=== PATIENT | female | born 1945 | race American Indian/Alaskan Native ===

== ENCOUNTER 2021-03-11 13:05 | Inpatient (IN) | payer MEDICARE ==
[2021-03-11 15:11] LABS: Calcium 8.7 mg/dL (8.4-10.2)
[2021-03-11 15:16] LABS: Hematocrit 31.5 % (30.3-42.9); Hemoglobin 10.7 gm/dl (10.1-14.3); Mean Corpuscular HGB Conc 34 % (30-34); Mean Corpuscular Volume 94 fl (79-97); Platelet Count 217 K/mm3 (140-440); Red Blood Count 3.36 M/mm3 (3.65-5.03); Red Cell Distribution Width 14.2 % (13.2-15.2)
[2021-03-11] MEDS ORDERED: SODIUM CHLORIDE 0.9% 1000 ML 1,000 ML IV ONE (15:17)
--- NOTE | 2021-03-11 15:20 | Emergency Department Report ---
ED General Adult HPI - General Chief complaint: Medical Clearance Stated complaint: DEHYDRATION Time Seen by Provider: 03/11/21 13:30 Source: patient, EMS Mode of arrival: Stretcher Limitations: Altered Mental Status - History of Present Illness Initial comments: 76-year-old female, history of dementia, COPD, hypertension, presents to the ED from personal senior care for dehydration and generalized weakness. Patient has apparently had a poor appetite, not eating. Patient had one episode of diarrhea this morning. She denies any nausea or vomiting, denies abdominal pain. Patient had blood pressure of 81/93, therefore she was sent to the ED for further evaluation. -: This morning Consistency: constant Improves with: none Worsens with: none Associated Symptoms: loss of appetite, weakness. denies: chest pain, cough, fev er/chills, nausea/vomiting, shortness of breath - Related Data Home Medications Medication Instructions Recorded Confirmed Last Taken Unobtainable 03/12/21 03/12/21 Unknown Allergies Allergy/AdvReac Type Severity Reaction Status Date / Time Penicillins Allergy Unknown Verified 03/11/21 20:02 ED Review of Systems ROS: Stated complaint: DEHYDRATION Other details as noted in HPI Comment: All other systems reviewed and negative Constitutional: denies: fever Respiratory: denies: shortness of breath Cardiovascular: denies: chest pain Gastrointestinal: diarrhea. denies: abdominal pain, vomiting ED Past Medical Hx - Past Medical History Previous Medical History?: Yes Hx Hypertension: Yes Hx COPD: Yes Hx Dementia: Yes - Medications Home Medications: Home Medications Medication Instructions Recorded Confirmed Last Taken Type Unobtainable 03/12/21 03/12/21 Unknown History ED Physical Exam - General Limitations: Altered Mental Status General appearance: alert, in no apparent distress - Head Head exam: Present: atraumatic, normocephalic - Eye Eye exam: Present: normal appearance, EOMI - ENT ENT exam: Present: mucous membranes moist - Neck Neck exam: Present: normal inspection - Respiratory Respiratory exam: Present: normal lung sounds bilaterally. Absent: respiratory distress - Cardiovascular Cardiovascular Exam: Present: regular rate, normal rhythm - GI/Abdominal GI/Abdominal exam: Present: soft. Absent: distended, tenderness - Extremities Exam Extremities exam: Present: normal inspection - Neurological Exam Neurological exam: Present: alert. Absent: altered - Psychiatric Psychiatric exam: Present: normal affect, normal mood - Skin Skin exam: Present: warm, dry, intact, normal color ED Course Vital Signs 03/11/21 03/11/21 03/11/21 13:18 15:34 16:16 Temperature 97.4 F L Pulse Rate 86 89 Respiratory 16 22 Rate Blood Pressure Blood Pressure 121/64 [Right] O2 Sat by Pulse 98 97 96 Oximetry 03/11/21 03/11/21 03/11/21 16:30 16:46 17:16 Temperature Pulse Rate 87 87 81 Respiratory 19 20 19 Rate Blood Pressure 136/71 134/64 Blood Pressure [Right] O2 Sat by Pulse 97 98 99 Oximetry 03/11/21 03/11/21 03/11/21 17:30 17:46 18:00 Temperature Pulse Rate 90 88 89 Respiratory 18 22 18 Rate Blood Pressure 133/72 136/75 134/64 Blood Pressure [Right] O2 Sat by Pulse 100 99 Oximetry 03/11/21 03/11/21 03/11/21 18:46 19:00 19:16 Temperature Pulse Rate 83 88 90 Respiratory Rate Blood Pressure 132/70 147/92 147/92 Blood Pressure [Right] O2 Sat by Pulse 97 97 96 Oximetry 03/11/21 03/11/21 03/11/21 19:30 19:46 20:00 Temperature Pulse Rate 89 85 87 Respiratory Rate Blood Pressure 147/92 147/92 147/92 Blood Pressure [Right] O2 Sat by Pulse 96 96 95 Oximetry 03/11/21 03/11/21 03/11/21 20:16 20:30 20:46 Temperature Pulse Rate 94 H 86 96 H Respiratory Rate Blood Pressure 147/92 147/92 147/92 Blood Pressure [Right] O2 Sat by Pulse 97 98 98 Oximetry 03/11/21 03/11/21 03/11/21 21:00 21:16 21:30 Temperature Pulse Rate 89 91 H 94 H Respiratory 20 Rate Blood Pressure 152/51 152/51 152/51 Blood Pressure [Right] O2 Sat by Pulse 97 98 97 Oximetry 03/11/21 03/11/21 03/11/21 21:46 22:00 22:16 Temperature Pulse Rate 89 88 76 Respiratory Rate Blood Pressure 152/51 151/58 151/58 Blood Pressure [Right] O2 Sat by Pulse 97 94 98 Oximetry 03/11/21 03/11/21 03/11/21 22:30 22:46 23:00 Temperature Pulse Rate 81 91 H 79 Respiratory Rate Blood Pressure 151/58 151/58 144/71 Blood Pressure [Right] O2 Sat by Pulse 98 97 96 Oximetry 03/11/21 03/11/21 03/11/21 23:16 23:30 23:46 Temperature Pulse Rate 86 92 H 77 Respiratory Rate Blood Pressure 144/71 144/71 144/71 Blood Pressure [Right] O2 Sat by Pulse 97 96 96 Oximetry 03/11/21 03/12/21 03/12/21 23:52 00:00 00:16 Temperature Pulse Rate 84 91 H 92 H Respiratory Rate Blood Pressure 144/71 157/78 157/78 Blood Pressure [Right] O2 Sat by Pulse 99 99 98 Oximetry 03/12/21 03/12/21 03/12/21 00:30 00:39 00:46 Temperature Pulse Rate 88 99 H Respiratory Rate Blood Pressure 157/78 157/78 Blood Pressure [Right] O2 Sat by Pulse 98 97 98 Oximetry 03/12/21 03/12/21 03/12/21 01:00 01:16 01:30 Temperature Pulse Rate 103 H 85 86 Respiratory Rate Blood Pressure 121/86 121/86 121/86 Blood Pressure [Right] O2 Sat by Pulse 99 98 99 Oximetry 03/12/21 03/12/21 03/12/21 01:46 02:00 02:16 Temperature Pulse Rate 95 H 77 93 H Respiratory Rate Blood Pressure 121/86 177/85 121/86 Blood Pressure [Right] O2 Sat by Pulse 99 96 98 Oximetry 03/12/21 03/12/21 03/12/21 02:30 02:46 03:00 Temperature Pulse Rate 91 H 81 78 Respiratory Rate Blood Pressure 121/86 121/86 122/95 Blood Pressure [Right] O2 Sat by Pulse 97 96 96 Oximetry 03/12/21 03/12/21 03/12/21 03:16 03:30 03:46 Temperature Pulse Rate 93 H 101 H 103 H Respiratory Rate Blood Pressure 177/85 177/85 177/85 Blood Pressure [Right] O2 Sat by Pulse 98 96 97 Oximetry 03/12/21 03/12/21 04:00 04:16 Temperature Pulse Rate 90 97 H Respiratory Rate Blood Pressure 179/80 122/95 Blood Pressure [Right] O2 Sat by Pulse 99 97 Oximetry ED Medical Decision Making - Lab Data Result diagrams: 03/12/21 06:26 03/12/21 06:26 Critical care attestation.: If time is entered above; I have spent that time in minutes in the direct care of this critically ill patient, excluding procedure time. ED Disposition Clinical Impression: Hyponatremia, Acute renal failure, Dehydration, Metabolic acidosis Disposition: OP ADMIT IP TO THIS HOSP Is pt being admited?: Yes Condition: Stable Time of Disposition: 16:05
[2021-03-11 15:41] LABS: Basophils % (Auto) 0.3 % (0.0-1.8); Eosinophils % (Auto) 0.2 % (0.0-4.3); Lymphocytes # (Auto) 1.3 K/mm3 (1.2-5.4); Lymphocytes % (Auto) 13.4 % (13.4-35.0); Monocytes % (Auto) 9.5 % (0.0-7.3)
[2021-03-11] MEDS ORDERED: METOCLOPRAMIDE 10 MG/2 ML INJ IV PRN ×2 (23:25→23:45)
[2021-03-11] MEDS ORDERED: MORPHINE 2 MG/1 ML INJ IV PRN (23:25)
[2021-03-11] MEDS ORDERED: ONDANSETRON 4 MG/2 ML INJ IV PRN (23:25)
--- NOTE | 2021-03-11 23:32 | History and Physical Report ---
History of Present Illness Date of examination: 03/11/21 Date of admission: 03/11/21 16:05 Chief complaint: Poor p.o. intake History of present illness: 76-year-old female with history of hypertension, COPD and dementia brought in for poor p.o. intake and low blood pressure. Apparently patient has not been urinating at all. Denies any nausea or vomiting. Denies abdominal pain. Initial blood pressure was 81/ 63. No fever or chills. No exposure to coronavirus. No known cause for poor p.o. intake. - Past Medical History Previous Medical History?: Yes --Hypertension: Yes --COPD: Yes --Dementia: Yes n Past surgical history+ unavailable Family history Htn Social history Does not smoke Review of Systems ROS: Constitutional poor p.o. intake HEENT no sore throat no post nasal drip no diplopia Neck no neck stiffness no lymph gland enlargement Chest and lungs no shortness of breath cough or wheezing CVS no chest pain no diaphoresis no palpitations GI no nausea no vomiting no diarrhea Genitourinary system no dysuria no flank pain Musculoskeletal system no muscle pains no joint pains [employer] no syncope no seizures Skin no rash no itching Psychiatric no depression no homicidal or suicidal tendencies Hematologic no lymphedema or bruising Endocrine no polydipsia no polyuria no cold intolerance no heat intolerance Medications and Allergies Allergies Allergy/AdvReac Type Severity Reaction Status Date / Time Penicillins Allergy Unknown Verified 03/11/21 20:02 Home Medications Medication Instructions Recorded Confirmed Last Taken Type Unobtainable 03/12/21 03/12/21 Unknown History Exam - Constitutional Vitals: Temp Pulse Resp BP Pulse Ox 97.4 F L 94 H 18 147/92 97 03/11/21 13:18 03/11/21 20:16 03/11/21 18:00 03/11/21 20:16 03/11/21 20:16 General appearance: Present: no acute distress, cachectic - EENT Eyes: Present: PERRL ENT: hearing intact, clear oral mucosa, other (Dry mucous membranes) - Neck Neck: Present: supple, normal ROM - Respiratory Respiratory effort: normal Respiratory: bilateral: CTA - Cardiovascular Heart rate: 88 Rhythm: regular Heart Sounds: Present: S1 & S2. Absent: rub, click - Extremities Extremities: pulses symmetrical, No edema Peripheral Pulses: within normal limits - Abdominal General gastrointestinal: Present: soft, non-tender, non-distended, normal bowel sounds Female genitourinary: Present: normal - Rectal Rectal Exam: deferred - Integumentary Integumentary: Present: clear, warm, dry - Musculoskeletal Musculoskeletal: gait normal, strength equal bilaterally - Psychiatric Psychiatric: appropriate mood/affect, intact judgment & insight - Neurologic Neurologic: CNII-XII intact, moves all extremities - Allied Health Allied health notes reviewed: nursing, social work, case management Results - Labs CBC & Chem 7: 03/11/21 14:18 03/11/21 14:18 Labs: Laboratory Last Values WBC 10.2 K/mm3 (4.5-11.0) 03/11/21 14:18 RBC 3.36 M/mm3 (3.65-5.03) L 03/11/21 14:18 Hgb 10.7 gm/dl (10.1-14.3) 03/11/21 14:18 Hct 31.5 % (30.3-42.9) 03/11/21 14:18 MCV 94 fl (79-97) 03/11/21 14:18 MCH 32 pg (28-32) 03/11/21 14:18 MCHC 34 % (30-34) 03/11/21 14:18 RDW 14.2 % (13.2-15.2) 03/11/21 14:18 Plt Count 217 K/mm3 (140-440) 03/11/21 14:18 Lymph % (Auto) 13.4 % (13.4-35.0) 03/11/21 14:18 [place] % (Auto) 9.5 % (0.0-7.3) H 03/11/21 14:18 Eos % (Auto) 0.2 % (0.0-4.3) 03/11/21 14:18 Baso % (Auto) 0.3 % (0.0-1.8) 03/11/21 14:18 Lymph # (Auto) 1.3 K/mm3 (1.2-5.4) 03/11/21 14:18 [place] # (Auto) 1.0 K/mm3 (0.0-0.8) H 03/11/21 14:18 Eos # (Auto) 0.0 K/mm3 (0.0-0.4) 03/11/21 14:18 Baso # (Auto) 0.0 K/mm3 (0.0-0.1) 03/11/21 14:18 Add Manual Diff Complete 03/11/21 14:18 Seg Neutrophils % 76.6 % (40.0-70.0) H 03/11/21 14:18 Nucleated RBC % Not Reportable 03/11/21 14:18 Seg Neutrophils # 7.7 K/mm3 (1.8-7.7) 03/11/21 14:18 WBC Morphology Not Reportable 03/11/21 14:18 Hypersegmented Neuts Not Reportable 03/11/21 14:18 Hyposegmented Neuts Not Reportable 03/11/21 14:18 Hypogranular Neuts Not Reportable 03/11/21 14:18 Smudge Cells Not Reportable 03/11/21 14:18 Toxic Granulation Not Reportable 03/11/21 14:18 Toxic Vacuolation Not Reportable 03/11/21 14:18 Dohle Bodies Not Reportable 03/11/21 14:18 Pelger-Huet Anomaly Not Reportable 03/11/21 14:18 Diann Rods Not Reportable 03/11/21 14:18 Platelet Estimate Not Reportable 03/11/21 14:18 Clumped Platelets Not Reportable 03/11/21 14:18 Plt Clumps, EDTA Not Reportable 03/11/21 14:18 Large Platelets Not Reportable 03/11/21 14:18 Giant Platelets Not Reportable 03/11/21 14:18 Platelet Satelliting Not Reportable 03/11/21 14:18 Plt Morphology Comment Not Reportable 03/11/21 14:18 RBC Morphology Not Reportable 03/11/21 14:18 Dimorphic RBCs Not Reportable 03/11/21 14:18 Polychromasia Not Reportable 03/11/21 14:18 Hypochromasia Not Reportable 03/11/21 14:18 Poikilocytosis Not Reportable 03/11/21 14:18 Anisocytosis Not Reportable 03/11/21 14:18 Microcytosis Not Reportable 03/11/21 14:18 Macrocytosis Not Reportable 03/11/21 14:18 Spherocytes Not Reportable 03/11/21 14:18 Pappenheimer Bodies Not Reportable 03/11/21 14:18 Sickle Cells Not Reportable 03/11/21 14:18 Target Cells Not Reportable 03/11/21 14:18 Tear Drop Cells Not Reportable 03/11/21 14:18 Ovalocytes Not Reportable 03/11/21 14:18 Helmet Cells Not Reportable 03/11/21 14:18 [place] Bodies Not Reportable 03/11/21 14:18 [place] Rings Not Reportable 03/11/21 14:18 [place] Cells Not Reportable 03/11/21 14:18 Bite Cells Not Reportable 03/11/21 14:18 Crenated Cell Not Reportable 03/11/21 14:18 Elliptocytes Not Reportable 03/11/21 14:18 Acanthocytes (Spur) Not Reportable 03/11/21 14:18 Rouleaux Not Reportable 03/11/21 14:18 Hemoglobin C Crystals Not Reportable 03/11/21 14:18 Schistocytes Not Reportable 03/11/21 14:18 Malaria parasites Not Reportable 03/11/21 14:18 [place] Bodies Not Reportable 03/11/21 14:18 Hem Pathologist Commnt No 03/11/21 14:18 Sodium 129 mmol/L (137-145) L 03/11/21 14:18 Potassium 3.7 mmol/L (3.6-5.0) 03/11/21 14:18 Chloride 96.9 mmol/L (98-107) L 03/11/21 14:18 Carbon Dioxide 16 mmol/L (22-30) L 03/11/21 14:18 Anion Gap 20 mmol/L 03/11/21 14:18 BUN 37 mg/dL (7-17) H 03/11/21 14:18 Creatinine 1.4 mg/dL (0.6-1.2) H 03/11/21 14:18 Estimated GFR 36 ml/min 03/11/21 14:18 BUN/Creatinine Ratio 26 % 03/11/21 14:18 Glucose 114 mg/dL (65-100) H 03/11/21 14:18 Calcium 8.7 mg/dL (8.4-10.2) 03/11/21 14:18 Short CBC 03/11/21 Range/Units 14:18 WBC 10.2 (4.5-11.0) K/mm3 Hgb 10.7 (10.1-14.3) gm/dl Hct 31.5 (30.3-42.9) % Plt Count 217 (140-440) K/mm3 [facility] 03/11/21 14:18 Sodium 129 L Potassium 3.7 Chloride 96.9 L Carbon Dioxide 16 L BUN 37 H Creatinine 1.4 H Glucose 114 H Calcium 8.7 Assessment and Plan Advance Directives: Yes (Full code) VTE prophylaxis?: Chemical Plan of care discussed with patient/family: Yes - Patient Problems (1) Hyponatremia Current Visit: Yes Status: Acute Plan to address problem: IV normal saline for now Recheck sodium level (2) Acute kidney injury Current Visit: Yes Status: Acute Plan to address problem: IV fluids for now Vasomotor nephropathy (3) Failure to thrive Current Visit: Yes Status: Chronic Qualifiers: Failure to thrive age range: in adult Qualified Code(s): R62.7 - Adult failure to thrive Plan to address problem: Calorie intake and dietitian consult (4) Dehydration Current Visit: Yes Status: Acute Plan to address problem: IV fluids for now (5) DVT prophylaxis Current Visit: Yes Status: Acute Plan to address problem: On heparin and GI prophylaxis
[2021-03-11] MEDS ORDERED: FAMOTIDINE 20 MG/2 ML INJ IV SCH (23:45)
[2021-03-12] MEDS: D5W/0.9% NACL 1,000 ML IV SCH (06:22)
[2021-03-12 07:35] LABS: Basophils % (Auto) 0.2 % (0.0-1.8); Eosinophils % (Auto) 0.4 % (0.0-4.3); Hemoglobin 11.2 gm/dl (10.1-14.3); Lymphocytes # (Auto) 1.1 K/mm3 (1.2-5.4); Lymphocytes % (Auto) 11.9 % (13.4-35.0); Mean Corpuscular HGB Conc 34 % (30-34); Mean Corpuscular Volume 94 fl (79-97); Monocytes # (Auto) 0.8 K/mm3 (0.0-0.8); Monocytes % (Auto) 8.5 % (0.0-7.3); Platelet Count 221 K/mm3 (140-440); Red Blood Count 3.53 M/mm3 (3.65-5.03); Red Cell Distribution Width 13.9 % (13.2-15.2)
[2021-03-12 07:53] LABS: Alanine Aminotransferase 26 units/L (7-56); Albumin 3.3 g/dL (3.9-5); BUN/Creatinine Ratio 33; Blood Urea Nitrogen 30 mg/dL (7-17); Calcium 9.5 mg/dL (8.4-10.2); Hemolysis Index 2
[2021-03-12] MEDS: HEPARIN 5,000 UNIT/1 ML VIAL SUB-Q SCH ×2 (10:00→21:58)
[2021-03-12] MEDS: FAMOTIDINE 20 MG/2 ML INJ IV SCH (11:48)
[2021-03-12] MEDS ORDERED: NIFEdipine XL 60 MG TAB PO ONE (13:30)
[2021-03-12] MEDS ORDERED: cloNIDine 0.1 MG TAB PO ONE (13:30)
--- NOTE | 2021-03-12 15:07 | Progress Note ---
Assessment and Plan - Patient Problems (1) Dementia Current Visit: Yes Status: Acute Plan to address problem: Patient failure to thrive most likely secondary to worsening dementia and one of the problems of prolonged dementia. Patient is alert has poor cognition however able to make needs known. Upon discharge will do so with appetite stimulant. (2) Acute renal failure Current Visit: Yes Status: Acute Plan to address problem: Can Siddharth to prerenal azotemia. Improving. Creatinine has improved to 2.9. (3) DVT prophylaxis Current Visit: Yes Status: Acute (4) Dehydration Current Visit: Yes Status: Acute Plan to address problem: Secondary to decreased p.o. intake. Resolved. (5) Hyponatremia Current Visit: Yes Status: Acute Plan to address problem: Much better sodium 135 today with IV fluids. (6) Failure to thrive Current Visit: Yes Status: Chronic Qualifiers: Failure to thrive age range: in adult Qualified Code(s): R62.7 - Adult failure to thrive Plan to address problem: Exact etiology unknown at this time. Most likely etiology worsening dementia. Subjective Date of service: 03/12/21 Principal diagnosis: Dehydration altered mental status Interval history: Patient today no new concerns at present states I am okay. I feel good. Ask why she was not eating and drinking cannot really tell me. Patient seems alert with it no acute distress. Objective - Constitutional Vitals: Vital Signs - 12hr 03/12/21 03/12/21 03/12/21 03:16 03:30 03:46 Temperature Pulse Rate 93 H 101 H 103 H Respiratory Rate Blood Pressure 177/85 177/85 177/85 O2 Sat by Pulse 98 96 97 Oximetry 03/12/21 03/12/21 03/12/21 04:00 04:16 12:05 Temperature 98.0 F Pulse Rate 90 97 H 96 H Respiratory 24 Rate Blood Pressure 179/80 122/95 201/90 O2 Sat by Pulse 99 97 100 Oximetry 03/12/21 13:54 Temperature Pulse Rate Respiratory Rate Blood Pressure 201/90 O2 Sat by Pulse Oximetry General appearance: Present: no acute distress, well-nourished - EENT Eyes: PERRL, EOM intact ENT: hearing intact, clear oral mucosa Ears: bilateral: normal - Neck Neck: supple, normal ROM - Respiratory Respiratory effort: normal Respiratory: bilateral: CTA - Breasts Breasts: normal - Cardiovascular Rhythm: regular Heart Sounds: Present: S1 & S2. Absent: gallop, rub Extremities: pulses intact, No edema, normal color, Full ROM Extremity abnormal: other (Contractures right hemiparesis hand contracture.) - Gastrointestinal General gastrointestinal: Present: soft, non-tender, non-distended, normal bowel sounds, other (Abdomen scaphoid positive bowel sounds. Did attempt to eat today.) - Genitourinary Female genitourinary: normal - Integumentary Integumentary: clear, warm, dry - Musculoskeletal Musculoskeletal: strength equal bilaterally, generalized weakness - Neurologic Neurologic: moves all extremities - Psychiatric Psychiatric: memory intact, appropriate mood/affect, intact judgment & insight - Labs CBC & Chem 7: 03/12/21 06:26 03/12/21 06:26 Labs: Abnormal lab results 03/11/21 03/11/21 03/12/21 Range/Units 14:18 14:18 06:26 RBC 3.36 L 3.53 L (3.65-5.03) M/mm3 Lymph % (Auto) 11.9 L (13.4-35.0) % [place] % (Auto) 9.5 H 8.5 H (0.0-7.3) % Lymph # (Auto) 1.1 L (1.2-5.4) K/mm3 [place] # (Auto) 1.0 H (0.0-0.8) K/mm3 Seg Neutrophils % 76.6 H 79.0 H (40.0-70.0) % Sodium 129 L (137-145) mmol/L Potassium (3.6-5.0) mmol/L Chloride 96.9 L (98-107) mmol/L Carbon Dioxide 16 L (22-30) mmol/L BUN 37 H (7-17) mg/dL Creatinine 1.4 H (0.6-1.2) mg/dL Glucose 114 H (65-100) mg/dL AST (5-40) units/L Albumin (3.9-5) g/dL 03/12/21 Range/Units 06:26 RBC (3.65-5.03) M/mm3 Lymph % (Auto) (13.4-35.0) % [place] % (Auto) (0.0-7.3) % Lymph # (Auto) (1.2-5.4) K/mm3 [place] # (Auto) (0.0-0.8) K/mm3 Seg Neutrophils % (40.0-70.0) % Sodium 135 L (137-145) mmol/L Potassium 3.5 L (3.6-5.0) mmol/L Chloride (98-107) mmol/L Carbon Dioxide (22-30) mmol/L BUN 30 H (7-17) mg/dL Creatinine (0.6-1.2) mg/dL Glucose (65-100) mg/dL AST 92 H (5-40) units/L Albumin 3.3 L (3.9-5) g/dL
[2021-03-13] MEDS: D5W/0.9% NACL 1,000 ML IV SCH (01:15)
--- NOTE | 2021-03-13 08:09 | Discharge Summary ---
Providers - Providers Date of Admission: 03/11/21 16:05 Date of discharge: 03/13/21 Attending physician: MANJINDER SNOW 03/12/21 11:02 Physical Therapy Evaluation and Treat [CONS] Stat Comment: Debility Reason For Exam: Physical Therapy Eval & Treat 03/12/21 11:05 Occupational Therapy Evaluate and Treat [CONS] Stat Comment: Eval and Treat Reason For Exam: Occupational Therapy Primary care physician: HARRIETT SABA Hospitalization Reason for admission: dehydration Condition: Fair Hospital course: Patient presented with poor p.o. intake advanced dementia contractures. Had episode of hypotension. Resolved quickly with IV volume hydration. We held patient's blood pressure medication and patient blood pressure went back up to the 180s. Patient did have a temp of 99 with some nasal congestion. Will evaluate rule out Covid 19. Patient had no exposure. Treat with Claritin and restart patient on blood pressure medications. Disposition: [id number]/[place]-03 [facility] Final Discharge Diagnosis (Prints w/discharge instructions): metabolic encephalopathy - Discharge Diagnoses (1) Dementia Status: Acute Comment: Patient with cognitive impairment most likely vascular dementia. (2) Acute renal failure Status: Acute Comment: Resolved with IV volume hydration. (3) DVT prophylaxis Status: Acute (4) Dehydration Status: Acute Comment: Patient now eating better also require supplementation is personal detention. (5) Hyponatremia Status: Acute (6) Failure to thrive Status: Chronic Qualifiers: Failure to thrive age range: in adult Qualified Code(s): R62.7 - Adult failure to thrive Core Measure Documentation - Palliative Care Palliative Care/ Comfort Measures: Not Applicable - Core Measures Any of the following diagnoses?: none Exam - Constitutional Vitals: Temp Pulse Resp BP Pulse Ox 98.2 F 101 H 18 138/74 95 03/13/21 04:11 03/13/21 04:11 03/13/21 04:11 03/13/21 04:11 03/13/21 04:11 General appearance: Present: no acute distress, well-nourished - EENT Eyes: Present: PERRL ENT: hearing intact, clear oral mucosa - Neck Neck: Present: supple, normal ROM - Respiratory Respiratory effort: normal Respiratory: bilateral: CTA - Cardiovascular Heart Sounds: Present: S1 & S2. Absent: rub, click - Extremities Extremities: pulses symmetrical, No edema Peripheral Pulses: within normal limits - Abdominal General gastrointestinal: Present: soft, non-tender, non-distended, normal bowel sounds Female genitourinary: Present: normal - Integumentary Integumentary: Present: clear, warm, dry - Musculoskeletal Musculoskeletal: generalized weakness, other (Contracture) - Psychiatric Psychiatric: appropriate mood/affect, intact judgment & insight - Neurologic Neurologic: CNII-XII intact, moves all extremities Plan Weight Bearing Status: Non-Weight Bearing Diet: low salt Follow up with: HARRIETT ASBA MD [Primary Care Provider] - 3-5 Days Prescriptions: Sulfamethoxazole/Trimethoprim [Bactrim DS TAB] 1 each PO BID #14 tablet Doxycycline Hyclate [Doxycycline Hyclate TAB] 100 mg PO Q12HR #7 tab
[2021-03-13] MEDS: HEPARIN 5,000 UNIT/1 ML VIAL SUB-Q SCH ×2 (10:00→23:01)
[2021-03-13 12:15] LABS: Blood Urea Nitrogen 17 mg/dL (7-17); Hemolysis Index 6
[2021-03-13] MEDS: FAMOTIDINE 20 MG/2 ML INJ IV SCH (12:20)
[2021-03-13 12:28] LABS: BUN/Creatinine Ratio 34
[2021-03-13] MEDS: ACETAMINOPHEN 325 MG TAB PO PRN ×2 (13:15→23:02)
[2021-03-13] MEDS ORDERED: amLODIPine 5 MG TAB PO ONE (13:51)
[2021-03-13] MEDS ORDERED: AZITHROMYCIN 250 MG TAB PO SCH (14:00)
[2021-03-13] MEDS: CETIRIZINE 10 MG TAB PO SCH (14:22)
--- NOTE | 2021-03-13 16:41 | XRay Report ---
CHEST PA AND LATERAL VIEWS INDICATION: sob. COMPARISON: None. FINDINGS: Support devices: None. Heart: Within normal limits. Lungs/Pleura: Linear density in the right lung base may be an area of platelike atelectasis but is no nspecific. Lungs are otherwise clear. No pleural abnormality. There is mild elevation of the right hemidiaphragm. IMPRESSION: 1. Linear density in the right lung base may be due to platelike atelectasis but is nonspecific. Signer Name: Ramon Cee MD Signed: 03/13/2021 4:37 PM Workstation Name: [id number]
[2021-03-14 00:29] LABS: Bacteria,Urine 1+ /HPF (Negative); Bilirubin,Urine NEG (Negative); Blood,Urine NEG (Negative); Color,Urine Yellow (Yellow); Mucus,Urine FEW /HPF; Protein,Urine <15 mg/dL mg/dL (Negative)
[2021-03-14] MEDS: hydrALAZINE 20 MG/1 ML INJ IV PRN (05:44)
[2021-03-14] MEDS: D5W/0.9% NACL 1,000 ML IV SCH ×2 (06:40→16:24)
[2021-03-14] MEDS: FAMOTIDINE 20 MG/2 ML INJ IV SCH (11:01)
[2021-03-14] MEDS: HEPARIN 5,000 UNIT/1 ML VIAL SUB-Q SCH ×2 (11:01→21:37)
[2021-03-14] MEDS: CETIRIZINE 10 MG TAB PO SCH (11:01)
[2021-03-15] MEDS: HEPARIN 5,000 UNIT/1 ML VIAL SUB-Q SCH ×2 (10:29→21:51)
[2021-03-15] MEDS: FAMOTIDINE 20 MG/2 ML INJ IV SCH (10:29)
[2021-03-15] MEDS: CETIRIZINE 10 MG TAB PO SCH (10:29)
--- NOTE | 2021-03-15 12:24 | Progress Note ---
Assessment and Plan Assessment and plan: Patient presented with poor p.o. intake advanced dementia contractures. Had episode of hypotension. Resolved quickly with IV volume hydration. We held patient's blood pressure medication and patient blood pressure went back up to the 180s. Patient did have a temp of 99 with some nasal congestion. Will evaluate rule out Covid 19. Patient had no exposure. Treat with Claritin and restart patient on blood pressure medications. Disposition: DC-01 TO HOME OR SELFCARE (1) Dementia Status: Acute Comment: Patient with cognitive impairment most likely vascular dementia. (2) Acute renal failure Status: Acute Comment: Resolved with IV volume hydration. (3) DVT prophylaxis Status: Acute (4) Dehydration Status: Acute Comment: Patient now eating better also require supplementation is personal fci. (5) Hyponatremia Status: Acute (6) Failure to thrive Status: Chronic Qualifiers: Failure to thrive age range: in adult Qualified Code(s): R62.7 - Adult failure to thrive 03/15: Patient seen and examined, awaiting discharge and arrangement with home health for wound management. Discussed with case management. Follow blood cultures, counting abx, following evaluation of the wound picture will obtain surgical consult prior to discharge to further evaluate. As patient still with low-grade fever. History Interval history: Patient seen and examined clinically unchanged heel dressing in place. Was discharged yesterday but issues with home health precluded patient leaving. Hospitalist Physical - Physical exam Narrative exam: General appearance: Present: no acute distress, well-nourished - EENT Eyes: Present: PERRL ENT: hearing intact, clear oral mucosa - Neck Neck: Present: supple, normal ROM - Respiratory Respiratory effort: normal Respiratory: bilateral: CTA - Cardiovascular Heart Sounds: Present: S1 & S2. Absent: rub, click - Extremities Extremities: pulses symmetrical, No edema Peripheral Pulses: within normal limits - Abdominal General gastrointestinal: Present: soft, non-tender, non-distended, normal bowel sounds Female genitourinary: Present: normal - Integumentary Integumentary: Present: See clinical documentation on skin care patient with left heel ulceration and dressing in place - Musculoskeletal Musculoskeletal: generalized weakness, other (Contracture) - Psychiatric Psychiatric: appropriate mood/affect, intact judgment & insight - Neurologic Neurologic: CNII-XII intact, moves all extremities - Constitutional Vitals: Temp Pulse Resp BP Pulse Ox 98.9 F 91 H 16 149/75 98 03/15/21 04:06 03/15/21 04:06 03/15/21 04:06 03/15/21 04:06 03/15/21 04:06 General appearance: Present: no acute distress, well-nourished Results - Labs CBC & Chem 7: 03/12/21 06:26 03/13/21 11:19 Labs: Laboratory Last Values WBC 9.2 K/mm3 (4.5-11.0) 03/12/21 06:26 RBC 3.53 M/mm3 (3.65-5.03) L 03/12/21 06:26 Hgb 11.2 gm/dl (10.1-14.3) 03/12/21 06:26 Hct 33.0 % (30.3-42.9) 03/12/21 06:26 MCV 94 fl (79-97) 03/12/21 06:26 MCH 32 pg (28-32) 03/12/21 06:26 MCHC 34 % (30-34) 03/12/21 06:26 RDW 13.9 % (13.2-15.2) 03/12/21 06:26 Plt Count 221 K/mm3 (140-440) 03/12/21 06:26 Lymph % (Auto) 11.9 % (13.4-35.0) L 03/12/21 06:26 [place] % (Auto) 8.5 % (0.0-7.3) H 03/12/21 06:26 Eos % (Auto) 0.4 % (0.0-4.3) 03/12/21 06:26 Baso % (Auto) 0.2 % (0.0-1.8) 03/12/21 06:26 Lymph # (Auto) 1.1 K/mm3 (1.2-5.4) L 03/12/21 06:26 [place] # (Auto) 0.8 K/mm3 (0.0-0.8) 03/12/21 06:26 Eos # (Auto) 0.0 K/mm3 (0.0-0.4) 03/12/21 06:26 Baso # (Auto) 0.0 K/mm3 (0.0-0.1) 03/12/21 06:26 Add Manual Diff Complete 03/11/21 14:18 Seg Neutrophils % 79.0 % (40.0-70.0) H 03/12/21 06:26 Nucleated RBC % Not Reportable 03/11/21 14:18 Seg Neutrophils # 7.3 K/mm3 (1.8-7.7) 03/12/21 06:26 WBC Morphology Not Reportable 03/11/21 14:18 Hypersegmented Neuts Not Reportable 03/11/21 14:18 Hyposegmented Neuts Not Reportable 03/11/21 14:18 Hypogranular Neuts Not Reportable 03/11/21 14:18 Smudge Cells Not Reportable 03/11/21 14:18 Toxic Granulation Not Reportable 03/11/21 14:18 Toxic Vacuolation Not Reportable 03/11/21 14:18 Dohle Bodies Not Reportable 03/11/21 14:18 Pelger-Huet Anomaly Not Reportable 03/11/21 14:18 Diann Rods Not Reportable 03/11/21 14:18 Platelet Estimate Not Reportable 03/11/21 14:18 Clumped Platelets Not Reportable 03/11/21 14:18 Plt Clumps, EDTA Not Reportable 03/11/21 14:18 Large Platelets Not Reportable 03/11/21 14:18 Giant Platelets Not Reportable 03/11/21 14:18 Platelet Satelliting Not Reportable 03/11/21 14:18 Plt Morphology Comment Not Reportable 03/11/21 14:18 RBC Morphology Not Reportable 03/11/21 14:18 Dimorphic RBCs Not Reportable 03/11/21 14:18 Polychromasia Not Reportable 03/11/21 14:18 Hypochromasia Not Reportable 03/11/21 14:18 Poikilocytosis Not Reportable 03/11/21 14:18 Anisocytosis Not Reportable 03/11/21 14:18 Microcytosis Not Reportable 03/11/21 14:18 Macrocytosis Not Reportable 03/11/21 14:18 Spherocytes Not Reportable 03/11/21 14:18 Pappenheimer Bodies Not Reportable 03/11/21 14:18 Sickle Cells Not Reportable 03/11/21 14:18 Target Cells Not Reportable 03/11/21 14:18 Tear Drop Cells Not Reportable 03/11/21 14:18 Ovalocytes Not Reportable 03/11/21 14:18 Helmet Cells Not Reportable 03/11/21 14:18 [place] Bodies Not Reportable 03/11/21 14:18 [place] Rings Not Reportable 03/11/21 14:18 Prabhakar Cells Not Reportable 03/11/21 14:18 Bite Cells Not Reportable 03/11/21 14:18 Crenated Cell Not Reportable 03/11/21 14:18 Elliptocytes Not Reportable 03/11/21 14:18 Acanthocytes (Spur) Not Reportable 03/11/21 14:18 Rouleaux Not Reportable 03/11/21 14:18 Hemoglobin C Crystals Not Reportable 03/11/21 14:18 Schistocytes Not Reportable 03/11/21 14:18 Malaria parasites Not Reportable 03/11/21 14:18 Florentino Bodies Not Reportable 03/11/21 14:18 Hem Pathologist Commnt No 03/11/21 14:18 Sodium 135 mmol/L (137-145) L 03/13/21 11:19 Potassium 3.6 mmol/L (3.6-5.0) 03/13/21 11:19 Chloride 104.9 mmol/L (98-107) 03/13/21 11:19 Carbon Dioxide 22 mmol/L (22-30) 03/13/21 11:19 Anion Gap 12 mmol/L 03/13/21 11:19 BUN 17 mg/dL (7-17) 03/13/21 11:19 Creatinine 0.5 mg/dL (0.6-1.2) L 03/13/21 11:19 Estimated GFR > 60 ml/min 03/13/21 11:19 BUN/Creatinine Ratio 34 % 03/13/21 11:19 Glucose 128 mg/dL (65-100) H 03/13/21 11:19 Hemoglobin A1c 5.9 % (4-6) 03/12/21 06:26 Calcium 9.0 mg/dL (8.4-10.2) 03/13/21 11:19 Total Bilirubin 0.40 mg/dL (0.1-1.2) 03/12/21 06:26 AST 92 units/L (5-40) H 03/12/21 06:26 ALT 26 units/L (7-56) 03/12/21 06:26 Alkaline Phosphatase 71 units/L (35-129) 03/12/21 06:26 Total Protein 7.7 g/dL (6.3-8.2) 03/12/21 06:26 Albumin 3.3 g/dL (3.9-5) L 03/12/21 06:26 Albumin/Globulin Ratio 0.8 % 03/12/21 06:26 Urine Color Yellow (Yellow) 03/13/21 23:23 Urine Turbidity Slightly-cloudy (Clear) 03/13/21 23:23 Urine pH 7.0 (5.0-7.0) 03/13/21 23:23 Ur Specific [place] 1.010 (1.003-1.030) 03/13/21 23:23 Urine Protein <15 mg/dl mg/dL (Negative) 03/13/21 23:23 Urine Glucose (UA) Neg mg/dL (Negative) 03/13/21 23:23 Urine Ketones Neg mg/dL (Negative) 03/13/21 23:23 Urine Blood Neg (Negative) 03/13/21 23:23 Urine Nitrite Neg (Negative) 03/13/21 23:23 Urine Bilirubin Neg (Negative) 03/13/21 23:23 Urine Urobilinogen 2.0 mg/dL (<2.0) 03/13/21 23:23 Ur Leukocyte Esterase Sm (Negative) 03/13/21 23:23 Urine WBC (Auto) 3.0 /HPF (0.0-6.0) 03/13/21 23:23 Urine RBC (Auto) 2.0 /HPF (0.0-6.0) 03/13/21 23:23 U Epithel Cells (Auto) 6.0 /HPF (0-13.0) 03/13/21 23:23 Urine Bacteria (Auto) 1+ /HPF (Negative) 03/13/21 23:23 Urine Mucus Few /HPF 03/13/21 23:23 Coronavirus (PCR) Negative (Negative) 03/14/21 09:55 Microbiology: Microbiology 03/14/21 00:15 Peripheral/Venous Blood Culture - Preliminary NO GROWTH AFTER 24 HOURS 03/13/21 23:38 Peripheral/Venous Blood Culture - Preliminary [place]/IV: Voiding Method Incontinent Active Medications - Current Medications Current Medications: Generic Name Dose Route Start Last Admin Trade Name Freq PRN Reason Stop Dose Admin Acetaminophen 650 mg 03/11/21 23:25 03/13/21 23:02 Acetaminophen 325 Mg Tab PO 650 mg Q4H PRN Administration Pain MILD(1-3)/Fever >100.5/MASTERS Cetirizine HCl 10 mg 03/13/21 14:00 03/15/21 10:29 Cetirizine 10 Mg Tab PO 10 mg QDAY MARQUES Administration Famotidine 20 mg 03/12/21 10:00 03/15/21 10:29 Famotidine 20 Mg/2 Ml Inj IV 20 mg QAM MARQUES Administration Heparin Sodium (Porcine) 5,000 unit 03/11/21 23:30 03/15/21 10:29 Heparin 5,000 Unit/1 Ml Vial SUB-Q 5,000 unit Q12HR MARQUES Administration Hydralazine HCl 10 mg 03/14/21 05:23 03/14/21 05:44 Hydralazine 20 Mg/1 Ml Inj IV 10 mg Q6HR PRN Administration Blood Pressure Hydromorphone HCl 0.5 mg 03/11/21 23:25 Hydromorphone 1 Mg/1 Ml Inj IV Q3H PRN Pain , Severe (7-10) Dextrose/Sodium Chloride 1,000 mls @ 100 mls/hr 03/11/21 23:45 03/14/21 16:24 D5ns IV 100 mls/hr DIRECT MARQUES Administration Levofloxacin/Dextrose 750 mg in 150 mls @ 100 mls/hr 03/13/21 23:00 03/15/21 00:30 Levaquin 750mg/150ml IV 100 mls/hr Q24H MARQUES Administration Protocol Metoclopramide HCl 5 mg 03/11/21 23:45 Metoclopramide 10 Mg/2 Ml Inj IV Q6H PRN Nausea And Vomiting Morphine Sulfate 2 mg 03/11/21 23:25 Morphine 2 Mg/1 Ml Inj IV Q4H PRN Pain, Moderate (4-6) Ondansetron HCl 4 mg 03/11/21 23:25 Ondansetron 4 Mg/2 Ml Inj IV Q8H PRN Nausea And Vomiting Sodium Chloride 10 ml 03/12/21 10:00 03/15/21 10:29 Sodium Chloride 0.9% 10 Ml Flush Syringe IV 10 ml BID MARQUES Administration Sodium Chloride 10 ml 03/11/21 23:25 Sodium Chloride 0.9% 10 Ml Flush Syringe IV PRN PRN LINE FLUSH Nutrition/Malnutrition Assess - Dietary Evaluation Nutrition/Malnutrition Findings: Nutrition Notes Start: 03/12/21 14:03 Freq: Status: Active Protocol: Document 03/12/21 14:03 KITTY (Rec: 03/12/21 14:13 [id number]) Nutrition Notes Need for Assessment generated from: Low BMI Initial or Follow up Assessment Current Diagnosis Acute Kidney Injury, Hypertension Other Pertinent Diagnosis dementia, FTT, dehydration Current Diet regular Labs/Tests Na 135 K 3.5 BP 201/90 Pertinent Medications D5NS at 100 ml/hr Height 5 ft 2 in Weight 43.545 kg Usual Body Weight 50 kg [place] Body Weight (kg) 50.00 BMI 17.5 Weight change and time frame 13% wt loss in 1 year Weight Status Underweight Subjective/Other Information Screen for low BMI. Pt with muscle and fat wasting. She states she just don't feel like having food or water often. Burn Absent Trauma Absent Current % PO Poor (25-49%) Minimum of two criteria Yes Energy Intake (non-severe) <75% Estimated Energy Requirement >7 days Body Fat Depletion Mild depletion (non-severe) Muscle Mass Mild Depletion (non-severe) #1 Nutrition Diagnosis Malnutrition Etiology advanced age As Evidenced by Signs and Symptoms <75% of EER in >7 days, muscle and fat wasting Is patient on ventilator? No Is Patient Ambulatory and/or Out of Bed No REE-([facility]-confined to bed) 1049.400 Kcal/Kg value to use for calculation 31 Approximate Energy Requirements Using 1350 kcal/Kg Calculation Used for Recommendations Kcal/kg Additional Notes Protein: (1.2-1.5g/kg) 52-65g Fluid: 1 ml/kcal Nutrition Intervention Change Diet Order: cardiac Add Supplement/Snack (indicate name/kcal Ensure Enlive BID /protein ) Provides kCal: 700 Provides Protein (gm) 40 Goal #1 Meet at least 75% of energy and protein needs via PO and ONS FU for intakes and ONS tolerance Anticipated Discharge Needs: cardiac Follow-Up By: 03/16/21 Additional Comments FU for intakes and ONS tolerance
[2021-03-15] MEDS ORDERED: VANCOMYCIN PHARMACY TO DOSE IV SCH (17:00)
[2021-03-15] MEDS: CEFEPIME/NS 1 GM/100 ML 1 GM/100 ML BAG IV SCH (17:22)
[2021-03-15] MEDS ORDERED: VANCOMYCIN 750 MG in SODIUM CHLORIDE 0.9% 250ML 250 ML IV ONE (17:30)
[2021-03-15] MEDS: D5W/0.9% NACL 1,000 ML IV SCH (20:22)
[2021-03-16] MEDS: CEFEPIME/NS 1 GM/100 ML 1 GM/100 ML BAG IV SCH ×2 (00:35→10:38)
[2021-03-16] MEDS: ACETAMINOPHEN 325 MG TAB PO PRN ×2 (06:17→17:35)
[2021-03-16] MEDS: D5W/0.9% NACL 1,000 ML IV SCH ×2 (06:18→17:41)
[2021-03-16] MEDS: HEPARIN 5,000 UNIT/1 ML VIAL SUB-Q SCH ×2 (10:38→23:20)
[2021-03-16] MEDS: FAMOTIDINE 20 MG/2 ML INJ IV SCH (10:39)
[2021-03-16] MEDS: CETIRIZINE 10 MG TAB PO SCH (10:39)
--- NOTE | 2021-03-16 11:48 | Consultation ---
History of Present Illness - Reason for Consult Consult date: 03/16/21 - History of Present Illness 76-year-old female past medical history hypertension, COPD, dementia admitted to the hospital due to poor p.o. intake and low blood pressure. She also has a decreased urine output. Otherwise denied any symptoms. She was incidentally found to have an ESBL E. coli in the blood cultures. Febrile to 100.7 with a white count 9.2. Covid negative. Currently on cefepime and vancomycin. Imaging personally reviewed: Chest x-ray: Atelectasis in the right lung. Review of Systems: Bold if positive, otherwise negative General: fevers, chills, rigors HEENT: visual disturbance, diplopia, eye pain Respiratory: cough, sputum, hemoptysis, shortness of breath Cardiovascular: chest pain, syncope Gastrointestinal: nausea, vomiting, diarrhea, abdominal pain Genitourinary: dysuria, hematuria, flank pain Musculoskeletal: neck pain, back pain, joint pain, edema Neurologic: headaches, seizures Hematologic: easy bruising or bleeding Endocrine: night sweats, acute weight loss Skin: rash, jaundice, redness Psychiatric: suicidal, homicidal ideation Past History Past Medical History: other (See HPI) Medications and Allergies Allergies Allergy/AdvReac Type Severity Reaction Status Date / Time Penicillins Allergy Unknown Verified 03/11/21 20:02 Home Medications Medication Instructions Recorded Confirmed Last Taken Type Doxycycline Hyclate [Doxycycline 100 mg PO Q12HR #7 tab 03/16/21 Unknown Rx Hyclate TAB] Sulfamethoxazole/Trimethoprim 1 each PO BID #14 tablet 03/16/21 Unknown Rx [Bactrim DS TAB] Active Meds: Active Medications Acetaminophen (Acetaminophen 325 Mg Tab) 650 mg PO Q4H PRN PRN Reason: Pain MILD(1-3)/Fever >100.5/MASTERS Last Admin: 03/16/21 06:17 Dose: 650 mg Documented by: Cetirizine HCl (Cetirizine 10 Mg Tab) 10 mg PO QDAY [facility] Last Admin: 03/16/21 10:39 Dose: 10 mg Documented by: Famotidine (Famotidine 20 Mg/2 Ml Inj) 20 mg IV QAM [facility] Last Admin: 03/16/21 10:39 Dose: 20 mg Documented by: Heparin Sodium (Porcine) (Heparin 5,000 Unit/1 Ml Vial) 5,000 unit SUB-Q Q12HR [facility] Last Admin: 03/16/21 10:38 Dose: 5,000 unit Documented by: Hydralazine HCl (Hydralazine 20 Mg/1 Ml Inj) 10 mg IV Q6HR PRN PRN Reason: Blood Pressure Last Admin: 03/14/21 05:44 Dose: 10 mg Documented by: Hydromorphone HCl (Hydromorphone 1 Mg/1 Ml Inj) 0.5 mg IV Q3H PRN PRN Reason: Pain , Severe (7-10) Dextrose/Sodium Chloride (D5ns) 1,000 mls @ 100 mls/hr IV DIRECT [facility] Last Admin: 03/16/21 06:18 Dose: 100 mls/hr Documented by: Cefepime HCl (Cefepime/Ns 1 Gm/100 Ml) 1 gm in 100 mls @ 200 mls/hr IV Q8H [facility]; Protocol Last Admin: 03/16/21 10:38 Dose: 200 mls/hr Documented by: Vancomycin HCl 750 mg/ Sodium (Chloride) 265 mls @ 166.667 mls/hr IV Q24H [facility] Metoclopramide HCl (Metoclopramide 10 Mg/2 Ml Inj) 5 mg IV Q6H PRN PRN Reason: Nausea And Vomiting Morphine Sulfate (Morphine 2 Mg/1 Ml Inj) 2 mg IV Q4H PRN PRN Reason: Pain, Moderate (4-6) Ondansetron HCl (Ondansetron 4 Mg/2 Ml Inj) 4 mg IV Q8H PRN PRN Reason: Nausea And Vomiting Sodium Chloride (Sodium Chloride 0.9% 10 Ml Flush Syringe) 10 ml IV BID [facility] Last Admin: 03/16/21 00:44 Dose: 10 ml Documented by: Sodium Chloride (Sodium Chloride 0.9% 10 Ml Flush Syringe) 10 ml IV PRN PRN PRN Reason: LINE FLUSH Physical Examination - Physical Exam Narrative exam: Physical Exam: Constitutional: Alert, cooperative. No acute distress Head, Ears, Nose: Normocephalic, atraumatic. External ears, nose normal Eyes: Conjunctivae/corneas clear. No icterus. No ptosis. Neck: Supple, no meningeal signs Oral: dentition fair, no thrush Cardiovascular: S1, S2 normal. Respiratory: Good air entry, clear to auscultation bilaterally GI: Soft, non-tender; bowel sounds normal. No peritoneal signs. Musculoskeletal: No pedal edema, no cyanosis. Skin: No rash or abscess Hem/Lymphatic: No palpable cervical or supraclavicular nodes. No lymphangitis Psych: Mood ok. Affect normal Neurological: Awake, alert, oriented. No gross abnormality physical Exam: - Constitutional Vitals: Vital Signs Temp Pulse Resp BP Pulse Ox 99.3 F 102 H 20 160/68 92 03/16/21 04:39 03/16/21 04:39 03/16/21 04:39 03/16/21 04:39 03/16/21 04:39 Temperature -Last 24 Hours Temperature 99.3 F Temperature 97.7 F Temperature 100.1 F Temperature 98.2 F Temperature 99.9 F Results - Labs CBC & Chem 7: 03/12/21 06:26 03/13/21 11:19 Assessment and Plan Cultures: Blood culture ESBL E. coli A/P: 76-year-old female past medical history hypertension, COPD, dementia now with: #Acute sepsis: Present with fevers and tachycardia. Likely secondary to ESBL bacteremia #ESBL E. coli bacteremia: Unclear etiology, without evidence of infection. No complaints of abdominal issues. #COPD Recs: -Stop current antibiotics -Start meropenem 1 g every 8 hours -Plan on 2 weeks antibiotics -Recommend receiving at least 1 full days of antibiotics prior to placing midline for discharge. -Case management consulted for meropenem 1 g every 8 hours until 03/30/2021 Thank you for the consult, we will continue to follow. John Blevins MD [facility], [place], [facility] ([facility] O: [phone] F: [phone]
[2021-03-16] MEDS ORDERED: MEROPENEM/NS 1 GRAM/100 ML 1 GRAM/100 ML BAG IV SCH (12:00)
--- NOTE | 2021-03-16 12:05 | Progress Note ---
Assessment and Plan Assessment and plan: Patient presented with poor p.o. intake advanced dementia contractures. Had episode of hypotension. Resolved quickly with IV volume hydration. We held patient's blood pressure medication and patient blood pressure went back up to the 180s. Patient did have a temp of 99 with some nasal congestion. Will evaluate rule out Covid 19. Patient had no exposure. Treat with Claritin and restart patient on blood pressure medications. Disposition: DC-01 TO HOME OR SELFCARE (1) Dementia Status: Acute Comment: Patient with cognitive impairment most likely vascular dementia. (2) Acute renal failure Status: Acute Comment: Resolved with IV volume hydration. (3) acute sepsis present on admission/ESBL bacteria Status: Acute (4) Dehydration Status: Acute Comment: Patient now eating better also require supplementation is personal half-way. (5) Hyponatremia Status: Acute (6) Failure to thrive Status: Chronic Qualifiers: Failure to thrive age range: in adult Qualified Code(s): R62.7 - Adult failure to thrive (7) DVT prophylaxis 03/15: Patient seen and examined, awaiting discharge and arrangement with home health for wound management. Discussed with case management. Follow blood cultures, counting abx, following evaluation of the wound picture will obtain surgical consult prior to discharge to further evaluate. As patient still with low-grade fever. 03/16: Patient seen and examined clinically unchanged no new fever. Incidental finding of ESBL bacteremia ID consulted recommended to stop current antibiotics and start the patient on meropenem 1 g every 8 hours and plan for 2 weeks of therapy. Following initial antibiotics today patient can have a midline placed tomorrow afternoon and discharge. Awaiting surgical evaluation also. Plan discussed with case management team History Interval history: Patient seen and examined clinically unchanged heel dressing in place. Hospitalist Physical - Physical exam Narrative exam: General appearance: Present: no acute distress, well-nourished - EENT Eyes: Present: PERRL ENT: hearing intact, clear oral mucosa - Neck Neck: Present: supple, normal ROM - Respiratory Respiratory effort: normal Respiratory: bilateral: CTA - Cardiovascular Heart Sounds: Present: S1 & S2. Absent: rub, click - Extremities Extremities: pulses symmetrical, No edema Peripheral Pulses: within normal limits - Abdominal General gastrointestinal: Present: soft, non-tender, non-distended, normal bowel sounds Female genitourinary: Present: normal - Integumentary Integumentary: Present: See clinical documentation on skin care patient with left heel ulceration and dressing in place - Musculoskeletal Musculoskeletal: generalized weakness, other (Contracture) - Psychiatric Psychiatric: appropriate mood/affect, intact judgment & insight - Neurologic Neurologic: CNII-XII intact, moves all extremities - Constitutional Vitals: Temp Pulse Resp BP Pulse Ox 99.3 F 102 H 20 160/68 92 03/16/21 04:39 03/16/21 04:39 03/16/21 04:39 03/16/21 04:39 03/16/21 04:39 General appearance: Present: no acute distress, well-nourished Results - Labs CBC & Chem 7: 03/12/21 06:26 03/13/21 11:19 Labs: Laboratory Last Values WBC 9.2 K/mm3 (4.5-11.0) 03/12/21 06:26 RBC 3.53 M/mm3 (3.65-5.03) L 03/12/21 06:26 Hgb 11.2 gm/dl (10.1-14.3) 03/12/21 06:26 Hct 33.0 % (30.3-42.9) 03/12/21 06:26 MCV 94 fl (79-97) 03/12/21 06:26 MCH 32 pg (28-32) 03/12/21 06:26 MCHC 34 % (30-34) 03/12/21 06:26 RDW 13.9 % (13.2-15.2) 03/12/21 06:26 Plt Count 221 K/mm3 (140-440) 03/12/21 06:26 Lymph % (Auto) 11.9 % (13.4-35.0) L 03/12/21 06:26 Darke % (Auto) 8.5 % (0.0-7.3) H 03/12/21 06:26 Eos % (Auto) 0.4 % (0.0-4.3) 03/12/21 06:26 Baso % (Auto) 0.2 % (0.0-1.8) 03/12/21 06:26 Lymph # (Auto) 1.1 K/mm3 (1.2-5.4) L 03/12/21 06:26 Darke # (Auto) 0.8 K/mm3 (0.0-0.8) 03/12/21 06:26 Eos # (Auto) 0.0 K/mm3 (0.0-0.4) 03/12/21 06:26 Baso # (Auto) 0.0 K/mm3 (0.0-0.1) 03/12/21 06:26 Add Manual Diff Complete 03/11/21 14:18 Seg Neutrophils % 79.0 % (40.0-70.0) H 03/12/21 06:26 Nucleated RBC % Not Reportable 03/11/21 14:18 Seg Neutrophils # 7.3 K/mm3 (1.8-7.7) 03/12/21 06:26 WBC Morphology Not Reportable 03/11/21 14:18 Hypersegmented Neuts Not Reportable 03/11/21 14:18 Hyposegmented Neuts Not Reportable 03/11/21 14:18 Hypogranular Neuts Not Reportable 03/11/21 14:18 Smudge Cells Not Reportable 03/11/21 14:18 Toxic Granulation Not Reportable 03/11/21 14:18 Toxic Vacuolation Not Reportable 03/11/21 14:18 Dohle Bodies Not Reportable 03/11/21 14:18 Pelger-Huet Anomaly Not Reportable 03/11/21 14:18 Diann Rods Not Reportable 03/11/21 14:18 Platelet Estimate Not Reportable 03/11/21 14:18 Clumped Platelets Not Reportable 03/11/21 14:18 Plt Clumps, EDTA Not Reportable 03/11/21 14:18 Large Platelets Not Reportable 03/11/21 14:18 Giant Platelets Not Reportable 03/11/21 14:18 Platelet Satelliting Not Reportable 03/11/21 14:18 Plt Morphology Comment Not Reportable 03/11/21 14:18 RBC Morphology Not Reportable 03/11/21 14:18 Dimorphic RBCs Not Reportable 03/11/21 14:18 Polychromasia Not Reportable 03/11/21 14:18 Hypochromasia Not Reportable 03/11/21 14:18 Poikilocytosis Not Reportable 03/11/21 14:18 Anisocytosis Not Reportable 03/11/21 14:18 Microcytosis Not Reportable 03/11/21 14:18 Macrocytosis Not Reportable 03/11/21 14:18 Spherocytes Not Reportable 03/11/21 14:18 Pappenheimer Bodies Not Reportable 03/11/21 14:18 Sickle Cells Not Reportable 03/11/21 14:18 Target Cells Not Reportable 03/11/21 14:18 Tear Drop Cells Not Reportable 03/11/21 14:18 Ovalocytes Not Reportable 03/11/21 14:18 Helmet Cells Not Reportable 03/11/21 14:18 [place] Bodies Not Reportable 03/11/21 14:18 [place] Rings Not Reportable 03/11/21 14:18 Prabhakar Cells Not Reportable 03/11/21 14:18 Bite Cells Not Reportable 03/11/21 14:18 Crenated Cell Not Reportable 03/11/21 14:18 Elliptocytes Not Reportable 03/11/21 14:18 Acanthocytes (Spur) Not Reportable 03/11/21 14:18 Rouleaux Not Reportable 03/11/21 14:18 Hemoglobin C Crystals Not Reportable 03/11/21 14:18 Schistocytes Not Reportable 03/11/21 14:18 Malaria parasites Not Reportable 03/11/21 14:18 Florentino Bodies Not Reportable 03/11/21 14:18 Hem Pathologist Commnt No 03/11/21 14:18 Sodium 135 mmol/L (137-145) L 03/13/21 11:19 Potassium 3.6 mmol/L (3.6-5.0) 03/13/21 11:19 Chloride 104.9 mmol/L (98-107) 03/13/21 11:19 Carbon Dioxide 22 mmol/L (22-30) 03/13/21 11:19 Anion Gap 12 mmol/L 03/13/21 11:19 BUN 17 mg/dL (7-17) 03/13/21 11:19 Creatinine 0.5 mg/dL (0.6-1.2) L 03/13/21 11:19 Estimated GFR > 60 ml/min 03/13/21 11:19 BUN/Creatinine Ratio 34 % 03/13/21 11:19 Glucose 128 mg/dL (65-100) H 03/13/21 11:19 Hemoglobin A1c 5.9 % (4-6) 03/12/21 06:26 Calcium 9.0 mg/dL (8.4-10.2) 03/13/21 11:19 Total Bilirubin 0.40 mg/dL (0.1-1.2) 03/12/21 06:26 AST 92 units/L (5-40) H 03/12/21 06:26 ALT 26 units/L (7-56) 03/12/21 06:26 Alkaline Phosphatase 71 units/L (35-129) 03/12/21 06:26 Total Protein 7.7 g/dL (6.3-8.2) 03/12/21 06:26 Albumin 3.3 g/dL (3.9-5) L 03/12/21 06:26 Albumin/Globulin Ratio 0.8 % 03/12/21 06:26 Urine Color Yellow (Yellow) 03/13/21 23:23 Urine Turbidity Slightly-cloudy (Clear) 03/13/21 23:23 Urine pH 7.0 (5.0-7.0) 03/13/21 23:23 Ur Specific [place] 1.010 (1.003-1.030) 03/13/21 23:23 Urine Protein <15 mg/dl mg/dL (Negative) 03/13/21 23:23 Urine Glucose (UA) Neg mg/dL (Negative) 03/13/21 23:23 Urine Ketones Neg mg/dL (Negative) 03/13/21 23:23 Urine Blood Neg (Negative) 03/13/21 23:23 Urine Nitrite Neg (Negative) 03/13/21 23:23 Urine Bilirubin Neg (Negative) 03/13/21 23:23 Urine Urobilinogen 2.0 mg/dL (<2.0) 03/13/21 23:23 Ur Leukocyte Esterase Sm (Negative) 03/13/21 23:23 Urine WBC (Auto) 3.0 /HPF (0.0-6.0) 03/13/21 23:23 Urine RBC (Auto) 2.0 /HPF (0.0-6.0) 03/13/21 23:23 U Epithel Cells (Auto) 6.0 /HPF (0-13.0) 03/13/21 23:23 Urine Bacteria (Auto) 1+ /HPF (Negative) 03/13/21 23:23 Urine Mucus Few /HPF 03/13/21 23:23 Coronavirus (PCR) Negative (Negative) 03/14/21 09:55 Microbiology: Microbiology 03/13/21 23:38 Peripheral/Venous Blood Culture - Preliminary Escherichia Coli 03/14/21 00:15 Peripheral/Venous Blood Culture - Preliminary NO GROWTH AFTER 48 HOURS Gallo/IV: Voiding Method Incontinent Active Medications - Current Medications Current Medications: Generic Name Dose Route Start Last Admin Trade Name Freq PRN Reason Stop Dose Admin Acetaminophen 650 mg 03/11/21 23:25 03/16/21 06:17 Acetaminophen 325 Mg Tab PO 650 mg Q4H PRN Administration Pain MILD(1-3)/Fever >100.5/MASTERS Cetirizine HCl 10 mg 03/13/21 14:00 03/16/21 10:39 Cetirizine 10 Mg Tab PO 10 mg QDAY MARQUES Administration Famotidine 20 mg 03/12/21 10:00 03/16/21 10:39 Famotidine 20 Mg/2 Ml Inj IV 20 mg QAM MARQUES Administration Heparin Sodium (Porcine) 5,000 unit 03/11/21 23:30 03/16/21 10:38 Heparin 5,000 Unit/1 Ml Vial SUB-Q 5,000 unit Q12HR MARQUES Administration Hydralazine HCl 10 mg 03/14/21 05:23 03/14/21 05:44 Hydralazine 20 Mg/1 Ml Inj IV 10 mg Q6HR PRN Administration Blood Pressure Hydromorphone HCl 0.5 mg 03/11/21 23:25 Hydromorphone 1 Mg/1 Ml Inj IV Q3H PRN Pain , Severe (7-10) Dextrose/Sodium Chloride 1,000 mls @ 100 mls/hr 03/11/21 23:45 03/16/21 06:18 D5ns IV 100 mls/hr DIRECT MARQUES Administration MEROPENEM/NS 1 GRAM/100 ML 1 gram in 100 mls @ 100 mls/hr 03/16/21 12:00 Merrem/Ns 1 Gram/100 Ml IV Q12H [facility] Protocol Metoclopramide HCl 5 mg 03/11/21 23:45 Metoclopramide 10 Mg/2 Ml Inj IV Q6H PRN Nausea And Vomiting Morphine Sulfate 2 mg 03/11/21 23:25 Morphine 2 Mg/1 Ml Inj IV Q4H PRN Pain, Moderate (4-6) Ondansetron HCl 4 mg 03/11/21 23:25 Ondansetron 4 Mg/2 Ml Inj IV Q8H PRN Nausea And Vomiting Sodium Chloride 10 ml 03/12/21 10:00 03/16/21 00:44 Sodium Chloride 0.9% 10 Ml Flush Syringe IV 10 ml BID MARQUES Administration Sodium Chloride 10 ml 03/11/21 23:25 Sodium Chloride 0.9% 10 Ml Flush Syringe IV PRN PRN LINE FLUSH Nutrition/Malnutrition Assess - Dietary Evaluation Nutrition/Malnutrition Findings: Nutrition Notes Start: 03/12/21 14:03 Freq: Status: Active Protocol: Document 03/12/21 14:03 (Rec: 03/12/21 14:13 [id number]) Nutrition Notes Need for Assessment generated from: Low BMI Initial or Follow up Assessment Current Diagnosis Acute Kidney Injury, Hypertension Other Pertinent Diagnosis dementia, FTT, dehydration Current Diet regular Labs/Tests Na 135 K 3.5 BP 201/90 Pertinent Medications D5NS at 100 ml/hr Height 5 ft 2 in Weight 43.545 kg Usual Body Weight 50 kg [place] Body Weight (kg) 50.00 BMI 17.5 Weight change and time frame 13% wt loss in 1 year Weight Status Underweight Subjective/Other Information Screen for low BMI. Pt with muscle and fat wasting. She states she just don't feel like having food or water often. Burn Absent Trauma Absent Current % PO Poor (25-49%) Minimum of two criteria Yes Energy Intake (non-severe) <75% Estimated Energy Requirement >7 days Body Fat Depletion Mild depletion (non-severe) Muscle Mass Mild Depletion (non-severe) #1 Nutrition Diagnosis Malnutrition Etiology advanced age As Evidenced by Signs and Symptoms <75% of EER in >7 days, muscle and fat wasting Is patient on ventilator? No Is Patient Ambulatory and/or Out of Bed No REE-([facility]-confined to bed) 1049.400 Kcal/Kg value to use for calculation 31 Approximate Energy Requirements Using 1350 kcal/Kg Calculation Used for Recommendations Kcal/kg Additional Notes Protein: (1.2-1.5g/kg) 52-65g Fluid: 1 ml/kcal Nutrition Intervention Change Diet Order: cardiac Add Supplement/Snack (indicate name/kcal Ensure Enlive BID /protein ) Provides kCal: 700 Provides Protein (gm) 40 Goal #1 Meet at least 75% of energy and protein needs via PO and ONS FU for intakes and ONS tolerance Anticipated Discharge Needs: cardiac Follow-Up By: 03/16/21 Additional Comments FU for intakes and ONS tolerance
[2021-03-16] MEDS: MEROPENEM/NS 1 GRAM/100 ML 1 GRAM/100 ML BAG IV SCH ×2 (13:27→23:19)
[2021-03-16] MEDS ORDERED: LIDOCAINE (2%) 20 MG/1 ML VIAL 20 ML MDV INFILTRATI NR (13:48)
[2021-03-16] MEDS: HYDROmorphone 1 MG/1 ML INJ IV PRN (14:08)
--- NOTE | 2021-03-16 15:30 | Consultation ---
History of Present Illness Consult date: 03/16/21 Reason for consult: wound care - History of present illness History of present illness: 76-year-old female presents to the hospital several days ago with hypotension. Patient has been treated for overall conditions however there was noted to be a nonhealing wound on her left heel of which the patient says has been there for very long time. Patient says it is painful and she has been getting dressing changes at her assisted care living home. Past History Past Medical History: COPD (dementia), other (See HPI) Medications and Allergies Allergies Allergy/AdvReac Type Severity Reaction Status Date / Time Penicillins Allergy Unknown Verified 03/11/21 20:02 Home Medications Medication Instructions Recorded Confirmed Last Taken Type Doxycycline Hyclate [Doxycycline 100 mg PO Q12HR #7 tab 03/16/21 Unknown Rx Hyclate TAB] Sulfamethoxazole/Trimethoprim 1 each PO BID #14 tablet 03/16/21 Unknown Rx [Bactrim DS TAB] Active Meds: Active Medications Acetaminophen (Acetaminophen 325 Mg Tab) 650 mg PO Q4H PRN PRN Reason: Pain MILD(1-3)/Fever >100.5/MASTERS Last Admin: 03/16/21 06:17 Dose: 650 mg Documented by: Cetirizine HCl (Cetirizine 10 Mg Tab) 10 mg PO QDAY [facility] Last Admin: 03/16/21 10:39 Dose: 10 mg Documented by: Famotidine (Famotidine 20 Mg/2 Ml Inj) 20 mg IV QAM [facility] Last Admin: 03/16/21 10:39 Dose: 20 mg Documented by: Heparin Sodium (Porcine) (Heparin 5,000 Unit/1 Ml Vial) 5,000 unit SUB-Q Q12HR [facility] Last Admin: 03/16/21 10:38 Dose: 5,000 unit Documented by: Hydralazine HCl (Hydralazine 20 Mg/1 Ml Inj) 10 mg IV Q6HR PRN PRN Reason: Blood Pressure Last Admin: 03/14/21 05:44 Dose: 10 mg Documented by: Hydromorphone HCl (Hydromorphone 1 Mg/1 Ml Inj) 0.5 mg IV Q3H PRN PRN Reason: Pain , Severe (7-10) Last Admin: 03/16/21 14:08 Dose: 0.5 mg Documented by: Dextrose/Sodium Chloride (D5ns) 1,000 mls @ 100 mls/hr IV DIRECT MARQUES Last Admin: 03/16/21 06:18 Dose: 100 mls/hr Documented by: MEROPENEM/NS 1 GRAM/100 ML (Merrem/Ns 1 Gram/100 Ml) 1 gram in 100 mls @ 100 mls/hr IV Q8H MARQUES; Protocol Stop: 03/30/21 22:59 Last Admin: 03/16/21 13:27 Dose: 100 mls/hr Documented by: Lidocaine (Lidocaine (2%) 20 Mg/1 Ml Vial 20 Ml Mdv) 20 ml INFILTRATI ONCE NR Stop: 03/16/21 18:00 Metoclopramide HCl (Metoclopramide 10 Mg/2 Ml Inj) 5 mg IV Q6H PRN PRN Reason: Nausea And Vomiting Morphine Sulfate (Morphine 2 Mg/1 Ml Inj) 2 mg IV Q4H PRN PRN Reason: Pain, Moderate (4-6) Ondansetron HCl (Ondansetron 4 Mg/2 Ml Inj) 4 mg IV Q8H PRN PRN Reason: Nausea And Vomiting Sodium Chloride (Sodium Chloride 0.9% 10 Ml Flush Syringe) 10 ml IV BID [facility] Last Admin: 03/16/21 13:28 Dose: 10 ml Documented by: Sodium Chloride (Sodium Chloride 0.9% 10 Ml Flush Syringe) 10 ml IV PRN PRN PRN Reason: LINE FLUSH Review of Systems All systems: negative - Integumentary wounds Exam Vital Signs Temp Pulse Resp BP Pulse Ox 97.4 F L 86 16 121/64 98 03/11/21 13:18 03/11/21 13:18 03/11/21 13:18 03/11/21 13:18 03/11/21 13:18 - General physical appearance Positive: well developed, no distress, no pain - Respiratory Positive: normal expansion, normal respiratory effort - Extremities Extremities: abnormal Extremity abnormal: other (Right leg contracted unable to extend. Left foot warm to touch, no palpable pulses, sensation intact, 4 x 5 cm heel wound with eschar a small amount of murky drainage. Tender to palpation. No areas of gross fluctuance) Results - Labs 03/12/21 06:26 03/13/21 11:19 Assessment and Plan 76-year-old female with multiple comorbidities and left chronic nonhealing heel wound. Afebrile and stable Left heel wound was debrided at the bedside without incident there were no abscess pockets appreciated. Eschar removed down to underlying fat pad. Recommend daily calcium alginate dressings by the nurses. No further surgical intervention indicated this time. Patient can follow-up with outpatient wound care upon discharge or continue wound care nursing facility.
[2021-03-16] MEDS ORDERED: VANCOMYCIN 750 MG in SODIUM CHLORIDE 0.9% 250ML 250 ML IV SCH (18:00)
[2021-03-17] MEDS: ACETAMINOPHEN 325 MG TAB PO PRN ×2 (05:23→12:27)
[2021-03-17] MEDS: D5W/0.9% NACL 1,000 ML IV SCH (06:18)
[2021-03-17] MEDS: MEROPENEM/NS 1 GRAM/100 ML 1 GRAM/100 ML BAG IV SCH ×3 (07:10→22:43)
[2021-03-17] MEDS: HEPARIN 5,000 UNIT/1 ML VIAL SUB-Q SCH ×2 (12:20→22:43)
[2021-03-17] MEDS: CETIRIZINE 10 MG TAB PO SCH (12:21)
[2021-03-17] MEDS: FAMOTIDINE 20 MG/2 ML INJ IV SCH (12:21)
--- NOTE | 2021-03-17 12:25 | Progress Note ---
Assessment and Plan Assessment and plan: Patient presented with poor p.o. intake advanced dementia contractures. Had episode of hypotension. Resolved quickly with IV volume hydration. We held patient's blood pressure medication and patient blood pressure went back up to the 180s. Patient did have a temp of 99 with some nasal congestion. Will evaluate rule out Covid 19. Patient had no exposure. Treat with Claritin and restart patient on blood pressure medications. Disposition: DC-01 TO HOME OR SELFCARE (1) Dementia Status: Acute Comment: Patient with cognitive impairment most likely vascular dementia. (2) Acute renal failure Status: Acute Comment: Resolved with IV volume hydration. (3) acute sepsis present on admission/ESBL bacteria Status: Acute (4) Dehydration Status: Acute Comment: Patient now eating better also require supplementation is personal fci. (5) Hyponatremia Status: Acute (6) Failure to thrive Status: Chronic Qualifiers: Failure to thrive age range: in adult Qualified Code(s): R62.7 - Adult failure to thrive (7) DVT prophylaxis 03/15: Patient seen and examined, awaiting discharge and arrangement with home health for wound management. Discussed with case management. Follow blood cultures, counting abx, following evaluation of the wound picture will obtain surgical consult prior to discharge to further evaluate. As patient still with low-grade fever. 03/16: Patient seen and examined clinically unchanged no new fever. Incidental finding of ESBL bacteremia ID consulted recommended to stop current antibiotics and start the patient on meropenem 1 g every 8 hours and plan for 2 weeks of therapy. Following initial antibiotics today patient can have a midline placed tomorrow afternoon and discharge. Awaiting surgical evaluation also. Plan discussed with case management team 03/17: Patient seen and examined this morning resting comfortably. Patient was seen by surgery yesterday and underwent local bedside debridement with no incident and no abscess pockets noted. Per surgeon " Eschar removed down to underlying fat pad. Recommend daily calcium alginate dressings by the nurses. No further surgical intervention indicated this time. Patient can follow-up with outpatient wound care upon discharge or continue wound care nursing facil ity." In the meantime on discussion with case management they did state that the assisted living facility will not be accepting the patient back and she will need to go to custodial facility for IV antibiotics. Midline has been ordered and patient can be discharged once approved. History Interval history: Patient seen and examined clinically unchanged heel dressing in place. Hospitalist Physical - Physical exam Narrative exam: General appearance: Present: no acute distress, well-nourished - EENT Eyes: Present: PERRL ENT: hearing intact, clear oral mucosa - Neck Neck: Present: supple, normal ROM - Respiratory Respiratory effort: normal Respiratory: bilateral: CTA - Cardiovascular Heart Sounds: Present: S1 & S2. Absent: rub, click - Extremities Extremities: pulses symmetrical, No edema Peripheral Pulses: within normal limits - Abdominal General gastrointestinal: Present: soft, non-tender, non-distended, normal bowel sounds Female genitourinary: Present: normal - Integumentary Integumentary: Present: Dressing over heel ulceration on the left noted. See clinical documentation on skin care patient with left heel ulceration and dressing in place - Musculoskeletal Musculoskeletal: generalized weakness, other (Contracture) - Psychiatric Psychiatric: appropriate mood/affect, intact judgment & insight - Neurologic Neurologic: CNII-XII intact, moves all extremities - Constitutional Vitals: Temp Pulse Resp BP Pulse Ox 98.7 F 96 H 16 136/53 95 03/17/21 00:13 03/17/21 00:03 03/17/21 00:13 03/17/21 00:03 03/17/21 00:03 General appearance: Present: no acute distress, well-nourished Results - Labs CBC & Chem 7: 03/12/21 06:26 03/13/21 11:19 Labs: Laboratory Last Values WBC 9.2 K/mm3 (4.5-11.0) 03/12/21 06:26 RBC 3.53 M/mm3 (3.65-5.03) L 03/12/21 06:26 Hgb 11.2 gm/dl (10.1-14.3) 03/12/21 06:26 Hct 33.0 % (30.3-42.9) 03/12/21 06:26 MCV 94 fl (79-97) 03/12/21 06:26 MCH 32 pg (28-32) 03/12/21 06:26 MCHC 34 % (30-34) 03/12/21 06:26 RDW 13.9 % (13.2-15.2) 03/12/21 06:26 Plt Count 221 K/mm3 (140-440) 03/12/21 06:26 Lymph % (Auto) 11.9 % (13.4-35.0) L 03/12/21 06:26 Caroline % (Auto) 8.5 % (0.0-7.3) H 03/12/21 06:26 Eos % (Auto) 0.4 % (0.0-4.3) 03/12/21 06:26 Baso % (Auto) 0.2 % (0.0-1.8) 03/12/21 06:26 Lymph # (Auto) 1.1 K/mm3 (1.2-5.4) L 03/12/21 06:26 Caroline # (Auto) 0.8 K/mm3 (0.0-0.8) 03/12/21 06:26 Eos # (Auto) 0.0 K/mm3 (0.0-0.4) 03/12/21 06:26 Baso # (Auto) 0.0 K/mm3 (0.0-0.1) 03/12/21 06:26 Add Manual Diff Complete 03/11/21 14:18 Seg Neutrophils % 79.0 % (40.0-70.0) H 03/12/21 06:26 Nucleated RBC % Not Reportable 03/11/21 14:18 Seg Neutrophils # 7.3 K/mm3 (1.8-7.7) 03/12/21 06:26 WBC Morphology Not Reportable 03/11/21 14:18 Hypersegmented Neuts Not Reportable 03/11/21 14:18 Hyposegmented Neuts Not Reportable 03/11/21 14:18 Hypogranular Neuts Not Reportable 03/11/21 14:18 Smudge Cells Not Reportable 03/11/21 14:18 Toxic Granulation Not Reportable 03/11/21 14:18 Toxic Vacuolation Not Reportable 03/11/21 14:18 Dohle Bodies Not Reportable 03/11/21 14:18 Pelger-Huet Anomaly Not Reportable 03/11/21 14:18 Diann Rods Not Reportable 03/11/21 14:18 Platelet Estimate Not Reportable 03/11/21 14:18 Clumped Platelets Not Reportable 03/11/21 14:18 Plt Clumps, EDTA Not Reportable 03/11/21 14:18 Large Platelets Not Reportable 03/11/21 14:18 Giant Platelets Not Reportable 03/11/21 14:18 Platelet Satelliting Not Reportable 03/11/21 14:18 Plt Morphology Comment Not Reportable 03/11/21 14:18 RBC Morphology Not Reportable 03/11/21 14:18 Dimorphic RBCs Not Reportable 03/11/21 14:18 Polychromasia Not Reportable 03/11/21 14:18 Hypochromasia Not Reportable 03/11/21 14:18 Poikilocytosis Not Reportable 03/11/21 14:18 Anisocytosis Not Reportable 03/11/21 14:18 Microcytosis Not Reportable 03/11/21 14:18 Macrocytosis Not Reportable 03/11/21 14:18 Spherocytes Not Reportable 03/11/21 14:18 Pappenheimer Bodies Not Reportable 03/11/21 14:18 Sickle Cells Not Reportable 03/11/21 14:18 Target Cells Not Reportable 03/11/21 14:18 Tear Drop Cells Not Reportable 03/11/21 14:18 Ovalocytes Not Reportable 03/11/21 14:18 Helmet Cells Not Reportable 03/11/21 14:18 [place] Bodies Not Reportable 03/11/21 14:18 [place] Rings Not Reportable 03/11/21 14:18 Prabhakar Cells Not Reportable 03/11/21 14:18 Bite Cells Not Reportable 03/11/21 14:18 Crenated Cell Not Reportable 03/11/21 14:18 Elliptocytes Not Reportable 03/11/21 14:18 Acanthocytes (Spur) Not Reportable 03/11/21 14:18 Rouleaux Not Reportable 03/11/21 14:18 Hemoglobin C Crystals Not Reportable 03/11/21 14:18 Schistocytes Not Reportable 03/11/21 14:18 Malaria parasites Not Reportable 03/11/21 14:18 Florentino Bodies Not Reportable 03/11/21 14:18 Hem Pathologist Commnt No 03/11/21 14:18 Sodium 135 mmol/L (137-145) L 03/13/21 11:19 Potassium 3.6 mmol/L (3.6-5.0) 03/13/21 11:19 Chloride 104.9 mmol/L (98-107) 03/13/21 11:19 Carbon Dioxide 22 mmol/L (22-30) 03/13/21 11:19 Anion Gap 12 mmol/L 03/13/21 11:19 BUN 17 mg/dL (7-17) 03/13/21 11:19 Creatinine 0.5 mg/dL (0.6-1.2) L 03/13/21 11:19 Estimated GFR > 60 ml/min 03/13/21 11:19 BUN/Creatinine Ratio 34 % 03/13/21 11:19 Glucose 128 mg/dL (65-100) H 03/13/21 11:19 Hemoglobin A1c 5.9 % (4-6) 03/12/21 06:26 Calcium 9.0 mg/dL (8.4-10.2) 03/13/21 11:19 Total Bilirubin 0.40 mg/dL (0.1-1.2) 03/12/21 06:26 AST 92 units/L (5-40) H 03/12/21 06:26 ALT 26 units/L (7-56) 03/12/21 06:26 Alkaline Phosphatase 71 units/L (35-129) 03/12/21 06:26 Total Protein 7.7 g/dL (6.3-8.2) 03/12/21 06:26 Albumin 3.3 g/dL (3.9-5) L 03/12/21 06:26 Albumin/Globulin Ratio 0.8 % 03/12/21 06:26 Urine Color Yellow (Yellow) 03/13/21 23:23 Urine Turbidity Slightly-cloudy (Clear) 03/13/21 23:23 Urine pH 7.0 (5.0-7.0) 03/13/21 23:23 Ur Specific [place] 1.010 (1.003-1.030) 03/13/21 23:23 Urine Protein <15 mg/dl mg/dL (Negative) 03/13/21 23:23 Urine Glucose (UA) Neg mg/dL (Negative) 03/13/21 23:23 Urine Ketones Neg mg/dL (Negative) 03/13/21 23:23 Urine Blood Neg (Negative) 03/13/21 23:23 Urine Nitrite Neg (Negative) 03/13/21 23:23 Urine Bilirubin Neg (Negative) 03/13/21 23:23 Urine Urobilinogen 2.0 mg/dL (<2.0) 03/13/21 23:23 Ur Leukocyte Esterase Sm (Negative) 03/13/21 23:23 Urine WBC (Auto) 3.0 /HPF (0.0-6.0) 03/13/21 23:23 Urine RBC (Auto) 2.0 /HPF (0.0-6.0) 03/13/21 23:23 U Epithel Cells (Auto) 6.0 /HPF (0-13.0) 03/13/21 23:23 Urine Bacteria (Auto) 1+ /HPF (Negative) 03/13/21 23:23 Urine Mucus Few /HPF 03/13/21 23:23 Coronavirus (PCR) Negative (Negative) 03/14/21 09:55 Microbiology: Microbiology 03/14/21 00:15 Peripheral/Venous Blood Culture - Preliminary NO GROWTH AFTER 72 HOURS 03/13/21 23:38 Peripheral/Venous Blood Culture - Preliminary Escherichia Coli Gallo/IV: Voiding Method Incontinent Active Medications - Current Medications Current Medications: Generic Name Dose Route Start Last Admin Trade Name Freq PRN Reason Stop Dose Admin Acetaminophen 650 mg 03/11/21 23:25 03/17/21 05:23 Acetaminophen 325 Mg Tab PO 650 mg Q4H PRN Administration Pain MILD(1-3)/Fever >100.5/MASTERS Cetirizine HCl 10 mg 03/13/21 14:00 03/17/21 12:21 Cetirizine 10 Mg Tab PO 10 mg QDAY MARQUES Administration Famotidine 20 mg 03/12/21 10:00 03/17/21 12:21 Famotidine 20 Mg/2 Ml Inj IV 20 mg QAM MARQUES Administration Heparin Sodium (Porcine) 5,000 unit 03/11/21 23:30 03/17/21 12:20 Heparin 5,000 Unit/1 Ml Vial SUB-Q 5,000 unit Q12HR MARQUES Administration Hydralazine HCl 10 mg 03/14/21 05:23 03/14/21 05:44 Hydralazine 20 Mg/1 Ml Inj IV 10 mg Q6HR PRN Administration Blood Pressure Hydromorphone HCl 0.5 mg 03/11/21 23:25 03/16/21 14:08 Hydromorphone 1 Mg/1 Ml Inj IV 0.5 mg Q3H PRN Administration Pain , Severe (7-10) Dextrose/Sodium Chloride 1,000 mls @ 100 mls/hr 03/11/21 23:45 03/17/21 06:18 D5ns IV 100 mls/hr DIRECT MARQUES Administration MEROPENEM/NS 1 GRAM/100 ML 1 gram in 100 mls @ 100 mls/hr 03/16/21 14:00 03/17/21 07:10 Merrem/Ns 1 Gram/100 Ml IV 03/30/21 22:59 100 mls/hr Q8H MARQUES Administration Protocol Metoclopramide HCl 5 mg 03/11/21 23:45 Metoclopramide 10 Mg/2 Ml Inj IV Q6H PRN Nausea And Vomiting Morphine Sulfate 2 mg 03/11/21 23:25 Morphine 2 Mg/1 Ml Inj IV Q4H PRN Pain, Moderate (4-6) Ondansetron HCl 4 mg 03/11/21 23:25 Ondansetron 4 Mg/2 Ml Inj IV Q8H PRN Nausea And Vomiting Sodium Chloride 10 ml 03/12/21 10:00 03/17/21 12:23 Sodium Chloride 0.9% 10 Ml Flush Syringe IV 10 ml BID MARQUES Administration Sodium Chloride 10 ml 03/11/21 23:25 Sodium Chloride 0.9% 10 Ml Flush Syringe IV PRN PRN LINE FLUSH Nutrition/Malnutrition Assess - Dietary Evaluation Nutrition/Malnutrition Findings: Nutrition Notes Start: 03/12/21 14:03 Freq: Status: Active Protocol: Document 03/16/21 14:55 (Rec: 03/16/21 14:58 [id number]) Nutrition Notes Initial or Follow up Reassessment Current Diagnosis Acute Kidney Injury, Hypertension Other Pertinent Diagnosis dementia, FTT, dehydration Current Diet regular Labs/Tests Na 135 Pertinent Medications D5NS at 100 ml/hr Height 5 ft 2 in Weight 40.5 kg Taylor Body Weight (kg) 50.00 BMI 16.3 Weight change and time frame 7% wt loss in 4 days, will follow for fluctuations Weight Status Underweight Subjective/Other Information FU for intakes. Pt did not speak much. She is not eating well but is drinking 2 ONS daily. Percent of energy/protein needs met: 56%/77% Burn Absent Trauma Absent Current % PO Poor (25-49%) Minimum of two criteria Yes Energy Intake (non-severe) <75% Estimated Energy Requirement >7 days Body Fat Depletion Mild depletion (non-severe) Muscle Mass Mild Depletion (non-severe) #1 Nutrition Diagnosis Malnutrition Diagnosis Progress(for reassessment Continues documentation) Is patient on ventilator? No Is Patient Ambulatory and/or Out of Bed No [facility] 1012.908 Kcal/Kg value to use for calculation 31 Approximate Energy Requirements Using 1256 kcal/Kg Calculation Used for Recommendations Kcal/kg Additional Notes Protein: (1.2-1.5g/kg) 52-65g Fluid: 1 ml/kcal Nutrition Intervention Change Diet Order: continue Add Supplement/Snack (indicate name/kcal Ensure Enlive TID /protein ) Provides kCal: 1,050 Provides Protein (gm) 60 Goal #1 Meet at least 75% of energy and protein needs via PO and ONS Anticipated Discharge Needs: cardiac Follow-Up By: 03/18/21 Additional Comments FU for intakes and ONS tolerance
--- NOTE | 2021-03-17 12:57 | Progress Note ---
Assessment and Plan Cultures: Blood culture ESBL E. coli A/P: 76-year-old female past medical history hypertension, COPD, dementia now with: #Acute sepsis: Present with fevers and tachycardia. Likely secondary to ESBL bacteremia #ESBL E. coli bacteremia: Unclear etiology, without evidence of infection. No complaints of abdominal issues. #Left heel wound: Status post debridement by general surgery #COPD Recs: -Continue meropenem 1 g every 8 hours -Plan on 2 weeks antibiotics -Recommend receiving at least 1 full days of antibiotics prior to placing midline for discharge. -Case management consulted for meropenem 1 g every 8 hours until 03/30/2021 Thank you for the consult, we will continue to follow. John Blevins MD [facility] ([facility]) O: [phone] F: [phone] Subjective Date of service: 03/17/21 Principal diagnosis: Dehydration altered mental status Interval history: Afebrile, no acute change. Objective - Exam Narrative Exam: Physical Exam: Constitutional: Alert, cooperative. No acute distress Head, Ears, Nose: Normocephalic, atraumatic. External ears, nose normal Eyes: Conjunctivae/corneas clear. No icterus. No ptosis. Neck: Supple, no meningeal signs Oral: dentition fair, no thrush Cardiovascular: S1, S2 normal. Respiratory: Good air entry, clear to auscultation bilaterally GI: Soft, non-tender; bowel sounds normal. No peritoneal signs. Musculoskeletal: No pedal edema, no cyanosis. Skin: No rash or abscess Hem/Lymphatic: No palpable cervical or supraclavicular nodes. No lymphangitis Psych: Mood ok. Affect normal Neurological: Awake, alert, oriented. No gross abnormality physical Exam: - Constitutional Vitals: Vital Signs Temp Pulse Resp BP Pulse Ox 98.7 F 96 H 16 136/53 95 03/17/21 00:13 03/17/21 00:03 03/17/21 00:13 03/17/21 00:03 03/17/21 00:03 Temperature -Last 24 Hours Temperature 98.7 F Temperature 99.3 F - Labs CBC & Chem 7: 03/12/21 06:26 03/13/21 11:19
[2021-03-17] MEDS: HYDROmorphone 1 MG/1 ML INJ IV PRN (22:54)
[2021-03-18] MEDS: HYDROmorphone 1 MG/1 ML INJ IV PRN (04:33)
[2021-03-18] MEDS: D5W/0.9% NACL 1,000 ML IV SCH ×2 (05:27→22:55)
[2021-03-18] MEDS: MEROPENEM/NS 1 GRAM/100 ML 1 GRAM/100 ML BAG IV SCH ×3 (05:28→22:55)
[2021-03-18] MEDS: HEPARIN 5,000 UNIT/1 ML VIAL SUB-Q SCH ×2 (11:01→22:56)
[2021-03-18] MEDS: CETIRIZINE 10 MG TAB PO SCH (11:02)
[2021-03-18] MEDS: FAMOTIDINE 20 MG/2 ML INJ IV SCH (11:02)
--- NOTE | 2021-03-18 12:25 | Discharge Summary ---
Providers - Providers Date of Admission: 03/16/21 12:06 Attending physician: MO YOO MD 03/12/21 11:02 Physical Therapy Evaluation and Treat [CONS] Stat Comment: Debility Reason For Exam: Physical Therapy Eval & Treat 03/12/21 11:05 Occupational Therapy Evaluate and Treat [CONS] Stat Comment: Eval and Treat Reason For Exam: Occupational Therapy 03/13/21 19:43 Consult to Wound/ET Nurse [CONS] Routine Reason For Exam: wound eval 03/16/21 10:39 Consult to Physician [CONS] Routine Comment: Consulting Provider: KODI LUND Physician Instructions: Reason For Exam: esbl bactermia- ulcer 03/16/21 11:52 Consult to Case Management [CONS] Routine Services Needed at Discharge: Home Health Services Notified:: CM Additional Physician Instructions: John Lund MD [facility] ([facility]) M: [phone] O: [phone] F: [phone] Outpatient parenteral antibiotic therapy orders Diagnosis: ESBL E. coli bacteremia Antibiotic administration: Meropenem 1 g every 8 hours until 03/30/2021 Line: Midline Lab monitoring: CBC with differential, BUN, creatinine, LFTs once per week preferably on Tuesday or Tuesday For critical labs, call office: [phone] John Lund 03/16/21 12:52 Consult to Physician [CONS] Routine Comment: Consulting Provider: TYRON KINCAID Physician Instructions: Reason For Exam: left heel ulcer with cellulitis 03/17/21 12:23 Midline [Consult to PICC Line RN] [CONS] Routine Reason For Exam: 2 WEEKS ABX Type Line:: Midline 03/17/21 13:19 Consult to Physician [CONS] Urgent Comment: Consulting Provider: TYRON KINCAID Physician Instructions: photo is chart Reason For Exam: consult for evaluation of foot ulcer Primary care physician: HARRIETT SABA Hospitalization Reason for admission: Sepsis Condition: Stable Hospital course: 76-year-old female with history of hypertension, COPD and dementia brought in for poor p.o. intake and low blood pressure. Apparently patient has not been urinating at all. Denies any nausea or vomiting. Denies abdominal pain. Initial blood pressure was 81/ 63. No fever or chills. No exposure to coronavirus. No known cause for poor p.o. intake. Patient presented with poor p.o. intake advanced dementia contractures. Had episode of hypotension. Resolved quickly with IV volume hydration. We held patient's blood pressure medication and patient blood pressure went back up to the 180s. Patient did have a temp of 99 with some nasal congestion. Will evaluate rule out Covid 19. Patient had no exposure. Treat with Claritin and restart patient on blood pressure medications. Disposition: DC-01 TO HOME OR SELFCARE (1) Dementia Status: Acute Comment: Patient with cognitive impairment most likely vascular dementia. (2) Acute renal failure Status: Acute Comment: Resolved with IV volume hydration. (3) acute sepsis present on admission/ESBL bacteria Status: Acute (4) Dehydration Status: Acute Comment: Patient now eating better also require supplementation is personal snf. (5) Hyponatremia Status: Acute (6) Failure to thrive Status: Chronic Qualifiers: Failure to thrive age range: in adult Qualified Code(s): R62.7 - Adult failure to thrive (7) left foot ulcer with poor healing wound 03/15: Patient seen and examined, awaiting discharge and arrangement with home health for wound management. Discussed with case management. Follow blood cultures, counting abx, following evaluation of the wound picture will obtain surgical consult prior to discharge to further evaluate. As patient still with low-grade fever. 03/16: Patient seen and examined clinically unchanged no new fever. Incidental finding of ESBL bacteremia ID consulted recommended to stop current antibiotics and start the patient on meropenem 1 g every 8 hours and plan for 2 weeks of therapy. Following initial antibiotics today patient can have a midline placed tomorrow afternoon and discharge. Awaiting surgical evaluation also. Plan discussed with case management team 03/17: Patient seen and examined this morning resting comfortably. Patient was seen by surgery yesterday and underwent local bedside debridement with no incident and no abscess pockets noted. Per surgeon " Eschar removed down to underlying fat pad. Recommend daily calcium alginate dressings by the nurses. No further surgical intervention indicated this time. Patient can follow-up with outpatient wound care upon discharge or continue wound care nursing facility." In the meantime on discussion with case management they did state that the assisted living facility will not be accepting the patient back and she will need to go to retirement facility for IV antibiotics. Midline has been ordered and patient can be discharged once approved. 03/18: Patient seen and examined clinically stable. Continue on antibiotics per ID recommendation. Awaiting placement at this time. 03/19: Patient seen and examined, continue as recommended meropenem 1 g every 8 hours-Plan on 2 weeks antibiotics -Case management consulted for meropenem 1 g every 8 hours until 03/30/2021 Continue supportive care, awaiting placement. 03/20: Patient seen and examined doing well no acute distress got approved for discharge today. We will continue antibiotics and complete until eight sixteen this previously reported. Continue to follow for wound care management. Disposition: DC/[place]-03 SNF W [facility] CERT Final Discharge Diagnosis (Prints w/discharge instructions): Sepsis Time spent for discharge: 35-minute Core Measure Documentation - Palliative Care Palliative Care/ Comfort Measures: Not Applicable - Core Measures Any of the following diagnoses?: none Exam - Physical Exam Narrative exam: General appearance: Present: no acute distress, well-nourished - EENT Eyes: Present: PERRL ENT: hearing intact, clear oral mucosa - Neck Neck: Present: supple, normal ROM - Respiratory Respiratory effort: normal Respiratory: bilateral: CTA - Cardiovascular Heart Sounds: Present: S1 & S2. Absent: rub, click - Extremities Extremities: pulses symmetrical, No edema Peripheral Pulses: within normal limits - Abdominal General gastrointestinal: Present: soft, non-tender, non-distended, normal bowel sounds Female genitourinary: Present: normal - Integumentary Integumentary: Present: Dressing over heel ulceration on the left noted. See clinical documentation on skin care patient with left heel ulceration and dressing in place - Musculoskeletal Musculoskeletal: generalized weakness, other (Contracture) - Psychiatric Psychiatric: appropriate mood/affect, intact judgment & insight - Neurologic Neurologic: CNII-XII intact, moves all extremities - Constitutional Vitals: Temp Pulse Resp BP Pulse Ox 98.5 F 96 H 20 152/72 96 03/18/21 04:00 03/18/21 04:00 03/18/21 04:00 03/18/21 04:00 03/18/21 04:00 Plan Activity: advance as tolerated, fall precautions Diet: low fat Wound: per your surgeon's advice, per wound nurse instructions Special Instructions: record daily BP diary Plan of Treatment: Continue antibiotics for total of 14 days per ID recommendation Follow up with: HARRIETT SABA MD [Primary Care Provider] - 3-5 Days KODI LUND MD [Staff Physician] - 7 Days [facility] [Outside] - 7 Days
--- NOTE | 2021-03-18 12:30 | Progress Note ---
Assessment and Plan Assessment and plan: Patient presented with poor p.o. intake advanced dementia contractures. Had episode of hypotension. Resolved quickly with IV volume hydration. We held patient's blood pressure medication and patient blood pressure went back up to the 180s. Patient did have a temp of 99 with some nasal congestion. Will evaluate rule out Covid 19. Patient had no exposure. Treat with Claritin and restart patient on blood pressure medications. Disposition: DC-01 TO HOME OR SELFCARE (1) Dementia Status: Acute Comment: Patient with cognitive impairment most likely vascular dementia. (2) Acute renal failure Status: Acute Comment: Resolved with IV volume hydration. (3) acute sepsis present on admission/ESBL bacteria Status: Acute (4) Dehydration Status: Acute Comment: Patient now eating better also require supplementation is personal shelter. (5) Hyponatremia Status: Acute (6) Failure to thrive Status: Chronic Qualifiers: Failure to thrive age range: in adult Qualified Code(s): R62.7 - Adult failure to thrive (7) left foot ulcer with poor healing wound (8) DVT prophylaxis 03/15: Patient seen and examined, awaiting discharge and arrangement with home health for wound management. Discussed with case management. Follow blood cultures, counting abx, following evaluation of the wound picture will obtain surgical consult prior to discharge to further evaluate. As patient still with low-grade fever. 03/16: Patient seen and examined clinically unchanged no new fever. Incidental finding of ESBL bacteremia ID consulted recommended to stop current antibiotics and start the patient on meropenem 1 g every 8 hours and plan for 2 weeks of therapy. Following initial antibiotics today patient can have a midline placed tomorrow afternoon and discharge. Awaiting surgical evaluation also. Plan discussed with case management team 03/17: Patient seen and examined this morning resting comfortably. Patient was seen by surgery yesterday and underwent local bedside debridement with no incident and no abscess pockets noted. Per surgeon " Eschar removed down to underlying fat pad. Recommend daily calcium alginate dressings by the nurses. No further surgical intervention indicated this time. Patient can follow-up with outpatient wound care upon discharge or continue wound care nursing facility." In the meantime on discussion with case management they did state that the assisted living facility will not be accepting the patient back and she will need to go to snf facility for IV antibiotics. Midline has been ordered and patient can be discharged once approved. 03/18: Patient clinically improved and was speaking today. She is awaiting discharge placement. Continue current care and antibiotics per ID. History Interval history: Patient seen and examined clinically unchanged heel dressing in place. Patient clinically stable. Hospitalist Physical - Physical exam Narrative exam: General appearance: Present: no acute distress, well-nourished - EENT Eyes: Present: PERRL ENT: hearing intact, clear oral mucosa - Neck Neck: Present: supple, normal ROM - Respiratory Respiratory effort: normal Respiratory: bilateral: CTA - Cardiovascular Heart Sounds: Present: S1 & S2. Absent: rub, click - Extremities Extremities: pulses symmetrical, No edema Peripheral Pulses: within normal limits - Abdominal General gastrointestinal: Present: soft, non-tender, non-distended, normal bowel sounds Female genitourinary: Present: normal - Integumentary Integumentary: Present: Dressing over heel ulceration on the left noted. See clinical documentation on skin care patient with left heel ulceration and dressing in place - Musculoskeletal Musculoskeletal: generalized weakness, other (Contracture) - Psychiatric Psychiatric: appropriate mood/affect, intact judgment & insight - Neurologic Neurologic: CNII-XII intact, moves all extremities - Constitutional Vitals: Temp Pulse Resp BP Pulse Ox 98.5 F 96 H 20 152/72 96 03/18/21 04:00 03/18/21 04:00 03/18/21 04:00 03/18/21 04:00 03/18/21 04:00 General appearance: Present: no acute distress, well-nourished Results - Labs CBC & Chem 7: 03/12/21 06:26 03/13/21 11:19 Labs: Laboratory Last Values WBC 9.2 K/mm3 (4.5-11.0) 03/12/21 06:26 RBC 3.53 M/mm3 (3.65-5.03) L 03/12/21 06:26 Hgb 11.2 gm/dl (10.1-14.3) 03/12/21 06:26 Hct 33.0 % (30.3-42.9) 03/12/21 06:26 MCV 94 fl (79-97) 03/12/21 06:26 MCH 32 pg (28-32) 03/12/21 06:26 MCHC 34 % (30-34) 03/12/21 06:26 RDW 13.9 % (13.2-15.2) 03/12/21 06:26 Plt Count 221 K/mm3 (140-440) 03/12/21 06:26 Lymph % (Auto) 11.9 % (13.4-35.0) L 03/12/21 06:26 Chase % (Auto) 8.5 % (0.0-7.3) H 03/12/21 06:26 Eos % (Auto) 0.4 % (0.0-4.3) 03/12/21 06:26 Baso % (Auto) 0.2 % (0.0-1.8) 03/12/21 06:26 Lymph # (Auto) 1.1 K/mm3 (1.2-5.4) L 03/12/21 06:26 Chase # (Auto) 0.8 K/mm3 (0.0-0.8) 03/12/21 06:26 Eos # (Auto) 0.0 K/mm3 (0.0-0.4) 03/12/21 06:26 Baso # (Auto) 0.0 K/mm3 (0.0-0.1) 03/12/21 06:26 Add Manual Diff Complete 03/11/21 14:18 Seg Neutrophils % 79.0 % (40.0-70.0) H 03/12/21 06:26 Nucleated RBC % Not Reportable 03/11/21 14:18 Seg Neutrophils # 7.3 K/mm3 (1.8-7.7) 03/12/21 06:26 WBC Morphology Not Reportable 03/11/21 14:18 Hypersegmented Neuts Not Reportable 03/11/21 14:18 Hyposegmented Neuts Not Reportable 03/11/21 14:18 Hypogranular Neuts Not Reportable 03/11/21 14:18 Smudge Cells Not Reportable 03/11/21 14:18 Toxic Granulation Not Reportable 03/11/21 14:18 Toxic Vacuolation Not Reportable 03/11/21 14:18 Dohle Bodies Not Reportable 03/11/21 14:18 Pelger-Huet Anomaly Not Reportable 03/11/21 14:18 Diann Rods Not Reportable 03/11/21 14:18 Platelet Estimate Not Reportable 03/11/21 14:18 Clumped Platelets Not Reportable 03/11/21 14:18 Plt Clumps, EDTA Not Reportable 03/11/21 14:18 Large Platelets Not Reportable 03/11/21 14:18 Giant Platelets Not Reportable 03/11/21 14:18 Platelet Satelliting Not Reportable 03/11/21 14:18 Plt Morphology Comment Not Reportable 03/11/21 14:18 RBC Morphology Not Reportable 03/11/21 14:18 Dimorphic RBCs Not Reportable 03/11/21 14:18 Polychromasia Not Reportable 03/11/21 14:18 Hypochromasia Not Reportable 03/11/21 14:18 Poikilocytosis Not Reportable 03/11/21 14:18 Anisocytosis Not Reportable 03/11/21 14:18 Microcytosis Not Reportable 03/11/21 14:18 Macrocytosis Not Reportable 03/11/21 14:18 Spherocytes Not Reportable 03/11/21 14:18 Pappenheimer Bodies Not Reportable 03/11/21 14:18 Sickle Cells Not Reportable 03/11/21 14:18 Target Cells Not Reportable 03/11/21 14:18 Tear Drop Cells Not Reportable 03/11/21 14:18 Ovalocytes Not Reportable 03/11/21 14:18 Helmet Cells Not Reportable 03/11/21 14:18 [place] Bodies Not Reportable 03/11/21 14:18 Leon Rings Not Reportable 03/11/21 14:18 Prabhakar Cells Not Reportable 03/11/21 14:18 Bite Cells Not Reportable 03/11/21 14:18 Crenated Cell Not Reportable 03/11/21 14:18 Elliptocytes Not Reportable 03/11/21 14:18 Acanthocytes (Spur) Not Reportable 03/11/21 14:18 Rouleaux Not Reportable 03/11/21 14:18 Hemoglobin C Crystals Not Reportable 03/11/21 14:18 Schistocytes Not Reportable 03/11/21 14:18 Malaria parasites Not Reportable 03/11/21 14:18 Florentino Bodies Not Reportable 03/11/21 14:18 Hem Pathologist Commnt No 03/11/21 14:18 Sodium 135 mmol/L (137-145) L 03/13/21 11:19 Potassium 3.6 mmol/L (3.6-5.0) 03/13/21 11:19 Chloride 104.9 mmol/L (98-107) 03/13/21 11:19 Carbon Dioxide 22 mmol/L (22-30) 03/13/21 11:19 Anion Gap 12 mmol/L 03/13/21 11:19 BUN 17 mg/dL (7-17) 03/13/21 11:19 Creatinine 0.5 mg/dL (0.6-1.2) L 03/13/21 11:19 Estimated GFR > 60 ml/min 03/13/21 11:19 BUN/Creatinine Ratio 34 % 03/13/21 11:19 Glucose 128 mg/dL (65-100) H 03/13/21 11:19 Hemoglobin A1c 5.9 % (4-6) 03/12/21 06:26 Calcium 9.0 mg/dL (8.4-10.2) 03/13/21 11:19 Total Bilirubin 0.40 mg/dL (0.1-1.2) 03/12/21 06:26 AST 92 units/L (5-40) H 03/12/21 06:26 ALT 26 units/L (7-56) 03/12/21 06:26 Alkaline Phosphatase 71 units/L (35-129) 03/12/21 06:26 Total Protein 7.7 g/dL (6.3-8.2) 03/12/21 06:26 Albumin 3.3 g/dL (3.9-5) L 03/12/21 06:26 Albumin/Globulin Ratio 0.8 % 03/12/21 06:26 Urine Color Yellow (Yellow) 03/13/21 23:23 Urine Turbidity Slightly-cloudy (Clear) 03/13/21 23:23 Urine pH 7.0 (5.0-7.0) 03/13/21 23:23 Ur Specific [place] 1.010 (1.003-1.030) 03/13/21 23:23 Urine Protein <15 mg/dl mg/dL (Negative) 03/13/21 23:23 Urine Glucose (UA) Neg mg/dL (Negative) 03/13/21 23:23 Urine Ketones Neg mg/dL (Negative) 03/13/21 23:23 Urine Blood Neg (Negative) 03/13/21 23:23 Urine Nitrite Neg (Negative) 03/13/21 23:23 Urine Bilirubin Neg (Negative) 03/13/21 23:23 Urine Urobilinogen 2.0 mg/dL (<2.0) 03/13/21 23:23 Ur Leukocyte Esterase Sm (Negative) 03/13/21 23:23 Urine WBC (Auto) 3.0 /HPF (0.0-6.0) 03/13/21 23:23 Urine RBC (Auto) 2.0 /HPF (0.0-6.0) 03/13/21 23:23 U Epithel Cells (Auto) 6.0 /HPF (0-13.0) 03/13/21 23:23 Urine Bacteria (Auto) 1+ /HPF (Negative) 03/13/21 23:23 Urine Mucus Few /HPF 03/13/21 23:23 Coronavirus (PCR) Negative (Negative) 03/14/21 09:55 Microbiology: Microbiology 03/14/21 00:15 Peripheral/Venous Blood Culture - Preliminary NO GROWTH AFTER 4 DAYS Gallo/IV: Voiding Method Incontinent Active Medications - Current Medications Current Medications: Generic Name Dose Route Start Last Admin Trade Name Freq PRN Reason Stop Dose Admin Acetaminophen 650 mg 03/11/21 23:25 03/17/21 12:27 Acetaminophen 325 Mg Tab PO 650 mg Q4H PRN Administration Pain MILD(1-3)/Fever >100.5/MASTERS Cetirizine HCl 10 mg 03/13/21 14:00 03/18/21 11:02 Cetirizine 10 Mg Tab PO 10 mg QDAY MARQUES Administration Famotidine 20 mg 03/19/21 10:00 Famotidine 20 Mg Tab PO DAILY MARQUES Heparin Sodium (Porcine) 5,000 unit 03/11/21 23:30 03/18/21 11:01 Heparin 5,000 Unit/1 Ml Vial SUB-Q 5,000 unit Q12HR MARQUES Administration Hydralazine HCl 10 mg 03/14/21 05:23 03/14/21 05:44 Hydralazine 20 Mg/1 Ml Inj IV 10 mg Q6HR PRN Administration Blood Pressure Hydromorphone HCl 0.5 mg 03/11/21 23:25 03/18/21 04:33 Hydromorphone 1 Mg/1 Ml Inj IV 0.5 mg Q3H PRN Administration Pain , Severe (7-10) Dextrose/Sodium Chloride 1,000 mls @ 100 mls/hr 03/11/21 23:45 03/18/21 05:27 D5ns IV 100 mls/hr DIRECT MARQUES Administration MEROPENEM/NS 1 GRAM/100 ML 1 gram in 100 mls @ 100 mls/hr 03/16/21 14:00 03/18/21 06:41 Merrem/Ns 1 Gram/100 Ml IV 03/30/21 22:59 Infused Q8H MARQUES Infusion Protocol Metoclopramide HCl 5 mg 03/11/21 23:45 Metoclopramide 10 Mg/2 Ml Inj IV Q6H PRN Nausea And Vomiting Morphine Sulfate 2 mg 03/11/21 23:25 Morphine 2 Mg/1 Ml Inj IV Q4H PRN Pain, Moderate (4-6) Ondansetron HCl 4 mg 03/11/21 23:25 Ondansetron 4 Mg/2 Ml Inj IV Q8H PRN Nausea And Vomiting Sodium Chloride 10 ml 03/12/21 10:00 03/18/21 11:02 Sodium Chloride 0.9% 10 Ml Flush Syringe IV 10 ml BID MARQUES Administration Sodium Chloride 10 ml 03/11/21 23:25 Sodium Chloride 0.9% 10 Ml Flush Syringe IV PRN PRN LINE FLUSH Nutrition/Malnutrition Assess - Dietary Evaluation Nutrition/Malnutrition Findings: Nutrition Notes Start: 03/12/21 14:03 Freq: Status: Active Protocol: Document 03/16/21 14:55 (Rec: 03/16/21 14:58 [id number]) Nutrition Notes Initial or Follow up Reassessment Current Diagnosis Acute Kidney Injury, Hypertension Other Pertinent Diagnosis dementia, FTT, dehydration Current Diet regular Labs/Tests Na 135 Pertinent Medications D5NS at 100 ml/hr Height 5 ft 2 in Weight 40.5 kg [place] Body Weight (kg) 50.00 BMI 16.3 Weight change and time frame 7% wt loss in 4 days, will follow for fluctuations Weight Status Underweight Subjective/Other Information FU for intakes. Pt did not speak much. She is not eating well but is drinking 2 ONS daily. Percent of energy/protein needs met: 56%/77% Burn Absent Trauma Absent Current % PO Poor (25-49%) Minimum of two criteria Yes Energy Intake (non-severe) <75% Estimated Energy Requirement >7 days Body Fat Depletion Mild depletion (non-severe) Muscle Mass Mild Depletion (non-severe) #1 Nutrition Diagnosis Malnutrition Diagnosis Progress(for reassessment Continues documentation) Is patient on ventilator? No Is Patient Ambulatory and/or Out of Bed No REE-([place]-St. Jeor-confined to bed) 1012.908 Kcal/Kg value to use for calculation 31 Approximate Energy Requirements Using 1256 kcal/Kg Calculation Used for Recommendations Kcal/kg Additional Notes Protein: (1.2-1.5g/kg) 52-65g Fluid: 1 ml/kcal Nutrition Intervention Change Diet Order: continue Add Supplement/Snack (indicate name/kcal Ensure Enlive TID /protein ) Provides kCal: 1,050 Provides Protein (gm) 60 Goal #1 Meet at least 75% of energy and protein needs via PO and ONS Anticipated Discharge Needs: cardiac Follow-Up By: 03/18/21 Additional Comments FU for intakes and ONS tolerance
--- NOTE | 2021-03-18 16:28 | Progress Note ---
Assessment and Plan Cultures: Blood culture ESBL E. coli A/P: 76-year-old female past medical history hypertension, COPD, dementia now with: #Acute sepsis: Present with fevers and tachycardia. Likely secondary to ESBL bacteremia #ESBL E. coli bacteremia: Unclear etiology, without evidence of infection. No complaints of abdominal issues. #Left heel wound: Status post debridement by general surgery #COPD Recs: -Continue meropenem 1 g every 8 hours -Plan on 2 weeks antibiotics -Case management consulted for meropenem 1 g every 8 hours until 03/30/2021 -Patient going to [facility], will receive antibiotics there. Thank you for the consult, we will continue to follow. John Blevins MD [facility] ([facility]) O: [phone] F: [phone] Subjective Date of service: 03/18/21 Principal diagnosis: Dehydration altered mental status Interval history: Afebrile, normal white count. Objective - Exam Narrative Exam: Physical Exam: Constitutional: Alert, cooperative. No acute distress Head, Ears, Nose: Normocephalic, atraumatic. Eyes: Conjunctivae/corneas clear. No icterus. No ptosis. Neck: Supple, no meningeal signs Oral: dentition fair, no thrush Cardiovascular: S1, S2 normal. Respiratory: Good air entry, clear to auscultation bilaterally GI: Soft, non-tender; bowel sounds normal. No peritoneal signs. Musculoskeletal: No pedal edema, no cyanosis. Skin: No rash or abscess Hem/Lymphatic: No palpable cervical or supraclavicular nodes. No lymphangitis Psych: Mood ok. Affect normal Neurological: Awake, alert, oriented. No gross abnormality physical Exam: - Constitutional Vitals: Vital Signs Temp Pulse Resp BP Pulse Ox 97.3 F L 95 H 20 166/73 98 03/18/21 11:26 03/18/21 11:26 03/18/21 11:26 03/18/21 11:03/18/21 11:26 Temperature -Last 24 Hours Temperature 97.3 F Temperature 98.5 F Temperature 98.0 F Temperature 98.0 F Temperature 98.6 F - Labs CBC & Chem 7: 03/12/21 06:26 03/13/21 11:19
[2021-03-19] MEDS: MEROPENEM/NS 1 GRAM/100 ML 1 GRAM/100 ML BAG IV SCH ×3 (06:30→21:47)
[2021-03-19] MEDS: FAMOTIDINE 20 MG TAB PO SCH (10:03)
[2021-03-19] MEDS: HEPARIN 5,000 UNIT/1 ML VIAL SUB-Q SCH ×2 (10:04→21:37)
[2021-03-19] MEDS: CETIRIZINE 10 MG TAB PO SCH (10:04)
--- NOTE | 2021-03-19 12:21 | Progress Note ---
Assessment and Plan Assessment and plan: 76-year-old female with history of hypertension, COPD and dementia brought in for poor p.o. intake and low blood pressure. Apparently patient has not been urinating at all. Denies any nausea or vomiting. Denies abdominal pain. Initial blood pressure was 81/ 63. No fever or chills. No exposure to co ronavirus. No known cause for poor p.o. intake. Patient presented with poor p.o. intake advanced dementia contractures. Had episode of hypotension. Resolved quickly with IV volume hydration. We held patient's blood pressure medication and patient blood pressure went back up to the 180s. Patient did have a temp of 99 with some nasal congestion. Will evaluate rule out Covid 19. Patient had no exposure. Treat with Claritin and restart patient on blood pressure medications. Disposition: DC-01 TO HOME OR SELFCARE (1) Dementia Status: Acute Comment: Patient with cognitive impairment most likely vascular dementia. (2) Acute renal failure Status: Acute Comment: Resolved with IV volume hydration. (3) acute sepsis present on admission/ESBL bacteria Status: Acute (4) Dehydration Status: Acute Comment: Patient now eating better also require supplementation is personal long term. (5) Hyponatremia Status: Acute (6) Failure to thrive Status: Chronic Qualifiers: Failure to thrive age range: in adult Qualified Code(s): R62.7 - Adult failure to thrive (7) left foot ulcer with poor healing wound (8) DVT Prophylaxis 03/15: Patient seen and examined, awaiting discharge and arrangement with home health for wound management. Discussed with case management. Follow blood cultures, counting abx, following evaluation of the wound picture will obtain surgical consult prior to discharge to further evaluate. As patient still with low-grade fever. 03/16: Patient seen and examined clinically unchanged no new fever. Incidental finding of ESBL bacteremia ID consulted recommended to stop current antibiotics and start the patient on meropenem 1 g every 8 hours and plan for 2 weeks of therapy. Following initial antibiotics today patient can have a midline placed tomorrow afternoon and discharge. Awaiting surgical evaluation also. Plan discussed with case management team 03/17: Patient seen and examined this morning resting comfortably. Patient was seen by surgery yesterday and underwent local bedside debridement with no incident and no abscess pockets noted. Per surgeon " Eschar removed down to underlying fat pad. Recommend daily calcium alginate dressings by the nurses. No further surgical intervention indicated this time. Patient can follow-up with outpatient wound care upon discharge or continue wound care nursing faci josey." In the meantime on discussion with case management they did state that the assisted living facility will not be accepting the patient back and she will need to go to group home facility for IV antibiotics. Midline has been ordered and patient can be discharged once approved. 03/18: Patient seen and examined clinically stable. Continue on antibiotics per ID recommendation. Awaiting placement at this time. 03/19: Patient seen and examined, continue as recommended meropenem 1 g every 8 hours-Plan on 2 weeks antibiotics -Case management consulted for meropenem 1 g every 8 hours until 03/30/2021 Continue supportive care, awaiting placement. History Interval history: Patient seen and examined clinically unchanged heel dressing in place. wound reviewed with nurse, no drainage noted, Patient clinically stable. Hospitalist Physical - Physical exam Narrative exam: General appearance: Present: no acute distress, well-nourished - EENT Eyes: Present: PERRL ENT: hearing intact, clear oral mucosa - Neck Neck: Present: supple, normal ROM - Respiratory Respiratory effort: normal Respiratory: bilateral: CTA - Cardiovascular Heart Sounds: Present: S1 & S2. Absent: rub, click - Extremities Extremities: pulses symmetrical, No edema Peripheral Pulses: within normal limits - Abdominal General gastrointestinal: Present: soft, non-tender, non-distended, normal bowel sounds Female genitourinary: Present: normal - Integumentary Integumentary: Present: Dressing over heel ulceration on the left noted. See c linical documentation on skin care patient with left heel ulceration and dressing in place - Musculoskeletal Musculoskeletal: generalized weakness, other (Contracture) - Psychiatric Psychiatric: appropriate mood/affect, intact judgment & insight - Neurologic Neurologic: CNII-XII intact, moves all extremities - Constitutional Vitals: Temp Pulse Resp BP Pulse Ox 99.4 F 96 H 20 184/99 96 03/18/21 20:47 03/18/21 20:47 03/18/21 20:47 03/18/21 20:47 03/19/21 10:00 General appearance: Present: no acute distress, well-nourished Results - Labs CBC & Chem 7: 03/12/21 06:26 03/13/21 11:19 Labs: Laboratory Last Values WBC 9.2 K/mm3 (4.5-11.0) 03/12/21 06:26 RBC 3.53 M/mm3 (3.65-5.03) L 03/12/21 06:26 Hgb 11.2 gm/dl (10.1-14.3) 03/12/21 06:26 Hct 33.0 % (30.3-42.9) 03/12/21 06:26 MCV 94 fl (79-97) 03/12/21 06:26 MCH 32 pg (28-32) 03/12/21 06:26 MCHC 34 % (30-34) 03/12/21 06:26 RDW 13.9 % (13.2-15.2) 03/12/21 06:26 Plt Count 221 K/mm3 (140-440) 03/12/21 06:26 Lymph % (Auto) 11.9 % (13.4-35.0) L 03/12/21 06:26 [place] % (Auto) 8.5 % (0.0-7.3) H 03/12/21 06:26 Eos % (Auto) 0.4 % (0.0-4.3) 03/12/21 06:26 Baso % (Auto) 0.2 % (0.0-1.8) 03/12/21 06:26 Lymph # (Auto) 1.1 K/mm3 (1.2-5.4) L 03/12/21 06:26 [place] # (Auto) 0.8 K/mm3 (0.0-0.8) 03/12/21 06:26 Eos # (Auto) 0.0 K/mm3 (0.0-0.4) 03/12/21 06:26 Baso # (Auto) 0.0 K/mm3 (0.0-0.1) 03/12/21 06:26 Add Manual Diff Complete 03/11/21 14:18 Seg Neutrophils % 79.0 % (40.0-70.0) H 03/12/21 06:26 Nucleated RBC % Not Reportable 03/11/21 14:18 Seg Neutrophils # 7.3 K/mm3 (1.8-7.7) 03/12/21 06:26 WBC Morphology Not Reportable 03/11/21 14:18 Hypersegmented Neuts Not Reportable 03/11/21 14:18 Hyposegmented Neuts Not Reportable 03/11/21 14:18 Hypogranular Neuts Not Reportable 03/11/21 14:18 Smudge Cells Not Reportable 03/11/21 14:18 Toxic Granulation Not Reportable 03/11/21 14:18 Toxic Vacuolation Not Reportable 03/11/21 14:18 Dohle Bodies Not Reportable 03/11/21 14:18 Pelger-Huet Anomaly Not Reportable 03/11/21 14:18 Diann Rods Not Reportable 03/11/21 14:18 Platelet Estimate Not Reportable 03/11/21 14:18 Clumped Platelets Not Reportable 03/11/21 14:18 Plt Clumps, EDTA Not Reportable 03/11/21 14:18 Large Platelets Not Reportable 03/11/21 14:18 Giant Platelets Not Reportable 03/11/21 14:18 Platelet Satelliting Not Reportable 03/11/21 14:18 Plt Morphology Comment Not Reportable 03/11/21 14:18 RBC Morphology Not Reportable 03/11/21 14:18 Dimorphic RBCs Not Reportable 03/11/21 14:18 Polychromasia Not Reportable 03/11/21 14:18 Hypochromasia Not Reportable 03/11/21 14:18 Poikilocytosis Not Reportable 03/11/21 14:18 Anisocytosis Not Reportable 03/11/21 14:18 Microcytosis Not Reportable 03/11/21 14:18 Macrocytosis Not Reportable 03/11/21 14:18 Spherocytes Not Reportable 03/11/21 14:18 Pappenheimer Bodies Not Reportable 03/11/21 14:18 Sickle Cells Not Reportable 03/11/21 14:18 Target Cells Not Reportable 03/11/21 14:18 Tear Drop Cells Not Reportable 03/11/21 14:18 Ovalocytes Not Reportable 03/11/21 14:18 Helmet Cells Not Reportable 03/11/21 14:18 [place]-Bovill Bodies Not Reportable 03/11/21 14:18 [place] Rings Not Reportable 03/11/21 14:18 [place] Cells Not Reportable 03/11/21 14:18 Bite Cells Not Reportable 03/11/21 14:18 Crenated Cell Not Reportable 03/11/21 14:18 Elliptocytes Not Reportable 03/11/21 14:18 Acanthocytes (Spur) Not Reportable 03/11/21 14:18 Rouleaux Not Reportable 03/11/21 14:18 Hemoglobin C Crystals Not Reportable 03/11/21 14:18 Schistocytes Not Reportable 03/11/21 14:18 Malaria parasites Not Reportable 03/11/21 14:18 Fl[place] Bodies Not Reportable 03/11/21 14:18 Hem Pathologist Commnt No 03/11/21 14:18 Sodium 135 mmol/L (137-145) L 03/13/21 11:19 Potassium 3.6 mmol/L (3.6-5.0) 03/13/21 11:19 Chloride 104.9 mmol/L (98-107) 03/13/21 11:19 Carbon Dioxide 22 mmol/L (22-30) 03/13/21 11:19 Anion Gap 12 mmol/L 03/13/21 11:19 BUN 17 mg/dL (7-17) 03/13/21 11:19 Creatinine 0.5 mg/dL (0.6-1.2) L 03/13/21 11:19 Estimated GFR > 60 ml/min 03/13/21 11:19 BUN/Creatinine Ratio 34 % 03/13/21 11:19 Glucose 128 mg/dL (65-100) H 03/13/21 11:19 Hemoglobin A1c 5.9 % (4-6) 03/12/21 06:26 Calcium 9.0 mg/dL (8.4-10.2) 03/13/21 11:19 Total Bilirubin 0.40 mg/dL (0.1-1.2) 03/12/21 06:26 AST 92 units/L (5-40) H 03/12/21 06:26 ALT 26 units/L (7-56) 03/12/21 06:26 Alkaline Phosphatase 71 units/L (35-129) 03/12/21 06:26 Total Protein 7.7 g/dL (6.3-8.2) 03/12/21 06:26 Albumin 3.3 g/dL (3.9-5) L 03/12/21 06:26 Albumin/Globulin Ratio 0.8 % 03/12/21 06:26 Urine Color Yellow (Yellow) 03/13/21 23:23 Urine Turbidity Slightly-cloudy (Clear) 03/13/21 23:23 Urine pH 7.0 (5.0-7.0) 03/13/21 23:23 Ur Specific [place] 1.010 (1.003-1.030) 03/13/21 23:23 Urine Protein <15 mg/dl mg/dL (Negative) 03/13/21 23:23 Urine Glucose (UA) Neg mg/dL (Negative) 03/13/21 23:23 Urine Ketones Neg mg/dL (Negative) 03/13/21 23:23 Urine Blood Neg (Negative) 03/13/21 23:23 Urine Nitrite Neg (Negative) 03/13/21 23:23 Urine Bilirubin Neg (Negative) 03/13/21 23:23 Urine Urobilinogen 2.0 mg/dL (<2.0) 03/13/21 23:23 Ur Leukocyte Esterase Sm (Negative) 03/13/21 23:23 Urine WBC (Auto) 3.0 /HPF (0.0-6.0) 03/13/21 23:23 Urine RBC (Auto) 2.0 /HPF (0.0-6.0) 03/13/21 23:23 U Epithel Cells (Auto) 6.0 /HPF (0-13.0) 03/13/21 23:23 Urine Bacteria (Auto) 1+ /HPF (Negative) 03/13/21 23:23 Urine Mucus Few /HPF 03/13/21 23:23 Coronavirus (PCR) Negative (Negative) 03/14/21 09:55 Microbiology: Microbiology 03/14/21 00:15 Peripheral/Venous Blood Culture - Final NO GROWTH AFTER 5 DAYS Gallo/IV: Voiding Method Incontinent Active Medications - Current Medications Current Medications: Generic Name Dose Route Start Last Admin Trade Name Freq PRN Reason Stop Dose Admin Acetaminophen 650 mg 03/11/21 23:25 03/17/21 12:27 Acetaminophen 325 Mg Tab PO 650 mg Q4H PRN Administration Pain MILD(1-3)/Fever >100.5/MASTERS Cetirizine HCl 10 mg 03/13/21 14:00 03/19/21 10:04 Cetirizine 10 Mg Tab PO 10 mg QDAY MARQUES Administration Famotidine 20 mg 03/19/21 10:00 03/19/21 10:03 Famotidine 20 Mg Tab PO 20 mg DAILY MARQUES Administration Heparin Sodium (Porcine) 5,000 unit 03/11/21 23:30 03/19/21 10:04 Heparin 5,000 Unit/1 Ml Vial SUB-Q 5,000 unit Q12HR MARQUES Administration Hydralazine HCl 10 mg 03/14/21 05:23 03/14/21 05:44 Hydralazine 20 Mg/1 Ml Inj IV 10 mg Q6HR PRN Administration Blood Pressure Hydromorphone HCl 0.5 mg 03/11/21 23:25 03/18/21 04:33 Hydromorphone 1 Mg/1 Ml Inj IV 0.5 mg Q3H PRN Administration Pain , Severe (7-10) Dextrose/Sodium Chloride 1,000 mls @ 100 mls/hr 03/11/21 23:45 03/18/21 22:55 D5ns IV 100 mls/hr DIRECT MARQUES Administration MEROPENEM/NS 1 GRAM/100 ML 1 gram in 100 mls @ 100 mls/hr 03/16/21 14:00 03/19/21 06:30 Merrem/Ns 1 Gram/100 Ml IV 03/30/21 22:59 100 mls/hr Q8H MARQUES Administration Protocol Metoclopramide HCl 5 mg 03/11/21 23:45 Metoclopramide 10 Mg/2 Ml Inj IV Q6H PRN Nausea And Vomiting Morphine Sulfate 2 mg 03/11/21 23:25 Morphine 2 Mg/1 Ml Inj IV Q4H PRN Pain, Moderate (4-6) Ondansetron HCl 4 mg 03/11/21 23:25 Ondansetron 4 Mg/2 Ml Inj IV Q8H PRN Nausea And Vomiting Sodium Chloride 10 ml 03/12/21 10:00 03/19/21 10:04 Sodium Chloride 0.9% 10 Ml Flush Syringe IV Not Given BID MARQUES Sodium Chloride 10 ml 03/11/21 23:25 Sodium Chloride 0.9% 10 Ml Flush Syringe IV PRN PRN LINE FLUSH Nutrition/Malnutrition Assess - Dietary Evaluation Nutrition/Malnutrition Findings: Nutrition Notes Start: 03/12/21 14:03 Freq: Status: Active Protocol: Document 03/18/21 17:04 [email or web address] (Rec: 03/18/21 17:06 NHALL [id number]) Nutrition Notes Initial or Follow up Brief Note Current Diet Regular + Ensure Enlive TID Subjective/Other Information Pt has consumed 29% of meals since last assessment. D/C summary written today. Percent of energy/protein needs met: 64% energy 47% pro (excludes ONS) Current % PO Poor (25-49%) Nutrition Intervention Follow-Up By: 03/23/21 Additional Comments F/U: intakes (meals, ONS), wt
[2021-03-19] MEDS: D5W/0.9% NACL 1,000 ML IV SCH (13:19)
--- NOTE | 2021-03-19 15:29 | Progress Note ---
Assessment and Plan Cultures: Blood culture ESBL E. coli A/P: 76-year-old female past medical history hypertension, COPD, dementia now with: #Acute sepsis: Present with fevers and tachycardia. Likely secondary to ESBL bacteremia #ESBL E. coli bacteremia: Unclear etiology, without evidence of infection. No complaints of abdominal issues. #Left heel wound: Status post debridement by general surgery #COPD Recs: -Continue meropenem 1 g every 8 hours -Plan on 2 weeks antibiotics -Case management consulted for meropenem 1 g every 8 hours until 03/30/2021 -Patient going to nursing home, will receive antibiotics there. Thank you for the consult, we will continue to follow. John Blevins MD [facility] ([facility]) O: [phone] F: [phone] Subjective Date of service: 03/19/21 Principal diagnosis: Dehydration altered mental status Interval history: Afebrile, normal white count. No acute issues. Objective - Exam Narrative Exam: Physical Exam: Constitutional: Alert, cooperative. No acute distress Head, Ears, Nose: Normocephalic, atraumatic. Eyes: Conjunctivae/corneas clear. No icterus. No ptosis. Neck: Supple, no meningeal signs Oral: dentition fair, no thrush Cardiovascular: S1, S2 normal. Respiratory: Good air entry, clear to auscultation bilaterally GI: Soft, non-tender; bowel sounds normal. No peritoneal signs. Musculoskeletal: No pedal edema, no cyanosis. Skin: No rash or abscess Hem/Lymphatic: No palpable cervical or supraclavicular nodes. No lymphangitis Psych: Mood ok. Affect normal Neurological: Awake, alert, oriented. No gross abnormality physical Exam: - Constitutional Vitals: Vital Signs Temp Pulse Resp BP Pulse Ox 98.6 F 95 H 18 131/64 95 03/19/21 11:05 03/19/21 11:05 03/19/21 11:05 03/19/21 11:05 03/19/21 11:05 Temperature -Last 24 Hours Temperature 98.6 F Temperature 99.4 F Temperature 98.9 F - Labs CBC & Chem 7: 03/12/21 06:26 03/13/21 11:19
[2021-03-19] MEDS: hydrALAZINE 20 MG/1 ML INJ IV PRN (17:25)
[2021-03-20] MEDS: MEROPENEM/NS 1 GRAM/100 ML 1 GRAM/100 ML BAG IV SCH ×2 (05:58→13:04)
[2021-03-20] MEDS: FAMOTIDINE 20 MG TAB PO SCH (09:01)
[2021-03-20] MEDS: HEPARIN 5,000 UNIT/1 ML VIAL SUB-Q SCH (09:01)
[2021-03-20] MEDS: CETIRIZINE 10 MG TAB PO SCH (09:01)
[2021-03-20 13:42] VITALS: BP 150/63
--- NOTE | 2021-03-20 14:53 | Progress Note ---
Assessment and Plan Cultures: Blood culture ESBL E. coli A/P: 76-year-old female past medical history hypertension, COPD, dementia now with: #Acute sepsis: Present with fevers and tachycardia. Likely secondary to ESBL bacteremia #ESBL E. coli bacteremia: Unclear etiology, without evidence of infection. No complaints of abdominal issues. #Left heel wound: Status post debridement by general surgery #COPD Recs: -Continue meropenem 1 g every 8 hours -Plan on 2 weeks antibiotics -Case management consulted for meropenem 1 g every 8 hours until 03/30/2021 -Patient going to intermediate, will receive antibiotics there. Thank you for the consult, we will sign off. Please call with questions. John Blevins MD [facility] ([facility]) O: [phone] F: [phone] Subjective Date of service: 03/20/21 Principal diagnosis: Dehydration altered mental status Interval history: Afebrile, normal white count. No acute issues. Objective - Exam Narrative Exam: Physical Exam: Constitutional: Alert, cooperative. No acute distress Head, Ears, Nose: Normocephalic, atraumatic. Eyes: Conjunctivae/corneas clear. No icterus. No ptosis. Neck: Supple, no meningeal signs Oral: dentition fair, no thrush Cardiovascular: S1, S2 normal. Respiratory: Good air entry, clear to auscultation bilaterally GI: Soft, non-tender; bowel sounds normal. No peritoneal signs. Musculoskeletal: No pedal edema, no cyanosis. Skin: No rash or abscess Hem/Lymphatic: No palpable cervical or supraclavicular nodes. No lymphangitis Psych: Mood ok. Affect normal Neurological: Awake, alert, oriented. No gross abnormality physical Exam: - Constitutional Vitals: Vital Signs Temp Pulse Resp BP Pulse Ox 99.6 F 96 H 16 150/63 97 03/20/21 11:17 03/20/21 11:17 03/20/21 11:17 03/20/21 11:17 03/20/21 11:17 Temperature -Last 24 Hours Temperature 99.6 F Temperature 98.7 F Temperature 98.9 F - Labs CBC & Chem 7: 03/12/21 06:26 03/13/21 11:19
== END 2021-03-20 14:30 | DRG 871 ==
LOC: ED 13:05 → 3A 16:05 → INTOOBSV 16:05 → 3A 23:46 → OBSVTOIN 03-16 12:06
PROVIDERS: ADMIT Internal Medicine; ATTEND Internal Medicine
PROC: 0HBNXZZ Excision of Left Foot Skin, External Approach (ICD-10-PCS; principal; 2021-03-16)
DX: A41.51 Sepsis due to Escherichia coli [E. coli] (principal); N17.0 Acute kidney failure with tubular necrosis; G93.41 Metabolic encephalopathy; E87.2 Acidosis; E87.1 Hypo-osmolality and hyponatremia; Z68.1 Body mass index [BMI] 19.9 or less, adult; Z20.822 Contact with and (suspected) exposure to COVID-19; R65.20 Severe sepsis without septic shock; R62.7 Adult failure to thrive; E86.0 Dehydration; S91.302A Unspecified open wound, left foot, initial encounter; X58.XXXA Exposure to other specified factors, initial encounter; F03.90 Unspecified dementia, unspecified severity, without behavioral disturbance, psychotic disturbance, mood disturbance, and anxiety; I95.9 Hypotension, unspecified; L97.529 Non-pressure chronic ulcer of other part of left foot with unspecified severity; J44.9 Chronic obstructive pulmonary disease, unspecified; I10 Essential (primary) hypertension; Z88.0 Allergy status to penicillin; Z79.899 Other long term (current) drug therapy; Z79.891 Long term (current) use of opiate analgesic; Z79.01 Long term (current) use of anticoagulants; Z82.49 Family history of ischemic heart disease and other diseases of the circulatory system
CPT/HCPCS: 36415; 71046; 80048; 80053; 81001; 83036; 85007; 85025; 87040; 87186; 99285; G0378; J0360; J0692; J1170; J1644; J1956; J2185; J3370; J7030; J7042; J7050; U0003

== ENCOUNTER 2021-05-16 11:09 | Inpatient (IN) | payer MEDICARE ==
--- NOTE | 2021-05-16 12:00 | Emergency Department Report ---
HPI - General Time Seen by Provider: 05/16/21 11:54 - HPI HPI: Room 23 The patient is a 76-year-old female present with a chief complaint rectal bleeding. Patient was sent from [facility] with report of rectal bleeding x2 days. Patient has a history of dementia and does not provide further history. ED Past Medical Hx - Past Medical History Hx Hypertension: Yes Hx Renal Disease: Yes (Chronic renal insufficiency) Hx Psychiatric Treatment: Yes (Dementia) Hx COPD: Yes Hx Dementia: Yes - Family History Family history: no significant - Social History Smoking Status: Never Smoker Substance Use Type: None - Medications Home Medications: Home Medications Medication Instructions Recorded Confirmed Last Taken Type Famotidine [Pepcid] 20 mg PO DAILY tablet 03/18/21 Unknown Rx AtorvaSTATin [Lipitor] 80 mg PO QHS #30 tab 03/21/21 Unknown Rx Lisinopril/Hydrochlorothiazide 1 each PO DAILY #30 tablet 03/21/21 Unknown Rx [Zestoretic 10-12.5 mg Tablet] Ticagrelor (Nf) [Brilinta (Nf)] 60 mg PO DAILY #30 tablet 03/21/21 Unknown Rx ED Review of Systems ROS: Stated complaint: RECTAL BLEEDING Other details as noted in HPI Comment: Unobtainable due to pts medical conditions (Dementia) Physical Exam - Physical Exam Vital Signs: Vital Signs 05/16/21 05/16/21 05/16/21 12:05 12:10 12:47 Temperature 97.8 F Pulse Rate 96 H 92 H Respiratory 24 24 21 Rate Blood Pressure 97/54 Blood Pressure 113/51 [Right] O2 Sat by Pulse 100 100 98 Oximetry Physical Exam: GENERAL: The patient is well-developed well-nourished female lying on stretcher not appearing to be in acute distress. [] HEENT: Normocephalic. Atraumatic. Extraocular motions are intact. Patient has moist mucous membranes. NECK: Supple. Trachea midline CHEST/LUNGS: Clear to auscultation. There is no respiratory distress noted. HEART/CARDIOVASCULAR: Regular. There is no tachycardia. There is no gallop rub or murmur. ABDOMEN: Abdomen is soft, nontender. Patient has normal bowel sounds. There is no abdominal distention. SKIN: There is no rash. There is no edema. There is no diaphoresis. NEURO: The patient is awake and alert. The patient is cooperative. The patient has normal speech MUSCULOSKELETAL: There is no evidence of acute injury. Rectal: Melena present. Guaiac positive ED Course - Consultations Consultation #1: 05/16/21 13:03 GI paged 05/16/21 13:17 Case discussed with safe technician Dr. Raphael Lara- recommends continuing Protonix drip and transfusing 1 unit of PRBCs ED Medical Decision Making - Lab Data Result diagrams: 05/16/21 12:28 05/16/21 12:28 Laboratory Tests 05/16/21 05/16/21 05/16/21 12:28 12:28 12:28 WBC 11.2 H RBC 2.66 L Hgb 8.5 L Hct 25.5 L MCV 96 MCH 32 MCHC 33 RDW 17.5 H Plt Count 303 Lymph % (Auto) 12.9 L [place] % (Auto) 4.9 Eos % (Auto) 0.1 Baso % (Auto) 0.2 Lymph # (Auto) 1.4 [place] # (Auto) 0.6 Eos # (Auto) 0.0 Baso # (Auto) 0.0 Seg Neutrophils % 81.9 H Seg Neutrophils # 9.2 H PT 12.7 INR 0.90 APTT 29.1 Sodium 132 L Potassium 4.1 Chloride 98.1 Carbon Dioxide 17 L Anion Gap 21 BUN 68 H Creatinine 1.6 H Estimated GFR 38 BUN/Creatinine Ratio 43 Glucose 141 H Calcium 9.1 Total Bilirubin 0.50 AST 20 ALT 10 Alkaline Phosphatase 76 Total Protein 8.7 H Albumin 3.8 L Albumin/Globulin Ratio 0.8 Blood Type Crossmatch 05/16/21 12:28 WBC RBC Hgb Hct MCV MCH MCHC RDW Plt Count Lymph % (Auto) [place] % (Auto) Eos % (Auto) Baso % (Auto) Lymph # (Auto) [place] # (Auto) Eos # (Auto) Baso # (Auto) Seg Neutrophils % Seg Neutrophils # PT INR APTT Sodium Potassium Chloride Carbon Dioxide Anion Gap BUN Creatinine Estimated GFR BUN/Creatinine Ratio Glucose Calcium Total Bilirubin AST ALT Alkaline Phosphatase Total Protein Albumin Albumin/Globulin Ratio Blood Type O POSITIVE Crossmatch See Detail - Differential Diagnosis Rectal bleeding Critical care attestation.: If time is entered above; I have spent that time in minutes in the direct care of this critically ill patient, excluding procedure time. ED Disposition Clinical Impression: Upper GI bleed Disposition: 09 ADMITTED INPATIENT Is pt being admited?: Yes Does the pt Need Aspirin: No Condition: Fair Forms: Accompanied Note Time of Disposition: 13:18 (Hospitalist called (Dr. Fabian))
[2021-05-16] MEDS ORDERED: SODIUM CHLORIDE 0.9% 500 ML 500 ML IV ONE ×2 (12:02→13:16)
[2021-05-16] MEDS ORDERED: SODIUM CHLORIDE 0.9% 1000 ML 1,000 ML IV ONE (12:19)
[2021-05-16] MEDS ORDERED: PANTOPRAZOLE 40 MG INJ IV ONE (12:22)
[2021-05-16 12:44] LABS: Basophils % (Auto) 0.2 % (0.0-1.8); Eosinophils % (Auto) 0.1 % (0.0-4.3); Hematocrit 25.5 % (30.3-42.9); Hemoglobin 8.5 gm/dl (10.1-14.3); Lymphocytes # (Auto) 1.4 K/mm3 (1.2-5.4); Lymphocytes % (Auto) 12.9 % (13.4-35.0); Mean Corpuscular HGB Conc 33 % (30-34); Mean Corpuscular Volume 96 fl (79-97); Monocytes # (Auto) 0.6 K/mm3 (0.0-0.8); Monocytes % (Auto) 4.9 % (0.0-7.3); Platelet Count 303 K/mm3 (140-440); Red Blood Count 2.66 M/mm3 (3.65-5.03); Red Cell Distribution Width 17.5 % (13.2-15.2)
[2021-05-16 12:53] LABS: INR 0.9 (0.87-1.13)
[2021-05-16 12:54] LABS: Partial Thromboplastin Time 29.1 Sec. (24.2-36.6)
[2021-05-16 13:01] LABS: Albumin 3.8 g/dL (3.9-5); Calcium 9.1 mg/dL (8.4-10.2)
[2021-05-16] MEDS: PANTOPRAZOLE 80 MG in SODIUM CHLORIDE 0.9% 100 ML IV SCH ×2 (13:06→23:42)
--- NOTE | 2021-05-16 13:21 | History and Physical Report ---
History of Present Illness Chief complaint: She has dark stools History of present illness: 76 YO Female Group Home Facility Resident [facility] with HTN, COPD, Vascular Dementia, Cerebral Atherosclerosis presents to ED for evaluation. Patient has diminished cognition and is unable to provide history. Patient history provided by EMS staff, ED staff, as well as [facility] staff. As per staff the patient was found to have multiple episodes of dark tarry stools over the past 2 days. EMS was notified and upon arrival the patient was found to be in distress and subsequent transported to [facility] for further care and evaluation of the aforementioned symptoms. The patient was seen and evaluated in the emergency department. All lab and imaging studies reviewed. The patient was found to be hypotensive with systolic blood pressure in the 80s as well as with a positive Hemoccult. Patient found to have GI bleed. Patient admitted to telemetry and initiated on GI bleed protocol. GI team consulted in ED. Patient blood pressure normalized with IV fluid resuscitation therapy and initiation of blood transfusion in the emergency department. No further history is obtainable. Patient has diminished cognition but has a positive gag reflex and is able to protect her airway without difficulty. No reports of fever, chills, chest pain, palpitation, productive cough, skin rash, recent ill contacts, or known exposure to COVID-19. Prior admission records on 04-04 reviewed. All medication listed at time of admission has been reconciled. Advanced care planning conducted in ED. Past History Past Medical History: COPD, hypertension, other (See HPI) Past Surgical History: No surgical history, Other (Reviewed) Social history: single. denies: smoking, alcohol abuse, prescription drug abuse Family history: hypertension Medications and Allergies Allergies Allergy/AdvReac Type Severity Reaction Status Date / Time Penicillins Allergy Unknown Verified 03/11/21 20:02 Home Medications Medication Instructions Recorded Confirmed Last Taken Type Famotidine [Pepcid] 20 mg PO DAILY tablet 03/18/21 Unknown Rx AtorvaSTATin [Lipitor] 80 mg PO QHS #30 tab 03/21/21 Unknown Rx Lisinopril/Hydrochlorothiazide 1 each PO DAILY #30 tablet 03/21/21 Unknown Rx [Zestoretic 10-12.5 mg Tablet] Ticagrelor (Nf) [Brilinta (Nf)] 60 mg PO DAILY #30 tablet 03/21/21 Unknown Rx Active Meds: Active Medications Pantoprazole Sodium 80 mg/ (Sodium Chloride) 100 mls @ 10 mls/hr IV DIRECT MARQUES Last Admin: 05/16/21 13:06 Dose: 8 mg/hr, 10 mls/hr Documented by: Review of Systems ROS unobtainable: due to mental status Exam - Constitutional Vitals: Temp Pulse Resp BP Pulse Ox 97.8 F 93 H 20 100/54 95 05/16/21 12:05 05/16/21 13:11 05/16/21 13:11 05/16/21 13:11 05/16/21 13:11 General appearance: Present: mild distress, cachectic - EENT Eyes: Present: PERRL ENT: clear oral mucosa, hearing decreased - Neck Neck: Present: supple, normal ROM - Respiratory Respiratory effort: normal Respiratory: bilateral: CTA - Cardiovascular Heart Sounds: Present: S1 & S2. Absent: rub, click - Extremities Extremities: pulses symmetrical, No edema Peripheral Pulses: within normal limits - Abdominal General gastrointestinal: Present: soft, non-tender, non-distended, normal bowel sounds Female genitourinary: Present: normal - Integumentary Integumentary: Present: clear, dry - Musculoskeletal Musculoskeletal: generalized weakness - Psychiatric Psychiatric: no appropriate mood/affect, no intact judgment & insight, no memory intact - Neurologic Neurologic: CNII-XII intact, no focal deficits, moves all extremities, no gait normal Results - Labs CBC & Chem 7: 05/16/21 12:28 05/16/21 12:28 Labs: Abnormal lab results 05/16/21 05/16/21 05/16/21 Range/Units 12:28 12:28 12:28 WBC 11.2 H (4.5-11.0) K/mm3 RBC 2.66 L (3.65-5.03) M/mm3 Hgb 8.5 L (10.1-14.3) gm/dl Hct 25.5 L (30.3-42.9) % RDW 17.5 H (13.2-15.2) % Lymph % (Auto) 12.9 L (13.4-35.0) % Seg Neutrophils % 81.9 H (40.0-70.0) % Seg Neutrophils # 9.2 H (1.8-7.7) K/mm3 Sodium 132 L (137-145) mmol/L Carbon Dioxide 17 L (22-30) mmol/L BUN 68 H (7-17) mg/dL Creatinine 1.6 H (0.6-1.2) mg/dL Glucose 141 H (65-100) mg/dL Total Protein 8.7 H (6.3-8.2) g/dL Albumin 3.8 L (3.9-5) g/dL Crossmatch See Detail Assessment and Plan - Patient Problems (1) GI bleed Current Visit: Yes Status: Acute Plan to address problem: GI bleed protocol: Packed red blood cell transfusion, PPI therapy, GI team c onsulted in ED, patient is pending endoscopy evaluation as per GI team. (2) YEYO (acute kidney injury) Current Visit: Yes Status: Acute Plan to address problem: IV fluid resuscitation therapy, monitor urine output every shift, monitor fluid balance, BMP, repeat BMP in a.m. (3) Metabolic acidosis Current Visit: Yes Status: Acute Plan to address problem: BMP, IV fluid resuscitation therapy, repeat BMP in a.m. (4) SIRS (systemic inflammatory response syndrome) Current Visit: Yes Status: Acute Plan to address problem: CBC, CMP, urinalysis, empiric IV antibiotic therapy x1 dose, repeat CBC in a.m. (5) Malnutrition Current Visit: Yes Status: Acute Qualifiers: Malnutrition type: protein-calorie malnutrition Protein-calorie malnutrition severity: moderate Qualified Code(s): E44.0 - Moderate protein- calorie malnutrition Plan to address problem: Dietary supplementation, increase protein intake. (6) Advance care planning Current Visit: Yes Status: Acute Plan to address problem: Disease education conducted, care plan discussed, diagnosis discussed, patient is full code, nursing facility staff knowledges understanding agreement with care plan, +30 minutes. (7) DVT prophylaxis Current Visit: Yes Status: Acute Plan to address problem: SCD to bilateral lower extremities while in bed hold anticoagulation for now due to active GI bleed
[2021-05-16] MEDS ORDERED: oxyCODONE /ACETAMINOPHEN 5-325MG TAB PO PRN (13:23)
[2021-05-16] MEDS ORDERED: ONDANSETRON 4 MG/2 ML INJ IV PRN (13:23)
--- NOTE | 2021-05-16 14:11 | Gastroenterology Consultation ---
History of Present Illness - Reason for Consult Consult date: 05/16/21 melena/GI bleed Requesting physician: RASHEED PRUITT - History of Present Illness The patient is a 76 yo aaf who presents from group home with melena. History obtained from discussion with ER staff and chart review as pt has h/o dementia and unable to provide much details. she is awake and answers "yes" or "no" to questions but otherwise does not provide further history/details. reportedly w ith melena/black stools for 2 days. Hypotensive on arrival which improved following fluids. hgb 8.5 (11 on last admission a few months ago). Brilinta is listed as home medication - unclear indication. Past History Past Medical History: hypertension, other (renal insufficiency, dementia) Past Surgical History: Other (unable to obtain) Social history: other (group home pt) Medications and Allergies Allergies Allergy/AdvReac Type Severity Reaction Status Date / Time Penicillins Allergy Unknown Verified 03/11/21 20:02 Home Medications Medication Instructions Recorded Confirmed Last Taken Type Famotidine [Pepcid] 20 mg PO DAILY tablet 03/18/21 Unknown Rx AtorvaSTATin [Lipitor] 80 mg PO QHS #30 tab 03/21/21 Unknown Rx Lisinopril/Hydrochlorothiazide 1 each PO DAILY #30 tablet 03/21/21 Unknown Rx [Zestoretic 10-12.5 mg Tablet] Ticagrelor (Nf) [Brilinta (Nf)] 60 mg PO DAILY #30 tablet 03/21/21 Unknown Rx Active Meds: Active Medications Acetaminophen (Acetaminophen 325 Mg Tab) 650 mg PO Q4H PRN PRN Reason: Pain MILD(1-3)/Fever >100.5/MASTERS Atorvastatin Calcium (Atorvastatin 40 Mg Tab) 80 mg PO QHS MARQUES Hydromorphone HCl (Hydromorphone 1 Mg/1 Ml Inj) 0.5 mg IV Q23H PRN PRN Reason: Pain , Severe (7-10) Pantoprazole Sodium 80 mg/ (Sodium Chloride) 100 mls @ 10 mls/hr IV DIRECT MARQUES Last Admin: 05/16/21 13:06 Dose: 8 mg/hr, 10 mls/hr Documented by: Ondansetron HCl (Ondansetron 4 Mg/2 Ml Inj) 4 mg IV Q8H PRN PRN Reason: Nausea And Vomiting Oxycodone/Acetaminophen (Oxycodone /Acetaminophen 5-325mg Tab) 1 tab PO Q16H PRN PRN Reason: Pain, Moderate (4-6) Sodium Chloride (Sodium Chloride 0.9% 10 Ml Flush Syringe) 10 ml IV BID MARQUES Sodium Chloride (Sodium Chloride 0.9% 10 Ml Flush Syringe) 10 ml IV PRN PRN PRN Reason: LINE FLUSH reviewed/updated patient's home and current medications Review of Systems - Review of Systems ROS unobtainable: due to mental status Exam - Constitutional Vital Signs: Temp Pulse Resp BP Pulse Ox 97.8 F 93 H 20 100/54 95 05/16/21 12:05 05/16/21 13:11 05/16/21 13:11 05/16/21 13:11 05/16/21 13:11 General appearance: other (nad, thin female, + dementia) - Respiratory Respiratory effort: normal Respiratory: bilateral: CTA - Cardiovascular Rhythm: regular Heart Sounds: Present: S1 & S2 - Gastrointestinal General gastrointestinal: Present: soft, non-tender - Neurologic Neurological: oriented to person, oriented to place - Labs CBC & Chem 7: 05/16/21 12:28 05/16/21 12:28 Lab Results: Laboratory Results - last 24 hr 05/16/21 05/16/21 05/16/21 12:28 12:28 12:28 WBC 11.2 H RBC 2.66 L Hgb 8.5 L Hct 25.5 L MCV 96 MCH 32 MCHC 33 RDW 17.5 H Plt Count 303 Lymph % (Auto) 12.9 L [place] % (Auto) 4.9 Eos % (Auto) 0.1 Baso % (Auto) 0.2 Lymph # (Auto) 1.4 [place] # (Auto) 0.6 Eos # (Auto) 0.0 Baso # (Auto) 0.0 Seg Neutrophils % 81.9 H Seg Neutrophils # 9.2 H PT 12.7 INR 0.90 APTT 29.1 Sodium 132 L Potassium 4.1 Chloride 98.1 Carbon Dioxide 17 L Anion Gap 21 BUN 68 H Creatinine 1.6 H Estimated GFR 38 BUN/Creatinine Ratio 43 Glucose 141 H Calcium 9.1 Total Bilirubin 0.50 AST 20 ALT 10 Alkaline Phosphatase 76 Total Protein 8.7 H Albumin 3.8 L Albumin/Globulin Ratio 0.8 Blood Type Antibody Screen Crossmatch 05/16/21 12:28 WBC RBC Hgb Hct MCV MCH MCHC RDW Plt Count Lymph % (Auto) [place] % (Auto) Eos % (Auto) Baso % (Auto) Lymph # (Auto) [place] # (Auto) Eos # (Auto) Baso # (Auto) Seg Neutrophils % Seg Neutrophils # PT INR APTT Sodium Potassium Chloride Carbon Dioxide Anion Gap BUN Creatinine Estimated GFR BUN/Creatinine Ratio Glucose Calcium Total Bilirubin AST ALT Alkaline Phosphatase Total Protein Albumin Albumin/Globulin Ratio Blood Type O POSITIVE Antibody Screen Negative Crossmatch See Detail Assessment and Plan 1. Melena/gi bleed - pt with anemia on admission, and hypotensive which improved with IVF's. recommend 1 unit of blood given hypotension, serial h/h, and ppi drip. unclear why pt is on brilinta. will need eventual egd, will determine timing based on progress.
[2021-05-17 06:24] LABS: Basophils % (Auto) 0.1 % (0.0-1.8); Hematocrit 31.1 % (30.3-42.9); Hemoglobin 10.5 gm/dl (10.1-14.3); Mean Corpuscular HGB Conc 34 % (30-34); Mean Corpuscular Volume 90 fl (79-97); Monocytes # (Auto) 0.8 K/mm3 (0.0-0.8); Monocytes % (Auto) 6.2 % (0.0-7.3); Platelet Count 209 K/mm3 (140-440); Red Blood Count 3.47 M/mm3 (3.65-5.03)
[2021-05-17 06:29] LABS: Red Cell Distribution Width 23.9 % (13.2-15.2)
[2021-05-17 06:42] LABS: Calcium 8.9 mg/dL (8.4-10.2)
--- NOTE | 2021-05-17 08:04 | Gastroenterology Progress Note ---
Assessment and Plan No reported overt bleeding overnight Patient comfortable Hemoglobin came up more than expected after a single unit of packed red blood cells Therefore patient is not having severe overt gastrointestinal bleed, patient is not oriented enough to provide proper informed consent. I reviewed the chart as well as the documentation from the nursing facility and no family members are documented no power of senior attorney or healthcare proxy is documented in no family members or contact information is documented Therefore given this is not a life-threatening emergency I cannot perform a procedure without consent Therefore I recommend continuing PPI and monitoring hemoglobin and please involve social work to see if family can be found and contacted - Patient Problems (1) GI bleed Current Visit: Yes Status: Acute Subjective Date of service: 05/17/21 Principal diagnosis: GI bleed Interval history: Patient is a limited historian Spoke with patient's nurse who reports no overt bleeding overnight and patient has been stable Patient denies any bleeding or abdominal pain though again she is limited historian and remains contracted Objective - Constitutional Vitals: Temp Pulse Resp BP Pulse Ox 99.1 F 112 H 20 112/62 98 05/17/21 04:55 05/17/21 04:55 05/17/21 04:55 05/17/21 04:55 05/17/21 07:55 General appearance: no acute distress, cachectic, other (Positive for contractures) - EENT Eyes: EOM intact ENT: hearing intact - Neck Neck: supple - Respiratory Respiratory effort: normal - Gastrointestinal General gastrointestinal: Present: soft, non-tender - Labs CBC & Chem 7: 05/17/21 05:05 05/17/21 05:05 Labs: Laboratory Results - last 24 hr 05/16/21 05/16/21 05/16/21 12:28 12:28 12:28 WBC 11.2 H RBC 2.66 L Hgb 8.5 L Hct 25.5 L MCV 96 MCH 32 MCHC 33 RDW 17.5 H Plt Count 303 Lymph % (Auto) 12.9 L [place] % (Auto) 4.9 Eos % (Auto) 0.1 Baso % (Auto) 0.2 Lymph # (Auto) 1.4 [place] # (Auto) 0.6 Eos # (Auto) 0.0 Baso # (Auto) 0.0 Seg Neutrophils % 81.9 H Seg Neutrophils # 9.2 H PT 12.7 INR 0.90 APTT 29.1 Sodium 132 L Potassium 4.1 Chloride 98.1 Carbon Dioxide 17 L Anion Gap 21 BUN 68 H Creatinine 1.6 H Estimated GFR 38 BUN/Creatinine Ratio 43 Glucose 141 H Calcium 9.1 Total Bilirubin 0.50 AST 20 ALT 10 Alkaline Phosphatase 76 Total Protein 8.7 H Albumin 3.8 L Albumin/Globulin Ratio 0.8 Blood Type Antibody Screen Crossmatch 05/16/21 05/17/21 05/17/21 12:28 05:05 05:05 WBC 13.0 H RBC 3.47 L Hgb 10.5 Hct 31.1 MCV 90 MCH 30 MCHC 34 RDW 23.9 H Plt Count 209 Lymph % (Auto) 8.0 L [place] % (Auto) 6.2 Eos % (Auto) 0.0 Baso % (Auto) 0.1 Lymph # (Auto) 1.0 L [place] # (Auto) 0.8 Eos # (Auto) 0.0 Baso # (Auto) 0.0 Seg Neutrophils % 85.7 H Seg Neutrophils # 11.2 H PT INR APTT Sodium 133 L Potassium 4.1 Chloride 102.1 Carbon Dioxide 16 L Anion Gap 19 BUN 55 H Creatinine 1.1 Estimated GFR 58 BUN/Creatinine Ratio 50 Glucose 90 Calcium 8.9 Total Bilirubin AST ALT Alkaline Phosphatase Total Protein Albumin Albumin/Globulin Ratio Blood Type O POSITIVE Antibody Screen Negative Crossmatch See Detail
--- NOTE | 2021-05-17 09:20 | Progress Note ---
Assessment and Plan Assessment and plan: The patient is a 76 yo aaf who presents from care home with melena. History obtained from ER record and chart review as pt has h/o dementia and unable to provide much details. Pt. reportedly with melena/black stools for 2 days. Hypotensive on arrival which improved following fluids. hgb 8.5 (11 on last admission a few months ago). Brilinta is listed as home medication - unclear indication. GI bleed. Melena. Hypertension COPD. Compensated Vascular dementia. Cerebral atherosclerosis. 05/17/2021. No reported bleeding overnight. Hemoglobin improved to 10.5 after 1 unit PRBCs. Await endoscopy per GI recommendations. Continue PPI and follow-up H&H in a.m. Case management consultation to assist in locating family. History Interval history: No new issues overnight. Hospitalist Physical - Constitutional Vitals: Temp Pulse Resp BP Pulse Ox 99.1 F 112 H 20 112/62 98 05/17/21 04:55 05/17/21 04:55 05/17/21 04:55 05/17/21 04:55 05/17/21 07:55 General appearance: Present: no acute distress, cachectic - EENT Eyes: Present: PERRL, EOM intact ENT: hearing intact, clear oral mucosa, dentition normal - Neck Neck: Present: supple, normal ROM - Respiratory Respiratory effort: normal Respiratory: bilateral: CTA - Cardiovascular Rhythm: regular Heart Sounds: Present: S1 & S2. Absent: gallop, rub - Extremities Extremities: no ischemia, No edema, Full ROM - Abdominal General gastrointestinal: soft, non-tender, non-distended, normal bowel sounds - Integumentary Integumentary: Present: clear, warm, dry - Neurologic Neurologic: CNII-XII intact, moves all extremities Results - Labs CBC & Chem 7: 05/17/21 05:05 05/17/21 05:05 Labs: Laboratory Last Values WBC 13.0 K/mm3 (4.5-11.0) H 05/17/21 05:05 RBC 3.47 M/mm3 (3.65-5.03) L 05/17/21 05:05 Hgb 10.5 gm/dl (10.1-14.3) 05/17/21 05:05 Hct 31.1 % (30.3-42.9) 05/17/21 05:05 MCV 90 fl (79-97) 05/17/21 05:05 MCH 30 pg (28-32) 05/17/21 05:05 MCHC 34 % (30-34) 05/17/21 05:05 RDW 23.9 % (13.2-15.2) H 05/17/21 05:05 Plt Count 209 K/mm3 (140-440) 05/17/21 05:05 Lymph % (Auto) 8.0 % (13.4-35.0) L 05/17/21 05:05 [place] % (Auto) 6.2 % (0.0-7.3) 05/17/21 05:05 Eos % (Auto) 0.0 % (0.0-4.3) 05/17/21 05:05 Baso % (Auto) 0.1 % (0.0-1.8) 05/17/21 05:05 Lymph # (Auto) 1.0 K/mm3 (1.2-5.4) L 05/17/21 05:05 [place] # (Auto) 0.8 K/mm3 (0.0-0.8) 05/17/21 05:05 Eos # (Auto) 0.0 K/mm3 (0.0-0.4) 05/17/21 05:05 Baso # (Auto) 0.0 K/mm3 (0.0-0.1) 05/17/21 05:05 Seg Neutrophils % 85.7 % (40.0-70.0) H 05/17/21 05:05 Seg Neutrophils # 11.2 K/mm3 (1.8-7.7) H 05/17/21 05:05 PT 12.7 Sec. (12.2-14.9) 05/16/21 12:28 INR 0.90 (0.87-1.13) 05/16/21 12:28 APTT 29.1 Sec. (24.2-36.6) 05/16/21 12:28 Sodium 133 mmol/L (137-145) L 05/17/21 05:05 Potassium 4.1 mmol/L (3.6-5.0) 05/17/21 05:05 Chloride 102.1 mmol/L (98-107) 05/17/21 05:05 Carbon Dioxide 16 mmol/L (22-30) L 05/17/21 05:05 Anion Gap 19 mmol/L 05/17/21 05:05 BUN 55 mg/dL (7-17) H 05/17/21 05:05 Creatinine 1.1 mg/dL (0.6-1.2) 05/17/21 05:05 Estimated GFR 58 ml/min 05/17/21 05:05 BUN/Creatinine Ratio 50 % 05/17/21 05:05 Glucose 90 mg/dL (65-100) 05/17/21 05:05 Calcium 8.9 mg/dL (8.4-10.2) 05/17/21 05:05 Total Bilirubin 0.50 mg/dL (0.1-1.2) 05/16/21 12:28 AST 20 units/L (5-40) 05/16/21 12:28 ALT 10 units/L (7-56) 05/16/21 12:28 Alkaline Phosphatase 76 units/L (35-129) 05/16/21 12:28 Total Protein 8.7 g/dL (6.3-8.2) H 05/16/21 12:28 Albumin 3.8 g/dL (3.9-5) L 05/16/21 12:28 Albumin/Globulin Ratio 0.8 % 05/16/21 12:28 Blood Type O POSITIVE 05/16/21 12:28 Antibody Screen Negative 05/16/21 12:28 Crossmatch See Detail 05/16/21 12:28 Microbiology: Microbiology 05/16/21 12:18 Stool Stool Occult Blood (DIGNA) - Final Gallo/IV: Voiding Method Incontinent Active Medications - Current Medications Current Medications: Generic Name Dose Route Start Last Admin Trade Name Freq PRN Reason Stop Dose Admin Acetaminophen 650 mg 05/16/21 13:23 Acetaminophen 325 Mg Tab PO Q4H PRN Pain MILD(1-3)/Fever >100.5/MASTERS Atorvastatin Calcium 80 mg 05/16/21 22:00 05/16/21 23:10 Atorvastatin 40 Mg Tab PO 80 mg QHS MARQUES Administration Hydromorphone HCl 0.5 mg 05/16/21 13:23 Hydromorphone 1 Mg/1 Ml Inj IV Q23H PRN Pain , Severe (7-10) Pantoprazole Sodium 80 mg/ 100 mls @ 10 mls/hr 05/16/21 13:00 05/16/21 23:42 Sodium Chloride IV 8 mg/hr DIRECT MARQUES 10 mls/hr Administration 8 MG/HR Ondansetron HCl 4 mg 05/16/21 13:23 Ondansetron 4 Mg/2 Ml Inj IV Q8H PRN Nausea And Vomiting Oxycodone/Acetaminophen 1 tab 05/16/21 13:23 Oxycodone /Acetaminophen 5-325mg Tab PO Q16H PRN Pain, Moderate (4-6) Sodium Chloride 10 ml 05/16/21 22:00 05/17/21 09:03 Sodium Chloride 0.9% 10 Ml Flush Syringe IV 10 ml BID MARQUES Administration Sodium Chloride 10 ml 05/16/21 13:23 Sodium Chloride 0.9% 10 Ml Flush Syringe IV PRN PRN LINE FLUSH
[2021-05-17] MEDS: PANTOPRAZOLE 80 MG in SODIUM CHLORIDE 0.9% 100 ML IV SCH ×2 (11:01→23:11)
[2021-05-17] MEDS: ACETAMINOPHEN 325 MG TAB PO PRN (15:57)
[2021-05-18 05:36] LABS: Basophils % (Auto) 0.2 % (0.0-1.8); Hematocrit 27.1 % (30.3-42.9); Hemoglobin 9.1 gm/dl (10.1-14.3); Lymphocytes # (Auto) 1.2 K/mm3 (1.2-5.4); Lymphocytes % (Auto) 9.8 % (13.4-35.0); Mean Corpuscular HGB Conc 33 % (30-34); Mean Corpuscular Volume 90 fl (79-97); Monocytes # (Auto) 0.9 K/mm3 (0.0-0.8); Monocytes % (Auto) 7.6 % (0.0-7.3); Platelet Count 217 K/mm3 (140-440); Red Blood Count 3.03 M/mm3 (3.65-5.03)
[2021-05-18 05:43] LABS: Red Cell Distribution Width 22.7 % (13.2-15.2)
[2021-05-18 05:55] LABS: Calcium 8.9 mg/dL (8.4-10.2)
--- NOTE | 2021-05-18 08:31 | Progress Note ---
Assessment and Plan Assessment and plan: The patient is a 76 yo aaf who presents from [facility] with melena. History obtained from ER record and chart review as pt has h/o dementia and unable to provide much details. Pt. reportedly with melena/black stools for 2 days. Hypotensive on arrival which improved following fluids. hgb 8.5 (11 on last admission a few months ago). Brilinta is listed as home medication - unclear indication. GI bleed. Melena. Hypertension COPD. Compensated Vascular dementia. Cerebral atherosclerosis. 05/17/2021. No reported bleeding overnight. Hemoglobin improved to 10.5 after 1 unit PRBCs. Await endoscopy per GI recommendations. Continue PPI and follow-up H&H in a.m. Case management consultation to assist in locating family. 05/18/2021. No reported bleeding overnight. Hemoglobin remained stable at 9.1. Await endoscopy per GI recommendations. Continue PPI and follow-up H&H in a.m. Case management consultation to assist in locating family. History Interval history: No new issues overnight. Hospitalist Physical - Constitutional Vitals: Temp Pulse Resp BP Pulse Ox 98.8 F 65 18 102/58 98 05/18/21 03:19 05/18/21 03:19 05/18/21 03:19 05/18/21 03:19 05/18/21 08:09 General appearance: Present: no acute distress, cachectic - EENT Eyes: Present: PERRL, EOM intact ENT: hearing intact, clear oral mucosa, dentition normal - Neck Neck: Present: supple, normal ROM - Respiratory Respiratory effort: normal Respiratory: bilateral: CTA - Cardiovascular Rhythm: regular Heart Sounds: Present: S1 & S2. Absent: gallop, rub - Extremities Extremities: no ischemia, No edema, Full ROM - Abdominal General gastrointestinal: soft, non-tender, non-distended, normal bowel sounds - Integumentary Integumentary: Present: clear, warm, dry - Neurologic Neurologic: CNII-XII intact, moves all extremities Results - Labs CBC & Chem 7: 05/18/21 04:37 05/18/21 04:37 Labs: Laboratory Last Values WBC 12.4 K/mm3 (4.5-11.0) H 05/18/21 04:37 RBC 3.03 M/mm3 (3.65-5.03) L 05/18/21 04:37 Hgb 9.1 gm/dl (10.1-14.3) L 05/18/21 04:37 Hct 27.1 % (30.3-42.9) L 05/18/21 04:37 MCV 90 fl (79-97) 05/18/21 04:37 MCH 30 pg (28-32) 05/18/21 04:37 MCHC 33 % (30-34) 05/18/21 04:37 RDW 22.7 % (13.2-15.2) H 05/18/21 04:37 Plt Count 217 K/mm3 (140-440) 05/18/21 04:37 Lymph % (Auto) 9.8 % (13.4-35.0) L 05/18/21 04:37 [place] % (Auto) 7.6 % (0.0-7.3) H 05/18/21 04:37 Eos % (Auto) 0.0 % (0.0-4.3) 05/18/21 04:37 Baso % (Auto) 0.2 % (0.0-1.8) 05/18/21 04:37 Lymph # (Auto) 1.2 K/mm3 (1.2-5.4) 05/18/21 04:37 [place] # (Auto) 0.9 K/mm3 (0.0-0.8) H 05/18/21 04:37 Eos # (Auto) 0.0 K/mm3 (0.0-0.4) 05/18/21 04:37 Baso # (Auto) 0.0 K/mm3 (0.0-0.1) 05/18/21 04:37 Seg Neutrophils % 82.4 % (40.0-70.0) H 05/18/21 04:37 Seg Neutrophils # 10.2 K/mm3 (1.8-7.7) H 05/18/21 04:37 PT 12.7 Sec. (12.2-14.9) 05/16/21 12:28 INR 0.90 (0.87-1.13) 05/16/21 12:28 APTT 29.1 Sec. (24.2-36.6) 05/16/21 12:28 Sodium 131 mmol/L (137-145) L 05/18/21 04:37 Potassium 4.1 mmol/L (3.6-5.0) 05/18/21 04:37 Chloride 100.5 mmol/L (98-107) 05/18/21 04:37 Carbon Dioxide 17 mmol/L (22-30) L 05/18/21 04:37 Anion Gap 18 mmol/L 05/18/21 04:37 BUN 46 mg/dL (7-17) H 05/18/21 04:37 Creatinine 1.1 mg/dL (0.6-1.2) 05/18/21 04:37 Estimated GFR 58 ml/min 05/18/21 04:37 BUN/Creatinine Ratio 42 % 05/18/21 04:37 Glucose 94 mg/dL (65-100) 05/18/21 04:37 Calcium 8.9 mg/dL (8.4-10.2) 05/18/21 04:37 Total Bilirubin 0.50 mg/dL (0.1-1.2) 05/16/21 12:28 AST 20 units/L (5-40) 05/16/21 12:28 ALT 10 units/L (7-56) 05/16/21 12:28 Alkaline Phosphatase 76 units/L (35-129) 05/16/21 12:28 Total Protein 8.7 g/dL (6.3-8.2) H 05/16/21 12:28 Albumin 3.8 g/dL (3.9-5) L 05/16/21 12:28 Albumin/Globulin Ratio 0.8 % 05/16/21 12:28 Blood Type O POSITIVE 05/16/21 12:28 Antibody Screen Negative 05/16/21 12:28 Crossmatch See Detail 05/16/21 12:28 Gallo/IV: Voiding Method Incontinent Active Medications - Current Medications Current Medications: Generic Name Dose Route Start Last Admin Trade Name Freq PRN Reason Stop Dose Admin Acetaminophen 650 mg 05/16/21 13:23 05/17/21 15:57 Acetaminophen 325 Mg Tab PO 650 mg Q4H PRN Administration Pain MILD(1-3)/Fever >100.5/MASTERS Atorvastatin Calcium 80 mg 05/16/21 22:00 05/17/21 21:59 Atorvastatin 40 Mg Tab PO 80 mg QHS MARQUES Administration Hydromorphone HCl 0.5 mg 10/02/21 13:23 Hydromorphone 1 Mg/1 Ml Inj IV Q23H PRN Pain , Severe (7-10) Pantoprazole Sodium 80 mg/ 100 mls @ 10 mls/hr 05/16/21 13:00 05/17/21 23:11 Sodium Chloride IV 8 mg/hr DIRECT MARQUES 10 mls/hr Administration 8 MG/HR Ondansetron HCl 4 mg 05/16/21 13:23 Ondansetron 4 Mg/2 Ml Inj IV Q8H PRN Nausea And Vomiting Oxycodone/Acetaminophen 1 tab 05/16/21 13:23 Oxycodone /Acetaminophen 5-325mg Tab PO Q16H PRN Pain, Moderate (4-6) Sodium Chloride 10 ml 05/16/21 22:00 05/17/21 21:59 Sodium Chloride 0.9% 10 Ml Flush Syringe IV 10 ml BID MARQUES Administration Sodium Chloride 10 ml 05/16/21 13:23 Sodium Chloride 0.9% 10 Ml Flush Syringe IV PRN PRN LINE FLUSH Nutrition/Malnutrition Assess - Dietary Evaluation Nutrition/Malnutrition Findings: Nutrition Notes Start: 05/17/21 09:42 Freq: Status: Active Protocol: Document 05/17/21 09:42 (Rec: 05/17/21 09:50 [id number]) Nutrition Notes 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 Pt with dementia. Pt with heel wound. Unable to assess pt for physical signs of malnutrition d/t remote work. Burn Absent Trauma Absent #1 Nutrition Diagnosis Increased nutrient needs ( specify in comment below) Comments: protein Etiology wound healing As Evidenced by Signs and Symptoms heel wound Is patient on ventilator? No Is Patient Ambulatory and/or Out of Bed No REE-([facility]-confined to bed) 951.480 Kcal/Kg value to use for calculation 35 Approximate Energy Requirements Using 1349 kcal/Kg Calculation Used for Recommendations Kcal/kg Additional Notes Protein: (1.25-1.5g/kg) 48-58g Fluid: 1 ml/kcal or per MD Nutrition Intervention Change Diet Order: continue Add Supplement/Snack (indicate name/kcal Ensure Enlive BID /protein ) Provides kCal: 700 Provides Protein (gm) 40 Goal #1 Meet at least 80% of protein and kcal needs via PO and ONS intakes Goal #2 Wound healing Goal #3 Wt gain or maintenance Anticipated Discharge Needs: Cardiac with Ensure Enlive BID Follow-Up By: 05/19/21 Additional Comments F/U: intakes, ONS tolerance, nutrition focused physical exam
--- NOTE | 2021-05-18 09:05 | Gastroenterology Progress Note ---
Assessment and Plan Still no overt bleeding Patient comfortable Hemoglobin down today but within line of expected after the PRBC Therefore patient is not having severe overt gastrointestinal bleed, patient is not oriented enough to provide proper informed consent. After contacting facility apparently patient does not have family contacts or anyone to consent for her. Therefore, I request that the hospital work on getting a guardian established for the patient given her lack of ability to provide consent and no family members capable of providing consent for her Given this is not a life-threatening emergency I cannot perform a procedure without consent. Therefore I recommend continuing PPI and monitoring hemoglobin and please work on obtaining a guardian for the patient. Once that is done, or if the patient has life-threatening blood loss, then I could provide endoscopic evaluation I examined the patient and reviewed the procedure with her and she does not demonstrate capacity to provide informed consent at this time - Patient Problems (1) GI bleed Current Visit: Yes Status: Acute Subjective Date of service: 05/18/21 Principal diagnosis: GI bleed Interval history: Patient remains a limited historian Spoke with patient's nurse who reports no overt bleeding again yesterday and last night overnight and patient has been stable Patient denies any bleeding or abdominal pain though again she is limited historian and remains contracted Objective - Constitutional Vitals: Temp Pulse Resp BP Pulse Ox 98.7 F 106 H 18 106/55 99 05/18/21 08:28 05/18/21 08:28 05/18/21 08:28 05/18/21 08:28 05/18/21 08:28 General appearance: other (moderate contractures) - EENT Eyes: other (no scleral icterus) - Respiratory Respiratory effort: normal - Gastrointestinal General gastrointestinal: Present: soft - Labs CBC & Chem 7: 05/18/21 04:37 05/18/21 04:37 Labs: Laboratory Results - last 24 hr 05/18/21 05/18/21 04:37 04:37 WBC 12.4 H RBC 3.03 L Hgb 9.1 L Hct 27.1 L MCV 90 MCH 30 MCHC 33 RDW 22.7 H Plt Count 217 Lymph % (Auto) 9.8 L [place] % (Auto) 7.6 H Eos % (Auto) 0.0 Baso % (Auto) 0.2 Lymph # (Auto) 1.2 [place] # (Auto) 0.9 H Eos # (Auto) 0.0 Baso # (Auto) 0.0 Seg Neutrophils % 82.4 H Seg Neutrophils # 10.2 H Sodium 131 L Potassium 4.1 Chloride 100.5 Carbon Dioxide 17 L Anion Gap 18 BUN 46 H Creatinine 1.1 Estimated GFR 58 BUN/Creatinine Ratio 42 Glucose 94 Calcium 8.9
[2021-05-18] MEDS: ACETAMINOPHEN 325 MG TAB PO PRN (10:04)
[2021-05-18] MEDS: PANTOPRAZOLE 80 MG in SODIUM CHLORIDE 0.9% 100 ML IV SCH (11:04)
[2021-05-19 06:18] LABS: Basophils % (Auto) 0.3 % (0.0-1.8); Hematocrit 25.9 % (30.3-42.9); Hemoglobin 8.6 gm/dl (10.1-14.3); Lymphocytes # (Auto) 1.4 K/mm3 (1.2-5.4); Mean Corpuscular HGB Conc 34 % (30-34); Mean Corpuscular Volume 89 fl (79-97); Platelet Count 268 K/mm3 (140-440); Red Blood Count 2.92 M/mm3 (3.65-5.03)
[2021-05-19 06:38] LABS: Calcium 8.9 mg/dL (8.4-10.2)
--- NOTE | 2021-05-19 07:53 | Gastroenterology Progress Note ---
Assessment and Plan Still no overt bleeding, though the hgb is trending down, still above admission hgb Patient comfortable Therefore patient is not having severe overt gastrointestinal bleed, patient is not oriented enough to provide proper informed consent. After contacting facility apparently patient does not have family contacts or anyone to consent f or her. Therefore, I request that the hospital work on getting a guardian established for the patient given her lack of ability to provide consent and no family members capable of providing consent for her Given this is not a life-threatening emergency I cannot perform a procedure without consent. Therefore I recommend continuing PPI and monitoring hemoglobin and please work on obtaining a guardian for the patient. Once that is done, or if the patient has life-threatening blood loss, then I could provide endoscopic evaluation she does not demonstrate capacity to provide informed consent at this time - Patient Problems (1) GI bleed Current Visit: Yes Status: Acute Subjective Date of service: 05/19/21 Principal diagnosis: GI bleed Interval history: Hgb trending down, though about at baseline of admission she is s/p 1 unit blood Patient denies any bleeding or abdominal pain though again she is limited hist orian Objective - Constitutional Vitals: Temp Pulse Resp BP Pulse Ox 97.9 F 109 H 18 94/74 97 05/19/21 03:32 05/19/21 03:32 05/19/21 03:32 05/19/21 03:32 05/19/21 03:32 General appearance: no acute distress - EENT ENT: hearing intact - Gastrointestinal General gastrointestinal: Present: soft - Labs CBC & Chem 7: 05/19/21 04:20 05/19/21 04:20 Labs: Laboratory Results - last 24 hr 05/19/21 05/19/21 04:20 04:20 WBC 13.8 H RBC 2.92 L Hgb 8.6 L Hct 25.9 L MCV 89 MCH 30 MCHC 34 RDW 22.0 H Plt Count 268 Lymph % (Auto) 10.0 L [place] % (Auto) 7.0 Eos % (Auto) 0.0 Baso % (Auto) 0.3 Lymph # (Auto) 1.4 [place] # (Auto) 1.0 H Eos # (Auto) 0.0 Baso # (Auto) 0.0 Seg Neutrophils % 82.7 H Seg Neutrophils # 11.4 H Sodium 132 L Potassium 4.3 Chloride 101.6 Carbon Dioxide 16 L Anion Gap 19 BUN 54 H Creatinine 1.3 H Estimated GFR 48 BUN/Creatinine Ratio 42 Glucose 108 H Calcium 8.9
[2021-05-19] MEDS: ACETAMINOPHEN 325 MG TAB PO PRN (09:55)
[2021-05-19] MEDS: PANTOPRAZOLE 40 MG INJ IV SCH ×2 (09:55→21:25)
--- NOTE | 2021-05-19 10:23 | Progress Note ---
Assessment and Plan Assessment and plan: The patient is a 76 yo aaf who [facility] with melena. History obtained from ER record and chart review as pt has h/o dementia and unable to provide much details. Pt. reportedly with melena/black stools for 2 days. Hypotensive on arrival which improved following fluids. hgb 8.5 (11 on last admission a few months ago). Brilinta is listed as home medication - unclear indication. GI bleed. Melena. Hypertension COPD. Compensated Vascular dementia. Cerebral atherosclerosis. 05/17/2021. No reported bleeding overnight. Hemoglobin improved to 10.5 after 1 unit PRBCs. Await endoscopy per GI recommendations. Continue PPI and follow-up H&H in a.m. Case management consultation to assist in locating family. 05/18/2021. No reported bleeding overnight. Hemoglobin remained stable at 9.1. Await endoscopy per GI recommendations. Continue PPI and follow-up H&H in a.m. Case management consultation to assist in locating family. 05/19/2021 Patient with GI bleed. Hgb 8.6. Patient has dementia and unable to give consent for EGD. No family available to sign EGD consent. Will discuss with GI Physician whether we both can sign consent . Also was called by Nurse that Wound Care Nurse recommends Surgical Consult for heel ulcer. History Interval history: Patient with GI Bleed Hospitalist Physical - Physical exam Narrative exam: Gen: Not in acute distress, lying in bed HEENT: Normocephalic, atraumatic Lungs: Clear to auscultation Heart: S1 and S2 reg, no murmurs, rubs or gallop Abd:soft, non-tender, non distended, normal bowel sounds Ext: Left heel ulcer, No edema, clubbing or cyanosis Neuro: Has dementia. - Constitutional Vitals: Temp Pulse Resp BP Pulse Ox 98.5 F 121 H 18 136/71 98 05/19/21 08:00 05/19/21 08:00 05/19/21 08:00 05/19/21 08:00 05/19/21 08:00 General appearance: Present: no acute distress, cachectic Results - Labs CBC & Chem 7: 05/19/21 04:20 05/19/21 04:20 Labs: Laboratory Last Values WBC 13.8 K/mm3 (4.5-11.0) H 05/19/21 04:20 RBC 2.92 M/mm3 (3.65-5.03) L 05/19/21 04:20 Hgb 8.6 gm/dl (10.1-14.3) L 05/19/21 04:20 Hct 25.9 % (30.3-42.9) L 05/19/21 04:20 MCV 89 fl (79-97) 05/19/21 04:20 MCH 30 pg (28-32) 05/19/21 04:20 MCHC 34 % (30-34) 05/19/21 04:20 RDW 22.0 % (13.2-15.2) H 05/19/21 04:20 Plt Count 268 K/mm3 (140-440) 05/19/21 04:20 Lymph % (Auto) 10.0 % (13.4-35.0) L 05/19/21 04:20 [place] % (Auto) 7.0 % (0.0-7.3) 05/19/21 04:20 Eos % (Auto) 0.0 % (0.0-4.3) 05/19/21 04:20 Baso % (Auto) 0.3 % (0.0-1.8) 05/19/21 04:20 Lymph # (Auto) 1.4 K/mm3 (1.2-5.4) 05/19/21 04:20 [place] # (Auto) 1.0 K/mm3 (0.0-0.8) H 05/19/21 04:20 Eos # (Auto) 0.0 K/mm3 (0.0-0.4) 05/19/21 04:20 Baso # (Auto) 0.0 K/mm3 (0.0-0.1) 05/19/21 04:20 Seg Neutrophils % 82.7 % (40.0-70.0) H 05/19/21 04:20 Seg Neutrophils # 11.4 K/mm3 (1.8-7.7) H 05/19/21 04:20 PT 12.7 Sec. (12.2-14.9) 05/16/21 12:28 INR 0.90 (0.87-1.13) 05/16/21 12:28 APTT 29.1 Sec. (24.2-36.6) 05/16/21 12:28 Sodium 132 mmol/L (137-145) L 05/19/21 04:20 Potassium 4.3 mmol/L (3.6-5.0) 05/19/21 04:20 Chloride 101.6 mmol/L (98-107) 05/19/21 04:20 Carbon Dioxide 16 mmol/L (22-30) L 05/19/21 04:20 Anion Gap 19 mmol/L 05/19/21 04:20 BUN 54 mg/dL (7-17) H 05/19/21 04:20 Creatinine 1.3 mg/dL (0.6-1.2) H 05/19/21 04:20 Estimated GFR 48 ml/min 05/19/21 04:20 BUN/Creatinine Ratio 42 % 05/19/21 04:20 Glucose 108 mg/dL (65-100) H 05/19/21 04:20 Calcium 8.9 mg/dL (8.4-10.2) 05/19/21 04:20 Total Bilirubin 0.50 mg/dL (0.1-1.2) 05/16/21 12:28 AST 20 units/L (5-40) 05/16/21 12:28 ALT 10 units/L (7-56) 05/16/21 12:28 Alkaline Phosphatase 76 units/L (35-129) 05/16/21 12:28 Total Protein 8.7 g/dL (6.3-8.2) H 05/16/21 12:28 Albumin 3.8 g/dL (3.9-5) L 05/16/21 12:28 Albumin/Globulin Ratio 0.8 % 05/16/21 12:28 Blood Type O POSITIVE 05/16/21 12:28 Antibody Screen Negative 05/16/21 12:28 Crossmatch See Detail 05/16/21 12:28 Gallo/IV: Voiding Method Incontinent Active Medications - Current Medications Current Medications: Generic Name Dose Route Start Last Admin Trade Name Freq PRN Reason Stop Dose Admin Acetaminophen 650 mg 05/16/21 13:23 05/19/21 09:55 Acetaminophen 325 Mg Tab PO 650 mg Q4H PRN Administration Pain MILD(1-3)/Fever >100.5/MASTERS Atorvastatin Calcium 80 mg 05/16/21 22:00 05/18/21 22:24 Atorvastatin 40 Mg Tab PO 80 mg QHS MARQUES Administration Hydromorphone HCl 0.5 mg 05/16/21 13:23 Hydromorphone 1 Mg/1 Ml Inj IV Q23H PRN Pain , Severe (7-10) Ondansetron HCl 4 mg 05/16/21 13:23 Ondansetron 4 Mg/2 Ml Inj IV Q8H PRN Nausea And Vomiting Oxycodone/Acetaminophen 1 tab 05/16/21 13:23 Oxycodone /Acetaminophen 5-325mg Tab PO Q16H PRN Pain, Moderate (4-6) Pantoprazole Sodium 40 mg 05/19/21 10:00 05/19/21 09:55 Pantoprazole 40 Mg Inj IV 40 mg BID MARQUES Administration Sodium Chloride 10 ml 05/16/21 22:00 05/19/21 09:56 Sodium Chloride 0.9% 10 Ml Flush Syringe IV 10 ml BID MARQUES Administration Sodium Chloride 10 ml 05/16/21 13:23 Sodium Chloride 0.9% 10 Ml Flush Syringe IV PRN PRN LINE FLUSH Nutrition/Malnutrition Assess - Dietary Evaluation Nutrition/Malnutrition Findings: Nutrition Notes Start: 05/17/21 09:42 Freq: Status: Active Protocol: Document 05/18/21 16:12 GB (Rec: 05/18/21 16:38 GB [id number]) Nutrition Notes Initial or Follow up Reassessment Current Diagnosis COPD,Hypertension Other Pertinent Diagnosis GIB, dementia Current Diet Cardiac Labs/Tests 05/18: Na 131, BUN 46 showing improvement Pertinent Medications Reviewed Height 5 ft Weight 38.555 kg [place] Body Weight (kg) 45.45 BMI 16.6 Weight change and time frame 4.8% wt loss in 2 months per previous adm on 03/16/202105/18: pt is 85% IBW Weight Status Underweight Subjective/Other Information RN screen for MST. Pt with dementia. Pt with heel wound. 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 Pt stated she is eating the same in hospital as she does at home, shoulders/collar bone very prominent, visual fat/ muscle mass depletion. Percent of energy/protein needs met: Per discussion with RN po intake of meals average 25%. This does not meet 75% or greater of estimated energy needs. Burn Absent Trauma Absent GI Symptoms None Food Allergy No Skin Integrity/Comment wound to left heel Current % PO Poor (25-49%) Minimum of two criteria Yes Energy Intake (severe) < or equal to 50% Estimated Energy Requirement > or equal to 5 days Body Fat Depletion Moderate depletion (severe) Muscle Mass Moderate Depletion (severe) Reduced Zone Manager Strength Measurably Reduced (severe) #2 Nutrition Diagnosis Malnutrition Comments: PO intake of meals less than 25% while in hospital x2 days Documented weight loss of -4.2 % in two months Etiology dementia, COPD As Evidenced by Signs and Symptoms visual fat/muscle mass depletion, po intake of meals 25% (pt states same at home), documented weight loss of -4.2 % but could be greater as current weight is estimated by hospital staff. #1 Nutrition Diagnosis Increased nutrient needs ( specify in comment below) Comments: protein Etiology wound healing As Evidenced by Signs and Symptoms heel wound Diagnosis Progress(for reassessment Continues documentation) Is patient on ventilator? No Is Patient Ambulatory and/or Out of Bed No REE-([facility]-confined to bed) 951.480 Kcal/Kg value to use for calculation 30 Approximate Energy Requirements Using 1157 kcal/Kg Calculation Used for Recommendations Kcal/kg Additional Notes Protein: (1.2-1.5g/kg) @ 39k-59g Fluid: 1 ml/kcal or per MD Nutrition Intervention Change Diet Order: continue Nutrition Support: n/a Add Supplement/Snack (indicate name/kcal Ensure Enlive BID /protein ) Provides kCal: 700 Provides Protein (gm) 40 Goal #1 PO intake of meals to improve to 50% during LOS Goal #2 PO intake of nutritional supplement beverage to be 50% or greater BID during LOS Follow-Up By: 05/26/21 Additional Comments F/U: intakes, ONS tolerance
--- NOTE | 2021-05-19 14:52 | Event Note ---
Date: 05/19/21 Hemoglobin noted. Unable to obtain guardianship in a timely manner. We'll repeat hemoglobin tomorrow and get a better feel for trend. If continues to decline will need to physician consent for EGD colonoscopy on Will put patient on clears starting tomorrow in case needs procedure
[2021-05-20] MEDS: ACETAMINOPHEN 325 MG TAB PO PRN (03:37)
[2021-05-20 06:12] LABS: Hematocrit 26.7 % (30.3-42.9); Hemoglobin 8.7 gm/dl (10.1-14.3); Mean Corpuscular HGB Conc 32 % (30-34); Mean Corpuscular Volume 88 fl (79-97); Platelet Count 323 K/mm3 (140-440); Red Blood Count 3.03 M/mm3 (3.65-5.03); Red Cell Distribution Width 22.3 % (13.2-15.2)
[2021-05-20 06:31] LABS: Calcium 9.1 mg/dL (8.4-10.2)
--- NOTE | 2021-05-20 07:48 | Gastroenterology Progress Note ---
Assessment and Plan Still no overt bleeding, though the hgb was trending down, stable today Patient comfortable Therefore plan is repeat hemoglobin at noon --this order was placed by me, please call me with the results I can tell if I need to prep the patient -- if that hemoglobin continues to drop then will prep patient for endoscopic evaluation tomorrow with two-physician consent given continued drop in hemoglobin If however repeat hemoglobin remains completely stable then cannot perform procedure without consent and would need to have a guardian established with the patient and I will sign off she does not demonstrate capacity to provide informed consent at this time - Patient Problems (1) GI bleed Current Visit: Yes Status: Acute Subjective Date of service: 05/20/21 Principal diagnosis: GI bleed Interval history: Hgb trending down yesterday but stable today, though about at baseline of admission she is s/p 1 unit blood Patient denies any bleeding or abdominal pain though again she is limited historian Objective - Constitutional Vitals: Temp Pulse Resp BP Pulse Ox 102.7 F H 119 H 20 104/41 94 05/20/21 03:29 05/20/21 03:29 05/20/21 03:29 05/20/21 03:29 05/20/21 03:29 General appearance: no acute distress, other (thin, legs contracted) - Respiratory Respiratory effort: normal - Gastrointestinal General gastrointestinal: Present: soft - Labs CBC & Chem 7: 05/20/21 04:05 05/20/21 04:05 Labs: Laboratory Results - last 24 hr 05/20/21 05/20/21 04:05 04:05 WBC 13.3 H RBC 3.03 L Hgb 8.7 L Hct 26.7 L MCV 88 MCH 29 MCHC 32 RDW 22.3 H Plt Count 323 Sodium 135 L Potassium 4.4 Chloride 102.8 Carbon Dioxide 18 L Anion Gap 19 BUN 49 H Creatinine 1.2 Estimated GFR 53 BUN/Creatinine Ratio 41 Glucose 101 H Calcium 9.1
--- NOTE | 2021-05-20 09:26 | Progress Note ---
Assessment and Plan Assessment and plan: The patient is a 76 yo aaf who presents from half-way with melena. History obtained from ER record and chart review as pt has h/o dementia and unable to provide much details. Pt. reportedly with melena/black stools for 2 days. Hypotensive on arrival which improved following fluids. hgb 8.5 (11 on last admission a few months ago). Brilinta is listed as home medication - unclear indication. GI bleed. Melena. Hypertension COPD. Compensated Vascular dementia. Cerebral atherosclerosis. 05/17/2021. No reported bleeding overnight. Hemoglobin improved to 10.5 after 1 unit PRBCs. Await endoscopy per GI recommendations. Continue PPI and follow-up H&H in a.m. Case management consultation to assist in locating family. 05/18/2021. No reported bleeding overnight. Hemoglobin remained stable at 9.1. Await endoscopy per GI recommendations. Continue PPI and follow-up H&H in a.m. Case management consultation to assist in locating family. 05/19/2021 Patient with GI bleed. Hgb 8.6. Patient has dementia and unable to give consent for EGD. No family available to sign EGD consent. Will discuss with GI Physician whether we both can sign consent . Also was called by Nurse that Wound Care Nurse recommends Surgical Consult for heel ulcer. 05/20/21 Patient with acute GI bleed . Hgb 8.7 today. Patient has dementia and unable to give consent for EGD. No family available to sign EGD consent. I discussed with Dr. Plata , GI whether we both can sign 2 Physician consent. He will repeat H/H today to make decision. Now patient has fever of 102.7. She has left heel ulcer. Will obtain blood cultures, UA, Urine culture, check Coronavirus. Consult ID Physician. Hyponatremia, improved YEYO improved History Interval history: Patient with GI Bleed Now has fever 102.7 this morning, 100.5 yesterday Hospitalist Physical - Physical exam Narrative exam: Gen: Not in acute distress, lying in bed HEENT: Normocephalic, atraumatic Lungs: Clear to auscultation Heart: S1 and S2 reg, no murmurs, rubs or gallop Abd:soft, non-tender, non distended, normal bowel sounds Ext: Left heel ulcer, No edema, clubbing or cyanosis Neuro: Has dementia. - Constitutional Vitals: Temp Pulse Resp BP Pulse Ox 97.7 F 98 H 20 130/54 97 05/20/21 09:00 05/20/21 09:00 05/20/21 09:00 05/20/21 09:00 05/20/21 09:00 General appearance: Present: no acute distress, cachectic Results - Labs CBC & Chem 7: 05/20/21 04:05 05/20/21 04:05 Labs: Laboratory Last Values WBC 13.3 K/mm3 (4.5-11.0) H 05/20/21 04:05 RBC 3.03 M/mm3 (3.65-5.03) L 05/20/21 04:05 Hgb 8.7 gm/dl (10.1-14.3) L 05/20/21 04:05 Hct 26.7 % (30.3-42.9) L 05/20/21 04:05 MCV 88 fl (79-97) 05/20/21 04:05 MCH 29 pg (28-32) 05/20/21 04:05 MCHC 32 % (30-34) 05/20/21 04:05 RDW 22.3 % (13.2-15.2) H 05/20/21 04:05 Plt Count 323 K/mm3 (140-440) 05/20/21 04:05 Lymph % (Auto) 10.0 % (13.4-35.0) L 05/19/21 04:20 [place] % (Auto) 7.0 % (0.0-7.3) 05/19/21 04:20 Eos % (Auto) 0.0 % (0.0-4.3) 05/19/21 04:20 Baso % (Auto) 0.3 % (0.0-1.8) 05/19/21 04:20 Lymph # (Auto) 1.4 K/mm3 (1.2-5.4) 05/19/21 04:20 [place] # (Auto) 1.0 K/mm3 (0.0-0.8) H 05/19/21 04:20 Eos # (Auto) 0.0 K/mm3 (0.0-0.4) 05/19/21 04:20 Baso # (Auto) 0.0 K/mm3 (0.0-0.1) 05/19/21 04:20 Seg Neutrophils % 82.7 % (40.0-70.0) H 05/19/21 04:20 Seg Neutrophils # 11.4 K/mm3 (1.8-7.7) H 05/19/21 04:20 PT 12.7 Sec. (12.2-14.9) 05/16/21 12:28 INR 0.90 (0.87-1.13) 05/16/21 12:28 APTT 29.1 Sec. (24.2-36.6) 05/16/21 12:28 Sodium 135 mmol/L (137-145) L 05/20/21 04:05 Potassium 4.4 mmol/L (3.6-5.0) 05/20/21 04:05 Chloride 102.8 mmol/L (98-107) 05/20/21 04:05 Carbon Dioxide 18 mmol/L (22-30) L 05/20/21 04:05 Anion Gap 19 mmol/L 05/20/21 04:05 BUN 49 mg/dL (7-17) H 05/20/21 04:05 Creatinine 1.2 mg/dL (0.6-1.2) 05/20/21 04:05 Estimated GFR 53 ml/min 05/20/21 04:05 BUN/Creatinine Ratio 41 % 05/20/21 04:05 Glucose 101 mg/dL (65-100) H 05/20/21 04:05 Calcium 9.1 mg/dL (8.4-10.2) 05/20/21 04:05 Total Bilirubin 0.50 mg/dL (0.1-1.2) 05/16/21 12:28 AST 20 units/L (5-40) 05/16/21 12:28 ALT 10 units/L (7-56) 05/16/21 12:28 Alkaline Phosphatase 76 units/L (35-129) 05/16/21 12:28 Total Protein 8.7 g/dL (6.3-8.2) H 05/16/21 12:28 Albumin 3.8 g/dL (3.9-5) L 05/16/21 12:28 Albumin/Globulin Ratio 0.8 % 05/16/21 12:28 Blood Type O POSITIVE 05/16/21 12:28 Antibody Screen Negative 05/16/21 12:28 Crossmatch See Detail 05/16/21 12:28 Gallo/IV: Voiding Method Incontinent Active Medications - Current Medications Current Medications: Generic Name Dose Route Start Last Admin Trade Name Freq PRN Reason Stop Dose Admin Acetaminophen 650 mg 05/16/21 13:23 05/20/21 03:37 Acetaminophen 325 Mg Tab PO 650 mg Q4H PRN Administration Pain MILD(1-3)/Fever >100.5/MASTERS Atorvastatin Calcium 80 mg 05/16/21 22:00 05/19/21 21:25 Atorvastatin 40 Mg Tab PO 80 mg QHS MARQUES Administration Hydromorphone HCl 0.5 mg 05/16/21 13:23 Hydromorphone 1 Mg/1 Ml Inj IV Q23H PRN Pain , Severe (7-10) Ondansetron HCl 4 mg 05/16/21 13:23 Ondansetron 4 Mg/2 Ml Inj IV Q8H PRN Nausea And Vomiting Oxycodone/Acetaminophen 1 tab 05/16/21 13:23 Oxycodone /Acetaminophen 5-325mg Tab PO Q16H PRN Pain, Moderate (4-6) Pantoprazole Sodium 40 mg 05/19/21 10:00 05/19/21 21:25 Pantoprazole 40 Mg Inj IV 40 mg BID MARQUES Administration Sodium Chloride 10 ml 05/16/21 22:00 05/19/21 21:25 Sodium Chloride 0.9% 10 Ml Flush Syringe IV 10 ml BID MARQUES Administration Sodium Chloride 10 ml 05/16/21 13:23 Sodium Chloride 0.9% 10 Ml Flush Syringe IV PRN PRN LINE FLUSH Nutrition/Malnutrition Assess - Dietary Evaluation Nutrition/Malnutrition Findings: Nutrition Notes Start: 05/17/21 09:42 Freq: Status: Active Protocol: Document 05/18/21 16:12 GB (Rec: 05/18/21 16:38 GB [email or web address]) Nutrition Notes Initial or Follow up Reassessment Current Diagnosis COPD,Hypertension Other Pertinent Diagnosis GIB, dementia Current Diet Cardiac Labs/Tests 05/18: Na 131, BUN 46 showing improvement Pertinent Medications Reviewed Height 5 ft Weight 38.555 kg [place] Body Weight (kg) 45.45 BMI 16.6 Weight change and time frame 4.8% wt loss in 2 months per previous adm on 03/16/202105/18: pt is 85% IBW Weight Status Underweight Subjective/Other Information RN screen for MST. Pt with dementia. Pt with heel wound. 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 Pt stated she is eating the same in hospital as she does at home, shoulders/collar bone very prominent, visual fat/ muscle mass depletion. Percent of energy/protein needs met: Per discussion with RN po intake of meals average 25%. This does not meet 75% or greater of estimated energy needs. Burn Absent Trauma Absent GI Symptoms None Food Allergy No Skin Integrity/Comment wound to left heel Current % PO Poor (25-49%) Minimum of two criteria Yes Energy Intake (severe) < or equal to 50% Estimated Energy Requirement > or equal to 5 days Body Fat Depletion Moderate depletion (severe) Muscle Mass Moderate Depletion (severe) Reduced Archives Specialist Strength Measurably Reduced (severe) #2 Nutrition Diagnosis Malnutrition Comments: PO intake of meals less than 25% while in hospital x2 days Documented weight loss of -4.2 % in two months Etiology dementia, COPD As Evidenced by Signs and Symptoms visual fat/muscle mass depletion, po intake of meals 25% (pt states same at home), documented weight loss of -4.2 % but could be greater as current weight is estimated by hospital staff. #1 Nutrition Diagnosis Increased nutrient needs ( specify in comment below) Comments: protein Etiology wound healing As Evidenced by Signs and Symptoms heel wound Diagnosis Progress(for reassessment Continues documentation) Is patient on ventilator? No Is Patient Ambulatory and/or Out of Bed No REE-([facility]-confined to bed) 951.480 Kcal/Kg value to use for calculation 30 Approximate Energy Requirements Using 1157 kcal/Kg Calculation Used for Recommendations Kcal/kg Additional Notes Protein: (1.2-1.5g/kg) @ 39k-59g Fluid: 1 ml/kcal or per MD Nutrition Intervention Change Diet Order: continue Nutrition Support: n/a Add Supplement/Snack (indicate name/kcal Ensure Enlive BID /protein ) Provides kCal: 700 Provides Protein (gm) 40 Goal #1 PO intake of meals to improve to 50% during LOS Goal #2 PO intake of nutritional supplement beverage to be 50% or greater BID during LOS Follow-Up By: 05/26/21 Additional Comments F/U: intakes, ONS tolerance
[2021-05-20] MEDS: PANTOPRAZOLE 40 MG INJ IV SCH ×2 (10:23→21:02)
--- NOTE | 2021-05-20 11:29 | Consultation ---
History of Present Illness Consult date: 05/20/21 Chief complaint: Left heel ulcer - History of present illness History of present illness: 76 yo female with vascular dementia and pressure ulcer of the left heel. Pt is disoriented and cannot give a coherent history. Past History Past Medical History: COPD, hypertension, other (See HPI) Past Surgical History: No surgical history, Other (Reviewed) Social history: single. denies: smoking, alcohol abuse, prescription drug abuse Family history: hypertension Medications and Allergies Allergies Allergy/AdvReac Type Severity Reaction Status Date / Time Penicillins Allergy Unknown Verified 03/11/21 20:02 Home Medications Medication Instructions Recorded Confirmed Last Taken Type Famotidine [Pepcid] 20 mg PO DAILY tablet 03/18/21 05/16/21 Unknown Rx AtorvaSTATin [Lipitor] 80 mg PO QHS #30 tab 03/21/21 05/16/21 Unknown Rx Lisinopril/Hydrochlorothiazide 1 each PO DAILY #30 tablet 03/21/21 05/16/21 Unknown Rx [Zestoretic 10-12.5 mg Tablet] Ticagrelor (Nf) [Brilinta (Nf)] 60 mg PO DAILY #30 tablet 03/21/21 05/16/21 Unknown Rx Active Meds: Active Medications Acetaminophen (Acetaminophen 325 Mg Tab) 650 mg PO Q4H PRN PRN Reason: Pain MILD(1-3)/Fever >100.5/MASTERS Last Admin: 05/20/21 03:37 Dose: 650 mg Documented by: Atorvastatin Calcium (Atorvastatin 40 Mg Tab) 80 mg PO QHS [facility] Last Admin: 05/19/21 21:25 Dose: 80 mg Documented by: Hydromorphone HCl (Hydromorphone 1 Mg/1 Ml Inj) 0.5 mg IV Q23H PRN PRN Reason: Pain , Severe (7-10) Ondansetron HCl (Ondansetron 4 Mg/2 Ml Inj) 4 mg IV Q8H PRN PRN Reason: Nausea And Vomiting Oxycodone/Acetaminophen (Oxycodone /Acetaminophen 5-325mg Tab) 1 tab PO Q16H PRN PRN Reason: Pain, Moderate (4-6) Pantoprazole Sodium (Pantoprazole 40 Mg Inj) 40 mg IV BID [facility] Last Admin: 05/20/21 10:23 Dose: 40 mg Documented by: Sodium Chloride (Sodium Chloride 0.9% 10 Ml Flush Syringe) 10 ml IV BID MARQUES Last Admin: 05/20/21 10:23 Dose: 10 ml Documented by: Sodium Chloride (Sodium Chloride 0.9% 10 Ml Flush Syringe) 10 ml IV PRN PRN PRN Reason: LINE FLUSH Review of Systems ROS unobtainable: due to mental status Exam Vital Signs BP 97/54 05/16/21 12:01 - General physical appearance Positive: well developed, well nourished, no distress - Eyes Positive: PERRL, normal occular movement - ENT Positive: normal pinna, normal nares, normal mucosa, no hearing loss, no congestion - Neck Positive: no masses, no bruits, trachea midline, no venous distension - Respiratory Positive: normal expansion, normal respiratory effort, clear to auscultation - Cardiovascular Rhythm: regular Heart Sounds: Present: S1 & S2. Absent: rub, click - Extremities Extremities: no ischemia, pulses symmetrical, No edema - Breasts Breasts: normal, no mass, no skin changes - Abdomen Abdomen: Present: soft, bowel sounds normal. Absent: tender, distended Hernia: none - Genitourinary Male Genitourinary: normal Female Genitourinary: normal - Integumentary no rash, no growths, no abnormal pigmentation, other (There is a 6 X 6 X ? cm stage 4 pressure ulcer of the left heel. This is slightly moist. Left DP and PT pulses are non-palpable.) Results - Labs 05/20/21 04:05 05/20/21 04:05 Abnormal lab results 05/20/21 05/20/21 Range/Units 04:05 04:05 WBC 13.3 H (4.5-11.0) K/mm3 RBC 3.03 L (3.65-5.03) M/mm3 Hgb 8.7 L (10.1-14.3) gm/dl Hct 26.7 L (30.3-42.9) % RDW 22.3 H (13.2-15.2) % Sodium 135 L (137-145) mmol/L Carbon Dioxide 18 L (22-30) mmol/L BUN 49 H (7-17) mg/dL Glucose 101 H (65-100) mg/dL Diabetes panel 05/20/21 Range/Units 04:05 Sodium 135 L (137-145) mmol/L Potassium 4.4 (3.6-5.0) mmol/L Chloride 102.8 (98-107) mmol/L Carbon Dioxide 18 L (22-30) mmol/L BUN 49 H (7-17) mg/dL Creatinine 1.2 (0.6-1.2) mg/dL Glucose 101 H (65-100) mg/dL Calcium 9.1 (8.4-10.2) mg/dL Calcium panel 05/20/21 Range/Units 04:05 Calcium 9.1 (8.4-10.2) mg/dL Pituitary panel 05/20/21 Range/Units 04:05 Sodium 135 L (137-145) mmol/L Potassium 4.4 (3.6-5.0) mmol/L Chloride 102.8 (98-107) mmol/L Carbon Dioxide 18 L (22-30) mmol/L BUN 49 H (7-17) mg/dL Creatinine 1.2 (0.6-1.2) mg/dL Glucose 101 H (65-100) mg/dL Calcium 9.1 (8.4-10.2) mg/dL Adrenal panel 05/20/21 Range/Units 04:05 Sodium 135 L (137-145) mmol/L Potassium 4.4 (3.6-5.0) mmol/L Chloride 102.8 (98-107) mmol/L Carbon Dioxide 18 L (22-30) mmol/L BUN 49 H (7-17) mg/dL Creatinine 1.2 (0.6-1.2) mg/dL Glucose 101 H (65-100) mg/dL Calcium 9.1 (8.4-10.2) mg/dL Assessment and Plan - Patient Problems (1) Pressure ulcer of left heel, stage 4 Current Visit: Yes Status: Acute Plan to address problem: 1) Off loading 2) Ultimate treatment will include deep debridement with the wound possible failing to heal. Ultimately, she may need a major amputation. 3) LLE arterial dopplers 4) MRI of left foot
--- NOTE | 2021-05-20 14:28 | XRay Report ---
CHEST 1 VIEW 05/20/2021 1:25 PM INDICATION / CLINICAL INFORMATION: Fever. COMPARISON: March 13, 2021 FINDINGS: SUPPORT DEVICES: None. HEART / MEDIASTINUM: No significant abnormality. LUNGS / PLEURA: Mild increased interstitial prominence within bilateral lungs No pneumothorax. Signer Name: Jerry Ya MD Signed: 05/20/2021 2:24 PM Workstation Name: [id number]
[2021-05-20] MEDS: HYDROmorphone 1 MG/1 ML INJ IV PRN (15:31)
--- NOTE | 2021-05-20 15:38 | Consultation ---
History of Present Illness - Reason for Consult Consult date: 05/20/21 - History of Present Illness 76-year-old female past medical history hypertension, COPD, vascular dementia presented to hospital due to dark tarry stools for the 2 days prior to mission. Due to her dementia she is unable to provide a history, as such as obtained from the chart. She was then noted to have a pressure ulcer of the left heel, as such we and general surgery are consulted. Febrile to 102.7 with a white count of 13.3. No cultures for review. Currently not on antibiotics. Imaging personally reviewed: Chest x-ray: No acute abdomen Past History Past Medical History: COPD, hypertension, other (See HPI) Past Surgical History: No surgical history, Other (Reviewed) Social history: single. denies: smoking, alcohol abuse, prescription drug abuse Family history: hypertension Medications and Allergies Allergies Allergy/AdvReac Type Severity Reaction Status Date / Time Penicillins Allergy Unknown Verified 03/11/21 20:02 Home Medications Medication Instructions Recorded Confirmed Last Taken Type Famotidine [Pepcid] 20 mg PO DAILY tablet 03/18/21 05/16/21 Unknown Rx AtorvaSTATin [Lipitor] 80 mg PO QHS #30 tab 03/21/21 05/16/21 Unknown Rx Lisinopril/Hydrochlorothiazide 1 each PO DAILY #30 tablet 03/21/21 05/16/21 Unknown Rx [Zestoretic 10-12.5 mg Tablet] Ticagrelor (Nf) [Brilinta (Nf)] 60 mg PO DAILY #30 tablet 03/21/21 05/16/21 Unknown Rx Active Meds: Active Medications Acetaminophen (Acetaminophen 325 Mg Tab) 650 mg PO Q4H PRN PRN Reason: Pain MILD(1-3)/Fever >100.5/MASTERS Last Admin: 05/20/21 03:37 Dose: 650 mg Documented by: Atorvastatin Calcium (Atorvastatin 40 Mg Tab) 80 mg PO QHS [facility]QUES Last Admin: 05/19/21 21:25 Dose: 80 mg Documented by: Hydromorphone HCl (Hydromorphone 1 Mg/1 Ml Inj) 0.5 mg IV Q23H PRN PRN Reason: Pain , Severe (7-10) Last Admin: 05/20/21 15:31 Dose: 0.5 mg Documented by: Ondansetron HCl (Ondansetron 4 Mg/2 Ml Inj) 4 mg IV Q8H PRN PRN Reason: Nausea And Vomiting Oxycodone/Acetaminophen (Oxycodone /Acetaminophen 5-325mg Tab) 1 tab PO Q16H PRN PRN Reason: Pain, Moderate (4-6) Pantoprazole Sodium (Pantoprazole 40 Mg Inj) 40 mg IV BID [facility] Last Admin: 05/20/21 10:23 Dose: 40 mg Documented by: Sodium Chloride (Sodium Chloride 0.9% 10 Ml Flush Syringe) 10 ml IV BID [facility] Last Admin: 05/20/21 10:23 Dose: 10 ml Documented by: Sodium Chloride (Sodium Chloride 0.9% 10 Ml Flush Syringe) 10 ml IV PRN PRN PRN Reason: LINE FLUSH Review of Systems ROS unobtainable: due to mental status Physical Examination - Physical Exam Narrative exam: Physical Exam: Constitutional: Awake, confused Head, Ears, Nose: Normocephalic, atraumatic. External ears, nose normal Eyes: Conjunctivae/corneas clear. No icterus. No ptosis. Neck: Supple, no meningeal signs Oral: dentition fair, no thrush Cardiovascular: S1, S2 normal. Respiratory: Good air entry, clear to auscultation bilaterally GI: Soft, non-tender; bowel sounds normal. No peritoneal signs. Musculoskeletal: Left heel pressure ulcer Skin: No rash or abscess Hem/Lymphatic: No palpable cervical or supraclavicular nodes. No lymphangitis Psych: No agitation Neurological: Confused - Constitutional Vitals: Vital Signs Temp Pulse Resp BP Pulse Ox 96.2 F L 97 H 20 98/65 97 05/20/21 11:05 05/20/21 10:00 05/20/21 11:05 05/20/21 11:05 05/20/21 10:00 Temperature -Last 24 Hours Temperature 96.2 F Temperature 97.7 F Temperature 102.7 F Temperature 99.8 F Temperature 98.2 F Temperature 98.5 F Results - Labs CBC & Chem 7: 05/20/21 04:05 05/20/21 04:05 Labs: Abnormal lab results 05/20/21 05/20/21 Range/Units 04:05 04:05 WBC 13.3 H (4.5-11.0) K/mm3 RBC 3.03 L (3.65-5.03) M/mm3 Hgb 8.7 L (10.1-14.3) gm/dl Hct 26.7 L (30.3-42.9) % RDW 22.3 H (13.2-15.2) % Sodium 135 L (137-145) mmol/L Carbon Dioxide 18 L (22-30) mmol/L BUN 49 H (7-17) mg/dL Glucose 101 H (65-100) mg/dL Assessment and Plan Cultures: None A/P: 76-year-old female past medical history hypertension, COPD, vascular dementia #Acute sepsis: Present with fevers and leukocytosis. Likely secondary to left heel pressure ulcer #Left heel pressure ulcer: With possible underlying osteomyelitis. Awaiting MRI #Vascular dementia: Unable to give history Recs: -Order blood cultures given fevers -Started empiric antibiotics given sepsis with vancomycin and ceftriaxone. -Follow Dopplers and MRI to evaluate for potential underlying osteomyelitis -General surgery on board along, noted recommendations. Patient ultimately may need medication. Thank you for the consult, we will continue to follow. MD Josseline Alexander [facility] O: [phone] F: [phone]
[2021-05-20] MEDS ORDERED: VANCOMYCIN PHARMACY TO DOSE IV SCH (16:00)
[2021-05-20 16:02] LABS: Bacteria,Urine 1+ /HPF (Negative); Bilirubin,Urine NEG (Negative); Blood,Urine NEG (Negative); Color,Urine Yellow (Yellow); Mucus,Urine FEW /HPF; Triple Phosphate Crystal,Urine 1+; Urobilinogen,Urine < 2.0 mg/dL (<2.0)
--- NOTE | 2021-05-20 16:14 | Vascular Lab Report ---
DUPLEX DOPPLER LOWER EXTREMITY ARTERIAL, LEFT INDICATION / CLINICAL INFORMATION: left heel ulcer. TECHNIQUE: Arterial duplex examination of the left lower extremity performed using B-mode, color flow and spectral Doppler assessment. COMPARISON: None available. FINDINGS: LEFT: Common Femoral Artery: PSV 199 cm/sec. Triphasic waveform. Proximal SFA: PSV 157 cm/sec. Biphasic waveform. Mid SFA: Occluded. Distal SFA: PSV 29 cm/sec. Monophasic waveform. Popliteal artery: PSV 55 cm/sec. Monophasic waveform. Posterior tibial artery: PSV 40 cm/sec. Monophasic waveform. Dorsalis Pedis Artery: PSV 20 cm/sec. Monophasic waveform. Left JOSE C: Not performed. IMPRESSION: 1. Multifocal atherosclerotic disease is present throughout the left lower extremity. There is occlus ion of the mid superficial femoral artery and near occlusion of the distal superficial femoral artery with associated monophasic waveforms distally. Doppler Waveform: - Triphasic is normal. - Biphasic is abnormal if clear transition from triphasic signal along vascular tree. - Monophasic is abnormal. Scribed by: Betty Sosa RDMS, SUNG Scribed: 05/20/2021 3:03 PM I have reviewed the images, agree with this report, and edited this report as needed. Signer Name: Juan Washington MD Signed: 05/20/2021 4:09 PM Workstation Name: [id number]
[2021-05-20] MEDS ORDERED: VANCOMYCIN 750 MG in SODIUM CHLORIDE 0.9% 250ML 250 ML IV ONE (16:15)
[2021-05-20] MEDS: cefTRIAXone/NS 2 GM/100 ML 2 GM/100 ML BAG IV SCH (17:19)
[2021-05-20 17:49] LABS: Hematocrit 24.8 % (30.3-42.9); Hemoglobin 8.4 gm/dl (10.1-14.3); Mean Corpuscular HGB Conc 34 % (30-34); Mean Corpuscular Volume 89 fl (79-97); Platelet Count 302 K/mm3 (140-440)
[2021-05-20 17:58] LABS: Red Cell Distribution Width 22.5 % (13.2-15.2)
[2021-05-21 05:14] LABS: Hematocrit 25.4 % (30.3-42.9); Hemoglobin 8.4 gm/dl (10.1-14.3); Mean Corpuscular HGB Conc 33 % (30-34); Mean Corpuscular Volume 88 fl (79-97); Platelet Count 318 K/mm3 (140-440); Red Blood Count 2.88 M/mm3 (3.65-5.03)
[2021-05-21 05:24] LABS: BUN/Creatinine Ratio 49; Blood Urea Nitrogen 44 mg/dL (7-17); Calcium 8.9 mg/dL (8.4-10.2); Hemolysis Index 0
[2021-05-21 05:52] LABS: Red Cell Distribution Width 22.1 % (13.2-15.2)
--- NOTE | 2021-05-21 07:59 | Gastroenterology Progress Note ---
Assessment and Plan Still no overt bleeding, hgb stable Patient comfortable Therefore cannot perform procedure without consent and would need to have a guardian established with the patient and I will sign off - Patient Problems (1) GI bleed Current Visit: Yes Status: Acute Subjective Date of service: 05/21/21 Principal diagnosis: GI bleed Interval history: Hgb stable times multiple draws, no overt bleeding Patient denies any bleeding or abdominal pain though again she is limited historian Objective - Constitutional Vitals: Temp Pulse Resp BP Pulse Ox 99.3 F 63 16 104/86 99 05/21/21 04:20 05/21/21 04:20 05/21/21 04:20 05/21/21 04:20 05/21/21 04:20 General appearance: other (legs contracted) - Respiratory Respiratory effort: normal - Gastrointestinal General gastrointestinal: Present: soft - Labs CBC & Chem 7: 05/21/21 04:11 05/21/21 04:11 Labs: Laboratory Results - last 24 hr 05/20/21 05/20/21 05/21/21 17:09 Unknown 04:11 WBC 15.4 H 15.7 H RBC 2.80 L 2.88 L Hgb 8.4 L 8.4 L Hct 24.8 L 25.4 L MCV 89 88 MCH 30 29 MCHC 34 33 RDW 22.5 H 22.1 H Plt Count 302 318 Sodium Potassium Chloride Carbon Dioxide Anion Gap BUN Creatinine Estimated GFR BUN/Creatinine Ratio Glucose Calcium Urine Color Yellow Urine Turbidity Hazy Urine pH 9.0 H Ur Specific [place] 1.020 Urine Protein 100 mg/dl Urine Glucose (UA) Neg Urine Ketones Neg Urine Blood Neg Urine Nitrite Neg Urine Bilirubin Neg Urine Urobilinogen < 2.0 Ur Leukocyte Esterase Neg Urine WBC (Auto) 3.0 Urine RBC (Auto) 2.0 U Epithel Cells (Auto) 5.0 Urine Bacteria (Auto) 1+ Triple Phos Crystals 1+ Urine Mucus Few 05/21/21 04:11 WBC RBC Hgb Hct MCV MCH MCHC RDW Plt Count Sodium 132 L Potassium 4.7 Chloride 100.8 Carbon Dioxide 18 L Anion Gap 18 BUN 44 H Creatinine 0.9 Estimated GFR > 60 BUN/Creatinine Ratio 49 Glucose 119 H Calcium 8.9 Urine Color Urine Turbidity Urine pH Ur Specific [place] Urine Protein Urine Glucose (UA) Urine Ketones Urine Blood Urine Nitrite Urine Bilirubin Urine Urobilinogen Ur Leukocyte Esterase Urine WBC (Auto) Urine RBC (Auto) U Epithel Cells (Auto) Urine Bacteria (Auto) Triple Phos Crystals Urine Mucus
[2021-05-21] MEDS: PANTOPRAZOLE 40 MG INJ IV SCH ×2 (09:29→21:24)
--- NOTE | 2021-05-21 12:17 | Consultation ---
History of Present Illness - Reason for Consult Consult date: 05/21/21 Left heel pressure ulcer - History of Present Illness Patient with history of dementia who resides in a [facility] who initially presented to the hospital for lower GI bleed. Patient was noted to have a pressure ulcer to her left heel. Additionally on the right, the patient has areas of callus. Nonpalpable pedal pulses bilaterally. The patient's right leg is significantly contracted. The patient's left leg is moderately contracted and the patient cannot extend her right leg at all. She can extend her left leg minimally however not to full extension. Patient nonambulatory and only minimally responsive secondary to her dementia Past History Past Medical History: COPD, hypertension, other (See HPI) Past Surgical History: No surgical history, Other (Reviewed) Social history: single. denies: smoking, alcohol abuse, prescription drug abuse Family history: hypertension Medications and Allergies Allergies Allergy/AdvReac Type Severity Reaction Status Date / Time Penicillins Allergy Unknown Verified 03/11/21 20:02 Home Medications Medication Instructions Recorded Confirmed Last Taken Type Famotidine [Pepcid] 20 mg PO DAILY tablet 03/18/21 05/16/21 Unknown Rx AtorvaSTATin [Lipitor] 80 mg PO QHS #30 tab 03/21/21 05/16/21 Unknown Rx Lisinopril/Hydrochlorothiazide 1 each PO DAILY #30 tablet 03/21/21 05/16/21 Unknown Rx [Zestoretic 10-12.5 mg Tablet] Ticagrelor (Nf) [Brilinta (Nf)] 60 mg PO DAILY #30 tablet 03/21/21 05/16/21 Unknown Rx Active Meds: Active Medications Acetaminophen (Acetaminophen 325 Mg Tab) 650 mg PO Q4H PRN PRN Reason: Pain MILD(1-3)/Fever >100.5/MASTERS Last Admin: 05/20/21 03:37 Dose: 650 mg Documented by: Atorvastatin Calcium (Atorvastatin 40 Mg Tab) 80 mg PO QHS MARQUES Last Admin: 05/20/21 21:02 Dose: 80 mg Documented by: Hydromorphone HCl (Hydromorphone 1 Mg/1 Ml Inj) 0.5 mg IV Q23H PRN PRN Reason: Pain , Severe (7-10) Last Admin: 05/20/21 15:31 Dose: 0.5 mg Documented by: Ceftriaxone Sodium (Rocephin/Ns 2 Gm/100 Ml) 2 gm in 100 mls @ 200 mls/hr IV Q24H [facility]; Protocol Last Admin: 05/20/21 17:19 Dose: 200 mls/hr Documented by: Ondansetron HCl (Ondansetron 4 Mg/2 Ml Inj) 4 mg IV Q8H PRN PRN Reason: Nausea And Vomiting Oxycodone/Acetaminophen (Oxycodone /Acetaminophen 5-325mg Tab) 1 tab PO Q16H PRN PRN Reason: Pain, Moderate (4-6) Pantoprazole Sodium (Pantoprazole 40 Mg Inj) 40 mg IV BID [facility] Last Admin: 05/21/21 09:29 Dose: 40 mg Documented by: Sodium Chloride (Sodium Chloride 0.9% 10 Ml Flush Syringe) 10 ml IV BID [facility] Last Admin: 05/21/21 09:30 Dose: 10 ml Documented by: Sodium Chloride (Sodium Chloride 0.9% 10 Ml Flush Syringe) 10 ml IV PRN PRN PRN Reason: LINE FLUSH Review of Systems ROS unobtainable: due to mental status Exam - Constitutional Vitals: Temp Pulse Resp BP Pulse Ox 98.0 F 111 H 16 102/51 98 05/21/21 07:45 05/21/21 07:45 05/21/21 10:00 05/21/21 07:45 05/21/21 10:00 General appearance: Present: disheveled - EENT Eyes: Present: EOM intact ENT: hearing intact - Neck Neck: Present: supple, normal ROM - Respiratory Respiratory effort: normal - Extremities Extremities: abnormal - Abdominal General gastrointestinal: Present: deferred Female genitourinary: Present: deferred - Rectal Rectal Exam: deferred Results - Labs CBC & Chem 7: 05/21/21 04:11 05/21/21 04:11 Labs: Abnormal lab results 05/20/21 05/20/21 05/21/21 Range/Units 17:09 Unknown 04:11 WBC 15.4 H 15.7 H (4.5-11.0) K/mm3 RBC 2.80 L 2.88 L (3.65-5.03) M/mm3 Hgb 8.4 L 8.4 L (10.1-14.3) gm/dl Hct 24.8 L 25.4 L (30.3-42.9) % RDW 22.5 H 22.1 H (13.2-15.2) % Sodium (137-145) mmol/L Carbon Dioxide (22-30) mmol/L BUN (7-17) mg/dL Glucose (65-100) mg/dL Urine pH 9.0 H (5.0-7.0) 05/21/21 Range/Units 04:11 WBC (4.5-11.0) K/mm3 RBC (3.65-5.03) M/mm3 Hgb (10.1-14.3) gm/dl Hct (30.3-42.9) % RDW (13.2-15.2) % Sodium 132 L (137-145) mmol/L Carbon Dioxide 18 L (22-30) mmol/L BUN 44 H (7-17) mg/dL Glucose 119 H (65-100) mg/dL Urine pH (5.0-7.0) - Imaging and Cardiology Venous US: report reviewed (Arterial duplex), image reviewed Assessment and Plan 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 Given her symptoms and nonambulatory status, the patient may benefit simply from a left [id number] amputation. If the patient is going to undergo wound debridement in an attempt to heal her pressure ulcer the patient will need to be scheduled for revascularization procedure.
--- NOTE | 2021-05-21 13:25 | Progress Note ---
Assessment and Plan Assessment and plan: The patient is a 76 yo aaf who presents from senior living with melena. History obtained from ER record and chart review as pt has h/o dementia and unable to provide much details. Pt. reportedly with melena/black stools for 2 days. Hypotensive on arrival which improved following fluids. hgb 8.5 (11 on last admission a few months ago). Brilinta is listed as home medication - unclear indication. GI bleed. Melena. Hypertension COPD. Compensated Vascular dementia. Cerebral atherosclerosis. Peripheral artery disease. Arterial Doppler ultrasound of the left lower extremity showed iliac atherosclerotic disease with significant stenosis of the proximal SFA and occlusion of the mid to distal SFA. 05/17/2021. No reported bleeding overnight. Hemoglobin improved to 10.5 after 1 unit PRBCs. Await endoscopy per GI recommendations. Continue PPI and follow-up H&H in a.m. Case management consultation to assist in locating family. 05/18/2021. No reported bleeding overnight. Hemoglobin remained stable at 9.1. Await endoscopy per GI recommendations. Continue PPI and follow-up H&H in a.m. Case management consultation to assist in locating family. 05/19/2021 Patient with GI bleed. Hgb 8.6. Patient has dementia and unable to give consent for EGD. No family available to sign EGD consent. Will discuss with GI Physician whether we both can sign consent . Also was called by Nurse that Wound Care Nurse recommends Surgical Consult for heel ulcer. 05/20/21 Patient with acute GI bleed . Hgb 8.7 today. Patient has dementia and unable to give consent for EGD. No family available to sign EGD consent. I discussed with Dr. Plata , GI whether we both can sign 2 Physician consent. He will repeat H/H today to make decision. Now patient has fever of 102.7. She has left heel ulcer. Will obtain blood cultures, UA, Urine culture, check Coronavirus. Consult ID Physician. Hyponatremia, improved YEYO improved 05/21/2021 H&H is stable status post transfusion of 1 unit of PRBC, and GI has signed off. Has left heel ulcer on vancomycin and Rocephin. Afebrile today. Leukocytosis is stable. ID input appreciated. Hyponatremia with sodium slightly trended down. We will start IV normal saline at 75 cc/h x 1 L. Monitor sodium. Radiology noted unable to get reach to sign consents for MRI. Vascular surgeon evaluated today and noted that given her symptoms and nonambulatory status, the patient may benefit simply from a left [id number] amputation. If the patient is going to undergo wound debridement in an attempt to heal her pressure ulcer the patient will need to be scheduled for revascularization procedure. Input appreciated. History Interval history: Foot pain. No fever or chills. No abdominal pain, nausea, vomiting. Hospitalist Physical - Constitutional Vitals: Temp Pulse Resp BP Pulse Ox 98.4 F 100 H 19 112/53 96 05/21/21 12:08 05/21/21 12:08 05/21/21 12:08 05/21/21 12:08 05/21/21 12:08 General appearance: Present: no acute distress, disheveled - EENT Eyes: Present: PERRL, EOM intact - Neck Neck: Present: supple, normal ROM - Respiratory Respiratory effort: normal Respiratory: bilateral: CTA - Cardiovascular Rhythm: regular Heart Sounds: Present: S1 & S2 - Extremities Extremities: No edema Extremity abnormal: ulceration (Left heel covered with dressing. Callus at the lateral part of the right foot.), tenderness (Bilateral feet.) - Abdominal General gastrointestinal: soft, non-tender, non-distended, normal bowel sounds - Integumentary Integumentary: Present: warm, dry Results - Labs CBC & Chem 7: 05/21/21 04:11 05/21/21 04:11 Labs: Laboratory Last Values WBC 15.7 K/mm3 (4.5-11.0) H 05/21/21 04:11 RBC 2.88 M/mm3 (3.65-5.03) L 05/21/21 04:11 Hgb 8.4 gm/dl (10.1-14.3) L 05/21/21 04:11 Hct 25.4 % (30.3-42.9) L 05/21/21 04:11 MCV 88 fl (79-97) 05/21/21 04:11 MCH 29 pg (28-32) 05/21/21 04:11 MCHC 33 % (30-34) 05/21/21 04:11 RDW 22.1 % (13.2-15.2) H 05/21/21 04:11 Plt Count 318 K/mm3 (140-440) 05/21/21 04:11 Lymph % (Auto) 10.0 % (13.4-35.0) L 05/19/21 04:20 [place] % (Auto) 7.0 % (0.0-7.3) 05/19/21 04:20 Eos % (Auto) 0.0 % (0.0-4.3) 05/19/21 04:20 Baso % (Auto) 0.3 % (0.0-1.8) 05/19/21 04:20 Lymph # (Auto) 1.4 K/mm3 (1.2-5.4) 05/19/21 04:20 [place] # (Auto) 1.0 K/mm3 (0.0-0.8) H 05/19/21 04:20 Eos # (Auto) 0.0 K/mm3 (0.0-0.4) 05/19/21 04:20 Baso # (Auto) 0.0 K/mm3 (0.0-0.1) 05/19/21 04:20 Seg Neutrophils % 82.7 % (40.0-70.0) H 05/19/21 04:20 Seg Neutrophils # 11.4 K/mm3 (1.8-7.7) H 05/19/21 04:20 PT 12.7 Sec. (12.2-14.9) 05/16/21 12:28 INR 0.90 (0.87-1.13) 05/16/21 12:28 APTT 29.1 Sec. (24.2-36.6) 05/16/21 12:28 Sodium 132 mmol/L (137-145) L 05/21/21 04:11 Potassium 4.7 mmol/L (3.6-5.0) 05/21/21 04:11 Chloride 100.8 mmol/L (98-107) 05/21/21 04:11 Carbon Dioxide 18 mmol/L (22-30) L 05/21/21 04:11 Anion Gap 18 mmol/L 05/21/21 04:11 BUN 44 mg/dL (7-17) H 05/21/21 04:11 Creatinine 0.9 mg/dL (0.6-1.2) 05/21/21 04:11 Estimated GFR > 60 ml/min 05/21/21 04:11 BUN/Creatinine Ratio 49 % 05/21/21 04:11 Glucose 119 mg/dL (65-100) H 05/21/21 04:11 Calcium 8.9 mg/dL (8.4-10.2) 05/21/21 04:11 Total Bilirubin 0.50 mg/dL (0.1-1.2) 05/16/21 12:28 AST 20 units/L (5-40) 05/16/21 12:28 ALT 10 units/L (7-56) 05/16/21 12:28 Alkaline Phosphatase 76 units/L (35-129) 05/16/21 12:28 Total Protein 8.7 g/dL (6.3-8.2) H 05/16/21 12:28 Albumin 3.8 g/dL (3.9-5) L 05/16/21 12:28 Albumin/Globulin Ratio 0.8 % 05/16/21 12:28 Urine Color Yellow (Yellow) 05/20/21 Unknown Urine Turbidity Hazy (Clear) 05/20/21 Unknown Urine pH 9.0 (5.0-7.0) H 05/20/21 Unknown Ur Specific [place] 1.020 (1.003-1.030) 05/20/21 Unknown Urine Protein 100 mg/dl mg/dL (Negative) 05/20/21 Unknown Urine Glucose (UA) Neg mg/dL (Negative) 05/20/21 Unknown Urine Ketones Neg mg/dL (Negative) 05/20/21 Unknown Urine Blood Neg (Negative) 05/20/21 Unknown Urine Nitrite Neg (Negative) 05/20/21 Unknown Urine Bilirubin Neg (Negative) 05/20/21 Unknown Urine Urobilinogen < 2.0 mg/dL (<2.0) 05/20/21 Unknown Ur Leukocyte Esterase Neg (Negative) 05/20/21 Unknown Urine WBC (Auto) 3.0 /HPF (0.0-6.0) 05/20/21 Unknown Urine RBC (Auto) 2.0 /HPF (0.0-6.0) 05/20/21 Unknown U Epithel Cells (Auto) 5.0 /HPF (0-13.0) 05/20/21 Unknown Urine Bacteria (Auto) 1+ /HPF (Negative) 05/20/21 Unknown Triple Phos Crystals 1+ 05/20/21 Unknown Urine Mucus Few /HPF 05/20/21 Unknown Blood Type O POSITIVE 05/16/21 12:28 Antibody Screen Negative 05/16/21 12:28 Crossmatch See Detail 05/16/21 12:28 Microbiology: Microbiology 05/20/21 15:30 Urine,Clean Catch Urine Culture - Preliminary 05/20/21 17:20 Peripheral/Venous Blood Culture - Preliminary Culture in Progress 05/20/21 17:09 Peripheral/Venous Blood Culture - Preliminary Culture in Progress Gallo/IV: Voiding Method External Female Catheter Active Medications - Current Medications Current Medications: Generic Name Dose Route Start Last Admin Trade Name Freq PRN Reason Stop Dose Admin Acetaminophen 650 mg 05/16/21 13:23 05/20/21 03:37 Acetaminophen 325 Mg Tab PO 650 mg Q4H PRN Administration Pain MILD(1-3)/Fever >100.5/MASTERS Atorvastatin Calcium 80 mg 05/16/21 22:00 05/20/21 21:02 Atorvastatin 40 Mg Tab PO 80 mg QHS MARQUES Administration Hydromorphone HCl 0.5 mg 05/16/21 13:23 05/20/21 15:31 Hydromorphone 1 Mg/1 Ml Inj IV 0.5 mg Q23H PRN Administration Pain , Severe (7-10) Ceftriaxone Sodium 2 gm in 100 mls @ 200 mls/hr 05/20/21 16:00 05/20/21 17:19 Rocephin/Ns 2 Gm/100 Ml IV 200 mls/hr Q24H MARQUES Administration Protocol Ondansetron HCl 4 mg 05/16/21 13:23 Ondansetron 4 Mg/2 Ml Inj IV Q8H PRN Nausea And Vomiting Oxycodone/Acetaminophen 1 tab 05/16/21 13:23 Oxycodone /Acetaminophen 5-325mg Tab PO Q16H PRN Pain, Moderate (4-6) Pantoprazole Sodium 40 mg 05/19/21 10:00 05/21/21 09:29 Pantoprazole 40 Mg Inj IV 40 mg BID MARQUES Administration Sodium Chloride 10 ml 05/16/21 22:00 05/21/21 09:30 Sodium Chloride 0.9% 10 Ml Flush Syringe IV 10 ml BID MARQUES Administration Sodium Chloride 10 ml 05/16/21 13:23 Sodium Chloride 0.9% 10 Ml Flush Syringe IV PRN PRN LINE FLUSH Nutrition/Malnutrition Assess - Dietary Evaluation Nutrition/Malnutrition Findings: Nutrition Notes Start: 05/17/21 09:42 Freq: Status: Active Protocol: Document 05/18/21 16:12 GB (Rec: 05/18/21 16:38 GB [id number]) Nutrition Notes Initial or Follow up Reassessment Current Diagnosis COPD,Hypertension Other Pertinent Diagnosis GIB, dementia Current Diet Cardiac Labs/Tests 05/18: Na 131, BUN 46 showing improvement Pertinent Medications Reviewed Height 5 ft Weight 38.555 kg [place] Body Weight (kg) 45.45 BMI 16.6 Weight change and time frame 4.8% wt loss in 2 months per previous adm on 03/16/202105/18: pt is 85% IBW Weight Status Underweight Subjective/Other Information RN screen for MST. Pt with dementia. Pt with heel wound. 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 Pt stated she is eating the same in hospital as she does at home, shoulders/collar bone very prominent, visual fat/ muscle mass depletion. Percent of energy/protein needs met: Per discussion with RN po intake of meals average 25%. This does not meet 75% or greater of estimated energy needs. Burn Absent Trauma Absent GI Symptoms None Food Allergy No Skin Integrity/Comment wound to left heel Current % PO Poor (25-49%) Minimum of two criteria Yes Energy Intake (severe) < or equal to 50% Estimated Energy Requirement > or equal to 5 days Body Fat Depletion Moderate depletion (severe) Muscle Mass Moderate Depletion (severe) Reduced Claims Representative Strength Measurably Reduced (severe) #2 Nutrition Diagnosis Malnutrition Comments: PO intake of meals less than 25% while in hospital x2 days Documented weight loss of -4.2 % in two months Etiology dementia, COPD As Evidenced by Signs and Symptoms visual fat/muscle mass depletion, po intake of meals 25% (pt states same at home), documented weight loss of -4.2 % but could be greater as current weight is estimated by hospital staff. #1 Nutrition Diagnosis Increased nutrient needs ( specify in comment below) Comments: protein Etiology wound healing As Evidenced by Signs and Symptoms heel wound Diagnosis Progress(for reassessment Continues documentation) Is patient on ventilator? No Is Patient Ambulatory and/or Out of Bed No REE-([place]-St. Jeor-confined to bed) 951.480 Kcal/Kg value to use for calculation 30 Approximate Energy Requirements Using 1157 kcal/Kg Calculation Used for Recommendations Kcal/kg Additional Notes Protein: (1.2-1.5g/kg) @ 39k-59g Fluid: 1 ml/kcal or per MD Nutrition Intervention Change Diet Order: continue Nutrition Support: n/a Add Supplement/Snack (indicate name/kcal Ensure Enlive BID /protein ) Provides kCal: 700 Provides Protein (gm) 40 Goal #1 PO intake of meals to improve to 50% during LOS Goal #2 PO intake of nutritional supplement beverage to be 50% or greater BID during LOS Follow-Up By: 05/26/21 Additional Comments F/U: intakes, ONS tolerance
--- NOTE | 2021-05-21 13:28 | Progress Note ---
Assessment and Plan Cultures: None A/P: 76-year-old female past medical history hypertension, COPD, vascular dementia #Acute sepsis: Present with fevers and leukocytosis. Likely secondary to left heel pressure ulcer #Left heel pressure ulcer: With possible underlying osteomyelitis. Awaiting MRI #Vascular dementia: Unable to give history Recs: -Order blood cultures given fevers -Started empiric antibiotics given sepsis with vancomycin and ceftriaxone. -Follow Dopplers and MRI to evaluate for potential underlying osteomyelitis -General surgery on board along, noted recommendations. Patient ultimately may need amputation Thank you for the consult, we will continue to follow. John Blevins MD [facility] O: [phone] F: [phone] Subjective Date of service: 05/21/21 Principal diagnosis: GI bleed Interval history: Afebrile, white count 15.7. Cultures remain negative so far. Objective - Exam Narrative Exam: Physical Exam: Constitutional: Awake, confused Head, Ears, Nose: Normocephalic, atraumatic. External ears, nose normal Eyes: Conjunctivae/corneas clear. No icterus. No ptosis. Neck: Supple, no meningeal signs Oral: dentition fair, no thrush Cardiovascular: S1, S2 normal. Respiratory: Good air entry, clear to auscultation bilaterally GI: Soft, non-tender; bowel sounds normal. No peritoneal signs. Musculoskeletal: Left heel pressure ulcer Skin: No rash or abscess Hem/Lymphatic: No palpable cervical or supraclavicular nodes. No lymphangitis Psych: No agitation Neurological: Confused - Constitutional Vitals: Vital Signs Temp Pulse Resp BP Pulse Ox 98.4 F 100 H 19 112/53 96 05/21/21 12:08 05/21/21 12:08 05/21/21 12:08 05/21/21 12:08 05/21/21 12:08 Temperature -Last 24 Hours Temperature 98.4 F Temperature 98.0 F Temperature 99.3 F Temperature 98.4 F Temperature 98.2 F Temperature 97.2 F - Labs CBC & Chem 7: 05/21/21 04:11 05/21/21 04:11 Labs: Abnormal lab results 05/20/21 05/20/21 05/21/21 Range/Units 17:09 Unknown 04:11 WBC 15.4 H 15.7 H (4.5-11.0) K/mm3 RBC 2.80 L 2.88 L (3.65-5.03) M/mm3 Hgb 8.4 L 8.4 L (10.1-14.3) gm/dl Hct 24.8 L 25.4 L (30.3-42.9) % RDW 22.5 H 22.1 H (13.2-15.2) % Sodium (137-145) mmol/L Carbon Dioxide (22-30) mmol/L BUN (7-17) mg/dL Glucose (65-100) mg/dL Urine pH 9.0 H (5.0-7.0) 05/21/21 Range/Units 04:11 WBC (4.5-11.0) K/mm3 RBC (3.65-5.03) M/mm3 Hgb (10.1-14.3) gm/dl Hct (30.3-42.9) % RDW (13.2-15.2) % Sodium 132 L (137-145) mmol/L Carbon Dioxide 18 L (22-30) mmol/L BUN 44 H (7-17) mg/dL Glucose 119 H (65-100) mg/dL Urine pH (5.0-7.0)
[2021-05-21] MEDS ORDERED: SODIUM CHLORIDE 0.9% 1000 ML 1,000 ML IV SCH (13:30)
--- NOTE | 2021-05-21 13:31 | Progress Note ---
Assessment and Plan - Patient Problems (1) Pressure ulcer of left heel, stage 4 Current Visit: Yes Status: Acute Plan to address problem: 1) Best course of action would be a left AKA. However, like the EGD, this is not an emergency and I would be hesitant to proceed without consent of the pt's family. Will hold on AKA until family is contacted and full consent (not 2 physician consent) can be obtained. Subjective Date of service: 05/21/21 Patient Reports: Positive: no new complaints Objective Vital Signs - 12hr 05/21/21 05/21/21 05/21/21 04:20 07:45 10:00 Temperature 99.3 F 98.0 F Pulse Rate 63 111 H Respiratory 16 18 16 Rate Blood Pressure 104/86 102/51 Blood Pressure [Right] O2 Sat by Pulse 99 95 98 Oximetry 05/21/21 12:08 Temperature 98.4 F Pulse Rate 100 H Respiratory 19 Rate Blood Pressure Blood Pressure 112/53 [Right] O2 Sat by Pulse 96 Oximetry - Labs 05/21/21 04:11 05/21/21 04:11 Diabetes panel 05/21/21 Range/Units 04:11 Sodium 132 L (137-145) mmol/L Potassium 4.7 (3.6-5.0) mmol/L Chloride 100.8 (98-107) mmol/L Carbon Dioxide 18 L (22-30) mmol/L BUN 44 H (7-17) mg/dL Creatinine 0.9 (0.6-1.2) mg/dL Glucose 119 H (65-100) mg/dL Calcium 8.9 (8.4-10.2) mg/dL Calcium panel 05/21/21 Range/Units 04:11 Calcium 8.9 (8.4-10.2) mg/dL Pituitary panel 05/21/21 Range/Units 04:11 Sodium 132 L (137-145) mmol/L Potassium 4.7 (3.6-5.0) mmol/L Chloride 100.8 (98-107) mmol/L Carbon Dioxide 18 L (22-30) mmol/L BUN 44 H (7-17) mg/dL Creatinine 0.9 (0.6-1.2) mg/dL Glucose 119 H (65-100) mg/dL Calcium 8.9 (8.4-10.2) mg/dL Adrenal panel 05/21/21 Range/Units 04:11 Sodium 132 L (137-145) mmol/L Potassium 4.7 (3.6-5.0) mmol/L Chloride 100.8 (98-107) mmol/L Carbon Dioxide 18 L (22-30) mmol/L BUN 44 H (7-17) mg/dL Creatinine 0.9 (0.6-1.2) mg/dL Glucose 119 H (65-100) mg/dL Calcium 8.9 (8.4-10.2) mg/dL - Imaging Additional Studies: 1) LLE arterial doppler report noted. 2) Dr. Broderick's note read. 3) Cannot do left foot MRI b/o lack of consent.
[2021-05-21] MEDS: cefTRIAXone/NS 2 GM/100 ML 2 GM/100 ML BAG IV SCH (16:12)
[2021-05-22 05:56] LABS: Basophils % (Auto) 0.1 % (0.0-1.8); Eosinophils % (Auto) 0.1 % (0.0-4.3); Hematocrit 25.7 % (30.3-42.9); Hemoglobin 8.6 gm/dl (10.1-14.3); Lymphocytes # (Auto) 1.5 K/mm3 (1.2-5.4); Lymphocytes % (Auto) 8.9 % (13.4-35.0); Mean Corpuscular HGB Conc 33 % (30-34); Mean Corpuscular Volume 90 fl (79-97); Platelet Count 315 K/mm3 (140-440); Red Blood Count 2.87 M/mm3 (3.65-5.03)
[2021-05-22 06:00] LABS: BUN/Creatinine Ratio 41; Blood Urea Nitrogen 41 mg/dL (7-17); Hemolysis Index 6
[2021-05-22 06:46] LABS: Red Cell Distribution Width 22.2 % (13.2-15.2)
--- NOTE | 2021-05-22 08:24 | Progress Note ---
Assessment and Plan Assessment and plan: The patient is a 76 yo aaf who [facility] with melena. History obtained from ER record and chart review as pt has h/o dementia and unable to provide much details. Pt. reportedly with melena/black stools for 2 days. Hypotensive on arrival which improved following fluids. hgb 8.5 (11 on last admission a few months ago). Brilinta is listed as home medication - unclear indication. GI bleed with melena. Acute blood loss anemia. Hypertension COPD. Compensated Vascular dementia. Cerebral atherosclerosis. Peripheral artery disease. Arterial Doppler ultrasound of the left lower extremity showed iliac atherosclerotic disease with significant stenosis of the proximal SFA and occlusion of the mid to distal SFA. Hyponatremia. 05/17/2021. No reported bleeding overnight. Hemoglobin improved to 10.5 after 1 unit PRBCs. Await endoscopy per GI recommendations. Continue PPI and follow-up H&H in a.m. Case management consultation to assist in locating family. 05/18/2021. No reported bleeding overnight. Hemoglobin remained stable at 9.1. Await endoscopy per GI recommendations. Continue PPI and follow-up H&H in a.m. Case management consultation to assist in locating family. 05/19/2021 Patient with GI bleed. Hgb 8.6. Patient has dementia and unable to give consent for EGD. No family available to sign EGD consent. Will discuss with GI Physician whether we both can sign consent . Also was called by Nurse that Wound Care Nurse recommends Surgical Consult for heel ulcer. 05/20/21 Patient with acute GI bleed . Hgb 8.7 today. Patient has dementia and unable to give consent for EGD. No family available to sign EGD consent. I discussed with Dr. Plata , GI whether we both can sign 2 Physician consent. He will repeat H/H today to make decision. Now patient has fever of 102.7. She has left heel ulcer. Will obtain blood cultures, UA, Urine culture, check Coronavirus. Consult ID Physician. Hyponatremia, improved YEYO improved 05/21/2021 H&H is stable status post transfusion of 1 unit of PRBC, and GI has signed off. Has left heel ulcer on vancomycin and Rocephin. Afebrile today. Leukocytosis is stable. ID input appreciated. Hyponatremia with sodium slightly trended down. We will start IV normal saline at 75 cc/h x 1 L. Monitor sodium. Radiology noted unable to get reach to sign consents for MRI. Vascular surgeon evaluated today and noted that given her symptoms and nonambulatory status, the patient may benefit simply from a left [id number] amputation. If the patient is going to undergo wound debridement in an attempt to heal her pressure ulcer the patient will need to be scheduled for revascularization procedure. Input appreciated. 05/22/2021. Continue current antibiotic. ID, vascular surgeon, general surgeon input appreciated. Patient needs left foot MRI and AKA, however obtaining consents is a problem. Leukocytosis has trended up. Anemia stable. Hyponatremia has improved. Monitor CBC and BMP. Hypertension is controlled. Has mild tachycardia, monitor heart rate. History Interval history: No pain today. No fever or chills. Hospitalist Physical - Constitutional Vitals: Temp Pulse Resp BP Pulse Ox 98.6 F 101 H 17 126/65 100 05/22/21 04:42 05/22/21 04:42 05/22/21 04:42 05/22/21 04:42 05/22/21 04:42 General appearance: Present: no acute distress, disheveled - EENT Eyes: Present: PERRL, EOM intact - Neck Neck: Present: supple, normal ROM - Respiratory Respiratory effort: normal - Cardiovascular Rhythm: regular Heart Sounds: Present: S1 & S2 - Extremities Extremity abnormal: edema (Left foot.), other (Left foot dressing. Callus at the lateral part of the right foot.) - Abdominal General gastrointestinal: soft, non-distended, distended, normal bowel sounds - Integumentary Integumentary: Present: warm, dry Results - Labs CBC & Chem 7: 05/22/21 04:28 05/22/21 04:28 Labs: Laboratory Last Values WBC 16.5 K/mm3 (4.5-11.0) H 05/22/21 04:28 RBC 2.87 M/mm3 (3.65-5.03) L 05/22/21 04:28 Hgb 8.6 gm/dl (10.1-14.3) L 05/22/21 04:28 Hct 25.7 % (30.3-42.9) L 05/22/21 04:28 MCV 90 fl (79-97) 05/22/21 04:28 MCH 30 pg (28-32) 05/22/21 04:28 MCHC 33 % (30-34) 05/22/21 04:28 RDW 22.2 % (13.2-15.2) H 05/22/21 04:28 Plt Count 315 K/mm3 (140-440) 05/22/21 04:28 Lymph % (Auto) 8.9 % (13.4-35.0) L 05/22/21 04:28 [place] % (Auto) 6.0 % (0.0-7.3) 05/22/21 04:28 Eos % (Auto) 0.1 % (0.0-4.3) 05/22/21 04:28 Baso % (Auto) 0.1 % (0.0-1.8) 05/22/21 04:28 Lymph # (Auto) 1.5 K/mm3 (1.2-5.4) 05/22/21 04:28 [place] # (Auto) 1.0 K/mm3 (0.0-0.8) H 05/22/21 04:28 Eos # (Auto) 0.0 K/mm3 (0.0-0.4) 05/22/21 04:28 Baso # (Auto) 0.0 K/mm3 (0.0-0.1) 05/22/21 04:28 Seg Neutrophils % 84.9 % (40.0-70.0) H 05/22/21 04:28 Seg Neutrophils # 14.0 K/mm3 (1.8-7.7) H 05/22/21 04:28 PT 12.7 Sec. (12.2-14.9) 05/16/21 12:28 INR 0.90 (0.87-1.13) 05/16/21 12:28 APTT 29.1 Sec. (24.2-36.6) 05/16/21 12:28 Sodium 135 mmol/L (137-145) L 05/22/21 04:28 Potassium 4.6 mmol/L (3.6-5.0) 05/22/21 04:28 Chloride 102.5 mmol/L (98-107) 05/22/21 04:28 Carbon Dioxide 18 mmol/L (22-30) L 05/22/21 04:28 Anion Gap 19 mmol/L 05/22/21 04:28 BUN 41 mg/dL (7-17) H 05/22/21 04:28 Creatinine 1.0 mg/dL (0.6-1.2) 05/22/21 04:28 Estimated GFR > 60 ml/min 05/22/21 04:28 BUN/Creatinine Ratio 41 % 05/22/21 04:28 Glucose 106 mg/dL (65-100) H 05/22/21 04:28 Calcium 9.0 mg/dL (8.4-10.2) 05/22/21 04:28 Total Bilirubin 0.50 mg/dL (0.1-1.2) 05/16/21 12:28 AST 20 units/L (5-40) 05/16/21 12:28 ALT 10 units/L (7-56) 05/16/21 12:28 Alkaline Phosphatase 76 units/L (35-129) 05/16/21 12:28 Total Protein 8.7 g/dL (6.3-8.2) H 05/16/21 12:28 Albumin 3.8 g/dL (3.9-5) L 05/16/21 12:28 Albumin/Globulin Ratio 0.8 % 05/16/21 12:28 Urine Color Yellow (Yellow) 05/20/21 Unknown Urine Turbidity Hazy (Clear) 05/20/21 Unknown Urine pH 9.0 (5.0-7.0) H 05/20/21 Unknown Ur Specific [place] 1.020 (1.003-1.030) 05/20/21 Unknown Urine Protein 100 mg/dl mg/dL (Negative) 05/20/21 Unknown Urine Glucose (UA) Neg mg/dL (Negative) 05/20/21 Unknown Urine Ketones Neg mg/dL (Negative) 05/20/21 Unknown Urine Blood Neg (Negative) 05/20/21 Unknown Urine Nitrite Neg (Negative) 05/20/21 Unknown Urine Bilirubin Neg (Negative) 05/20/21 Unknown Urine Urobilinogen < 2.0 mg/dL (<2.0) 05/20/21 Unknown Ur Leukocyte Esterase Neg (Negative) 05/20/21 Unknown Urine WBC (Auto) 3.0 /HPF (0.0-6.0) 05/20/21 Unknown Urine RBC (Auto) 2.0 /HPF (0.0-6.0) 05/20/21 Unknown U Epithel Cells (Auto) 5.0 /HPF (0-13.0) 05/20/21 Unknown Urine Bacteria (Auto) 1+ /HPF (Negative) 05/20/21 Unknown Triple Phos Crystals 1+ 05/20/21 Unknown Urine Mucus Few /HPF 05/20/21 Unknown Random Vancomycin 4.0 ug/mL (0-40.0) 05/22/21 04:28 Coronavirus (PCR) Negative (Negative) 05/20/21 11:52 Blood Type O POSITIVE 05/16/21 12:28 Antibody Screen Negative 05/16/21 12:28 Crossmatch See Detail 05/16/21 12:28 Microbiology: Microbiology 05/20/21 17:09 Peripheral/Venous Blood Culture - Preliminary NO GROWTH AFTER 24 HOURS 05/20/21 17:20 Peripheral/Venous Blood Culture - Preliminary NO GROWTH AFTER 24 HOURS 05/20/21 15:30 Urine,Clean Catch Urine Culture - Preliminary Gallo/IV: Voiding Method External Female Catheter Active Medications - Current Medications Current Medications: Generic Name Dose Route Start Last Admin Trade Name Freq PRN Reason Stop Dose Admin Acetaminophen 650 mg 05/16/21 13:23 05/20/21 03:37 Acetaminophen 325 Mg Tab PO 650 mg Q4H PRN Administration Pain MILD(1-3)/Fever >100.5/MASTERS Atorvastatin Calcium 80 mg 05/16/21 22:00 05/21/21 21:24 Atorvastatin 40 Mg Tab PO 80 mg QHS MARQUES Administration Hydromorphone HCl 0.5 mg 05/16/21 13:23 05/20/21 15:31 Hydromorphone 1 Mg/1 Ml Inj IV 0.5 mg Q23H PRN Administration Pain , Severe (7-10) Ceftriaxone Sodium 2 gm in 100 mls @ 200 mls/hr 05/20/21 16:00 05/21/21 16:12 Rocephin/Ns 2 Gm/100 Ml IV 200 mls/hr Q24H MARQUES Administration Protocol Ondansetron HCl 4 mg 05/16/21 13:23 Ondansetron 4 Mg/2 Ml Inj IV Q8H PRN Nausea And Vomiting Oxycodone/Acetaminophen 1 tab 05/16/21 13:23 Oxycodone /Acetaminophen 5-325mg Tab PO Q16H PRN Pain, Moderate (4-6) Pantoprazole Sodium 40 mg 05/19/21 10:00 05/21/21 21:24 Pantoprazole 40 Mg Inj IV 40 mg BID MARQUES Administration Sodium Chloride 10 ml 05/16/21 22:00 05/21/21 21:25 Sodium Chloride 0.9% 10 Ml Flush Syringe IV 10 ml BID MARQUES Administration Sodium Chloride 10 ml 05/16/21 13:23 Sodium Chloride 0.9% 10 Ml Flush Syringe IV PRN PRN LINE FLUSH Nutrition/Malnutrition Assess - Dietary Evaluation Nutrition/Malnutrition Findings: Nutrition Notes Start: 05/17/21 09:42 Freq: Status: Active Protocol: Document 05/18/21 16:12 GB (Rec: 05/18/21 16:38 GB [id number]) Nutrition Notes Initial or Follow up Reassessment Current Diagnosis COPD,Hypertension Other Pertinent Diagnosis GIB, dementia Current Diet Cardiac Labs/Tests 05/18: Na 131, BUN 46 showing improvement Pertinent Medications Reviewed Height 5 ft Weight 38.555 kg [place] Body Weight (kg) 45.45 BMI 16.6 Weight change and time frame 4.8% wt loss in 2 months per previous adm on 03/16/202105/18: pt is 85% IBW Weight Status Underweight Subjective/Other Information RN screen for MST. Pt with dementia. Pt with heel wound. Per physical assessment 05/18: extremity strength is severe weakness, musculoskeletal NOT wnl, fibrous plasterer strength is weak. Pt stated she is eating the same in hospital as she does at home, shoulders/collar bone very prominent, visual fat/ muscle mass depletion. Percent of energy/protein needs met: Per discussion with RN po intake of meals average 25%. This does not meet 75% or greater of estimated energy needs. Burn Absent Trauma Absent GI Symptoms None Food Allergy No Skin Integrity/Comment wound to left heel Current % PO Poor (25-49%) Minimum of two criteria Yes Energy Intake (severe) < or equal to 50% Estimated Energy Requirement > or equal to 5 days Body Fat Depletion Moderate depletion (severe) Muscle Mass Moderate Depletion (severe) Reduced Quirk Sander Strength Measurably Reduced (severe) #2 Nutrition Diagnosis Malnutrition Comments: PO intake of meals less than 25% while in hospital x2 days Documented weight loss of -4.2 % in two months Etiology dementia, COPD As Evidenced by Signs and Symptoms visual fat/muscle mass depletion, po intake of meals 25% (pt states same at home), documented weight loss of -4.2 % but could be greater as current weight is estimated by hospital staff. #1 Nutrition Diagnosis Increased nutrient needs ( specify in comment below) Comments: protein Etiology wound healing As Evidenced by Signs and Symptoms heel wound Diagnosis Progress(for reassessment Continues documentation) Is patient on ventilator? No Is Patient Ambulatory and/or Out of Bed No REE-([facility]-confined to bed) 951.480 Kcal/Kg value to use for calculation 30 Approximate Energy Requirements Using 1157 kcal/Kg Calculation Used for Recommendations Kcal/kg Additional Notes Protein: (1.2-1.5g/kg) @ 39k-59g Fluid: 1 ml/kcal or per MD Nutrition Intervention Change Diet Order: continue Nutrition Support: n/a Add Supplement/Snack (indicate name/kcal Ensure Enlive BID /protein ) Provides kCal: 700 Provides Protein (gm) 40 Goal #1 PO intake of meals to improve to 50% during LOS Goal #2 PO intake of nutritional supplement beverage to be 50% or greater BID during LOS Follow-Up By: 05/26/21 Additional Comments F/U: intakes, ONS tolerance
[2021-05-22] MEDS: PANTOPRAZOLE 40 MG INJ IV SCH ×2 (09:20→22:50)
--- NOTE | 2021-05-22 11:10 | Progress Note ---
Assessment and Plan Cultures: None A/P: 76-year-old female past medical history hypertension, COPD, vascular dementia #Acute sepsis: Present with fevers and leukocytosis. Likely secondary to left heel pressure ulcer #Left heel pressure ulcer: With possible underlying osteomyelitis. Awaiting MRI #Vascular dementia: Unable to give history Recs: -Follow up blood cultures given fevers -Started empiric antibiotics given sepsis with vancomycin and ceftriaxone. -Follow up MRI to evaluate for potential underlying osteomyelitis -Potential plan for non-emergent AKA pending family consent. Amputation would be curative of infection. Thank you for the consult, we will continue to follow. John Blevins MD [facility] ([facility]) O: [phone] F: [phone] Subjective Date of service: 05/22/21 Principal diagnosis: GI bleed Interval history: Afebrile, white count remains stable elevated Objective - Exam Narrative Exam: Physical Exam: Constitutional: Awake, confused Head, Ears, Nose: Normocephalic, atraumatic. External ears, nose normal Eyes: Conjunctivae/corneas clear. No icterus. No ptosis. Neck: Supple, no meningeal signs Oral: dentition fair, no thrush Cardiovascular: S1, S2 normal. Respiratory: Good air entry, clear to auscultation bilaterally GI: Soft, non-tender; bowel sounds normal. No peritoneal signs. Musculoskeletal: Left heel pressure ulcer Skin: No rash or abscess Hem/Lymphatic: No palpable cervical or supraclavicular nodes. No lymphangitis Psych: No agitation Neurological: Confused - Constitutional Vitals: Vital Signs Temp Pulse Resp BP Pulse Ox 98.4 F 78 17 135/69 98 05/22/21 09:21 05/22/21 09:21 05/22/21 09:21 05/22/21 09:21 05/22/21 09:21 Temperature -Last 24 Hours Temperature 98.4 F Temperature 98.6 F Temperature 99.3 F Temperature 99.7 F Temperature 98.4 F - Labs CBC & Chem 7: 05/22/21 04:28 05/22/21 04:28 Labs: Abnormal lab results 05/22/21 05/22/21 Range/Units 04:28 04:28 WBC 16.5 H (4.5-11.0) K/mm3 RBC 2.87 L (3.65-5.03) M/mm3 Hgb 8.6 L (10.1-14.3) gm/dl Hct 25.7 L (30.3-42.9) % RDW 22.2 H (13.2-15.2) % Lymph % (Auto) 8.9 L (13.4-35.0) % [place] # (Auto) 1.0 H (0.0-0.8) K/mm3 Seg Neutrophils % 84.9 H (40.0-70.0) % Seg Neutrophils # 14.0 H (1.8-7.7) K/mm3 Sodium 135 L (137-145) mmol/L Carbon Dioxide 18 L (22-30) mmol/L BUN 41 H (7-17) mg/dL Glucose 106 H (65-100) mg/dL
[2021-05-22] MEDS: cefTRIAXone/NS 2 GM/100 ML 2 GM/100 ML BAG IV SCH (15:42)
[2021-05-22] MEDS: VANCOMYCIN 500 MG in SODIUM CHLORIDE 0.9% 100 ML IV SCH (16:22)
--- NOTE | 2021-05-23 09:10 | Progress Note ---
Assessment and Plan Assessment and plan: The patient is a 76 yo aaf who presents from assisted with melena. History obtained from ER record and chart review as pt has h/o dementia and unable to provide much details. Pt. reportedly with melena/black stools for 2 days. Hypotensive on arrival which improved following fluids. hgb 8.5 (11 on last admission a few months ago). Brilinta is listed as home medication - unclear indication. GI bleed with melena. Acute blood loss anemia. Hypertension COPD. Compensated Vascular dementia. Cerebral atherosclerosis. Peripheral artery disease. Arterial Doppler ultrasound of the left lower extremity showed iliac atherosclerotic disease with significant stenosis of the proximal SFA and occlusion of the mid to distal SFA. Hyponatremia. 05/17/2021. No reported bleeding overnight. Hemoglobin improved to 10.5 after 1 unit PRBCs. Await endoscopy per GI recommendations. Continue PPI and follow-up H&H in a.m. Case management consultation to assist in locating family. 05/18/2021. No reported bleeding overnight. Hemoglobin remained stable at 9.1. Await endoscopy per GI recommendations. Continue PPI and follow-up H&H in a.m. Case management consultation to assist in locating family. 05/19/2021 Patient with GI bleed. Hgb 8.6. Patient has dementia and unable to give consent for EGD. No family available to sign EGD consent. Will discuss with GI Physician whether we both can sign consent . Also was called by Nurse that Wound Care Nurse recommends Surgical Consult for heel ulcer. 05/20/21 Patient with acute GI bleed . Hgb 8.7 today. Patient has dementia and unable to give consent for EGD. No family available to sign EGD consent. I discussed with Dr. Plata , GI whether we both can sign 2 Physician consent. He will repeat H/H today to make decision. Now patient has fever of 102.7. She has left heel ulcer. Will obtain blood cultures, UA, Urine culture, check Coronavirus. Consult ID Physician. Hyponatremia, improved YEYO improved 05/21/2021 H&H is stable status post transfusion of 1 unit of PRBC, and GI has signed off. Has left heel ulcer on vancomycin and Rocephin. Afebrile today. Leukocytosis is stable. ID input appreciated. Hyponatremia with sodium slightly trended down. We will start IV normal saline at 75 cc/h x 1 L. Monitor sodium. Radiology noted unable to get reach to sign consents for MRI. Vascular surgeon evaluated today and noted that given her symptoms and nonambulatory status, the patient may benefit simply from a left [id number] amputation. If the patient is going to undergo wound debridement in an attempt to heal her pressure ulcer the patient will need to be scheduled for revascularization procedure. Input appreciated. 05/22/2021. Continue current antibiotic. ID, vascular surgeon, general surgeon input appreciated. Patient needs left foot MRI and AKA, however obtaining consents is a problem. Leukocytosis has trended up. Anemia stable. Hyponatremia has improved. Monitor CBC and BMP. Hypertension is controlled. Has mild tachycardia, monitor heart rate. 05/23/2021 Patient with GI bleed, left heel ulcer, PAD. May need left AKA as per [place] surgeon. No family for consent. History Interval history: Patient with GI Bleed, left heel ulcer Hospitalist Physical - Physical exam Narrative exam: Gen: Not in acute distress, lying in bed, malnourished HEENT: Normocephalic, atraumatic Lungs: Clear to auscultation Heart: S1 and S2 reg, no murmurs, rubs or gallop Abd:soft, non-tender, non distended, normal bowel sounds Ext: Left heel ulcer, dressing over left foot,No edema, clubbing or cyanosis Neuro: Has dementia. - Constitutional Vitals: Temp Pulse Resp BP Pulse Ox 98.3 F 94 H 16 92/70 94 05/23/21 07:44 05/23/21 07:44 05/23/21 07:44 05/23/21 07:44 05/23/21 07:44 General appearance: Present: no acute distress, disheveled Results - Labs CBC & Chem 7: 05/22/21 04:28 05/22/21 04:28 Labs: Laboratory Last Values WBC 16.5 K/mm3 (4.5-11.0) H 05/22/21 04:28 RBC 2.87 M/mm3 (3.65-5.03) L 05/22/21 04:28 Hgb 8.6 gm/dl (10.1-14.3) L 05/22/21 04:28 Hct 25.7 % (30.3-42.9) L 05/22/21 04:28 MCV 90 fl (79-97) 05/22/21 04:28 MCH 30 pg (28-32) 05/22/21 04:28 MCHC 33 % (30-34) 05/22/21 04:28 RDW 22.2 % (13.2-15.2) H 05/22/21 04:28 Plt Count 315 K/mm3 (140-440) 05/22/21 04:28 Lymph % (Auto) 8.9 % (13.4-35.0) L 05/22/21 04:28 [place] % (Auto) 6.0 % (0.0-7.3) 05/22/21 04:28 Eos % (Auto) 0.1 % (0.0-4.3) 05/22/21 04:28 Baso % (Auto) 0.1 % (0.0-1.8) 05/22/21 04:28 Lymph # (Auto) 1.5 K/mm3 (1.2-5.4) 05/22/21 04:28 [place] # (Auto) 1.0 K/mm3 (0.0-0.8) H 05/22/21 04:28 Eos # (Auto) 0.0 K/mm3 (0.0-0.4) 05/22/21 04:28 Baso # (Auto) 0.0 K/mm3 (0.0-0.1) 05/22/21 04:28 Seg Neutrophils % 84.9 % (40.0-70.0) H 05/22/21 04:28 Seg Neutrophils # 14.0 K/mm3 (1.8-7.7) H 05/22/21 04:28 PT 12.7 Sec. (12.2-14.9) 05/16/21 12:28 INR 0.90 (0.87-1.13) 05/16/21 12:28 APTT 29.1 Sec. (24.2-36.6) 05/16/21 12:28 Sodium 135 mmol/L (137-145) L 05/22/21 04:28 Potassium 4.6 mmol/L (3.6-5.0) 05/22/21 04:28 Chloride 102.5 mmol/L (98-107) 05/22/21 04:28 Carbon Dioxide 18 mmol/L (22-30) L 05/22/21 04:28 Anion Gap 19 mmol/L 05/22/21 04:28 BUN 41 mg/dL (7-17) H 05/22/21 04:28 Creatinine 1.0 mg/dL (0.6-1.2) 05/22/21 04:28 Estimated GFR > 60 ml/min 05/22/21 04:28 BUN/Creatinine Ratio 41 % 05/22/21 04:28 Glucose 106 mg/dL (65-100) H 05/22/21 04:28 POC Glucose 108 mg/dL (70-105) H 05/22/21 11:29 Calcium 9.0 mg/dL (8.4-10.2) 05/22/21 04:28 Total Bilirubin 0.50 mg/dL (0.1-1.2) 05/16/21 12:28 AST 20 units/L (5-40) 05/16/21 12:28 ALT 10 units/L (7-56) 05/16/21 12:28 Alkaline Phosphatase 76 units/L (35-129) 05/16/21 12:28 Total Protein 8.7 g/dL (6.3-8.2) H 05/16/21 12:28 Albumin 3.8 g/dL (3.9-5) L 05/16/21 12:28 Albumin/Globulin Ratio 0.8 % 05/16/21 12:28 Urine Color Yellow (Yellow) 05/20/21 Unknown Urine Turbidity Hazy (Clear) 05/20/21 Unknown Urine pH 9.0 (5.0-7.0) H 05/20/21 Unknown Ur Specific [place] 1.020 (1.003-1.030) 05/20/21 Unknown Urine Protein 100 mg/dl mg/dL (Negative) 05/20/21 Unknown Urine Glucose (UA) Neg mg/dL (Negative) 05/20/21 Unknown Urine Ketones Neg mg/dL (Negative) 05/20/21 Unknown Urine Blood Neg (Negative) 05/20/21 Unknown Urine Nitrite Neg (Negative) 05/20/21 Unknown Urine Bilirubin Neg (Negative) 05/20/21 Unknown Urine Urobilinogen < 2.0 mg/dL (<2.0) 05/20/21 Unknown Ur Leukocyte Esterase Neg (Negative) 05/20/21 Unknown Urine WBC (Auto) 3.0 /HPF (0.0-6.0) 05/20/21 Unknown Urine RBC (Auto) 2.0 /HPF (0.0-6.0) 05/20/21 Unknown U Epithel Cells (Auto) 5.0 /HPF (0-13.0) 05/20/21 Unknown Urine Bacteria (Auto) 1+ /HPF (Negative) 05/20/21 Unknown Triple Phos Crystals 1+ 05/20/21 Unknown Urine Mucus Few /HPF 05/20/21 Unknown Random Vancomycin 4.0 ug/mL (0-40.0) 05/22/21 04:28 Coronavirus (PCR) Negative (Negative) 05/20/21 11:52 Blood Type O POSITIVE 05/16/21 12:28 Antibody Screen Negative 05/16/21 12:28 Crossmatch See Detail 05/16/21 12:28 Microbiology: Microbiology 05/20/21 17:20 Peripheral/Venous Blood Culture - Preliminary NO GROWTH AFTER 48 HOURS 05/20/21 17:09 Peripheral/Venous Blood Culture - Preliminary NO GROWTH AFTER 48 HOURS 05/20/21 15:30 Urine,Clean Catch Urine Culture - Final Gallo/IV: Voiding Method External Female Catheter Active Medications - Current Medications Current Medications: Generic Name Dose Route Start Last Admin Trade Name Freq PRN Reason Stop Dose Admin Acetaminophen 650 mg 05/16/21 13:23 05/20/21 03:37 Acetaminophen 325 Mg Tab PO 650 mg Q4H PRN Administration Pain MILD(1-3)/Fever >100.5/MASTERS Atorvastatin Calcium 80 mg 05/16/21 22:00 05/22/21 22:50 Atorvastatin 40 Mg Tab PO 80 mg QHS MARQUES Administration Hydromorphone HCl 0.5 mg 05/16/21 13:23 05/20/21 15:31 Hydromorphone 1 Mg/1 Ml Inj IV 0.5 mg Q23H PRN Administration Pain , Severe (7-10) Ceftriaxone Sodium 2 gm in 100 mls @ 200 mls/hr 05/20/21 16:00 05/22/21 15:42 Rocephin/Ns 2 Gm/100 Ml IV 200 mls/hr Q24H MARQUES Administration Protocol Vancomycin HCl 500 mg/ Sodium 110 mls @ 66.667 mls/hr 05/22/21 14:00 05/22/21 16:22 Chloride IV 66.667 mls/hr Q24H MARQUES Administration Ondansetron HCl 4 mg 05/16/21 13:23 Ondansetron 4 Mg/2 Ml Inj IV Q8H PRN Nausea And Vomiting Oxycodone/Acetaminophen 1 tab 05/16/21 13:23 Oxycodone /Acetaminophen 5-325mg Tab PO Q16H PRN Pain, Moderate (4-6) Pantoprazole Sodium 40 mg 05/19/21 10:00 05/22/21 22:50 Pantoprazole 40 Mg Inj IV 40 mg BID MARQUES Administration Sodium Chloride 10 ml 05/16/21 22:00 05/22/21 22:50 Sodium Chloride 0.9% 10 Ml Flush Syringe IV 10 ml BID MARQUES Administration Sodium Chloride 10 ml 05/16/21 13:23 Sodium Chloride 0.9% 10 Ml Flush Syringe IV PRN PRN LINE FLUSH Nutrition/Malnutrition Assess - Dietary Evaluation Nutrition/Malnutrition Findings: Nutrition Notes Start: 05/17/21 09:42 Freq: Status: Active Protocol: Document 05/18/21 16:12 GB (Rec: 05/18/21 16:38 GB [id number]) Nutrition Notes Initial or Follow up Reassessment Current Diagnosis COPD,Hypertension Other Pertinent Diagnosis GIB, dementia Current Diet Cardiac Labs/Tests 05/18: Na 131, BUN 46 showing improvement Pertinent Medications Reviewed Height 5 ft Weight 38.555 kg [place] Body Weight (kg) 45.45 BMI 16.6 Weight change and time frame 4.8% wt loss in 2 months per previous adm on 03/16/202105/18: pt is 85% IBW Weight Status Underweight Subjective/Other Information RN screen for MST. Pt with dementia. Pt with heel wound. 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 Pt stated she is eating the same in hospital as she does at home, shoulders/collar bone very prominent, visual fat/ muscle mass depletion. Percent of energy/protein needs met: Per discussion with RN po intake of meals average 25%. This does not meet 75% or greater of estimated energy needs. Burn Absent Trauma Absent GI Symptoms None Food Allergy No Skin Integrity/Comment wound to left heel Current % PO Poor (25-49%) Minimum of two criteria Yes Energy Intake (severe) < or equal to 50% Estimated Energy Requirement > or equal to 5 days Body Fat Depletion Moderate depletion (severe) Muscle Mass Moderate Depletion (severe) Reduced Bonderizer Operator Strength Measurably Reduced (severe) #2 Nutrition Diagnosis Malnutrition Comments: PO intake of meals less than 25% while in hospital x2 days Documented weight loss of -4.2 % in two months Etiology dementia, COPD As Evidenced by Signs and Symptoms visual fat/muscle mass depletion, po intake of meals 25% (pt states same at home), documented weight loss of -4.2 % but could be greater as current weight is estimated by hospital staff. #1 Nutrition Diagnosis Increased nutrient needs ( specify in comment below) Comments: protein Etiology wound healing As Evidenced by Signs and Symptoms heel wound Diagnosis Progress(for reassessment Continues documentation) Is patient on ventilator? No Is Patient Ambulatory and/or Out of Bed No REE-([facility]) 951.480 Kcal/Kg value to use for calculation 30 Approximate Energy Requirements Using 1157 kcal/Kg Calculation Used for Recommendations Kcal/kg Additional Notes Protein: (1.2-1.5g/kg) @ 39k-59g Fluid: 1 ml/kcal or per MD Nutrition Intervention Change Diet Order: continue Nutrition Support: n/a Add Supplement/Snack (indicate name/kcal Ensure Enlive BID /protein ) Provides kCal: 700 Provides Protein (gm) 40 Goal #1 PO intake of meals to improve to 50% during LOS Goal #2 PO intake of nutritional supplement beverage to be 50% or greater BID during LOS Follow-Up By: 05/26/21 Additional Comments F/U: intakes, ONS tolerance
[2021-05-23] MEDS: PANTOPRAZOLE 40 MG INJ IV SCH ×2 (10:17→21:30)
[2021-05-23] MEDS: VANCOMYCIN 500 MG in SODIUM CHLORIDE 0.9% 100 ML IV SCH (13:56)
[2021-05-23] MEDS: HYDROmorphone 1 MG/1 ML INJ IV PRN (16:08)
[2021-05-23] MEDS: cefTRIAXone/NS 2 GM/100 ML 2 GM/100 ML BAG IV SCH (16:09)
[2021-05-24 06:02] LABS: Hematocrit 23.7 % (30.3-42.9); Mean Corpuscular HGB Conc 34 % (30-34); Mean Corpuscular Volume 89 fl (79-97); Red Blood Count 2.65 M/mm3 (3.65-5.03)
[2021-05-24 06:04] LABS: Platelet Count 395 K/mm3 (140-440); Red Cell Distribution Width 21.9 % (13.2-15.2)
[2021-05-24 06:27] LABS: BUN/Creatinine Ratio 30; Blood Urea Nitrogen 30 mg/dL (7-17); Calcium 8.7 mg/dL (8.4-10.2); Hemolysis Index 11
--- NOTE | 2021-05-24 08:59 | Progress Note ---
Assessment and Plan Assessment and plan: The patient is a 76 yo aaf who presents from [facility] with melena. History obtained from ER record and chart review as pt has h/o dementia and unable to provide much details. Pt. reportedly with melena/black stools for 2 days. Hypotensive on arrival which improved following fluids. hgb 8.5 (11 on last admission a few months ago). Brilinta is listed as home medication - unclear indication. GI bleed with melena. Acute blood loss anemia. Hypertension COPD. Compensated Vascular dementia. Cerebral atherosclerosis. Peripheral artery disease. Arterial Doppler ultrasound of the left lower extremity showed iliac atherosclerotic disease with significant stenosis of the proximal SFA and occlusion of the mid to distal SFA. Hyponatremia. 05/17/2021. No reported bleeding overnight. Hemoglobin improved to 10.5 after 1 unit PRBCs. Await endoscopy per GI recommendations. Continue PPI and follow-up H&H in a.m. Case management consultation to assist in locating family. 05/18/2021. No reported bleeding overnight. Hemoglobin remained stable at 9.1. Await endoscopy per GI recommendations. Continue PPI and follow-up H&H in a.m. Case management consultation to assist in locating family. 05/19/2021 Patient with GI bleed. Hgb 8.6. Patient has dementia and unable to give consent for EGD. No family available to sign EGD consent. Will discuss with GI Physician whether we both can sign consent . Also was called by Nurse that Wound Care Nurse recommends Surgical Consult for heel ulcer. 05/20/21 Patient with acute GI bleed . Hgb 8.7 today. Patient has dementia and unable to give consent for EGD. No family available to sign EGD consent. I discussed with Dr. Plata , GI whether we both can sign 2 Physician consent. He will repeat H/H today to make decision. Now patient has fever of 102.7. She has left heel ulcer. Will obtain blood cultures, UA, Urine culture, check Coronavirus. Consult ID Physician. Hyponatremia, improved YEYO improved 05/21/2021 H&H is stable status post transfusion of 1 unit of PRBC, and GI has signed off. Has left heel ulcer on vancomycin and Rocephin. Afebrile today. Leukocytosis is stable. ID input appreciated. Hyponatremia with sodium slightly trended down. We will start IV normal saline at 75 cc/h x 1 L. Monitor sodium. Radiology noted unable to get reach to sign consents for MRI. Vascular surgeon evaluated today and noted that given her symptoms and nonambulatory status, the patient may benefit simply from a left [id number] amputation. If the patient is going to undergo wound debridement in an attempt to heal her pressure ulcer the patient will need to be scheduled for revascularization procedure. Input appreciated. 05/22/2021. Continue current antibiotic. ID, vascular surgeon, general surgeon input appreciated. Patient needs left foot MRI and AKA, however obtaining consents is a problem. Leukocytosis has trended up. Anemia stable. Hyponatremia has improved. Monitor CBC and BMP. Hypertension is controlled. Has mild tachycardia, monitor heart rate. 05/23/2021 Patient with GI bleed, left heel ulcer, PAD. May need left AKA as per vasc surgeon. No family for consent. 05/24/21 Patient with GI bleed, left heel ulcer, PAD. As per Surgeon, patient needs left above knee amputation. There is no family available for consent. Will discuss with Case management. History Interval history: Patient with GI Bleed, left heel ulcer Hospitalist Physical - Physical exam Narrative exam: Gen: Not in acute distress, lying in bed, malnourished HEENT: Normocephalic, atraumatic Lungs: Clear to auscultation Heart: S1 and S2 reg, no murmurs, rubs or gallop Abd:soft, non-tender, non distended, normal bowel sounds Ext: Left heel ulcer, dressing over left foot,No edema, clubbing or cyanosis Neuro: Has dementia. - Constitutional Vitals: Temp Pulse Resp BP Pulse Ox 98.9 F 104 H 18 112/54 94 05/24/21 04:01 05/24/21 04:01 05/24/21 04:01 05/24/21 04:01 05/24/21 04:01 General appearance: Present: no acute distress, disheveled Results - Labs CBC & Chem 7: 05/24/21 04:39 05/24/21 04:39 Labs: Laboratory Last Values WBC 19.7 K/mm3 (4.5-11.0) H 05/24/21 04:39 RBC 2.65 M/mm3 (3.65-5.03) L 05/24/21 04:39 Hgb 8.0 gm/dl (10.1-14.3) L 05/24/21 04:39 Hct 23.7 % (30.3-42.9) L 05/24/21 04:39 MCV 89 fl (79-97) 05/24/21 04:39 MCH 30 pg (28-32) 05/24/21 04:39 MCHC 34 % (30-34) 05/24/21 04:39 RDW 21.9 % (13.2-15.2) H 05/24/21 04:39 Plt Count 395 K/mm3 (140-440) 05/24/21 04:39 Lymph % (Auto) 8.9 % (13.4-35.0) L 05/22/21 04:28 [place] % (Auto) 6.0 % (0.0-7.3) 05/22/21 04:28 Eos % (Auto) 0.1 % (0.0-4.3) 05/22/21 04:28 Baso % (Auto) 0.1 % (0.0-1.8) 05/22/21 04:28 Lymph # (Auto) 1.5 K/mm3 (1.2-5.4) 05/22/21 04:28 [place] # (Auto) 1.0 K/mm3 (0.0-0.8) H 05/22/21 04:28 Eos # (Auto) 0.0 K/mm3 (0.0-0.4) 05/22/21 04:28 Baso # (Auto) 0.0 K/mm3 (0.0-0.1) 05/22/21 04:28 Seg Neutrophils % 84.9 % (40.0-70.0) H 05/22/21 04:28 Seg Neutrophils # 14.0 K/mm3 (1.8-7.7) H 05/22/21 04:28 PT 12.7 Sec. (12.2-14.9) 05/16/21 12:28 INR 0.90 (0.87-1.13) 05/16/21 12:28 APTT 29.1 Sec. (24.2-36.6) 05/16/21 12:28 Sodium 131 mmol/L (137-145) L 05/24/21 04:39 Potassium 4.4 mmol/L (3.6-5.0) 05/24/21 04:39 Chloride 101.0 mmol/L (98-107) 05/24/21 04:39 Carbon Dioxide 16 mmol/L (22-30) L 05/24/21 04:39 Anion Gap 18 mmol/L 05/24/21 04:39 BUN 30 mg/dL (7-17) H 05/24/21 04:39 Creatinine 1.0 mg/dL (0.6-1.2) 05/24/21 04:39 Estimated GFR > 60 ml/min 05/24/21 04:39 BUN/Creatinine Ratio 30 % 05/24/21 04:39 Glucose 112 mg/dL (65-100) H 05/24/21 04:39 POC Glucose 108 mg/dL (70-105) H 05/22/21 11:29 Calcium 8.7 mg/dL (8.4-10.2) 05/24/21 04:39 Total Bilirubin 0.50 mg/dL (0.1-1.2) 05/16/21 12:28 AST 20 units/L (5-40) 05/16/21 12:28 ALT 10 units/L (7-56) 05/16/21 12:28 Alkaline Phosphatase 76 units/L (35-129) 05/16/21 12:28 Total Protein 8.7 g/dL (6.3-8.2) H 05/16/21 12:28 Albumin 3.8 g/dL (3.9-5) L 05/16/21 12:28 Albumin/Globulin Ratio 0.8 % 05/16/21 12:28 Urine Color Yellow (Yellow) 05/20/21 Unknown Urine Turbidity Hazy (Clear) 05/20/21 Unknown Urine pH 9.0 (5.0-7.0) H 05/20/21 Unknown Ur Specific [place] 1.020 (1.003-1.030) 05/20/21 Unknown Urine Protein 100 mg/dl mg/dL (Negative) 05/20/21 Unknown Urine Glucose (UA) Neg mg/dL (Negative) 05/20/21 Unknown Urine Ketones Neg mg/dL (Negative) 05/20/21 Unknown Urine Blood Neg (Negative) 05/20/21 Unknown Urine Nitrite Neg (Negative) 05/20/21 Unknown Urine Bilirubin Neg (Negative) 05/20/21 Unknown Urine Urobilinogen < 2.0 mg/dL (<2.0) 05/20/21 Unknown Ur Leukocyte Esterase Neg (Negative) 05/20/21 Unknown Urine WBC (Auto) 3.0 /HPF (0.0-6.0) 05/20/21 Unknown Urine RBC (Auto) 2.0 /HPF (0.0-6.0) 05/20/21 Unknown U Epithel Cells (Auto) 5.0 /HPF (0-13.0) 05/20/21 Unknown Urine Bacteria (Auto) 1+ /HPF (Negative) 05/20/21 Unknown Triple Phos Crystals 1+ 05/20/21 Unknown Urine Mucus Few /HPF 05/20/21 Unknown Random Vancomycin 4.0 ug/mL (0-40.0) 05/22/21 04:28 Coronavirus (PCR) Negative (Negative) 05/20/21 11:52 Blood Type O POSITIVE 05/16/21 12:28 Antibody Screen Negative 05/16/21 12:28 Crossmatch See Detail 05/16/21 12:28 Microbiology: Microbiology 05/20/21 17:09 Peripheral/Venous Blood Culture - Preliminary NO GROWTH AFTER 72 HOURS 05/20/21 17:20 Peripheral/Venous Blood Culture - Preliminary NO GROWTH AFTER 72 HOURS Gallo/IV: Voiding Method Incontinent Active Medications - Current Medications Current Medications: Generic Name Dose Route Start Last Admin Trade Name Freq PRN Reason Stop Dose Admin Acetaminophen 650 mg 05/16/21 13:23 05/20/21 03:37 Acetaminophen 325 Mg Tab PO 650 mg Q4H PRN Administration Pain MILD(1-3)/Fever >100.5/MASTERS Atorvastatin Calcium 80 mg 05/16/21 22:00 05/23/21 21:30 Atorvastatin 40 Mg Tab PO 80 mg QHS MARQUES Administration Hydromorphone HCl 0.5 mg 05/16/21 13:23 05/23/21 16:08 Hydromorphone 1 Mg/1 Ml Inj IV 0.5 mg Q23H PRN Administration Pain , Severe (7-10) Ceftriaxone Sodium 2 gm in 100 mls @ 200 mls/hr 05/20/21 16:00 05/23/21 16:09 Rocephin/Ns 2 Gm/100 Ml IV 200 mls/hr Q24H MARQUES Administration Protocol Vancomycin HCl 500 mg/ Sodium 110 mls @ 66.667 mls/hr 05/22/21 14:00 05/23/21 13:56 Chloride IV 66.667 mls/hr Q24H MARQUES Administration Ondansetron HCl 4 mg 05/16/21 13:23 Ondansetron 4 Mg/2 Ml Inj IV Q8H PRN Nausea And Vomiting Oxycodone/Acetaminophen 1 tab 05/16/21 13:23 Oxycodone /Acetaminophen 5-325mg Tab PO Q16H PRN Pain, Moderate (4-6) Pantoprazole Sodium 40 mg 05/19/21 10:00 05/23/21 21:30 Pantoprazole 40 Mg Inj IV 40 mg BID MARQUES Administration Sodium Chloride 10 ml 05/16/21 22:00 05/23/21 21:30 Sodium Chloride 0.9% 10 Ml Flush Syringe IV 10 ml BID MARQUES Administration Sodium Chloride 10 ml 05/16/21 13:23 Sodium Chloride 0.9% 10 Ml Flush Syringe IV PRN PRN LINE FLUSH Nutrition/Malnutrition Assess - Dietary Evaluation Nutrition/Malnutrition Findings: Nutrition Notes Start: 05/17/21 09:42 Freq: Status: Active Protocol: Document 05/18/21 16:12 GB (Rec: 05/18/21 16:38 GB [id number]) Nutrition Notes Initial or Follow up Reassessment Current Diagnosis COPD,Hypertension Other Pertinent Diagnosis GIB, dementia Current Diet Cardiac Labs/Tests 05/18: Na 131, BUN 46 showing improvement Pertinent Medications Reviewed Height 5 ft Weight 38.555 kg [place] Body Weight (kg) 45.45 BMI 16.6 Weight change and time frame 4.8% wt loss in 2 months per previous adm on 03/16/202105/18: pt is 85% IBW Weight Status Underweight Subjective/Other Information RN screen for MST. Pt with dementia. Pt with heel wound. 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 Pt stated she is eating the same in hospital as she does at home, shoulders/collar bone very prominent, visual fat/ muscle mass depletion. Percent of energy/protein needs met: Per discussion with RN po intake of meals average 25%. This does not meet 75% or greater of estimated energy needs. Burn Absent Trauma Absent GI Symptoms None Food Allergy No Skin Integrity/Comment wound to left heel Current % PO Poor (25-49%) Minimum of two criteria Yes Energy Intake (severe) < or equal to 50% Estimated Energy Requirement > or equal to 5 days Body Fat Depletion Moderate depletion (severe) Muscle Mass Moderate Depletion (severe) Reduced Assistant Unit Forester Strength Measurably Reduced (severe) #2 Nutrition Diagnosis Malnutrition Comments: PO intake of meals less than 25% while in hospital x2 days Documented weight loss of -4.2 % in two months Etiology dementia, COPD As Evidenced by Signs and Symptoms visual fat/muscle mass depletion, po intake of meals 25% (pt states same at home), documented weight loss of -4.2 % but could be greater as current weight is estimated by hospital staff. #1 Nutrition Diagnosis Increased nutrient needs ( specify in comment below) Comments: protein Etiology wound healing As Evidenced by Signs and Symptoms heel wound Diagnosis Progress(for reassessment Continues documentation) Is patient on ventilator? No Is Patient Ambulatory and/or Out of Bed No REE-([facility]-confined to bed) 951.480 Kcal/Kg value to use for calculation 30 Approximate Energy Requirements Using 1157 kcal/Kg Calculation Used for Recommendations Kcal/kg Additional Notes Protein: (1.2-1.5g/kg) @ 39k-59g Fluid: 1 ml/kcal or per MD Nutrition Intervention Change Diet Order: continue Nutrition Support: n/a Add Supplement/Snack (indicate name/kcal Ensure Enlive BID /protein ) Provides kCal: 700 Provides Protein (gm) 40 Goal #1 PO intake of meals to improve to 50% during LOS Goal #2 PO intake of nutritional supplement beverage to be 50% or greater BID during LOS Follow-Up By: 05/26/21 Additional Comments F/U: intakes, ONS tolerance
[2021-05-24] MEDS: PANTOPRAZOLE 40 MG INJ IV SCH ×2 (10:11→22:06)
[2021-05-24] MEDS: VANCOMYCIN 500 MG in SODIUM CHLORIDE 0.9% 100 ML IV SCH (14:02)
--- NOTE | 2021-05-24 16:26 | Magnetic Resonance Report ---
MRI LEFT FOOT WITHOUT CONTRAST INDICATION / CLINICAL INFORMATION: left heel ulcer. TECHNIQUE: Multiplanar, multisequence MR images were obtained. No contrast used. [id number] is wang ited to the ankle, hindfoot, and midfoot. COMPARISON: None available. Specifically, no radiographic available for comparison. FINDINGS: ACHILLES TENDON: Mild thickening of the distal Achilles tendon but no acute abnormality. PLANTAR FASCIA: Intact. POSTERIOR TIBIAL / FLEXOR TENDONS: No significant abnormality. PERONEAL TENDONS: No significant abnormality. ANTERIOR TIBIAL / EXTENSOR TENDONS: No significant abnormality. LIGAMENTS: No significant abnormality. TIBIOTALAR JOINT SPACE: No chondrosis or articular cartilage defect. No significant joint effusion or synovitis. No intra-articular bodies. SUBTALAR JOINTS: No significant abnormality. SINUS TARSI: No significant abnormality. TARSAL TUNNEL: No significant abnormality. BONES / OTHER JOINTS: Large bone infarct in the posterior inferior calcaneus. There is susceptibility artifact within the bone infarct which may represent intraosseous gas. There is low T1, high T2 sign al in the posterior superior calcaneus. The posterior calcaneus appears to be exposed by a large soft tissue ulcer. No abnormal signal within the remainder of the visualized midfoot and hindfoot. No oth er focal osseous abnormality. SUBCUTANEOUS SOFT TISSUES: Large soft tissue ulcer on the posterior heel with probable exposed bone. Multiple foci of susceptibility artifact within the plantar soft tissues of the hindfoot likely repre senting soft tissue gas. No soft tissue fluid collection or abscess. ADDITIONAL FINDINGS: None. IMPRESSION: 1. Large soft tissue ulcer in the posterior heel with osteomyelitis of the posterior superior calcane us. Bone infarct of the posterior inferior calcaneus with possible intraosseous gas. 2. Soft tissue gas along the plantar aspect of the hindfoot. No soft tissue abscess. 3. Radiographic correlation would be helpful. Signer Name: Callie Heredia MD Signed: 05/24/2021 4:21 PM Workstation Name: [id number]
[2021-05-24] MEDS: cefTRIAXone/NS 2 GM/100 ML 2 GM/100 ML BAG IV SCH (17:36)
[2021-05-25 06:11] LABS: Hematocrit 23.1 % (30.3-42.9); Hemoglobin 7.7 gm/dl (10.1-14.3); Mean Corpuscular HGB Conc 33 % (30-34); Mean Corpuscular Volume 90 fl (79-97); Platelet Count 400 K/mm3 (140-440); Red Blood Count 2.58 M/mm3 (3.65-5.03)
[2021-05-25 06:35] LABS: Calcium 8.7 mg/dL (8.4-10.2)
--- NOTE | 2021-05-25 09:33 | Progress Note ---
Assessment and Plan Assessment and plan: The patient is a 76 yo aaf who presents from care home with melena. History obtained from ER record and chart review as pt has h/o dementia and unable to provide much details. Pt. reportedly with melena/black stools for 2 days. Hypotensive on arrival which improved following fluids. hgb 8.5 (11 on last admission a few months ago). Brilinta is listed as home medication - unclear indication. GI bleed with melena. Acute blood loss anemia. Hypertension COPD. Compensated Vascular dementia. Cerebral atherosclerosis. Peripheral artery disease. Arterial Doppler ultrasound of the left lower extremity showed iliac atherosclerotic disease with significant stenosis of the proximal SFA and occlusion of the mid to distal SFA. Hyponatremia. 05/17/2021. No reported bleeding overnight. Hemoglobin improved to 10.5 after 1 unit PRBCs. Await endoscopy per GI recommendations. Continue PPI and follow-up H&H in a.m. Case management consultation to assist in locating family. 05/18/2021. No reported bleeding overnight. Hemoglobin remained stable at 9.1. Await endoscopy per GI recommendations. Continue PPI and follow-up H&H in a.m. Case management consultation to assist in locating family. 05/19/2021 Patient with GI bleed. Hgb 8.6. Patient has dementia and unable to give consent for EGD. No family available to sign EGD consent. Will discuss with GI Physician whether we both can sign consent . Also was called by Nurse that Wound Care Nurse recommends Surgical Consult for heel ulcer. 05/20/21 Patient with acute GI bleed . Hgb 8.7 today. Patient has dementia and unable to give consent for EGD. No family available to sign EGD consent. I discussed with Dr. Plata , GI whether we both can sign 2 Physician consent. He will repeat H/H today to make decision. Now patient has fever of 102.7. She has left heel ulcer. Will obtain blood cultures, UA, Urine culture, check Coronavirus. Consult ID Physician. Hyponatremia, improved YEYO improved 05/21/2021 H&H is stable status post transfusion of 1 unit of PRBC, and GI has signed off. Has left heel ulcer on vancomycin and Rocephin. Afebrile today. Leukocytosis is stable. ID input appreciated. Hyponatremia with sodium slightly trended down. We will start IV normal saline at 75 cc/h x 1 L. Monitor sodium. Radiology noted unable to get reach to sign consents for MRI. Vascular surgeon evaluated today and noted that given her symptoms and nonambulatory status, the patient may benefit simply from a left [id number] amputation. If the patient is going to undergo wound debridement in an attempt to heal her pressure ulcer the patient will need to be scheduled for revascularization procedure. Input appreciated. 05/22/2021. Continue current antibiotic. ID, vascular surgeon, general surgeon input appreciated. Patient needs left foot MRI and AKA, however obtaining consents is a problem. Leukocytosis has trended up. Anemia stable. Hyponatremia has improved. Monitor CBC and BMP. Hypertension is controlled. Has mild tachycardia, monitor heart rate. 05/23/2021 Patient with GI bleed, left heel ulcer, PAD. May need left AKA as per vasc surgeon. No family for consent. 05/24/21 Patient with GI bleed, left heel ulcer, PAD. As per Surgeon, patient needs left above knee amputation. There is no family available for consent. Will discuss with Case management. 05/25/21 Patient with GI bleed, left heel ulcer, Peripheral arterial disease. As per Surgeon, patient needs left above knee amputation. There is no family for consent for surgery. Discussed with behavioral health case manager during rounds. History Interval history: Patient with GI Bleed, left heel ulcer No family to give consent for Surgery Hospitalist Physical - Physical exam Narrative exam: Gen: Not in acute distress, lying in bed, malnourished HEENT: Normocephalic, atraumatic Lungs: Clear to auscultation Heart: S1 and S2 reg, no murmurs, rubs or gallop Abd:soft, non-tender, non distended, normal bowel sounds Ext: Left heel ulcer, dressing over left foot,No edema, clubbing or cyanosis Neuro: Has dementia. - Constitutional Vitals: Temp Pulse Resp BP Pulse Ox 98.3 F 97 H 18 131/69 97 05/25/21 08:49 05/25/21 08:49 05/25/21 08:49 05/25/21 08:49 05/25/21 08:49 General appearance: Present: no acute distress, disheveled Results - Labs CBC & Chem 7: 05/25/21 04:21 05/25/21 04:21 Labs: Laboratory Last Values WBC 12.4 K/mm3 (4.5-11.0) H 05/25/21 04:21 RBC 2.58 M/mm3 (3.65-5.03) L 05/25/21 04:21 Hgb 7.7 gm/dl (10.1-14.3) L 05/25/21 04:21 Hct 23.1 % (30.3-42.9) L 05/25/21 04:21 MCV 90 fl (79-97) 05/25/21 04:21 MCH 30 pg (28-32) 05/25/21 04:21 MCHC 33 % (30-34) 05/25/21 04:21 RDW 21.0 % (13.2-15.2) H 05/25/21 04:21 Plt Count 400 K/mm3 (140-440) 05/25/21 04:21 Lymph % (Auto) 8.9 % (13.4-35.0) L 05/22/21 04:28 [place] % (Auto) 6.0 % (0.0-7.3) 05/22/21 04:28 Eos % (Auto) 0.1 % (0.0-4.3) 05/22/21 04:28 Baso % (Auto) 0.1 % (0.0-1.8) 05/22/21 04:28 Lymph # (Auto) 1.5 K/mm3 (1.2-5.4) 05/22/21 04:28 [place] # (Auto) 1.0 K/mm3 (0.0-0.8) H 05/22/21 04:28 Eos # (Auto) 0.0 K/mm3 (0.0-0.4) 05/22/21 04:28 Baso # (Auto) 0.0 K/mm3 (0.0-0.1) 05/22/21 04:28 Seg Neutrophils % 84.9 % (40.0-70.0) H 05/22/21 04:28 Seg Neutrophils # 14.0 K/mm3 (1.8-7.7) H 05/22/21 04:28 PT 12.7 Sec. (12.2-14.9) 05/16/21 12:28 INR 0.90 (0.87-1.13) 05/16/21 12:28 APTT 29.1 Sec. (24.2-36.6) 05/16/21 12:28 Sodium 130 mmol/L (137-145) L 05/25/21 04:21 Potassium 4.1 mmol/L (3.6-5.0) 05/25/21 04:21 Chloride 99.7 mmol/L (98-107) 05/25/21 04:21 Carbon Dioxide 18 mmol/L (22-30) L 05/25/21 04:21 Anion Gap 16 mmol/L 05/25/21 04:21 BUN 31 mg/dL (7-17) H 05/25/21 04:21 Creatinine 1.2 mg/dL (0.6-1.2) 05/25/21 04:21 Estimated GFR 53 ml/min 05/25/21 04:21 BUN/Creatinine Ratio 26 % 05/25/21 04:21 Glucose 97 mg/dL (65-100) 05/25/21 04:21 POC Glucose 108 mg/dL (70-105) H 05/22/21 11:29 Calcium 8.7 mg/dL (8.4-10.2) 05/25/21 04:21 Total Bilirubin 0.50 mg/dL (0.1-1.2) 05/16/21 12:28 AST 20 units/L (5-40) 05/16/21 12:28 ALT 10 units/L (7-56) 05/16/21 12:28 Alkaline Phosphatase 76 units/L (35-129) 05/16/21 12:28 Total Protein 8.7 g/dL (6.3-8.2) H 05/16/21 12:28 Albumin 3.8 g/dL (3.9-5) L 05/16/21 12:28 Albumin/Globulin Ratio 0.8 % 05/16/21 12:28 Urine Color Yellow (Yellow) 05/20/21 Unknown Urine Turbidity Hazy (Clear) 05/20/21 Unknown Urine pH 9.0 (5.0-7.0) H 05/20/21 Unknown Ur Specific [place] 1.020 (1.003-1.030) 05/20/21 Unknown Urine Protein 100 mg/dl mg/dL (Negative) 05/20/21 Unknown Urine Glucose (UA) Neg mg/dL (Negative) 05/20/21 Unknown Urine Ketones Neg mg/dL (Negative) 05/20/21 Unknown Urine Blood Neg (Negative) 05/20/21 Unknown Urine Nitrite Neg (Negative) 05/20/21 Unknown Urine Bilirubin Neg (Negative) 05/20/21 Unknown Urine Urobilinogen < 2.0 mg/dL (<2.0) 05/20/21 Unknown Ur Leukocyte Esterase Neg (Negative) 05/20/21 Unknown Urine WBC (Auto) 3.0 /HPF (0.0-6.0) 05/20/21 Unknown Urine RBC (Auto) 2.0 /HPF (0.0-6.0) 05/20/21 Unknown U Epithel Cells (Auto) 5.0 /HPF (0-13.0) 05/20/21 Unknown Urine Bacteria (Auto) 1+ /HPF (Negative) 05/20/21 Unknown Triple Phos Crystals 1+ 05/20/21 Unknown Urine Mucus Few /HPF 05/20/21 Unknown Vancomycin Trough 4.0 ug/mL (5.0-20.0) L 05/24/21 13:29 Random Vancomycin 4.0 ug/mL (0-40.0) 05/22/21 04:28 Coronavirus (PCR) Negative (Negative) 05/20/21 11:52 Blood Type O POSITIVE 05/16/21 12:28 Antibody Screen Negative 05/16/21 12:28 Crossmatch See Detail 05/16/21 12:28 Microbiology: Microbiology 05/20/21 17:09 Peripheral/Venous Blood Culture - Preliminary NO GROWTH AFTER 4 DAYS 05/20/21 17:20 Peripheral/Venous Blood Culture - Preliminary NO GROWTH AFTER 4 DAYS Gallo/IV: Voiding Method Incontinent Active Medications - Current Medications Current Medications: Generic Name Dose Route Start Last Admin Trade Name Freq PRN Reason Stop Dose Admin Acetaminophen 650 mg 05/16/21 13:23 05/20/21 03:37 Acetaminophen 325 Mg Tab PO 650 mg Q4H PRN Administration Pain MILD(1-3)/Fever >100.5/MASTERS Atorvastatin Calcium 80 mg 05/16/21 22:00 05/24/21 22:06 Atorvastatin 40 Mg Tab PO 80 mg QHS MARQUES Administration Hydromorphone HCl 0.5 mg 05/16/21 13:23 05/23/21 16:08 Hydromorphone 1 Mg/1 Ml Inj IV 0.5 mg Q23H PRN Administration Pain , Severe (7-10) Ceftriaxone Sodium 2 gm in 100 mls @ 200 mls/hr 05/20/21 16:00 05/24/21 17:36 Rocephin/Ns 2 Gm/100 Ml IV 06/30/21 16:29 200 mls/hr Q24H MARQUES Administration Protocol Vancomycin HCl 500 mg/ Sodium 110 mls @ 66.667 mls/hr 05/22/21 14:00 05/24/21 14:02 Chloride IV 66.667 mls/hr Q24H MARQUES Administration Ondansetron HCl 4 mg 05/16/21 13:23 Ondansetron 4 Mg/2 Ml Inj IV Q8H PRN Nausea And Vomiting Oxycodone/Acetaminophen 1 tab 05/16/21 13:23 Oxycodone /Acetaminophen 5-325mg Tab PO Q16H PRN Pain, Moderate (4-6) Pantoprazole Sodium 40 mg 05/19/21 10:00 05/24/21 22:06 Pantoprazole 40 Mg Inj IV 40 mg BID MARQUES Administration Sodium Chloride 10 ml 05/16/21 22:00 05/24/21 22:06 Sodium Chloride 0.9% 10 Ml Flush Syringe IV 10 ml BID MARQUES Administration Sodium Chloride 10 ml 05/16/21 13:23 Sodium Chloride 0.9% 10 Ml Flush Syringe IV PRN PRN LINE FLUSH Nutrition/Malnutrition Assess - Dietary Evaluation Nutrition/Malnutrition Findings: Nutrition Notes Start: 05/17/21 09:42 Freq: Status: Active Protocol: Document 05/18/21 16:12 GB (Rec: 05/18/21 16:38 GB [id number]) Nutrition Notes Initial or Follow up Reassessment Current Diagnosis COPD,Hypertension Other Pertinent Diagnosis GIB, dementia Current Diet Cardiac Labs/Tests 05/18: Na 131, BUN 46 showing improvement Pertinent Medications Reviewed Height 5 ft Weight 38.555 kg [place] Body Weight (kg) 45.45 BMI 16.6 Weight change and time frame 4.8% wt loss in 2 months per previous adm on 03/16/202105/18: pt is 85% IBW Weight Status Underweight Subjective/Other Information RN screen for MST. Pt with dementia. Pt with heel wound. Per physical assessment 05/18: extremity strength is severe weakness, musculoskeletal NOT wnl, field inspector strength is weak. Pt stated she is eating the same in hospital as she does at home, shoulders/collar bone very prominent, visual fat/ muscle mass depletion. Percent of energy/protein needs met: Per discussion with RN po intake of meals average 25%. This does not meet 75% or greater of estimated energy needs. 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 #1 Nutrition Diagnosis Increased nutrient needs ( specify in comment below) Comments: protein Etiology wound healing As Evidenced by Signs and Symptoms heel wound Diagnosis Progress(for reassessment Continues documentation) Is patient on ventilator? No Is Patient Ambulatory and/or Out of Bed No REE-([facility]-confined to bed) 951.480 Kcal/Kg value to use for calculation 30 Approximate Energy Requirements Using 1157 kcal/Kg Calculation Used for Recommendations Kcal/kg Additional Notes Protein: (1.2-1.5g/kg) @ 39k-59g Fluid: 1 ml/kcal or per MD Nutrition Intervention Change Diet Order: continue Nutrition Support: n/a Add Supplement/Snack (indicate name/kcal Ensure Enlive BID /protein ) Provides kCal: 700 Provides Protein (gm) 40 Goal #1 PO intake of meals to improve to 50% during LOS Goal #2 PO intake of nutritional supplement beverage to be 50% or greater BID during LOS Follow-Up By: 05/26/21 Additional Comments F/U: intakes, ONS tolerance
[2021-05-25] MEDS: PANTOPRAZOLE 40 MG INJ IV SCH ×2 (09:55→22:09)
--- NOTE | 2021-05-25 11:51 | Progress Note ---
Assessment and Plan Cultures: None A/P: 76-year-old female past medical history hypertension, COPD, vascular dementia #Acute sepsis: Present with fevers and leukocytosis. Likely secondary to left heel pressure ulcer #Left heel pressure ulcer: With underlying osteomyelitis. #Vascular dementia: Unable to give history Recs: -Follow up blood cultures given fevers -Continue empiric antibiotics given sepsis with vancomycin and ceftriaxone. -Potential plan for non-emergent AKA pending family consent. Amputation would be curative of infection. Given soft tissue gas and low likelihood of osteomyelitis cure strongly recommend amputaiton. Thank you for the consult, we will continue to follow. John Blevins MD [facility] ([facility]) O: [phone] F: [phone] Subjective Date of service: 05/25/21 Principal diagnosis: GI bleed Interval history: Afebrile, normal white count. IMaging personally reviewed: MRI: ostoemyleitis of the calcaneus and soft tissue gas. Objective - Exam Narrative Exam: Physical Exam: Constitutional: Awake, confused Head, Ears, Nose: Normocephalic, atraumatic. External ears, nose normal Eyes: Conjunctivae/corneas clear. No icterus. No ptosis. Neck: Supple, no meningeal signs Oral: dentition fair, no thrush Cardiovascular: S1, S2 normal. Respiratory: Good air entry, clear to auscultation bilaterally GI: Soft, non-tender; bowel sounds normal. No peritoneal signs. Musculoskeletal: Left heel pressure ulcer Skin: No rash or abscess Hem/Lymphatic: No palpable cervical or supraclavicular nodes. No lymphangitis Psych: No agitation Neurological: Confused - Constitutional Vitals: Vital Signs Temp Pulse Resp BP Pulse Ox 98.3 F 97 H 18 131/69 97 05/25/21 08:49 05/25/21 08:49 05/25/21 08:49 05/25/21 08:49 05/25/21 08:49 Temperature -Last 24 Hours Temperature 98.3 F Temperature 98.9 F Temperature 97.8 F Temperature 99.1 F Temperature 98.6 F - Labs CBC & Chem 7: 05/25/21 04:21 05/25/21 04:21 Labs: Abnormal lab results 05/24/21 05/25/21 05/25/21 Range/Units 13:29 04:21 04:21 WBC 12.4 H (4.5-11.0) K/mm3 RBC 2.58 L (3.65-5.03) M/mm3 Hgb 7.7 L (10.1-14.3) gm/dl Hct 23.1 L (30.3-42.9) % RDW 21.0 H (13.2-15.2) % Sodium 130 L (137-145) mmol/L Carbon Dioxide 18 L (22-30) mmol/L BUN 31 H (7-17) mg/dL Vancomycin Trough 4.0 L (5.0-20.0) ug/mL
--- NOTE | 2021-05-25 13:31 | Progress Note ---
Assessment and Plan - Patient Problems (1) Pressure ulcer of left heel, stage 4 Current Visit: Yes Status: Acute Plan to address problem: 1) Recommend left AKA. Will be happy to schedule once consent status (without family available) is determined. Subjective Date of service: 05/25/21 Patient Reports: Positive: no new complaints Objective Vital Signs - 12hr 05/25/21 05/25/21 05/25/21 05:54 08:49 10:00 Temperature 98.9 F 98.3 F Pulse Rate 99 H 97 H 96 H Respiratory 16 18 Rate Blood Pressure 116/66 131/69 O2 Sat by Pulse 100 97 98 Oximetry - Labs 05/25/21 04:21 05/25/21 04:21 Diabetes panel 05/25/21 Range/Units 04:21 Sodium 130 L (137-145) mmol/L Potassium 4.1 (3.6-5.0) mmol/L Chloride 99.7 (98-107) mmol/L Carbon Dioxide 18 L (22-30) mmol/L BUN 31 H (7-17) mg/dL Creatinine 1.2 (0.6-1.2) mg/dL Glucose 97 (65-100) mg/dL Calcium 8.7 (8.4-10.2) mg/dL Calcium panel 05/25/21 Range/Units 04:21 Calcium 8.7 (8.4-10.2) mg/dL Pituitary panel 05/25/21 Range/Units 04:21 Sodium 130 L (137-145) mmol/L Potassium 4.1 (3.6-5.0) mmol/L Chloride 99.7 (98-107) mmol/L Carbon Dioxide 18 L (22-30) mmol/L BUN 31 H (7-17) mg/dL Creatinine 1.2 (0.6-1.2) mg/dL Glucose 97 (65-100) mg/dL Calcium 8.7 (8.4-10.2) mg/dL Adrenal panel 05/25/21 Range/Units 04:21 Sodium 130 L (137-145) mmol/L Potassium 4.1 (3.6-5.0) mmol/L Chloride 99.7 (98-107) mmol/L Carbon Dioxide 18 L (22-30) mmol/L BUN 31 H (7-17) mg/dL Creatinine 1.2 (0.6-1.2) mg/dL Glucose 97 (65-100) mg/dL Calcium 8.7 (8.4-10.2) mg/dL - Imaging Additional Studies: MRI of left foot reveals calcaneal osteomyelitis and soft tissue gas.
--- NOTE | 2021-05-25 14:20 | Event Note ---
Date: 05/25/21 Was informed by manager analytical that Dr. Edward Zacarias @ [phone] [employer] Worker at [facility] will give consent for any tests or procedures.
[2021-05-25] MEDS: VANCOMYCIN 500 MG in SODIUM CHLORIDE 0.9% 100 ML IV SCH ×2 (14:27→23:51)
[2021-05-25] MEDS: cefTRIAXone/NS 2 GM/100 ML 2 GM/100 ML BAG IV SCH (15:08)
--- NOTE | 2021-05-25 16:55 | Event Note ---
Date: 05/25/[address] Pruitt and informed him Dr. Edward Zacarias can do consent.
[2021-05-25] MEDS: HYDROmorphone 1 MG/1 ML INJ IV PRN (17:35)
[2021-05-26] MEDS ORDERED: VANCOMYCIN 750 MG in SODIUM CHLORIDE 0.9% 250ML 250 ML IV SCH
[2021-05-26 06:33] LABS: Hematocrit 25.1 % (30.3-42.9); Hemoglobin 8.4 gm/dl (10.1-14.3); Mean Corpuscular HGB Conc 33 % (30-34); Mean Corpuscular Volume 90 fl (79-97); Platelet Count 433 K/mm3 (140-440)
[2021-05-26 06:41] LABS: Red Cell Distribution Width 21.6 % (13.2-15.2)
[2021-05-26 06:46] LABS: Calcium 8.3 mg/dL (8.4-10.2)
[2021-05-26] MEDS: ACETAMINOPHEN 325 MG TAB PO PRN (08:48)
[2021-05-26] MEDS: PANTOPRAZOLE 40 MG INJ IV SCH ×3 (08:49→21:24)
--- NOTE | 2021-05-26 10:04 | Progress Note ---
Assessment and Plan Assessment and plan: The patient is a 76 yo aaf who presents from group home with melena. History obtained from ER record and chart review as pt has h/o dementia and unable to provide much details. Pt. reportedly with melena/black stools for 2 days. Hypotensive on arrival which improved following fluids. hgb 8.5 (11 on last admission a few months ago). Brilinta is listed as home medication - unclear indication. GI bleed. Melena. Sepsis Hypertension COPD. Compensated Vascular dementia. Cerebral atherosclerosis. Peripheral artery disease. Arterial Doppler ultrasound of the left lower extremity showed iliac atherosclerotic disease with significant stenosis of the proximal SFA and occlusion of the mid to distal SFA. Left heel pressure ulcer with underlying osteomyelitis. Hyponatremia. 05/17/2021. No reported bleeding overnight. Hemoglobin improved to 10.5 after 1 unit PRBCs. Await endoscopy per GI recommendations. Continue PPI and follow-up H&H in a.m. Case management consultation to assist in locating family. 05/18/2021. No reported bleeding overnight. Hemoglobin remained stable at 9.1. Await endoscopy per GI recommendations. Continue PPI and follow-up H&H in a.m. Case management consultation to assist in locating family. 05/19/2021 Patient with GI bleed. Hgb 8.6. Patient has dementia and unable to give consent for EGD. No family available to sign EGD consent. Will discuss with GI Physician whether we both can sign consent . Also was called by Nurse that Wound Care Nurse recommends Surgical Consult for heel ulcer. 05/20/21 Patient with acute GI bleed . Hgb 8.7 today. Patient has dementia and unable to give consent for EGD. No family available to sign EGD consent. I disc ussed with Dr. Plata , GI whether we both can sign 2 Physician consent. He will repeat H/H today to make decision. Now patient has fever of 102.7. She has left heel ulcer. Will obtain blood cultures, UA, Urine culture, check Coronavirus. Consult ID Physician. Hyponatremia, improved YEYO improved 05/21/2021 H&H is stable status post transfusion of 1 unit of PRBC, and GI has signed off. Has left heel ulcer on vancomycin and Rocephin. Afebrile today. Leukocytosis is stable. ID input appreciated. Hyponatremia with sodium slightly trended down. We will start IV normal saline at 75 cc/h x 1 L. Monitor sodium. Radiology noted unable to get reach to sign consents for MRI. Vascular surgeon evaluated today and noted that given her symptoms and nonambulatory status, the patient may benefit simply from a left [id number] amputation. If the patient is going to undergo wound debridement in an attempt to heal her pressure ulcer the patient will need to be scheduled for revascularization procedure. Input appreciated. 05/22/2021. Continue current antibiotic. ID, vascular surgeon, general surgeon input appreciated. Patient needs left foot MRI and AKA, however obtaining consents is a problem. Leukocytosis has trended up. Anemia stable. Hyponatremia has improved. Monitor CBC and BMP. Hypertension is controlled. Has mild tachycardia, monitor heart rate. 05/23/2021 Patient with GI bleed, left heel ulcer, PAD. May need left AKA as per vasc surgeon. No family for consent. 05/24/21 Patient with GI bleed, left heel ulcer, PAD. As per Surgeon, patient needs left above knee amputation. There is no family available for consent. Will discuss with Case management. 05/25/21 Patient with GI bleed, left heel ulcer, Peripheral arterial disease. As per Surgeon, patient needs left above knee amputation. There is no family for consent for surgery. Discussed with case technician during rounds. 05/26/2021. Follow-up blood cultures and continue empiric antibiotics for sepsis/osteomyelitis. Patient has potential plan for nonemergent AKA pending Dr. Zacarias's consent. Amputation would be curative of infection. Given soft tissue gas and low likelihood of osteomyelitis, ID and surgery strongly recommend amputation. History Interval history: No new issues overnight. Hospitalist Physical - Constitutional Vitals: Temp Pulse Resp BP Pulse Ox 98.8 F 94 H 20 144/69 100 05/26/21 04:37 05/26/21 07:21 05/26/21 08:48 05/26/21 07:21 05/26/21 07:21 General appearance: Present: no acute distress, disheveled - EENT Eyes: Present: PERRL, EOM intact ENT: hearing intact, clear oral mucosa, dentition normal - Neck Neck: Present: supple, normal ROM - Respiratory Respiratory effort: normal Respiratory: bilateral: CTA - Cardiovascular Rhythm: regular Heart Sounds: Present: S1 & S2. Absent: gallop, rub - Extremities Extremities: no ischemia, No edema, Full ROM - Abdominal General gastrointestinal: soft, non-tender, non-distended, normal bowel sounds - Integumentary Integumentary: Present: clear, warm, dry - Neurologic Neurologic: CNII-XII intact, moves all extremities Results - Labs CBC & Chem 7: 05/26/21 06:08 05/26/21 06:08 Labs: Laboratory Last Values WBC 10.5 K/mm3 (4.5-11.0) 05/26/21 06:08 RBC 2.80 M/mm3 (3.65-5.03) L 05/26/21 06:08 Hgb 8.4 gm/dl (10.1-14.3) L 05/26/21 06:08 Hct 25.1 % (30.3-42.9) L 05/26/21 06:08 MCV 90 fl (79-97) 05/26/21 06:08 MCH 30 pg (28-32) 05/26/21 06:08 MCHC 33 % (30-34) 05/26/21 06:08 RDW 21.6 % (13.2-15.2) H 05/26/21 06:08 Plt Count 433 K/mm3 (140-440) 05/26/21 06:08 Lymph % (Auto) 8.9 % (13.4-35.0) L 05/22/21 04:28 [place] % (Auto) 6.0 % (0.0-7.3) 05/22/21 04:28 Eos % (Auto) 0.1 % (0.0-4.3) 05/22/21 04:28 Baso % (Auto) 0.1 % (0.0-1.8) 05/22/21 04:28 Lymph # (Auto) 1.5 K/mm3 (1.2-5.4) 05/22/21 04:28 [place] # (Auto) 1.0 K/mm3 (0.0-0.8) H 05/22/21 04:28 Eos # (Auto) 0.0 K/mm3 (0.0-0.4) 05/22/21 04:28 Baso # (Auto) 0.0 K/mm3 (0.0-0.1) 05/22/21 04:28 Seg Neutrophils % 84.9 % (40.0-70.0) H 05/22/21 04:28 Seg Neutrophils # 14.0 K/mm3 (1.8-7.7) H 05/22/21 04:28 PT 12.7 Sec. (12.2-14.9) 05/16/21 12:28 INR 0.90 (0.87-1.13) 05/16/21 12:28 APTT 29.1 Sec. (24.2-36.6) 05/16/21 12:28 Sodium 130 mmol/L (137-145) L 05/26/21 06:08 Potassium 4.1 mmol/L (3.6-5.0) 05/26/21 06:08 Chloride 99.2 mmol/L (98-107) 05/26/21 06:08 Carbon Dioxide 19 mmol/L (22-30) L 05/26/21 06:08 Anion Gap 16 mmol/L 05/26/21 06:08 BUN 31 mg/dL (7-17) H 05/26/21 06:08 Creatinine 1.2 mg/dL (0.6-1.2) 05/26/21 06:08 Estimated GFR 53 ml/min 05/26/21 06:08 BUN/Creatinine Ratio 26 % 05/26/21 06:08 Glucose 104 mg/dL (65-100) H 05/26/21 06:08 POC Glucose 89 mg/dL (70-105) 05/25/21 23:37 Calcium 8.3 mg/dL (8.4-10.2) L 05/26/21 06:08 Total Bilirubin 0.50 mg/dL (0.1-1.2) 05/16/21 12:28 AST 20 units/L (5-40) 05/16/21 12:28 ALT 10 units/L (7-56) 05/16/21 12:28 Alkaline Phosphatase 76 units/L (35-129) 05/16/21 12:28 Total Protein 8.7 g/dL (6.3-8.2) H 05/16/21 12:28 Albumin 3.8 g/dL (3.9-5) L 05/16/21 12:28 Albumin/Globulin Ratio 0.8 % 05/16/21 12:28 Urine Color Yellow (Yellow) 05/20/21 Unknown Urine Turbidity Hazy (Clear) 05/20/21 Unknown Urine pH 9.0 (5.0-7.0) H 05/20/21 Unknown Ur Specific [place] 1.020 (1.003-1.030) 05/20/21 Unknown Urine Protein 100 mg/dl mg/dL (Negative) 05/20/21 Unknown Urine Glucose (UA) Neg mg/dL (Negative) 05/20/21 Unknown Urine Ketones Neg mg/dL (Negative) 05/20/21 Unknown Urine Blood Neg (Negative) 05/20/21 Unknown Urine Nitrite Neg (Negative) 05/20/21 Unknown Urine Bilirubin Neg (Negative) 05/20/21 Unknown Urine Urobilinogen < 2.0 mg/dL (<2.0) 05/20/21 Unknown Ur Leukocyte Esterase Neg (Negative) 05/20/21 Unknown Urine WBC (Auto) 3.0 /HPF (0.0-6.0) 05/20/21 Unknown Urine RBC (Auto) 2.0 /HPF (0.0-6.0) 05/20/21 Unknown U Epithel Cells (Auto) 5.0 /HPF (0-13.0) 05/20/21 Unknown Urine Bacteria (Auto) 1+ /HPF (Negative) 05/20/21 Unknown Triple Phos Crystals 1+ 05/20/21 Unknown Urine Mucus Few /HPF 05/20/21 Unknown Vancomycin Trough 4.0 ug/mL (5.0-20.0) L 05/24/21 13:29 Random Vancomycin 4.0 ug/mL (0-40.0) 05/22/21 04:28 Coronavirus (PCR) Negative (Negative) 05/20/21 11:52 Blood Type O POSITIVE 05/16/21 12:28 Antibody Screen Negative 05/16/21 12:28 Crossmatch See Detail 05/16/21 12:28 Microbiology: Microbiology 05/20/21 17:09 Peripheral/Venous Blood Culture - Final NO GROWTH AFTER 5 DAYS 05/20/21 17:20 Peripheral/Venous Blood Culture - Final NO GROWTH AFTER 5 DAYS Gallo/IV: Voiding Method External Female Catheter Active Medications - Current Medications Current Medications: Generic Name Dose Route Start Last Admin Trade Name Freq PRN Reason Stop Dose Admin Acetaminophen 650 mg 05/16/21 13:23 05/26/21 08:48 Acetaminophen 325 Mg Tab PO 650 mg Q4H PRN Administration Pain MILD(1-3)/Fever >100.5/MASTERS Atorvastatin Calcium 80 mg 05/16/21 22:00 05/25/21 22:08 Atorvastatin 40 Mg Tab PO 80 mg QHS MARQUES Administration Hydromorphone HCl 0.5 mg 05/16/21 13:23 05/25/21 17:35 Hydromorphone 1 Mg/1 Ml Inj IV 0.5 mg Q23H PRN Administration Pain , Severe (7-10) Ceftriaxone Sodium 2 gm in 100 mls @ 200 mls/hr 05/20/21 16:00 05/25/21 15:08 Rocephin/Ns 2 Gm/100 Ml IV 06/30/21 16:29 200 mls/hr Q24H MARQUES Administration Protocol Vancomycin HCl 500 mg/ Sodium 110 mls @ 66.667 mls/hr 05/26/21 00:00 05/25/21 23:51 Chloride IV 66.667 mls/hr Q12H MARQUES Administration Ondansetron HCl 4 mg 05/16/21 13:23 Ondansetron 4 Mg/2 Ml Inj IV Q8H PRN Nausea And Vomiting Oxycodone/Acetaminophen 1 tab 05/16/21 13:23 Oxycodone /Acetaminophen 5-325mg Tab PO Q16H PRN Pain, Moderate (4-6) Pantoprazole Sodium 40 mg 05/19/21 10:00 05/26/21 08:49 Pantoprazole 40 Mg Inj IV 40 mg BID MARQUES Administration Sodium Chloride 10 ml 05/16/21 22:00 05/26/21 08:50 Sodium Chloride 0.9% 10 Ml Flush Syringe IV 10 ml BID MARQUES Administration Sodium Chloride 10 ml 05/16/21 13:23 Sodium Chloride 0.9% 10 Ml Flush Syringe IV PRN PRN LINE FLUSH Nutrition/Malnutrition Assess - Dietary Evaluation Nutrition/Malnutrition Findings: Nutrition Notes Start: 05/17/21 09:42 Freq: Status: Active Protocol: Document 05/18/21 16:12 GB (Rec: 05/18/21 16:38 GB [id number]) Nutrition Notes Initial or Follow up Reassessment Current Diagnosis COPD,Hypertension Other Pertinent Diagnosis GIB, dementia Current Diet Cardiac Labs/Tests 05/18: Na 131, BUN 46 showing improvement Pertinent Medications Reviewed Height 5 ft Weight 38.555 kg [place] Body Weight (kg) 45.45 BMI 16.6 Weight change and time frame 4.8% wt loss in 2 months per previous adm on 03/16/202105/18: pt is 85% IBW Weight Status Underweight Subjective/Other Information RN screen for MST. Pt with dementia. Pt with heel wound. Per physical assessment 05/18: extremity strength is severe weakness, musculoskeletal NOT wnl, product tester strength is weak. Pt stated she is eating the same in hospital as she does at home, shoulders/collar bone very prominent, visual fat/ muscle mass depletion. Percent of energy/protein needs met: Per discussion with RN po intake of meals average 25%. This does not meet 75% or greater of estimated energy needs. Burn Absent Trauma Absent GI Symptoms None Food Allergy No Skin Integrity/Comment wound to left heel Current % PO Poor (25-49%) Minimum of two criteria Yes Energy Intake (severe) < or equal to 50% Estimated Energy Requirement > or equal to 5 days Body Fat Depletion Moderate depletion (severe) Muscle Mass Moderate Depletion (severe) Reduced Nutritional Health Coach Strength Measurably Reduced (severe) #2 Nutrition Diagnosis Malnutrition Comments: PO intake of meals less than 25% while in hospital x2 days Documented weight loss of -4.2 % in two months Etiology dementia, COPD As Evidenced by Signs and Symptoms visual fat/muscle mass depletion, po intake of meals 25% (pt states same at home), documented weight loss of -4.2 % but could be greater as current weight is estimated by hospital staff. #1 Nutrition Diagnosis Increased nutrient needs ( specify in comment below) Comments: protein Etiology wound healing As Evidenced by Signs and Symptoms heel wound Diagnosis Progress(for reassessment Continues documentation) Is patient on ventilator? No Is Patient Ambulatory and/or Out of Bed No REE-([facility]-confined to bed) 951.480 Kcal/Kg value to use for calculation 30 Approximate Energy Requirements Using 1157 kcal/Kg Calculation Used for Recommendations Kcal/kg Additional Notes Protein: (1.2-1.5g/kg) @ 39k-59g Fluid: 1 ml/kcal or per MD Nutrition Intervention Change Diet Order: continue Nutrition Support: n/a Add Supplement/Snack (indicate name/kcal Ensure Enlive BID /protein ) Provides kCal: 700 Provides Protein (gm) 40 Goal #1 PO intake of meals to improve to 50% during LOS Goal #2 PO intake of nutritional supplement beverage to be 50% or greater BID during LOS Follow-Up By: 05/26/21 Additional Comments F/U: intakes, ONS tolerance
--- NOTE | 2021-05-26 12:17 | Progress Note ---
Assessment and Plan Cultures: None A/P: 76-year-old female past medical history hypertension, COPD, vascular dementia #Acute sepsis: Present with fevers and leukocytosis. Likely secondary to left heel pressure ulcer #Left heel pressure ulcer: With underlying osteomyelitis. #Vascular dementia: Unable to give history Recs: -Follow up blood cultures given fevers -Continue empiric antibiotics given sepsis with vancomycin and ceftriaxone. -Potential plan for non-emergent AKA pending family consent. Amputation would be curative of infection. Given soft tissue gas and low likelihood of osteomyelitis cure strongly recommend amputaiton. Thank you for the consult, we will continue to follow. John Blevins MD [facility] ([facility]) O: [phone] F: [phone] Subjective Date of service: 05/26/21 Principal diagnosis: GI bleed Interval history: Afebrile, white count normal. Objective - Exam Narrative Exam: Physical Exam: Constitutional: Awake, confused Head, Ears, Nose: Normocephalic, atraumatic. External ears, nose normal Eyes: Conjunctivae/corneas clear. No icterus. No ptosis. Neck: Supple, no meningeal signs Oral: dentition fair, no thrush Cardiovascular: S1, S2 normal. Respiratory: Good air entry, clear to auscultation bilaterally GI: Soft, non-tender; bowel sounds normal. No peritoneal signs. Musculoskeletal: Left heel pressure ulcer Skin: No rash or abscess Hem/Lymphatic: No palpable cervical or supraclavicular nodes. No lymphangitis Psych: No agitation Neurological: Confused - Constitutional Vitals: Vital Signs Temp Pulse Resp BP Pulse Ox 98.8 F 98 H 20 144/69 100 05/26/21 04:37 05/26/21 10:00 05/26/21 08:48 05/26/21 07:21 05/26/21 10:00 Temperature -Last 24 Hours Temperature 98.8 F Temperature 98.6 F Temperature 98.0 F Temperature 98.2 F - Labs CBC & Chem 7: 05/26/21 06:08 05/26/21 06:08 Labs: Abnormal lab results 05/26/21 05/26/21 Range/Units 06:08 06:08 RBC 2.80 L (3.65-5.03) M/mm3 Hgb 8.4 L (10.1-14.3) gm/dl Hct 25.1 L (30.3-42.9) % RDW 21.6 H (13.2-15.2) % Sodium 130 L (137-145) mmol/L Carbon Dioxide 19 L (22-30) mmol/L BUN 31 H (7-17) mg/dL Glucose 104 H (65-100) mg/dL Calcium 8.3 L (8.4-10.2) mg/dL
[2021-05-26] MEDS: VANCOMYCIN 500 MG in SODIUM CHLORIDE 0.9% 100 ML IV SCH (15:47)
[2021-05-26] MEDS: cefTRIAXone/NS 2 GM/100 ML 2 GM/100 ML BAG IV SCH (19:12)
[2021-05-27] MEDS: VANCOMYCIN 500 MG in SODIUM CHLORIDE 0.9% 100 ML IV SCH ×2 (01:12→13:00)
[2021-05-27] MEDS: PANTOPRAZOLE 40 MG INJ IV SCH ×2 (09:34→21:59)
--- NOTE | 2021-05-27 09:44 | Progress Note ---
Assessment and Plan Assessment and plan: The patient is a 76 yo aaf who presents from long-term with melena. History obtained from ER record and chart review as pt has h/o dementia and unable to provide much details. Pt. reportedly with melena/black stools for 2 days. Hypotensive on arrival which improved following fluids. hgb 8.5 (11 on last admission a few months ago). Brilinta is listed as home medication - unclear indication. GI bleed. Melena. Sepsis Hypertension COPD. Compensated Vascular dementia. Cerebral atherosclerosis. Peripheral artery disease. Arterial Doppler ultrasound of the left lower extremity showed iliac atherosclerotic disease with significant stenosis of the proximal SFA and occlusion of the mid to distal SFA. Left heel pressure ulcer with underlying osteomyelitis. Hyponatremia. 05/17/2021. No reported bleeding overnight. Hemoglobin improved to 10.5 after 1 unit PRBCs. Await endoscopy per GI recommendations. Continue PPI and follow-up H&H in a.m. Case management consultation to assist in locating family. 05/18/2021. No reported bleeding overnight. Hemoglobin remained stable at 9.1. Await endoscopy per GI recommendations. Continue PPI and follow-up H&H in a.m. Case management consultation to assist in locating family. 05/19/2021 Patient with GI bleed. Hgb 8.6. Patient has dementia and unable to give consent for EGD. No family available to sign EGD consent. Will discuss with GI Physician whether we both can sign consent . Also was called by Nurse that Wound Care Nurse recommends Surgical Consult for heel ulcer. 05/20/21 Patient with acute GI bleed . Hgb 8.7 today. Patient has dementia and unable to give consent for EGD. No family available to sign EGD consent. I disc ussed with Dr. Plata , GI whether we both can sign 2 Physician consent. He will repeat H/H today to make decision. Now patient has fever of 102.7. She has left heel ulcer. Will obtain blood cultures, UA, Urine culture, check Coronavirus. Consult ID Physician. Hyponatremia, improved YEYO improved 05/21/2021 H&H is stable status post transfusion of 1 unit of PRBC, and GI has signed off. Has left heel ulcer on vancomycin and Rocephin. Afebrile today. Leukocytosis is stable. ID input appreciated. Hyponatremia with sodium slightly trended down. We will start IV normal saline at 75 cc/h x 1 L. Monitor sodium. Radiology noted unable to get reach to sign consents for MRI. Vascular surgeon evaluated today and noted that given her symptoms and nonambulatory status, the patient may benefit simply from a left [id number] amputation. If the patient is going to undergo wound debridement in an attempt to heal her pressure ulcer the patient will need to be scheduled for revascularization procedure. Input appreciated. 05/22/2021. Continue current antibiotic. ID, vascular surgeon, general surgeon input appreciated. Patient needs left foot MRI and AKA, however obtaining consents is a problem. Leukocytosis has trended up. Anemia stable. Hyponatremia has improved. Monitor CBC and BMP. Hypertension is controlled. Has mild tachycardia, monitor heart rate. 05/23/2021 Patient with GI bleed, left heel ulcer, PAD. May need left AKA as per vasc surgeon. No family for consent. 05/24/21 Patient with GI bleed, left heel ulcer, PAD. As per Surgeon, patient needs left above knee amputation. There is no family available for consent. Will discuss with Case management. 05/25/21 Patient with GI bleed, left heel ulcer, Peripheral arterial disease. As per Surgeon, patient needs left above knee amputation. There is no family for consent for surgery. Discussed with mattress spring encaser during rounds. 05/26/2021. Follow-up blood cultures and continue empiric antibiotics for sepsis/osteomyelitis. Patient has potential plan for nonemergent AKA pending Dr. Zacarias's consent. Amputation would be curative of infection. Given soft tissue gas and low likelihood of osteomyelitis, ID and surgery strongly recommend amputation. 05/27/2021. I spoke to the charge nurse Yasir and Dr. Zacarias who consented over the phone. I also spoke to Dr. Pruitt for consent and I will also consider as primary physician. Infectious diseases also given strong recommendation for amputation. Patient was informed of amputation and appears to have understanding and was in agreement. Dr. Pruitt will plan for amputation tomorrow. Blood cultures are negative. Continue IV antibiotics per ID recom mendations. History Interval history: No new issues overnight. Hospitalist Physical - Constitutional Vitals: Temp Pulse Resp BP Pulse Ox 99.2 F 93 H 30 H 160/74 99 05/27/21 07:23 05/27/21 05:39 05/27/21 07:23 05/27/21 07:23 05/27/21 05:39 General appearance: Present: no acute distress Results - Labs CBC & Chem 7: 05/26/21 06:08 05/26/21 06:08 Labs: Laboratory Last Values WBC 10.5 K/mm3 (4.5-11.0) 05/26/21 06:08 RBC 2.80 M/mm3 (3.65-5.03) L 05/26/21 06:08 Hgb 8.4 gm/dl (10.1-14.3) L 05/26/21 06:08 Hct 25.1 % (30.3-42.9) L 05/26/21 06:08 MCV 90 fl (79-97) 05/26/21 06:08 MCH 30 pg (28-32) 05/26/21 06:08 MCHC 33 % (30-34) 05/26/21 06:08 RDW 21.6 % (13.2-15.2) H 05/26/21 06:08 Plt Count 433 K/mm3 (140-440) 05/26/21 06:08 Lymph % (Auto) 8.9 % (13.4-35.0) L 05/22/21 04:28 [place] % (Auto) 6.0 % (0.0-7.3) 05/22/21 04:28 Eos % (Auto) 0.1 % (0.0-4.3) 05/22/21 04:28 Baso % (Auto) 0.1 % (0.0-1.8) 05/22/21 04:28 Lymph # (Auto) 1.5 K/mm3 (1.2-5.4) 05/22/21 04:28 [place] # (Auto) 1.0 K/mm3 (0.0-0.8) H 05/22/21 04:28 Eos # (Auto) 0.0 K/mm3 (0.0-0.4) 05/22/21 04:28 Baso # (Auto) 0.0 K/mm3 (0.0-0.1) 05/22/21 04:28 Seg Neutrophils % 84.9 % (40.0-70.0) H 05/22/21 04:28 Seg Neutrophils # 14.0 K/mm3 (1.8-7.7) H 05/22/21 04:28 PT 12.7 Sec. (12.2-14.9) 05/16/21 12:28 INR 0.90 (0.87-1.13) 05/16/21 12:28 APTT 29.1 Sec. (24.2-36.6) 05/16/21 12:28 Sodium 130 mmol/L (137-145) L 05/26/21 06:08 Potassium 4.1 mmol/L (3.6-5.0) 05/26/21 06:08 Chloride 99.2 mmol/L (98-107) 05/26/21 06:08 Carbon Dioxide 19 mmol/L (22-30) L 05/26/21 06:08 Anion Gap 16 mmol/L 05/26/21 06:08 BUN 31 mg/dL (7-17) H 05/26/21 06:08 Creatinine 1.2 mg/dL (0.6-1.2) 05/26/21 06:08 Estimated GFR 53 ml/min 05/26/21 06:08 BUN/Creatinine Ratio 26 % 05/26/21 06:08 Glucose 104 mg/dL (65-100) H 05/26/21 06:08 POC Glucose 77 mg/dL (70-105) 05/27/21 07:35 Calcium 8.3 mg/dL (8.4-10.2) L 05/26/21 06:08 Total Bilirubin 0.50 mg/dL (0.1-1.2) 05/16/21 12:28 AST 20 units/L (5-40) 05/16/21 12:28 ALT 10 units/L (7-56) 05/16/21 12:28 Alkaline Phosphatase 76 units/L (35-129) 05/16/21 12:28 Total Protein 8.7 g/dL (6.3-8.2) H 05/16/21 12:28 Albumin 3.8 g/dL (3.9-5) L 05/16/21 12:28 Albumin/Globulin Ratio 0.8 % 05/16/21 12:28 Urine Color Yellow (Yellow) 05/20/21 Unknown Urine Turbidity Hazy (Clear) 05/20/21 Unknown Urine pH 9.0 (5.0-7.0) H 05/20/21 Unknown Ur Specific [place] 1.020 (1.003-1.030) 05/20/21 Unknown Urine Protein 100 mg/dl mg/dL (Negative) 05/20/21 Unknown Urine Glucose (UA) Neg mg/dL (Negative) 05/20/21 Unknown Urine Ketones Neg mg/dL (Negative) 05/20/21 Unknown Urine Blood Neg (Negative) 05/20/21 Unknown Urine Nitrite Neg (Negative) 05/20/21 Unknown Urine Bilirubin Neg (Negative) 05/20/21 Unknown Urine Urobilinogen < 2.0 mg/dL (<2.0) 05/20/21 Unknown Ur Leukocyte Esterase Neg (Negative) 05/20/21 Unknown Urine WBC (Auto) 3.0 /HPF (0.0-6.0) 05/20/21 Unknown Urine RBC (Auto) 2.0 /HPF (0.0-6.0) 05/20/21 Unknown U Epithel Cells (Auto) 5.0 /HPF (0-13.0) 05/20/21 Unknown Urine Bacteria (Auto) 1+ /HPF (Negative) 05/20/21 Unknown Triple Phos Crystals 1+ 05/20/21 Unknown Urine Mucus Few /HPF 05/20/21 Unknown Vancomycin Trough 4.0 ug/mL (5.0-20.0) L 05/24/21 13:29 Random Vancomycin 4.0 ug/mL (0-40.0) 05/22/21 04:28 Coronavirus (PCR) Negative (Negative) 05/20/21 11:52 Blood Type O POSITIVE 05/16/21 12:28 Antibody Screen Negative 05/16/21 12:28 Crossmatch See Detail 05/16/21 12:28 Gallo/IV: Voiding Method External Female Catheter Active Medications - Current Medications Current Medications: Generic Name Dose Route Start Last Admin Trade Name Freq PRN Reason Stop Dose Admin Acetaminophen 650 mg 05/16/21 13:23 05/26/21 08:48 Acetaminophen 325 Mg Tab PO 650 mg Q4H PRN Administration Pain MILD(1-3)/Fever >100.5/MASTERS Atorvastatin Calcium 80 mg 05/16/21 22:00 05/26/21 21:24 Atorvastatin 40 Mg Tab PO 80 mg QHS MARQUES Administration Hydromorphone HCl 0.5 mg 05/16/21 13:23 05/25/21 17:35 Hydromorphone 1 Mg/1 Ml Inj IV 0.5 mg Q23H PRN Administration Pain , Severe (7-10) Ceftriaxone Sodium 2 gm in 100 mls @ 200 mls/hr 05/20/21 16:00 05/26/21 19:12 Rocephin/Ns 2 Gm/100 Ml IV 06/30/21 16:29 200 mls/hr Q24H MARQUES Administration Protocol Vancomycin HCl 500 mg/ Sodium 110 mls @ 66.667 mls/hr 05/26/21 00:00 05/27/21 01:12 Chloride IV 66.667 mls/hr Q12H MARQUES Administration Ondansetron HCl 4 mg 05/16/21 13:23 Ondansetron 4 Mg/2 Ml Inj IV Q8H PRN Nausea And Vomiting Oxycodone/Acetaminophen 1 tab 05/16/21 13:23 Oxycodone /Acetaminophen 5-325mg Tab PO Q16H PRN Pain, Moderate (4-6) Pantoprazole Sodium 40 mg 05/19/21 10:00 05/27/21 09:34 Pantoprazole 40 Mg Inj IV 40 mg BID MARQUES Administration Sodium Chloride 10 ml 05/16/21 22:00 05/27/21 09:35 Sodium Chloride 0.9% 10 Ml Flush Syringe IV 10 ml BID MARQUES Administration Sodium Chloride 10 ml 05/16/21 13:23 Sodium Chloride 0.9% 10 Ml Flush Syringe IV PRN PRN LINE FLUSH Nutrition/Malnutrition Assess - Dietary Evaluation Nutrition/Malnutrition Findings: Nutrition Notes Start: 05/17/21 09:42 Freq: Status: Active Protocol: Document 05/26/21 14:15 GB (Rec: 05/26/21 14:27 GB [id number]) Nutrition Notes Need for Assessment 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 Weight Status Appropriate Subjective/Other Information MD notes 05/26: potential for non-emergent AKA pending family consent PO intake is recorded at 50%. Ensure supplement BID. Advance diet back to cardiac when medically feasible. Percent of energy/protein needs met: PO intake of cardiac meals and ensure supplement at 50% or greater meets 100% EEN. Clear liquid diet does not meet 75% EEN. Burn Absent Trauma Absent GI Symptoms None Food Allergy No Skin Integrity/Comment wound to left heel Current % PO Fair (50-74%) Minimum of two criteria Yes Energy Intake (severe) < or equal to 50% Estimated Energy Requirement > or equal to 5 days Body Fat Depletion Moderate depletion (severe) Muscle Mass Moderate Depletion (severe) Reduced Pharmacist Manager Strength Measurably Reduced (severe) #2 Nutrition Diagnosis Malnutrition Comments: PO intake of meals less than 25% while in hospital x2 days Documented weight loss of -4.2 % in two months 05/26: PO intake of meals recorded @50% or greater - improving. Documented wt gain of +35%, reweigh for confirmation Etiology dementia, COPD As Evidenced by Signs and Symptoms visual fat/muscle mass depletion, po intake of meals 25% (pt states same at home), documented weight loss of -4.2 % but could be greater as current weight is estimated by hospital staff. Diagnosis Progress(for reassessment Improved documentation) #1 Nutrition Diagnosis Increased nutrient needs ( specify in comment below) Comments: protein 05/26 notes: possible AKA Etiology wound healing As Evidenced by Signs and Symptoms heel wound Diagnosis Progress(for reassessment Continues documentation) Is patient on ventilator? No Is Patient Ambulatory and/or Out of Bed No REE-([facility]-confined to bed) 1117.464 Kcal/Kg value to use for calculation 30 Approximate Energy Requirements Using 1572 kcal/Kg Calculation Used for Recommendations Kcal/kg Additional Notes Protein: (1-1.5g/kg) @ 52k-78g Fluid: 1 ml/kcal or per MD Nutrition Intervention Change Diet Order: Advance to Cardiac when medically feasible Nutrition Support: n/a Add Supplement/Snack (indicate name/kcal Ensure Enlive BID /protein ) 05/26: continue Provides kCal: 700 Provides Protein (gm) 40 Goal #1 PO intake of meals to improve to 50% during LOS 05/26: met, continues Goal #2 PO intake of nutritional supplement beverage to be 50% or greater BID during LOS 05/26: unable to assess, po intake not recorded routinely Goal #3 Wt gain or maintenance 05/26: Gain of +35% Follow-Up By: 06/02/21 Additional Comments F/U: intakes, ONS tolerance, AKA status(heel wound)
--- NOTE | 2021-05-27 11:01 | Progress Note ---
Assessment and Plan - Patient Problems (1) Pressure ulcer of left heel, stage 4 Current Visit: Yes Status: Acute Plan to address problem: 1) Left AKA tomorrow 2) NPO after MN 3) Pt's meds reviewed. Subjective Date of service: 05/27/21 Patient Reports: Positive: no new complaints (I have talked to Dr.s Zacarias and Albin who will serve as the 2 physician witnesses.) Objective Vital Signs - 12hr 05/27/21 05/27/21 05/27/21 00:22 02:17 04:00 Temperature 99.5 F Pulse Rate 101 H 95 H Respiratory 18 Rate Blood Pressure 159/81 O2 Sat by Pulse 93 98 Oximetry 05/27/21 05/27/21 05:39 07:23 Temperature 97.9 F 99.2 F Pulse Rate 93 H Respiratory 16 30 H Rate Blood Pressure 161/77 160/74 O2 Sat by Pulse 99 Oximetry - Labs 05/26/21 06:08 05/26/21 06:08
[2021-05-27] MEDS: cefTRIAXone/NS 2 GM/100 ML 2 GM/100 ML BAG IV SCH (16:49)
--- NOTE | 2021-05-27 16:58 | Progress Note ---
Assessment and Plan Cultures: None A/P: 76-year-old female past medical history hypertension, COPD, vascular dementia #Acute sepsis: Present with fevers and leukocytosis. Likely secondary to left heel pressure ulcer #Left heel pressure ulcer: With underlying osteomyelitis. #Vascular dementia: Unable to give history Recs: -Continue empiric antibiotics given sepsis with vancomycin and ceftriaxone. -Plan for left AKA tomorrow. This will be curative of infection. Thank you for the consult, we will continue to follow. John Blevins MD [facility] O: [phone] F: [phone] Subjective Date of service: 05/27/21 Principal diagnosis: GI bleed Interval history: Afebrile, normal white count. Patient to have left AKA tomorrow. Objective - Exam Narrative Exam: Physical Exam: Constitutional: Awake, confused Head, Ears, Nose: Normocephalic, atraumatic. External ears, nose normal Eyes: Conjunctivae/corneas clear. No icterus. No ptosis. Neck: Supple, no meningeal signs Oral: dentition fair, no thrush Cardiovascular: S1, S2 normal. Respiratory: Good air entry, clear to auscultation bilaterally GI: Soft, non-tender; bowel sounds normal. No peritoneal signs. Musculoskeletal: Left heel pressure ulcer Skin: No rash or abscess Hem/Lymphatic: No palpable cervical or supraclavicular nodes. No lymphangitis Psych: No agitation Neurological: Confused - Constitutional Vitals: Vital Signs Temp Pulse Resp BP Pulse Ox 97.9 F 95 H 18 161/72 93 05/27/21 15:21 05/27/21 15:28 05/27/21 15:21 05/27/21 15:21 05/27/21 15:21 Temperature -Last 24 Hours Temperature 97.9 F Temperature 98.4 F Temperature 99.2 F Temperature 97.9 F Temperature 99.5 F Temperature 99.6 F - Labs CBC & Chem 7: 05/26/21 06:08 05/26/21 06:08
[2021-05-28] MEDS: VANCOMYCIN 500 MG in SODIUM CHLORIDE 0.9% 100 ML IV SCH ×3 (00:21→23:55)
[2021-05-28 05:19] LABS: Hematocrit 24.3 % (30.3-42.9); Hemoglobin 8.1 gm/dl (10.1-14.3); Mean Corpuscular HGB Conc 33 % (30-34); Mean Corpuscular Volume 88 fl (79-97); Platelet Count 474 K/mm3 (140-440); Red Blood Count 2.76 M/mm3 (3.65-5.03)
[2021-05-28 05:28] LABS: Red Cell Distribution Width 21.4 % (13.2-15.2)
[2021-05-28 05:42] LABS: Calcium 8.2 mg/dL (8.4-10.2)
[2021-05-28] MEDS: PANTOPRAZOLE 40 MG INJ IV SCH ×2 (09:57→22:29)
--- NOTE | 2021-05-28 10:39 | Progress Note ---
Assessment and Plan Assessment and plan: The patient is a 76 yo aaf who [facility] History obtained from ER record and chart review as pt has h/o dementia and unable to provide much details. Pt. reportedly with melena/black stools for 2 days. Hypotensive on arrival which improved following fluids. hgb 8.5 (11 on last admission a few months ago). Brilinta is listed as home medication - unclear indication. Left heel pressure ulcer with underlying osteomyelitis GI bleed. Melena. Sepsis Hypertension COPD. Compensated Vascular dementia. Cerebral atherosclerosis. Peripheral artery disease. Arterial Doppler ultrasound of the left lower extremity showed iliac atherosclerotic disease with significant stenosis of the proximal SFA and occlusion of the mid to distal SFA. Left heel pressure ulcer with underlying osteomyelitis. Hyponatremia. 05/17/2021. No reported bleeding overnight. Hemoglobin improved to 10.5 after 1 unit PRBCs. Await endoscopy per GI recommendations. Continue PPI and follow-up H&H in a.m. Case management consultation to assist in locating family. 05/18/2021. No reported bleeding overnight. Hemoglobin remained stable at 9.1. Await endoscopy per GI recommendations. Continue PPI and follow-up H&H in a.m. Case management consultation to assist in locating family. 05/19/2021 Patient with GI bleed. Hgb 8.6. Patient has dementia and unable to give consent for EGD. No family available to sign EGD consent. Will discuss with GI Physician whether we both can sign consent . Also was called by Nurse that Wound Care Nurse recommends Surgical Consult for heel ulcer. 05/20/21 Patient with acute GI bleed . Hgb 8.7 today. Patient has dementia and unable to give consent for EGD. No family available to sign EGD consent. I discussed with Dr. Plata , GI whether we both can sign 2 Physician consent. He will repeat H/H today to make decision. Now patient has fever of 102.7. She has left heel ulcer. Will obtain blood cultures, UA, Urine culture, check Coronavirus. Consult ID Physician. Hyponatremia, improved YEYO improved 05/21/2021 H&H is stable status post transfusion of 1 unit of PRBC, and GI has signed off. Has left heel ulcer on vancomycin and Rocephin. Afebrile today. Leukocytosis is stable. ID input appreciated. Hyponatremia with sodium slightly trended down. We will start IV normal saline at 75 cc/h x 1 L. Monitor sodium. Radiology noted unable to get reach to sign consents for MRI. Vascular surgeon evaluated today and noted that given her symptoms and nonambulatory status, the patient may benefit simply from a left [id number] amputation. If the patient is going to undergo wound debridement in an attempt to heal her pressure ulcer the patient will need to be scheduled for revascularization procedure. Input appreciated. 05/22/2021. Continue current antibiotic. ID, vascular surgeon, general surgeon input appreciated. Patient needs left foot MRI and AKA, however obtaining consents is a problem. Leukocytosis has trended up. Anemia stable. Hyponatremia has improved. Monitor CBC and BMP. Hypertension is controlled. Has mild tachycardia, monitor heart rate. 05/23/2021 Patient with GI bleed, left heel ulcer, PAD. May need left AKA as per vasc surgeon. No family for consent. 05/24/21 Patient with GI bleed, left heel ulcer, PAD. As per Surgeon, patient needs left above knee amputation. There is no family available for consent. Will discuss with Case management. 05/25/21 Patient with GI bleed, left heel ulcer, Peripheral arterial disease. As per Surgeon, patient needs left above knee amputation. There is no family for consent for surgery. Discussed with mental health case manager during rounds. 05/26/2021. Follow-up blood cultures and continue empiric antibiotics for sepsis/osteomyelitis. Patient has potential plan for nonemergent AKA pending Dr. Zacarias's consent. Amputation would be curative of infection. Given soft tissue gas and low likelihood of osteomyelitis, ID and surgery strongly recommend amputation. 05/27/2021. I spoke to the charge nurse Yasir and Dr. Zacarias who consented over the phone. I also spoke to Dr. Pruitt for consent and I will also consider as primary physician. Infectious diseases also given strong recommendation for amputation. Patient was informed of amputation and appears to have understanding and was in agreement. Dr. Pruitt will plan for amputation tomorrow. Blood cultures are negative. Continue IV antibiotics per ID recommendations. 05/28/2021. Continue empiric antibiotics for sepsis/osteomyelitis with vancomycin and ceftriaxone. AKA is planned for today. History Interval history: No new issues overnight. Hospitalist Physical - Constitutional Vitals: Temp Pulse Resp BP Pulse Ox 100.1 F H 94 H 20 110/57 94 05/28/21 07:53 05/28/21 07:35 05/28/21 07:35 05/28/21 07:35 05/28/21 07:35 General appearance: Present: no acute distress - EENT Eyes: Present: PERRL, EOM intact ENT: hearing intact, clear oral mucosa, dentition normal - Neck Neck: Present: supple, normal ROM - Respiratory Respiratory effort: normal Respiratory: bilateral: CTA - Cardiovascular Rhythm: regular Heart Sounds: Present: S1 & S2. Absent: gallop, rub - Extremities Extremities: no ischemia, No edema, Full ROM - Abdominal General gastrointestinal: soft, non-tender, non-distended, normal bowel sounds - Integumentary Integumentary: Present: clear, warm, dry - Neurologic Neurologic: CNII-XII intact, moves all extremities Results - Labs CBC & Chem 7: 05/28/21 04:47 05/28/21 04:47 Labs: Laboratory Last Values WBC 11.4 K/mm3 (4.5-11.0) H 05/28/21 04:47 RBC 2.76 M/mm3 (3.65-5.03) L 05/28/21 04:47 Hgb 8.1 gm/dl (10.1-14.3) L 05/28/21 04:47 Hct 24.3 % (30.3-42.9) L 05/28/21 04:47 MCV 88 fl (79-97) 05/28/21 04:47 MCH 29 pg (28-32) 05/28/21 04:47 MCHC 33 % (30-34) 05/28/21 04:47 RDW 21.4 % (13.2-15.2) H 05/28/21 04:47 Plt Count 474 K/mm3 (140-440) H 05/28/21 04:47 Lymph % (Auto) 8.9 % (13.4-35.0) L 05/22/21 04:28 [place] % (Auto) 6.0 % (0.0-7.3) 05/22/21 04:28 Eos % (Auto) 0.1 % (0.0-4.3) 05/22/21 04:28 Baso % (Auto) 0.1 % (0.0-1.8) 05/22/21 04:28 Lymph # (Auto) 1.5 K/mm3 (1.2-5.4) 05/22/21 04:28 [place] # (Auto) 1.0 K/mm3 (0.0-0.8) H 05/22/21 04:28 Eos # (Auto) 0.0 K/mm3 (0.0-0.4) 05/22/21 04:28 Baso # (Auto) 0.0 K/mm3 (0.0-0.1) 05/22/21 04:28 Seg Neutrophils % 84.9 % (40.0-70.0) H 05/22/21 04:28 Seg Neutrophils # 14.0 K/mm3 (1.8-7.7) H 05/22/21 04:28 PT 12.7 Sec. (12.2-14.9) 05/16/21 12:28 INR 0.90 (0.87-1.13) 05/16/21 12:28 APTT 29.1 Sec. (24.2-36.6) 05/16/21 12:28 Sodium 134 mmol/L (137-145) L 05/28/21 04:47 Potassium 4.3 mmol/L (3.6-5.0) 05/28/21 04:47 Chloride 103.8 mmol/L (98-107) 05/28/21 04:47 Carbon Dioxide 19 mmol/L (22-30) L 05/28/21 04:47 Anion Gap 16 mmol/L 05/28/21 04:47 BUN 33 mg/dL (7-17) H 05/28/21 04:47 Creatinine 1.2 mg/dL (0.6-1.2) 05/28/21 04:47 Estimated GFR 53 ml/min 05/28/21 04:47 BUN/Creatinine Ratio 28 % 05/28/21 04:47 Glucose 100 mg/dL (65-100) 05/28/21 04:47 POC Glucose 77 mg/dL (70-105) 05/27/21 07:35 Calcium 8.2 mg/dL (8.4-10.2) L 05/28/21 04:47 Total Bilirubin 0.50 mg/dL (0.1-1.2) 05/16/21 12:28 AST 20 units/L (5-40) 05/16/21 12:28 ALT 10 units/L (7-56) 05/16/21 12:28 Alkaline Phosphatase 76 units/L (35-129) 05/16/21 12:28 Total Protein 8.7 g/dL (6.3-8.2) H 05/16/21 12:28 Albumin 3.8 g/dL (3.9-5) L 05/16/21 12:28 Albumin/Globulin Ratio 0.8 % 05/16/21 12:28 Urine Color Yellow (Yellow) 05/20/21 Unknown Urine Turbidity Hazy (Clear) 05/20/21 Unknown Urine pH 9.0 (5.0-7.0) H 05/20/21 Unknown Ur Specific [place] 1.020 (1.003-1.030) 05/20/21 Unknown Urine Protein 100 mg/dl mg/dL (Negative) 05/20/21 Unknown Urine Glucose (UA) Neg mg/dL (Negative) 05/20/21 Unknown Urine Ketones Neg mg/dL (Negative) 05/20/21 Unknown Urine Blood Neg (Negative) 05/20/21 Unknown Urine Nitrite Neg (Negative) 05/20/21 Unknown Urine Bilirubin Neg (Negative) 05/20/21 Unknown Urine Urobilinogen < 2.0 mg/dL (<2.0) 05/20/21 Unknown Ur Leukocyte Esterase Neg (Negative) 05/20/21 Unknown Urine WBC (Auto) 3.0 /HPF (0.0-6.0) 05/20/21 Unknown Urine RBC (Auto) 2.0 /HPF (0.0-6.0) 05/20/21 Unknown U Epithel Cells (Auto) 5.0 /HPF (0-13.0) 05/20/21 Unknown Urine Bacteria (Auto) 1+ /HPF (Negative) 05/20/21 Unknown Triple Phos Crystals 1+ 05/20/21 Unknown Urine Mucus Few /HPF 05/20/21 Unknown Vancomycin Trough 4.0 ug/mL (5.0-20.0) L 05/24/21 13:29 Random Vancomycin 4.0 ug/mL (0-40.0) 05/22/21 04:28 Coronavirus (PCR) Negative (Negative) 05/20/21 11:52 Blood Type O POSITIVE 05/28/21 04:47 Antibody Screen Negative 05/28/21 04:47 Crossmatch See Detail 05/16/21 12:28 Gallo/IV: Voiding Method External Female Catheter Active Medications - Current Medications Current Medications: Generic Name Dose Route Start Last Admin Trade Name Freq PRN Reason Stop Dose Admin Acetaminophen 650 mg 05/16/21 13:23 05/26/21 08:48 Acetaminophen 325 Mg Tab PO 650 mg Q4H PRN Administration Pain MILD(1-3)/Fever >100.5/MASTERS Atorvastatin Calcium 80 mg 05/16/21 22:00 05/27/21 21:59 Atorvastatin 40 Mg Tab PO 80 mg QHS MARQUES Administration Hydromorphone HCl 0.5 mg 05/16/21 13:23 05/25/21 17:35 Hydromorphone 1 Mg/1 Ml Inj IV 0.5 mg Q23H PRN Administration Pain , Severe (7-10) Ceftriaxone Sodium 2 gm in 100 mls @ 200 mls/hr 05/20/21 16:00 05/27/21 16:49 Rocephin/Ns 2 Gm/100 Ml IV 06/30/21 16:29 200 mls/hr Q24H MARQUES Administration Protocol Vancomycin HCl 500 mg/ Sodium 110 mls @ 66.667 mls/hr 05/26/21 00:00 05/28/21 00:21 Chloride IV 66.667 mls/hr Q12H MARQUES Administration Ondansetron HCl 4 mg 05/16/21 13:23 Ondansetron 4 Mg/2 Ml Inj IV Q8H PRN Nausea And Vomiting Oxycodone/Acetaminophen 1 tab 05/16/21 13:23 Oxycodone /Acetaminophen 5-325mg Tab PO Q16H PRN Pain, Moderate (4-6) Pantoprazole Sodium 40 mg 05/19/21 10:00 05/28/21 09:57 Pantoprazole 40 Mg Inj IV 40 mg BID MARQUES Administration Sodium Chloride 10 ml 05/16/21 22:00 05/28/21 09:58 Sodium Chloride 0.9% 10 Ml Flush Syringe IV 10 ml BID MARQUES Administration Sodium Chloride 10 ml 05/16/21 13:23 Sodium Chloride 0.9% 10 Ml Flush Syringe IV PRN PRN LINE FLUSH Nutrition/Malnutrition Assess - Dietary Evaluation Nutrition/Malnutrition Findings: Nutrition Notes Start: 05/17/21 09:42 Freq: Status: Active Protocol: Document 05/26/21 14:15 GB (Rec: 05/26/21 14:27 GB [id number]) Nutrition Notes 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 Weight Status Appropriate Subjective/Other Information MD notes 05/26: potential for non-emergent AKA pending family consent PO intake is recorded at 50%. Ensure supplement BID. Advance diet back to cardiac when medically feasible. Percent of energy/protein needs met: PO intake of cardiac meals and ensure supplement at 50% or greater meets 100% EEN. Clear liquid diet does not meet 75% EEN. Burn Absent Trauma Absent GI Symptoms None Food Allergy No Skin Integrity/Comment wound to left heel Current % PO Fair (50-74%) Minimum of two criteria Yes Energy Intake (severe) < or equal to 50% Estimated Energy Requirement > or equal to 5 days Body Fat Depletion Moderate depletion (severe) Muscle Mass Moderate Depletion (severe) Reduced Safety Clothing And Equipment Developer Strength Measurably Reduced (severe) #2 Nutrition Diagnosis Malnutrition Comments: PO intake of meals less than 25% while in hospital x2 days Documented weight loss of -4.2 % in two months 05/26: PO intake of meals recorded @50% or greater - improving. Documented wt gain of +35%, reweigh for confirmation Etiology dementia, COPD As Evidenced by Signs and Symptoms visual fat/muscle mass depletion, po intake of meals 25% (pt states same at home), documented weight loss of -4.2 % but could be greater as current weight is estimated by hospital staff. Diagnosis Progress(for reassessment Improved documentation) #1 Nutrition Diagnosis Increased nutrient needs ( specify in comment below) Comments: protein 05/26 notes: possible AKA Etiology wound healing As Evidenced by Signs and Symptoms heel wound Diagnosis Progress(for reassessment Continues documentation) Is patient on ventilator? No Is Patient Ambulatory and/or Out of Bed No REE-([place]-confined to bed) 1117.464 Kcal/Kg value to use for calculation 30 Approximate Energy Requirements Using 1572 kcal/Kg Calculation Used for Recommendations Kcal/kg Additional Notes Protein: (1-1.5g/kg) @ 52k-78g Fluid: 1 ml/kcal or per MD Nutrition Intervention Change Diet Order: Advance to Cardiac when medically feasible Nutrition Support: n/a Add Supplement/Snack (indicate name/kcal Ensure Enlive BID /protein ) 05/26: continue Provides kCal: 700 Provides Protein (gm) 40 Goal #1 PO intake of meals to improve to 50% during LOS 05/26: met, continues Goal #2 PO intake of nutritional supplement beverage to be 50% or greater BID during LOS 05/26: unable to assess, po intake not recorded routinely Goal #3 Wt gain or maintenance 05/26: Gain of +35% Follow-Up By: 06/02/21 Additional Comments F/U: intakes, ONS tolerance, AKA status(heel wound)
[2021-05-28] MEDS ORDERED: propofoL 200 MG/20 ML VIAL IV ONE (14:57)
[2021-05-28] MEDS ORDERED: LIDOCAINE MPF (2%) 20 MG/1 ML VIAL 5 ML ONE (14:57)
[2021-05-28] MEDS ORDERED: HYDROmorphone 1 MG/1 ML INJ ONE (14:57)
--- NOTE | 2021-05-28 15:29 | Progress Note ---
Assessment and Plan Cultures: None A/P: 76-year-old female past medical history hypertension, COPD, vascular dementia #Acute sepsis: Present with fevers and leukocytosis. Likely secondary to left heel pressure ulcer #Left heel pressure ulcer: With underlying osteomyelitis. #Vascular dementia: Unable to give history Recs: -Continue empiric antibiotics given sepsis with vancomycin and ceftriaxone. -Plan for left AKA today. This will be curative of infection. Thank you for the consult, we will continue to follow. John Blevins MD [facility] O: [phone] F: [phone] Subjective Date of service: 05/28/21 Principal diagnosis: GI bleed Interval history: T-max 100.1, white count 11.4. For amputation today. Objective - Exam Narrative Exam: Physical Exam: Constitutional: Awake, confused Head, Ears, Nose: Normocephalic, atraumatic. External ears, nose normal Eyes: Conjunctivae/corneas clear. No icterus. No ptosis. Neck: Supple, no meningeal signs Oral: dentition fair, no thrush Cardiovascular: S1, S2 normal. Respiratory: Good air entry, clear to auscultation bilaterally GI: Soft, non-tender; bowel sounds normal. No peritoneal signs. Musculoskeletal: Left heel pressure ulcer Skin: No rash or abscess Hem/Lymphatic: No palpable cervical or supraclavicular nodes. No lymphangitis Psych: No agitation Neurological: Confused - Constitutional Vitals: Vital Signs Temp Pulse Resp BP Pulse Ox 100.1 F H 94 H 20 110/57 94 05/28/21 07:53 05/28/21 07:35 05/28/21 07:35 05/28/21 07:35 05/28/21 07:35 Temperature -Last 24 Hours Temperature 100.1 F Temperature 98.6 F Temperature 98.6 F Temperature 98.6 F - Labs CBC & Chem 7: 05/28/21 04:47 05/28/21 04:47 Labs: Abnormal lab results 05/28/21 05/28/21 Range/Units 04:47 04:47 WBC 11.4 H (4.5-11.0) K/mm3 RBC 2.76 L (3.65-5.03) M/mm3 Hgb 8.1 L (10.1-14.3) gm/dl Hct 24.3 L (30.3-42.9) % RDW 21.4 H (13.2-15.2) % Plt Count 474 H (140-440) K/mm3 Sodium 134 L (137-145) mmol/L Carbon Dioxide 19 L (22-30) mmol/L BUN 33 H (7-17) mg/dL Calcium 8.2 L (8.4-10.2) mg/dL
[2021-05-28] MEDS ORDERED: SODIUM CHLORIDE 0.9% 1000 ML 1,000 ML ONE (17:27)
[2021-05-28] MEDS ORDERED: SODIUM CHLORIDE 0.9% IRR 1,500 ML BOTTLE IR ONE ×2 (17:37)
[2021-05-28] MEDS ORDERED: ONDANSETRON 4 MG/2 ML INJ IV PRN (17:57)
[2021-05-28] MEDS ORDERED: HYDROmorphone 1 MG/1 ML INJ IV PRN (17:57)
--- NOTE | 2021-05-28 17:57 | Anesthesia Consultation ---
Anesthesia Consult and Med Hx Date of service: 05/28/21 - Airway Anesthetic Teeth Evaluation: Edentulous Mental/Hyoid Distance: Adequate Intubation Access Assessment: Possibly Difficult (not fully cooperative with airway exam) - Pre-Operative Health Status ASA Pre-Surgery Classification: ASA3 Proposed Anesthetic Plan: General - Pulmonary Hx Respiratory Symptoms: No COPD: Yes - Cardiovascular System Hx Hypertension: Yes Hx Peripheral Vascular Disease: Yes - Central Nervous System Hx Neuromuscular Disorder: No (contractures) - Endocrine Hx Renal Disease: Yes (YEYO on CKD (resolved)) Hx Liver Disease: No Hx Insulin Dependent Diabetes: No Hx Non-Insulin Dependent Diabetes: No - Hematic Hx Anemia: Yes - Other Systems Hx Obesity: No - Additional Comments Anesthesia Medical History Comments: PMH dementia, unable to provide medical history. Medical history obtained from chart review. No NOK. 2 anesthesia consent signed.
--- NOTE | 2021-05-28 17:57 | Anesthesia Day of Surgery ---
Anesthesia Day of Surgery - Day of Surgery Patient Examined: Yes Patient H&P Reviewed: Yes Patient is NPO: Yes
[2021-05-28] MEDS ORDERED: PHENYLEPHRINE/NS 1,000 MCG/10 ML SYRINGE (OR USE) IV ONE (18:12)
[2021-05-28] MEDS ORDERED: ONDANSETRON 4 MG/2 ML INJ ONE (18:19)
--- NOTE | 2021-05-28 18:43 | Procedure Note ---
Date of procedure: 05/28/21 Pre-op diagnosis: Osteomyelitis/gangren of left calcaneus Post-op diagnosis: same Procedure: Left AKA Description of procedure: Pt was placed supine on the OR table. General anesthesia was administered. Left thigh and leg were prepped and draped. A fis h mouth incision was made about the distal thigh. Fascia and muscle were transected with the Bovie. SFA and SFV were clamped, divided and ligated with 0-silk ties. Distal femur was transected with a bone saw. Left leg and foot were passed off the table. Anterior and posterior fascia were approximated with interrupted sutures of 2-0 Vicryl. Skin was approximated with coy and a running suture of 4-0 Nylon. Xeroform gauze was applied to the incision followed by dry 4 X 4's, a Kerlix wrap and a Coban wrap. Pt tolerated the procedure well and was taken to PACU in stable condition. Anesthesia: other (LMA) Surgeon: DESI SUTTON Estimated blood loss: 50-100ml Pathology: list (Left leg and foot) Specimen disposition: to lab Condition: stable Disposition: PACU
--- NOTE | 2021-05-28 19:28 | Post Anesthesia Evaluation ---
- Post Anesthesia Evaluation Patient Participated: No (baseline mentation) Airway Patent: Yes Stable Respiratory Function: Yes Nausea/Vomiting: No Temp > 96.8F: Yes Pain Manageable: Yes Adequeate Hydration: Yes Anesthesia Complications: No Block Receding Appropriately: Not Applicable
[2021-05-28] MEDS: HYDROmorphone 1 MG/1 ML INJ IV PRN (23:43)
[2021-05-29] MEDS: ACETAMINOPHEN 325 MG TAB PO PRN (05:01)
[2021-05-29] MEDS: PANTOPRAZOLE 40 MG INJ IV SCH ×2 (09:53→21:02)
--- NOTE | 2021-05-29 10:02 | Progress Note ---
Assessment and Plan Assessment and plan: The patient is a 76 yo aaf who presents from [facility] with melena. History obtained from ER record and chart review as pt has h/o dementia and unable to provide much details. Pt. reportedly with melena/black stools for 2 days. Hypotensive on arrival which improved following fluids. hgb 8.5 (11 on last admission a few months ago). Brilinta is listed as home medication - unclear indication. Left heel pressure ulcer with underlying osteomyelitis GI bleed. Melena. Sepsis Hypertension COPD. Compensated Vascular dementia. Cerebral atherosclerosis. Peripheral artery disease. Arterial Doppler ultrasound of the left lower extremity showed iliac atherosclerotic disease with significant stenosis of the proximal SFA and occlusion of the mid to distal SFA. Left heel pressure ulcer with underlying osteomyelitis. Hyponatremia. 05/17/2021. No reported bleeding overnight. Hemoglobin improved to 10.5 after 1 unit PRBCs. Await endoscopy per GI recommendations. Continue PPI and follow-up H&H in a.m. Case management consultation to assist in locating family. 05/18/2021. No reported bleeding overnight. Hemoglobin remained stable at 9.1. Await endoscopy per GI recommendations. Continue PPI and follow-up H&H in a.m. Case management consultation to assist in locating family. 05/19/2021 Patient with GI bleed. Hgb 8.6. Patient has dementia and unable to give consent for EGD. No family available to sign EGD consent. Will discuss with GI Physician whether we both can sign consent . Also was called by Nurse that Wound Care Nurse recommends Surgical Consult for heel ulcer. 05/20/21 Patient with acute GI bleed . Hgb 8.7 today. Patient has dementia and unable to give consent for EGD. No family available to sign EGD consent. I discussed with Dr. Plata , GI whether we both can sign 2 Physician consent. He will repeat H/H today to make decision. Now patient has fever of 102.7. She has left heel ulcer. Will obtain blood cultures, UA, Urine culture, check Coronavirus. Consult ID Physician. Hyponatremia, improved YEYO improved 05/21/2021 H&H is stable status post transfusion of 1 unit of PRBC, and GI has signed off. Has left heel ulcer on vancomycin and Rocephin. Afebrile today. Leukocytosis is stable. ID input appreciated. Hyponatremia with sodium slightly trended down. We will start IV normal saline at 75 cc/h x 1 L. Monitor sodium. Radiology noted unable to get reach to sign consents for MRI. Vascular surgeon evaluated today and noted that given her symptoms and nonambulatory status, the patient may benefit simply from a left [id number] amputation. If the patient is going to undergo wound debridement in an attempt to heal her pressure ulcer the patient will need to be scheduled for revascularization procedure. Input appreciated. 05/22/2021. Continue current antibiotic. ID, vascular surgeon, general surgeon input appreciated. Patient needs left foot MRI and AKA, however obtaining consents is a problem. Leukocytosis has trended up. Anemia stable. Hyponatremia has improved. Monitor CBC and BMP. Hypertension is controlled. Has mild tachycardia, monitor heart rate. 05/23/2021 Patient with GI bleed, left heel ulcer, PAD. May need left AKA as per vasc surgeon. No family for consent. 05/24/21 Patient with GI bleed, left heel ulcer, PAD. As per Surgeon, patient needs left above knee amputation. There is no family available for consent. Will discuss with Case management. 05/25/21 Patient with GI bleed, left heel ulcer, Peripheral arterial disease. As per Surgeon, patient needs left above knee amputation. There is no family for consent for surgery. Discussed with case packer and sealer during rounds. 05/26/2021. Follow-up blood cultures and continue empiric antibiotics for sepsis/osteomyelitis. Patient has potential plan for nonemergent AKA pending Dr. Zacarias's consent. Amputation would be curative of infection. Given soft tissue gas and low likelihood of osteomyelitis, ID and surgery strongly recommend amputation. 05/27/2021. I spoke to the charge nurse Yasir and Dr. Zacarias who consented over the phone. I also spoke to Dr. Pruitt for consent and I will also consider as primary physician. Infectious diseases also given strong recommendation for amputation. Patient was informed of amputation and appears to have understanding and was in agreement. Dr. Pruitt will plan for amputation tomorrow. Blood cultures are negative. Continue IV antibiotics per ID recommendations. 05/28/2021. Continue empiric antibiotics for sepsis/osteomyelitis with vancomycin and ceftriaxone. AKA is planned for today. 05/29/2021. Patient tolerated the procedure of AKA yesterday. H&H remained stable. No evidence of active bleeding. Anticipate discharge back to [facility]. I will discuss with case management possibility of discharge back to [facility] today. History Interval history: No new issues overnight. Hospitalist Physical - Constitutional Vitals: Temp Pulse Resp BP Pulse Ox 98.2 F 93 H 20 123/56 95 05/29/21 07:30 05/29/21 07:30 05/29/21 07:30 05/29/21 07:30 05/29/21 07:30 General appearance: Present: no acute distress - EENT Eyes: Present: PERRL, EOM intact ENT: hearing intact, clear oral mucosa, dentition normal - Neck Neck: Present: supple, normal ROM - Respiratory Respiratory effort: normal Respiratory: bilateral: CTA - Cardiovascular Rhythm: regular Heart Sounds: Present: S1 & S2. Absent: gallop, rub - Extremities Extremities: no ischemia, No edema, Full ROM - Abdominal General gastrointestinal: soft, non-tender, non-distended, normal bowel sounds - Integumentary Integumentary: Present: clear, warm, dry - Neurologic Neurologic: CNII-XII intact, moves all extremities Results - Labs CBC & Chem 7: 05/28/21 04:47 05/28/21 04:47 Labs: Laboratory Last Values WBC 11.4 K/mm3 (4.5-11.0) H 05/28/21 04:47 RBC 2.76 M/mm3 (3.65-5.03) L 05/28/21 04:47 Hgb 8.1 gm/dl (10.1-14.3) L 05/28/21 04:47 Hct 24.3 % (30.3-42.9) L 05/28/21 04:47 MCV 88 fl (79-97) 05/28/21 04:47 MCH 29 pg (28-32) 05/28/21 04:47 MCHC 33 % (30-34) 05/28/21 04:47 RDW 21.4 % (13.2-15.2) H 05/28/21 04:47 Plt Count 474 K/mm3 (140-440) H 05/28/21 04:47 Lymph % (Auto) 8.9 % (13.4-35.0) L 05/22/21 04:28 Bath % (Auto) 6.0 % (0.0-7.3) 05/22/21 04:28 Eos % (Auto) 0.1 % (0.0-4.3) 05/22/21 04:28 Baso % (Auto) 0.1 % (0.0-1.8) 05/22/21 04:28 Lymph # (Auto) 1.5 K/mm3 (1.2-5.4) 05/22/21 04:28 Bath # (Auto) 1.0 K/mm3 (0.0-0.8) H 05/22/21 04:28 Eos # (Auto) 0.0 K/mm3 (0.0-0.4) 05/22/21 04:28 Baso # (Auto) 0.0 K/mm3 (0.0-0.1) 05/22/21 04:28 Seg Neutrophils % 84.9 % (40.0-70.0) H 05/22/21 04:28 Seg Neutrophils # 14.0 K/mm3 (1.8-7.7) H 05/22/21 04:28 PT 12.7 Sec. (12.2-14.9) 05/16/21 12:28 INR 0.90 (0.87-1.13) 05/16/21 12:28 APTT 29.1 Sec. (24.2-36.6) 05/16/21 12:28 Sodium 134 mmol/L (137-145) L 05/28/21 04:47 Potassium 4.3 mmol/L (3.6-5.0) 05/28/21 04:47 Chloride 103.8 mmol/L (98-107) 05/28/21 04:47 Carbon Dioxide 19 mmol/L (22-30) L 05/28/21 04:47 Anion Gap 16 mmol/L 05/28/21 04:47 BUN 33 mg/dL (7-17) H 05/28/21 04:47 Creatinine 1.2 mg/dL (0.6-1.2) 05/28/21 04:47 Estimated GFR 53 ml/min 05/28/21 04:47 BUN/Creatinine Ratio 28 % 05/28/21 04:47 Glucose 100 mg/dL (65-100) 05/28/21 04:47 POC Glucose 77 mg/dL (70-105) 05/27/21 07:35 Calcium 8.2 mg/dL (8.4-10.2) L 05/28/21 04:47 Total Bilirubin 0.50 mg/dL (0.1-1.2) 05/16/21 12:28 AST 20 units/L (5-40) 05/16/21 12:28 ALT 10 units/L (7-56) 05/16/21 12:28 Alkaline Phosphatase 76 units/L (35-129) 05/16/21 12:28 Total Protein 8.7 g/dL (6.3-8.2) H 05/16/21 12:28 Albumin 3.8 g/dL (3.9-5) L 05/16/21 12:28 Albumin/Globulin Ratio 0.8 % 05/16/21 12:28 Urine Color Yellow (Yellow) 05/20/21 Unknown Urine Turbidity Hazy (Clear) 05/20/21 Unknown Urine pH 9.0 (5.0-7.0) H 05/20/21 Unknown Ur Specific [place] 1.020 (1.003-1.030) 05/20/21 Unknown Urine Protein 100 mg/dl mg/dL (Negative) 05/20/21 Unknown Urine Glucose (UA) Neg mg/dL (Negative) 05/20/21 Unknown Urine Ketones Neg mg/dL (Negative) 05/20/21 Unknown Urine Blood Neg (Negative) 05/20/21 Unknown Urine Nitrite Neg (Negative) 05/20/21 Unknown Urine Bilirubin Neg (Negative) 05/20/21 Unknown Urine Urobilinogen < 2.0 mg/dL (<2.0) 05/20/21 Unknown Ur Leukocyte Esterase Neg (Negative) 05/20/21 Unknown Urine WBC (Auto) 3.0 /HPF (0.0-6.0) 05/20/21 Unknown Urine RBC (Auto) 2.0 /HPF (0.0-6.0) 05/20/21 Unknown U Epithel Cells (Auto) 5.0 /HPF (0-13.0) 05/20/21 Unknown Urine Bacteria (Auto) 1+ /HPF (Negative) 05/20/21 Unknown Triple Phos Crystals 1+ 05/20/21 Unknown Urine Mucus Few /HPF 05/20/21 Unknown Vancomycin Trough 4.0 ug/mL (5.0-20.0) L 05/24/21 13:29 Random Vancomycin 4.0 ug/mL (0-40.0) 05/22/21 04:28 Coronavirus (PCR) Negative (Negative) 05/20/21 11:52 Blood Type O POSITIVE 05/28/21 04:47 Antibody Screen Negative 05/28/21 04:47 Crossmatch See Detail 05/16/21 12:28 Gallo/IV: Voiding Method External Female Catheter Active Medications - Current Medications Current Medications: Generic Name Dose Route Start Last Admin Trade Name Freq PRN Reason Stop Dose Admin Acetaminophen 650 mg 05/16/21 13:23 05/29/21 05:01 Acetaminophen 325 Mg Tab PO 650 mg Q4H PRN Administration Pain MILD(1-3)/Fever >100.5/MASTERS Atorvastatin Calcium 80 mg 05/16/21 22:00 05/28/21 22:29 Atorvastatin 40 Mg Tab PO 80 mg QHS MARQUES Administration Hydromorphone HCl 0.5 mg 05/16/21 13:23 05/28/21 23:43 Hydromorphone 1 Mg/1 Ml Inj IV 0.5 mg Q23H PRN Administration Pain , Severe (7-10) Hydromorphone HCl 0.5 mg 05/28/21 17:57 Hydromorphone 1 Mg/1 Ml Inj IV Q10MIN PRN Pain , Severe (7-10) Ceftriaxone Sodium 2 gm in 100 mls @ 200 mls/hr 05/20/21 16:00 05/27/21 16:49 Rocephin/Ns 2 Gm/100 Ml IV 06/30/21 16:29 200 mls/hr Q24H MARQUES Administration Protocol Vancomycin HCl 500 mg/ Sodium 110 mls @ 66.667 mls/hr 05/26/21 00:00 05/28/21 23:55 Chloride IV 66.667 mls/hr Q12H MARQUES Administration Ondansetron HCl 4 mg 05/16/21 13:23 Ondansetron 4 Mg/2 Ml Inj IV Q8H PRN Nausea And Vomiting Ondansetron HCl 4 mg 05/28/21 17:57 Ondansetron 4 Mg/2 Ml Inj IV ONCE PRN Nausea And Vomiting Oxycodone/Acetaminophen 1 tab 05/16/21 13:23 Oxycodone /Acetaminophen 5-325mg Tab PO Q16H PRN Pain, Moderate (4-6) Pantoprazole Sodium 40 mg 05/19/21 10:00 05/29/21 09:53 Pantoprazole 40 Mg Inj IV 40 mg BID MARQUES Administration Sodium Chloride 10 ml 05/16/21 22:00 05/29/21 09:53 Sodium Chloride 0.9% 10 Ml Flush Syringe IV 10 ml BID MARQUES Administration Sodium Chloride 10 ml 05/16/21 13:23 Sodium Chloride 0.9% 10 Ml Flush Syringe IV PRN PRN LINE FLUSH Nutrition/Malnutrition Assess - Dietary Evaluation Nutrition/Malnutrition Findings: Nutrition Notes Start: 05/17/21 09:42 Freq: Status: Active Protocol: Document 05/26/21 14:15 GB (Rec: 05/26/21 14:27 GB [email or web address]) Nutrition Notes 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 Weight Status Appropriate Subjective/Other Information MD notes 05/26: potential for non-emergent AKA pending family consent PO intake is recorded at 50%. Ensure supplement BID. Advance diet back to cardiac when medically feasible. Percent of energy/protein needs met: PO intake of cardiac meals and ensure supplement at 50% or greater meets 100% EEN. Clear liquid diet does not meet 75% EEN. Burn Absent Trauma Absent GI Symptoms None Food Allergy No Skin Integrity/Comment wound to left heel Current % PO Fair (50-74%) Minimum of two criteria Yes Energy Intake (severe) < or equal to 50% Estimated Energy Requirement > or equal to 5 days Body Fat Depletion Moderate depletion (severe) Muscle Mass Moderate Depletion (severe) Reduced Hand Method Lasting Machine Operator Strength Measurably Reduced (severe) #2 Nutrition Diagnosis Malnutrition Comments: PO intake of meals less than 25% while in hospital x2 days Documented weight loss of -4.2 % in two months 05/26: PO intake of meals recorded @50% or greater - improving. Documented wt gain of +35%, reweigh for confirmation Etiology dementia, COPD As Evidenced by Signs and Symptoms visual fat/muscle mass depletion, po intake of meals 25% (pt states same at home), documented weight loss of -4.2 % but could be greater as current weight is estimated by hospital staff. Diagnosis Progress(for reassessment Improved documentation) #1 Nutrition Diagnosis Increased nutrient needs ( specify in comment below) Comments: protein 05/26 MD notes: possible AKA Etiology wound healing As Evidenced by Signs and Symptoms heel wound Diagnosis Progress(for reassessment Continues documentation) Is patient on ventilator? No Is Patient Ambulatory and/or Out of Bed No REE-([facility]-confined to bed) 1117.464 Kcal/Kg value to use for calculation 30 Approximate Energy Requirements Using 1572 kcal/Kg Calculation Used for Recommendations Kcal/kg Additional Notes Protein: (1-1.5g/kg) @ 52k-78g Fluid: 1 ml/kcal or per MD Nutrition Intervention Change Diet Order: Advance to Cardiac when medically feasible Nutrition Support: n/a Add Supplement/Snack (indicate name/kcal Ensure Enlive BID /protein ) 05/26: continue Provides kCal: 700 Provides Protein (gm) 40 Goal #1 PO intake of meals to improve to 50% during LOS 05/26: met, continues Goal #2 PO intake of nutritional supplement beverage to be 50% or greater BID during LOS 05/26: unable to assess, po intake not recorded routinely Goal #3 Wt gain or maintenance 05/26: Gain of +35% Follow-Up By: 06/02/21 Additional Comments F/U: intakes, ONS tolerance, AKA status(heel wound)
--- NOTE | 2021-05-29 10:08 | Discharge Summary ---
Providers - Providers Date of Admission: 05/19/21 09:36 Date of discharge: 05/29/21 Attending physician: DODIE LOYA 05/16/21 13:19 Consult to Physician [CONS] Urgent Comment: Consulting Provider: ELLI COOPER Physician Instructions: Reason For Exam: GI bleed 05/17/21 07:29 Consult to Wound/ET Nurse [CONS] Routine Reason For Exam: wound eval 05/17/21 14:43 Consult to Dietitian/Nutrition [CONS] Routine Physician Instructions: Reason For Exam: Reason for Consult: Pt needs oral supplement 05/19/21 12:50 Consult to Physician [CONS] Routine Comment: Consulting Provider: DESI PRUITT Physician Instructions: Reason For Exam: Left heel ulcer 05/20/21 12:19 Physical Therapy Evaluation and Treat [CONS] Urgent Comment: Reason For Exam: PT to eval and treat 05/20/21 12:20 Occupational Therapy Evaluate and Treat [CONS] Urgent Comment: Reason For Exam: OT to eval and treat 05/20/21 13:00 Consult to Physician [CONS] Routine Comment: Consulting Provider: KODI LUND Physician Instructions: Reason For Exam: Fever 102.7, left heel ulcer 05/21/21 10:26 Consult to Physician [CONS] Routine Comment: Consulting Provider: LILIA LORD Physician Instructions: Reason For Exam: Left lower extremity PVD with occlusion 05/22/21 13:46 Consult to Case Management [CONS] Routine Services Needed at Discharge: Home Health Services Notified:: case management Additional Physician Instructions: John Lund MD [facility] ([facility]) M: [phone] O: [phone] F: [phone] Outpatient parenteral antibiotic therapy orders Diagnosis: Left heel osteomyelitis Antibiotic administration: vancomycin 500mg q24h and ceftriaxone 2g q24h until 06/28/2021 Line: PICC Lab monitoring: CBC with differential, BUN, creatinine, LFTs, vancomycin trough, CRP once per week preferably on Tuesday or Tuesday Vancomycin: Check creatinine and vancomycin trough every Tuesday and , fax results to [phone] For critical labs, call office: [phone] John Lund Primary care physician: HARRIETT SABA Hospitalization Reason for admission: melena Condition: Fair Hospital course: The patient is a 76 yo aaf who [facility] from senior living with melena. History obtained from ER record and chart review as pt has h/o dementia and unable to provide much details. Pt. reportedly with melena/black stools for 2 days. Hypotensive on arrival which improved following fluids. hgb 8.5 (11 on last admission a few months ago). Brilinta is listed as home medication - unclear indication. The patient was admitted with diagnosis below: Left heel pressure ulcer with underlying osteomyelitis GI bleed. Melena. Sepsis Hypertension COPD. Compensated Vascular dementia. Cerebral atherosclerosis. Peripheral artery disease. Arterial Doppler ultrasound of the left lower extremity showed iliac atherosclerotic disease with significant stenosis of the proximal SFA and occlusion of the mid to distal SFA. Left heel pressure ulcer with underlying osteomyelitis. Hyponatremia. Hospital course: 05/17/2021. No reported bleeding overnight. Hemoglobin improved to 10.5 after 1 unit PRBCs. Await endoscopy per GI recommendations. Continue PPI and follow- up H&H in a.m. Case management consultation to assist in locating family. 05/18/2021. No reported bleeding overnight. Hemoglobin remained stable at 9.1. Await endoscopy per GI recommendations. Continue PPI and follow-up H&H in a.m. Case management consultation to assist in locating family. 05/19/2021 Patient with GI bleed. Hgb 8.6. Patient has dementia and unable to give consent for EGD. No family available to sign EGD consent. Will discuss with GI Physician whether we both can sign consent . Also was called by Nurse that Wound Care Nurse recommends Surgical Consult for heel ulcer. 05/20/21 Patient with acute GI bleed . Hgb 8.7 today. Patient has dementia and unable to give consent for EGD. No family available to sign EGD consent. I discussed with Dr. Plata , GI whether we both can sign 2 Physician consent. He will repeat H/H today to make decision. Now patient has fever of 102.7. She has left heel ulcer. Will obtain blood cultures, UA, Urine culture, check Coronavirus. Consult ID Physician. Hyponatremia, improved YEYO improved 05/21/2021 H&H is stable status post transfusion of 1 unit of PRBC, and GI has signed off. Has left heel ulcer on vancomycin and Rocephin. Afebrile today. Leukocytosis is stable. ID input appreciated. Hyponatremia with sodium slightly trended down. We will start IV normal saline at 75 cc/h x 1 L. Monitor sodium. Radiology noted unable to get reach to sign consents for MRI. Vascular surgeon evaluated today and noted that given her symptoms and nonambulatory status, the patient may benefit simply from a left [id number] amputation. If the patient is going to undergo wound debridement in an attempt to heal her pressure ulcer the patient will need to be scheduled for revascularization procedure. Input appreciated. 05/22/2021. Continue current antibiotic. ID, vascular surgeon, general surgeon input appreciated. Patient needs left foot MRI and AKA, however obtaining consents is a problem. Leukocytosis has trended up. Anemia stable. Hyponatremia has improved. Monitor CBC and BMP. Hypertension is controlled. Has mild tachycardia, monitor heart rate. 05/23/2021 Patient with GI bleed, left heel ulcer, PAD. May need left AKA as per vasc surgeon. No family for consent. 05/24/21 Patient with GI bleed, left heel ulcer, PAD. As per Surgeon, patient needs left above knee amputation. There is no family available for consent. Will discuss with Case management. 05/25/21 Patient with GI bleed, left heel ulcer, Peripheral arterial disease. As per Surgeon, patient needs left above knee amputation. There is no family for consent for surgery. Discussed with immigration case worker during rounds. 05/26/2021. Follow-up blood cultures and continue empiric antibiotics for sepsis/osteomyelitis. Patient has potential plan for nonemergent AKA pending Dr. Saba's consent. Amputation would be curative of infection. Given soft tissue gas and low likelihood of osteomyelitis, ID and surgery strongly recommend amputation. 05/27/2021. I spoke to the charge nurse Yasir and Dr. Saba who consented over the phone. I also spoke to Dr. Pruitt for consent and I will also consider as primary physician. Infectious diseases also given strong recommendation for amputation. Patient was informed of amputation and appears to have un derstanding and was in agreement. Dr. Pruitt will plan for amputation tomorrow. Blood cultures are negative. Continue IV antibiotics per ID recommendations. 05/28/2021. Continue empiric antibiotics for sepsis/osteomyelitis with vancomycin and ceftriaxone. AKA is planned for today. 05/29/2021. Patient tolerated the procedure of AKA yesterday. H&H remained stable. No evidence of active bleeding. Anticipate discharge back to senior living. I will discuss with case management possibility of discharge back to [facility] today. Dedicated discharge time 35 minutes. Disposition: [facility] Final Discharge Diagnosis (Prints w/discharge instructions): Left heel pressure ulcer with underlying osteomyelitis, GI bleed, Melena, Sepsis, Hypertension, COPD. Compensated, Vascular dementia, Cerebral atherosclerosis. Peripheral artery disease. Arterial Doppler ultrasound of the left lower extremity showed iliac atherosclerotic disease with significant stenosis of the proximal SFA and occlusion of the mid to distal SFA. Left heel pressure ulcer with underlying osteomyelitis. Hyponatremia. Core Measure Documentation - Palliative Care Palliative Care/ Comfort Measures: Not Applicable - Core Measures Any of the following diagnoses?: none Exam - Constitutional Vitals: Temp Pulse Resp BP Pulse Ox 98.2 F 93 H 20 123/56 95 05/29/21 07:30 05/29/21 07:30 05/29/21 07:30 05/29/21 07:30 05/29/21 07:30 General appearance: Present: no acute distress, well-nourished - EENT Eyes: Present: PERRL ENT: hearing intact, clear oral mucosa - Neck Neck: Present: supple, normal ROM - Respiratory Respiratory effort: normal Respiratory: bilateral: CTA - Cardiovascular Heart Sounds: Present: S1 & S2. Absent: rub, click - Extremities Extremities: pulses symmetrical, No edema Extremity abnormal: other (Left AKA) Peripheral Pulses: within normal limits - Abdominal General gastrointestinal: Present: soft, non-tender, non-distended, normal bowel sounds Female genitourinary: Present: normal - Integumentary Integumentary: Present: clear, warm, dry - Musculoskeletal Musculoskeletal: gait normal, strength equal bilaterally - Psychiatric Psychiatric: appropriate mood/affect, intact judgment & insight - Neurologic Neurologic: CNII-XII intact, moves all extremities Plan Activity: advance as tolerated Weight Bearing Status: Non-Weight Bearing Diet: regular Wound: per your surgeon's advice, other (Left AKA wound care) Follow up with: HARRIETT SABA MD [Primary Care Provider] - 7 Days DESI PRUITT MD [Staff Physician] - 7 Days KRISTEN BOUDREAUX MD [Staff Physician] - 7 Days Forms: Accompanied Note
--- NOTE | 2021-05-29 14:49 | Progress Note ---
Assessment and Plan Cultures: None A/P: 76-year-old female past medical history hypertension, COPD, vascular dementia #Acute sepsis: Present with fevers and leukocytosis. Likely secondary to left heel pressure ulcer #Left heel pressure ulcer: With underlying osteomyelitis. #Vascular dementia: Unable to give history Recs: -Stopped empiric antibiotics given AKA which is curative infection. -Wound care to prevent infection of the stump. Thank you for the consult, we will sign off. Please call for questions. John Blevins MD [facility] O: [phone] F: [phone] Subjective Date of service: 05/29/21 Principal diagnosis: GI bleed Interval history: Afebrile, no acute change. Amputation performed yesterday. Objective - Exam Narrative Exam: Physical Exam: Constitutional: Awake, confused Head, Ears, Nose: Normocephalic, atraumatic. External ears, nose normal Eyes: Conjunctivae/corneas clear. No icterus. No ptosis. Neck: Supple, no meningeal signs Oral: dentition fair, no thrush Cardiovascular: S1, S2 normal. Respiratory: Good air entry, clear to auscultation bilaterally GI: Soft, non-tender; bowel sounds normal. No peritoneal signs. Musculoskeletal: Left heel pressure ulcer Skin: No rash or abscess Hem/Lymphatic: No palpable cervical or supraclavicular nodes. No lymphangitis Psych: No agitation Neurological: Confused - Constitutional Vitals: Vital Signs Temp Pulse Resp BP Pulse Ox 98.7 F 89 19 128/57 98 05/29/21 12:13 05/29/21 12:13 05/29/21 12:13 05/29/21 12:09 05/29/21 12:13 Temperature -Last 24 Hours Temperature 98.7 F Temperature 98.2 F Temperature 99.1 F Temperature 100.0 F Temperature 98.5 F Temperature 97.2 F Temperature 97.5 F Temperature 97.3 F - Labs CBC & Chem 7: 05/28/21 04:47 05/28/21 04:47
[2021-05-30 08:29] VITALS: BP 132/59
--- NOTE | 2021-05-30 08:55 | Progress Note ---
Assessment and Plan Assessment and plan: The patient is a 76 yo aaf who presents from longterm with melena. History obtained from ER record and chart review as pt has h/o dementia and unable to provide much details. Pt. reportedly with melena/black stools for 2 days. Hypotensive on arrival which improved following fluids. hgb 8.5 (11 on last admission a few months ago). Brilinta is listed as home medication - unclear indication. Left heel pressure ulcer with underlying osteomyelitis GI bleed. Melena. Sepsis Hypertension COPD. Compensated Vascular dementia. Cerebral atherosclerosis. Peripheral artery disease. Arterial Doppler ultrasound of the left lower extremity showed iliac atherosclerotic disease with significant stenosis of the proximal SFA and occlusion of the mid to distal SFA. Left heel pressure ulcer with underlying osteomyelitis. Hyponatremia. 05/17/2021. No reported bleeding overnight. Hemoglobin improved to 10.5 after 1 unit PRBCs. Await endoscopy per GI recommendations. Continue PPI and follow-up H&H in a.m. Case management consultation to assist in locating family. 05/18/2021. No reported bleeding overnight. Hemoglobin remained stable at 9.1. Await endoscopy per GI recommendations. Continue PPI and follow-up H&H in a.m. Case management consultation to assist in locating family. 05/19/2021 Patient with GI bleed. Hgb 8.6. Patient has dementia and unable to give consent for EGD. No family available to sign EGD consent. Will discuss with GI Physician whether we both can sign consent . Also was called by Nurse that Wound Care Nurse recommends Surgical Consult for heel ulcer. 05/20/21 Patient with acute GI bleed . Hgb 8.7 today. Patient has dementia and unable to give consent for EGD. No family available to sign EGD consent. I discussed with Dr. Plata , GI whether we both can sign 2 Physician consent. He will repeat H/H today to make decision. Now patient has fever of 102.7. She has left heel ulcer. Will obtain blood cultures, UA, Urine culture, check Coronavirus. Consult ID Physician. Hyponatremia, improved YEYO improved 05/21/2021 H&H is stable status post transfusion of 1 unit of PRBC, and GI has signed off. Has left heel ulcer on vancomycin and Rocephin. Afebrile today. Leukocytosis is stable. ID input appreciated. Hyponatremia with sodium slightly trended down. We will start IV normal saline at 75 cc/h x 1 L. Monitor sodium. Radiology noted unable to get reach to sign consents for MRI. Vascular surgeon evaluated today and noted that given her symptoms and nonambulatory status, the patient may benefit simply from a left [id number] amputation. If the patient is going to undergo wound debridement in an attempt to heal her pressure ulcer the patient will need to be scheduled for revascularization procedure. Input appreciated. 05/22/2021. Continue current antibiotic. ID, vascular surgeon, general surgeon input appreciated. Patient needs left foot MRI and AKA, however obtaining consents is a problem. Leukocytosis has trended up. Anemia stable. Hyponatremia has improved. Monitor CBC and BMP. Hypertension is controlled. Has mild tachycardia, monitor heart rate. 05/23/2021 Patient with GI bleed, left heel ulcer, PAD. May need left AKA as per vasc surgeon. No family for consent. 05/24/21 Patient with GI bleed, left heel ulcer, PAD. As per Surgeon, patient needs left above knee amputation. There is no family available for consent. Will discuss with Case management. 05/25/21 Patient with GI bleed, left heel ulcer, Peripheral arterial disease. As per Surgeon, patient needs left above knee amputation. There is no family for consent for surgery. Discussed with case worker during rounds. 05/26/2021. Follow-up blood cultures and continue empiric antibiotics for sepsis/osteomyelitis. Patient has potential plan for nonemergent AKA pending Dr. Zacarias's consent. Amputation would be curative of infection. Given soft tissue gas and low likelihood of osteomyelitis, ID and surgery strongly recommend amputation. 05/27/2021. I spoke to the charge nurse Yasir and Dr. Zacarias who consented over the phone. I also spoke to Dr. Pruitt for consent and I will also consider as primary physician. Infectious diseases also given strong recommendation for amputation. Patient was informed of amputation and appears to have understanding and was in agreement. Dr. Pruitt will plan for amputation tomorrow. Blood cultures are negative. Continue IV antibiotics per ID recommendations. 05/28/2021. Continue empiric antibiotics for sepsis/osteomyelitis with vancomycin and ceftriaxone. AKA is planned for today. 05/29/2021. Patient tolerated the procedure of AKA yesterday. H&H remained stable. No evidence of active bleeding. Anticipate discharge back to longterm. I will discuss with case management possibility of discharge back to [facility] today. 05/30/2021. Covid testing was found to be negative for clearance to discharge back to [facility] longterm. Anticipate discharge back to longterm. I will discuss with case management possibility of discharge back to [facility] today but it is the weekend. History Interval history: No new issues overnight. Hospitalist Physical - Constitutional Vitals: Temp Pulse Resp BP Pulse Ox 97.9 F 87 16 132/59 99 05/30/21 07:33 05/30/21 07:33 05/30/21 07:33 05/30/21 07:33 05/30/21 07:33 General appearance: Present: no acute distress, well-nourished - EENT Eyes: Present: PERRL, EOM intact ENT: hearing intact, clear oral mucosa, dentition normal - Neck Neck: Present: supple, normal ROM - Respiratory Respiratory effort: normal Respiratory: bilateral: CTA - Cardiovascular Rhythm: regular Heart Sounds: Present: S1 & S2. Absent: gallop, rub - Extremities Extremities: no ischemia, No edema, Full ROM - Abdominal General gastrointestinal: soft, non-tender, non-distended, normal bowel sounds - Integumentary Integumentary: Present: clear, warm, dry - Neurologic Neurologic: CNII-XII intact, moves all extremities Results - Labs CBC & Chem 7: 05/28/21 04:47 05/28/21 04:47 Labs: Laboratory Last Values WBC 11.4 K/mm3 (4.5-11.0) H 05/28/21 04:47 RBC 2.76 M/mm3 (3.65-5.03) L 05/28/21 04:47 Hgb 8.1 gm/dl (10.1-14.3) L 05/28/21 04:47 Hct 24.3 % (30.3-42.9) L 05/28/21 04:47 MCV 88 fl (79-97) 05/28/21 04:47 MCH 29 pg (28-32) 05/28/21 04:47 MCHC 33 % (30-34) 05/28/21 04:47 RDW 21.4 % (13.2-15.2) H 05/28/21 04:47 Plt Count 474 K/mm3 (140-440) H 05/28/21 04:47 Lymph % (Auto) 8.9 % (13.4-35.0) L 05/22/21 04:28 [place] % (Auto) 6.0 % (0.0-7.3) 05/22/21 04:28 Eos % (Auto) 0.1 % (0.0-4.3) 05/22/21 04:28 Baso % (Auto) 0.1 % (0.0-1.8) 05/22/21 04:28 Lymph # (Auto) 1.5 K/mm3 (1.2-5.4) 05/22/21 04:28 [place] # (Auto) 1.0 K/mm3 (0.0-0.8) H 05/22/21 04:28 Eos # (Auto) 0.0 K/mm3 (0.0-0.4) 05/22/21 04:28 Baso # (Auto) 0.0 K/mm3 (0.0-0.1) 05/22/21 04:28 Seg Neutrophils % 84.9 % (40.0-70.0) H 05/22/21 04:28 Seg Neutrophils # 14.0 K/mm3 (1.8-7.7) H 05/22/21 04:28 PT 12.7 Sec. (12.2-14.9) 05/16/21 12:28 INR 0.90 (0.87-1.13) 05/16/21 12:28 APTT 29.1 Sec. (24.2-36.6) 05/16/21 12:28 Sodium 134 mmol/L (137-145) L 05/28/21 04:47 Potassium 4.3 mmol/L (3.6-5.0) 05/28/21 04:47 Chloride 103.8 mmol/L (98-107) 05/28/21 04:47 Carbon Dioxide 19 mmol/L (22-30) L 05/28/21 04:47 Anion Gap 16 mmol/L 05/28/21 04:47 BUN 33 mg/dL (7-17) H 05/28/21 04:47 Creatinine 1.2 mg/dL (0.6-1.2) 05/28/21 04:47 Estimated GFR 53 ml/min 05/28/21 04:47 BUN/Creatinine Ratio 28 % 05/28/21 04:47 Glucose 100 mg/dL (65-100) 05/28/21 04:47 POC Glucose 77 mg/dL (70-105) 05/27/21 07:35 Calcium 8.2 mg/dL (8.4-10.2) L 05/28/21 04:47 Total Bilirubin 0.50 mg/dL (0.1-1.2) 05/16/21 12:28 AST 20 units/L (5-40) 05/16/21 12:28 ALT 10 units/L (7-56) 05/16/21 12:28 Alkaline Phosphatase 76 units/L (35-129) 05/16/21 12:28 Total Protein 8.7 g/dL (6.3-8.2) H 05/16/21 12:28 Albumin 3.8 g/dL (3.9-5) L 05/16/21 12:28 Albumin/Globulin Ratio 0.8 % 05/16/21 12:28 Urine Color Yellow (Yellow) 05/20/21 Unknown Urine Turbidity Hazy (Clear) 05/20/21 Unknown Urine pH 9.0 (5.0-7.0) H 05/20/21 Unknown Ur Specific [place] 1.020 (1.003-1.030) 05/20/21 Unknown Urine Protein 100 mg/dl mg/dL (Negative) 05/20/21 Unknown Urine Glucose (UA) Neg mg/dL (Negative) 05/20/21 Unknown Urine Ketones Neg mg/dL (Negative) 05/20/21 Unknown Urine Blood Neg (Negative) 05/20/21 Unknown Urine Nitrite Neg (Negative) 05/20/21 Unknown Urine Bilirubin Neg (Negative) 05/20/21 Unknown Urine Urobilinogen < 2.0 mg/dL (<2.0) 05/20/21 Unknown Ur Leukocyte Esterase Neg (Negative) 05/20/21 Unknown Urine WBC (Auto) 3.0 /HPF (0.0-6.0) 05/20/21 Unknown Urine RBC (Auto) 2.0 /HPF (0.0-6.0) 05/20/21 Unknown U Epithel Cells (Auto) 5.0 /HPF (0-13.0) 05/20/21 Unknown Urine Bacteria (Auto) 1+ /HPF (Negative) 05/20/21 Unknown Triple Phos Crystals 1+ 05/20/21 Unknown Urine Mucus Few /HPF 05/20/21 Unknown Vancomycin Trough 4.0 ug/mL (5.0-20.0) L 05/24/21 13:29 Random Vancomycin 4.0 ug/mL (0-40.0) 05/22/21 04:28 Coronavirus (PCR) Negative (Negative) 05/29/21 07:59 Blood Type O POSITIVE 05/28/21 04:47 Antibody Screen Negative 05/28/21 04:47 Crossmatch See Detail 05/16/21 12:28 Gallo/IV: Voiding Method External Female Catheter Active Medications - Current Medications Current Medications: Generic Name Dose Route Start Last Admin Trade Name Freq PRN Reason Stop Dose Admin Acetaminophen 650 mg 05/16/21 13:23 05/29/21 05:01 Acetaminophen 325 Mg Tab PO 650 mg Q4H PRN Administration Pain MILD(1-3)/Fever >100.5/MASTERS Atorvastatin Calcium 80 mg 05/16/21 22:00 05/29/21 21:02 Atorvastatin 40 Mg Tab PO 80 mg QHS MARQUES Administration Hydromorphone HCl 0.5 mg 05/16/21 13:23 05/28/21 23:43 Hydromorphone 1 Mg/1 Ml Inj IV 0.5 mg Q23H PRN Administration Pain , Severe (7-10) Hydromorphone HCl 0.5 mg 05/28/21 17:57 Hydromorphone 1 Mg/1 Ml Inj IV Q10MIN PRN Pain , Severe (7-10) Ondansetron HCl 4 mg 05/16/21 13:23 Ondansetron 4 Mg/2 Ml Inj IV Q8H PRN Nausea And Vomiting Ondansetron HCl 4 mg 05/28/21 17:57 Ondansetron 4 Mg/2 Ml Inj IV ONCE PRN Nausea And Vomiting Oxycodone/Acetaminophen 1 tab 05/16/21 13:23 Oxycodone /Acetaminophen 5-325mg Tab PO Q16H PRN Pain, Moderate (4-6) Pantoprazole Sodium 40 mg 05/19/21 10:00 05/29/21 21:02 Pantoprazole 40 Mg Inj IV 40 mg BID MARQUES Administration Sodium Chloride 10 ml 05/16/21 22:00 05/29/21 21:02 Sodium Chloride 0.9% 10 Ml Flush Syringe IV 10 ml BID MARQUES Administration Sodium Chloride 10 ml 05/16/21 13:23 Sodium Chloride 0.9% 10 Ml Flush Syringe IV PRN PRN LINE FLUSH Nutrition/Malnutrition Assess - Dietary Evaluation Nutrition/Malnutrition Findings: Nutrition Notes Start: 05/17/21 09:42 Freq: Status: Active Protocol: Document 05/26/21 14:15 GB (Rec: 05/26/21 14:27 GB [id number]) Nutrition Notes Need for Assessment generated from: alterations tailor,MST,Low BMI Initial or Follow up Reassessment Current Diagnosis COPD,Hypertension Other Pertinent Diagnosis GIB, dementia, 05/26: possible AKA Current Diet Clear liquid diet Labs/Tests 05/26: Na 130, BIN 31, glucose 104, Ca 8.3 Pertinent Medications Vancomycin Height 5 ft Weight 52.4 kg [place] Body Weight (kg) 45.45 BMI 22.5 Weight change and time frame 05/16: 38.55kg 05/22: 52.4kg change of +13.8kg for +35.9% significant gain. Weight Status Appropriate Subjective/Other Information MD notes 05/26: potential for non-emergent AKA pending family consent PO intake is recorded at 50%. Ensure supplement BID. Advance diet back to cardiac when medically feasible. Percent of energy/protein needs met: PO intake of cardiac meals and ensure supplement at 50% or greater meets 100% EEN. Clear liquid diet does not meet 75% EEN. Burn Absent Trauma Absent GI Symptoms None Food Allergy No Skin Integrity/Comment wound to left heel Current % PO Fair (50-74%) Minimum of two criteria Yes Energy Intake (severe) < or equal to 50% Estimated Energy Requirement > or equal to 5 days Body Fat Depletion Moderate depletion (severe) Muscle Mass Moderate Depletion (severe) Reduced Snack Bar Attendant Strength Measurably Reduced (severe) #2 Nutrition Diagnosis Malnutrition Comments: PO intake of meals less than 25% while in hospital x2 days Documented weight loss of -4.2 % in two months 05/26: PO intake of meals recorded @50% or greater - improving. Documented wt gain of +35%, reweigh for confirmation Etiology dementia, COPD As Evidenced by Signs and Symptoms visual fat/muscle mass depletion, po intake of meals 25% (pt states same at home), documented weight loss of -4.2 % but could be greater as current weight is estimated by hospital staff. Diagnosis Progress(for reassessment Improved documentation) #1 Nutrition Diagnosis Increased nutrient needs ( specify in comment below) Comments: protein 05/26 MD notes: possible AKA Etiology wound healing As Evidenced by Signs and Symptoms heel wound Diagnosis Progress(for reassessment Continues documentation) Is patient on ventilator? No Is Patient Ambulatory and/or Out of Bed No REE-([place]-St. Jeor-confined to bed) 1117.464 Kcal/Kg value to use for calculation 30 Approximate Energy Requirements Using 1572 kcal/Kg Calculation Used for Recommendations Kcal/kg Additional Notes Protein: (1-1.5g/kg) @ 52k-78g Fluid: 1 ml/kcal or per MD Nutrition Intervention Change Diet Order: Advance to Cardiac when medically feasible Nutrition Support: n/a Add Supplement/Snack (indicate name/kcal Ensure Enlive BID /protein ) 05/26: continue Provides kCal: 700 Provides Protein (gm) 40 Goal #1 PO intake of meals to improve to 50% during LOS 05/26: met, continues Goal #2 PO intake of nutritional supplement beverage to be 50% or greater BID during LOS 05/26: unable to assess, po intake not recorded routinely Goal #3 Wt gain or maintenance 05/26: Gain of +35% Follow-Up By: 06/02/21 Additional Comments F/U: intakes, ONS tolerance, AKA status(heel wound)
[2021-05-30] MEDS: PANTOPRAZOLE 40 MG INJ IV SCH (10:11)
== END 2021-05-30 10:05 | DRG 853 ==
LOC: ED 11:09 → INTOOBSV 16:32 → 4A 16:32 → OBSVTOIN 05-19 09:36
PROVIDERS: ADMIT Internal Medicine; ATTEND Hospitalist
PROC: 30233N1 Transfusion of Nonautologous Red Blood Cells into Peripheral Vein, Percutaneous Approach (ICD-10-PCS; 2021-05-16)
PROC: 0Y6D0Z3 Detachment at Left Upper Leg, Low, Open Approach (ICD-10-PCS; principal; 2021-05-28)
DX: A41.9 Sepsis, unspecified organism (principal); L89.624 Pressure ulcer of left heel, stage 4; K92.1 Melena; N17.9 Acute kidney failure, unspecified; E87.2 Acidosis; E44.0 Moderate protein-calorie malnutrition; Z68.1 Body mass index [BMI] 19.9 or less, adult; E87.1 Hypo-osmolality and hyponatremia; M86.8X7 Other osteomyelitis, ankle and foot; R64 Cachexia; I96 Gangrene, not elsewhere classified; F01.50 Vascular dementia, unspecified severity, without behavioral disturbance, psychotic disturbance, mood disturbance, and anxiety; I67.2 Cerebral atherosclerosis; Z20.822 Contact with and (suspected) exposure to COVID-19; I10 Essential (primary) hypertension; I70.202 Unspecified atherosclerosis of native arteries of extremities, left leg; J44.9 Chronic obstructive pulmonary disease, unspecified; Z79.899 Other long term (current) drug therapy; Z88.0 Allergy status to penicillin; Z82.49 Family history of ischemic heart disease and other diseases of the circulatory system
CPT/HCPCS: 36415; 71045; 73721; 80048; 80053; 80202; 81001; 82271; 82962; 85025; 85027; 85610; 85730; 86850; 86900; 86901; 86920; 87040; 87086; 88307; 88311; 94760; G0378; C9113; J0696; J1170; J1956; J2370; J2405; J2704; J3370; J7030; J7040; J7050; P9016; U0003

== ENCOUNTER 2021-11-16 09:55 | Inpatient (IN) | payer MEDICARE ==
[2021-11-16] MEDS ORDERED: CEFEPIME/NS 2 GM/100 ML 2 GM/100 ML BAG IV ONE ×2 (10:11→13:11)
[2021-11-16] MEDS ORDERED: SODIUM CHLORIDE 0.9% 1000 ML IV SOLN IV ONE (10:11)
--- NOTE | 2021-11-16 10:11 | Emergency Department Report ---
ED Altered Mental Status HPI - General Chief Complaint: Altered Mental Status Stated Complaint: ALINA Time Seen by Provider: 11/16/21 10:01 Source: patient, EMS, old records reviewed Mode of arrival: Stretcher Limitations: Altered Mental Status - History of Present Illness Initial Comments: Chief complaint: Altered mental status HPI: This is a 76-year-old female with history of peripheral vascular disease, dementia, hypertension, hyperlipidemia, left AKA who presents from [facility] nursing home facility with altered mental status. Primary care provider concern for sepsis. Patient is currently nonverbal. According to EMS report patient is conversant and oriented at baseline. According to EMR patient was admitted to this facility May 2021 for evaluation of GI bleed and left heel ulcer. Patient was diagnosed with peripheral vascular disease during that encounter. Upon arrival, oxygen saturation 80%. MD Complaint: altered mental status -: Gradual, days(s) (Several days), unknown (Unknown onset) Severity: severe Consistency of Symptoms: waxing and waning Context: other (Multiple comorbidities, patient is a resident of nursing home facility) - Related Data Previous Rx's Medication Instructions Recorded Last Taken Type Famotidine [Pepcid] 20 mg PO DAILY tablet 03/18/21 Unknown Rx AtorvaSTATin [Lipitor] 80 mg PO QHS #30 tab 03/21/21 Unknown Rx Lisinopril/Hydrochlorothiazide 1 each PO DAILY #30 tablet 03/21/21 Unknown Rx [Zestoretic 10-12.5 mg Tablet] Ticagrelor (Nf) [Brilinta (Nf)] 60 mg PO DAILY #30 tablet 03/21/21 Unknown Rx Acetaminophen [Acetaminophen TAB] 650 mg PO Q4H PRN tablet 05/29/21 Unknown Rx Allergies Allergy/AdvReac Type Severity Reaction Status Date / Time Penicillins Allergy Unknown Verified 03/11/21 20:02 ED Review of Systems ROS: Stated complaint: ALINA Other details as noted in HPI Comment: Unobtainable due to pts medical conditions (Altered mental status) ED Past Medical Hx - Past Medical History Previous Medical History?: Yes Hx Hypertension: Yes Hx Congestive Heart Failure: No Hx Diabetes: No Hx Deep Vein Thrombosis: No Hx Liver Disease: No Hx Renal Disease: Yes (YEYO on CKD (resolved)) Hx Psychiatric Treatment: Yes (Dementia) Hx Asthma: No Hx COPD: Yes Hx Dementia: Yes Hx HIV: No - Surgical History Past Surgical History?: Yes Hx Pacemaker: No Hx Internal Defibrillator: No Additional Surgical History: Left AKA May 2021 - Family History Family history: other (Noncontributory to this encounter) - Social History Smoking Status: Unknown if ever smoked Substance Use Type: None - Medications Home Medications: Home Medications Medication Instructions Recorded Confirmed Last Taken Type Famotidine [Pepcid] 20 mg PO DAILY tablet 03/18/21 05/16/21 Unknown Rx AtorvaSTATin [Lipitor] 80 mg PO QHS #30 tab 03/21/21 05/16/21 Unknown Rx Lisinopril/Hydrochlorothiazide 1 each PO DAILY #30 tablet 03/21/21 05/16/21 Unknown Rx [Zestoretic 10-12.5 mg Tablet] Ticagrelor (Nf) [Brilinta (Nf)] 60 mg PO DAILY #30 tablet 03/21/21 05/16/21 Unknown Rx Acetaminophen [Acetaminophen TAB] 650 mg PO Q4H PRN tablet 05/29/21 Unknown Rx ED Physical Exam - General Limitations: Altered Mental Status General appearance: lethargic - Head Head exam: Present: atraumatic, normocephalic - Eye Eye exam: Present: normal appearance. Absent: scleral icterus, conjunctival injection - ENT ENT exam: Present: mucous membranes dry, other (No oropharyngeal lesions) - Neck Neck exam: Present: normal inspection, full ROM. Absent: tenderness, menin gismus - Respiratory Respiratory exam: Present: normal lung sounds bilaterally. Absent: respiratory distress, wheezes, rales, rhonchi - Cardiovascular Cardiovascular Exam: Present: regular rate, normal rhythm, normal heart sounds. Absent: systolic murmur, diastolic murmur, rubs, gallop - GI/Abdominal GI/Abdominal exam: Present: soft, normal bowel sounds. Absent: distended, tend erness, guarding, rebound - Extremities Exam Extremities exam: Present: other (Left AKA) - Back Exam Back exam: Present: normal inspection, other (Skin intact without ulceration) - Neurological Exam Neurological exam: Present: altered - Psychiatric Psychiatric exam: Present: flat affect - Skin Skin exam: Present: warm, dry, normal color, other ([place] bandage on left AKA stump and right foot). Absent: rash ED Course Vital Signs 11/16/21 09:56 Pulse Rate 86 Blood Pressure 106/83 [Left] O2 Sat by Pulse 95 Oximetry - Lab Data Result diagrams: 11/16/21 10:41 11/16/21 10:41 Lab Results 11/16/21 11/16/21 11/16/21 Range/Units 10:41 10:41 10:41 WBC 24.5 H (4.5-11.0) K/mm3 RBC 2.44 L (3.65-5.03) M/mm3 Hgb 6.6 L (10.1-14.3) gm/dl Hct 20.6 L (30.3-42.9) % MCV 84 (79-97) fl MCH 27 L (28-32) pg MCHC 32 (30-34) % RDW 21.8 H (13.2-15.2) % Plt Count 578 H (140-440) K/mm3 Add Manual Diff Complete Total Counted 100 Seg Neutrophils % Lending Advisor Seg Neuts % (Manual) 93.0 H (40.0-70.0) % Band Neutrophils % 0 % Lymphocytes % (Manual) 3.0 L (13.4-35.0) % Reactive Lymphs % (Man) 0 % Monocytes % (Manual) 4.0 (0.0-7.3) % Eosinophils % (Manual) 0 (0.0-4.3) % Basophils % (Manual) 0 (0.0-1.8) % Metamyelocytes % 0 % Myelocytes % 0 % Promyelocytes % 0 % Blast Cells % 0 % Nucleated RBC % Not Reportable Seg Neutrophils # Man 22.8 H (1.8-7.7) K/mm3 Band Neutrophils # 0.0 K/mm3 Lymphocytes # (Manual) 0.7 L (1.2-5.4) K/mm3 Abs React Lymphs (Man) 0.0 K/mm3 Monocytes # (Manual) 1.0 H (0.0-0.8) K/mm3 Eosinophils # (Manual) 0.0 (0.0-0.4) K/mm3 Basophils # (Manual) 0.0 (0.0-0.1) K/mm3 Metamyelocytes # 0.0 K/mm3 Myelocytes # 0.0 K/mm3 Promyelocytes # 0.0 K/mm3 Blast Cells # 0.0 K/mm3 WBC Morphology Not Reportable Hypersegmented Neuts Not Reportable Hyposegmented Neuts Not Reportable Hypogranular Neuts Not Reportable Smudge Cells Not Reportable Toxic Granulation 2+ Toxic Vacuolation 1+ Dohle Bodies Not Reportable Pelger-Huet Anomaly Not Reportable Diann Rods Not Reportable Platelet Estimate Consistent w auto Clumped Platelets Not Reportable Plt Clumps, EDTA Not Reportable Large Platelets Not Reportable Giant Platelets Not Reportable Platelet Satelliting Not Reportable Plt Morphology Comment Not Reportable RBC Morphology Not Reportable Dimorphic RBCs Not Reportable Polychromasia Not Reportable Hypochromasia Not Reportable Poikilocytosis 1+ Anisocytosis 1+ Microcytosis Not Reportable Macrocytosis Not Reportable Spherocytes Not Reportable Pappenheimer Bodies Not Reportable Sickle Cells Not Reportable Target Cells Not Reportable Tear Drop Cells Not Reportable Ovalocytes Not Reportable Helmet Cells Not Reportable Lovelace-Vandervoort Bodies Not Reportable [place] Rings Not Reportable Prabhakar Cells 2+ Bite Cells Not Reportable Crenated Cell Not Reportable Elliptocytes Not Reportable Acanthocytes (Spur) Not Reportable Rouleaux Not Reportable Hemoglobin C Crystals Not Reportable Schistocytes Rare Malaria parasites Not Reportable Florentino Bodies Not Reportable Hem Pathologist Commnt No Sodium (137-145) mmol/L Potassium Lending Advisor Chloride (98-107) mmol/L Carbon Dioxide (22-30) mmol/L Anion Gap mmol/L BUN (7-17) mg/dL Creatinine Not Reportable Estimated GFR 9 ml/min BUN/Creatinine Ratio Not Reportable Glucose (65-100) mg/dL Lactic Acid 2.50 H* (0.7-2.0) mmol/L Calcium (8.4-10.2) mg/dL Total Bilirubin (0.1-1.2) mg/dL AST Not Reportable ALT Not Reportable Alkaline Phosphatase Not Reportable Total Protein (6.3-8.2) g/dL Albumin (3.9-5) g/dL Albumin/Globulin Ratio % Urine Color (Yellow) Urine Turbidity (Clear) Urine pH (5.0-7.0) Ur Specific [place] (1.003-1.030) Urine Protein (Negative) mg/dL Urine Glucose (UA) (Negative) mg/dL Urine Ketones (Negative) mg/dL Urine Blood (Negative) Urine Nitrite (Negative) Urine Bilirubin (Negative) Urine Urobilinogen (<2.0) mg/dL Ur Leukocyte Esterase (Negative) Urine WBC (Auto) (0.0-6.0) /HPF Urine RBC (Auto) (0.0-6.0) /HPF U Epithel Cells (Auto) (0-13.0) /HPF Urine Bacteria (Auto) (Negative) /HPF Amorphous Crystals Granular Casts /LPF Urine Mucus /HPF 11/16/21 Range/Units Unknown WBC (4.5-11.0) K/mm3 RBC (3.65-5.03) M/mm3 Hgb (10.1-14.3) gm/dl Hct (30.3-42.9) % MCV (79-97) fl MCH (28-32) pg MCHC (30-34) % RDW (13.2-15.2) % Plt Count (140-440) K/mm3 Add Manual Diff Total Counted Seg Neutrophils % Seg Neuts % (Manual) (40.0-70.0) % Band Neutrophils % % Lymphocytes % (Manual) (13.4-35.0) % Reactive Lymphs % (Man) % Monocytes % (Manual) (0.0-7.3) % Eosinophils % (Manual) (0.0-4.3) % Basophils % (Manual) (0.0-1.8) % Metamyelocytes % % Myelocytes % % Promyelocytes % % Blast Cells % % Nucleated RBC % Seg Neutrophils # Man (1.8-7.7) K/mm3 Band Neutrophils # K/mm3 Lymphocytes # (Manual) (1.2-5.4) K/mm3 Abs React Lymphs (Man) K/mm3 Monocytes # (Manual) (0.0-0.8) K/mm3 Eosinophils # (Manual) (0.0-0.4) K/mm3 Basophils # (Manual) (0.0-0.1) K/mm3 Metamyelocytes # K/mm3 Myelocytes # K/mm3 Promyelocytes # K/mm3 Blast Cells # K/mm3 WBC Morphology Hypersegmented Neuts Hyposegmented Neuts Hypogranular Neuts Smudge Cells Toxic Granulation Toxic Vacuolation Dohle Bodies Pelger-Huet Anomaly Diann Rods Platelet Estimate Clumped Platelets Plt Clumps, EDTA Large Platelets Giant Platelets Platelet Satelliting Plt Morphology Comment RBC Morphology Dimorphic RBCs Polychromasia Hypochromasia Poikilocytosis Anisocytosis Microcytosis Macrocytosis Spherocytes Pappenheimer Bodies Sickle Cells Target Cells Tear Drop Cells Ovalocytes Helmet Cells Lovelace-Vandervoort Bodies [place] Rings [place] Cells Bite Cells Crenated Cell Elliptocytes Acanthocytes (Spur) Rouleaux Hemoglobin C Crystals Schistocytes Malaria parasites Florentino Bodies Hem Pathologist Commnt Sodium (137-145) mmol/L Potassium Chloride (98-107) mmol/L Carbon Dioxide (22-30) mmol/L Anion Gap mmol/L BUN (7-17) mg/dL Creatinine Estimated GFR ml/min BUN/Creatinine Ratio Glucose (65-100) mg/dL Lactic Acid (0.7-2.0) mmol/L Calcium (8.4-10.2) mg/dL Total Bilirubin (0.1-1.2) mg/dL AST ALT Alkaline Phosphatase Total Protein (6.3-8.2) g/dL Albumin (3.9-5) g/dL Albumin/Globulin Ratio % Urine Color Yellow (Yellow) Urine Turbidity Slightly cloudy (Clear) Urine pH 5.0 (5.0-7.0) Ur Specific [place] 1.017 (1.003-1.030) Urine Protein 100 mg/dl (Negative) mg/dL Urine Glucose (UA) Neg (Negative) mg/dL Urine Ketones Neg (Negative) mg/dL Urine Blood Neg (Negative) Urine Nitrite Neg (Negative) Urine Bilirubin Neg (Negative) Urine Urobilinogen < 2.0 (<2.0) mg/dL Ur Leukocyte Esterase Mod (Negative) Urine WBC (Auto) 113.0 H (0.0-6.0) /HPF Urine RBC (Auto) 3.0 (0.0-6.0) /HPF U Epithel Cells (Auto) 5.0 (0-13.0) /HPF Urine Bacteria (Auto) 1+ (Negative) /HPF Amorphous Crystals 1+ Granular Casts 3 /LPF Urine Mucus Few /HPF - Radiology Data Radiology results: report reviewed Patient Name: JUAN LUIS MCCRAY Gender: Female Date of : 1945 Referring Provider: SCOTT ALLEN Organization: [facility] Accession Number: [id number] Requested Date: November 16, 2021 10:53 Report Status: Final Requested Procedure: 1 Procedure Description: CT abdomen pelvis wo con Modality: CT Findings Reporting MD: Mian Chavarria Dictation Time: November 16, 2021 11:23 Dry Kiln Operator: Not available Machine Candle Molder Date: CT ABDOMEN AND PELVIS WITHOUT CONTRAST INDICATION / CLINICAL INFORMATION: Hypoxia, altered mental status. Patient is frozen in left lateral decubitus position. TECHNIQUE: Axial CT images were obtained through the abdomen and pelvis without IV contrast. All CT scans at this location are performed using CT dose reduction for ALARA by means of automated exposure control. COMPARISON: CT chest without contrast performed concomitantly. No other prior relevant imaging. FINDINGS: LOWER CHEST: Please see the separately dictated report for the CT chest performed concomitantly for further details. LIVER: No significant abnormality. GALLBLADDER: Mildly distended without visualization of gallstones or evidence of acute cholecystitis. BILE DUCTS: No significant abnormality. PANCREAS: No significant abnormality. SPLEEN: No significant abnormality. ADRENALS: No significant abnormality. RIGHT KIDNEY/URETER: Multiple right renal hypodensities compatible with cysts measure up to 3 cm along the upper pole. No other significant abnormality. LEFT KIDNEY/URETER: There is a nonobstructive 2 mm mid pole stone without other significant abnormalities. STOMACH/SMALL BOWEL: There is an uncomplicated small hiatal hernia without other significant abnormalities. COLON: No significant abnormality. APPENDIX: Not seen. PERITONEUM: No free fluid. No free air. No fluid collection. LYMPH NODES: No significant adenopathy. VASCULATURE: There is severe generalized atherosclerosis without other significant abnormalities. URINARY BLADDER: No significant abnormality. REPRODUCTIVE ORGANS: Multiple probable calcified uterine fibroids with indistinct margins are seen without other significant abnormalities. ADDITIONAL FINDINGS: None. BONES: An age-indeterminate fracture of the right ninth rib posteriorly is noted without other acute findings. Mild osteoarthritis of the hips is noted with heterotopic ossification seen along the right hip and unremarkable internal fixation of the right hip. Mild degenerative changes are noted along the spine. IMPRESSION: 1. No acute findings to explain the patient's hypoxia or altered mental status. [facility] [address], [address] [place] [address] P [phone] F [phone] [facility] - Report exported on Nov 16, 2021 12:12:35 [id number] - Page 2 of 2 2. Additional findings as above. Signer Name: Mian Chavarria MD Signed: 11/16/2021 11:23 AM Workstation Name: [id number] Patient Name: JUAN LUIS MCCRAY Gender: Female Date of : 1945 Referring Provider: SCOTT ALLEN Organization: [facility] Accession Number: [id number] Requested Date: November 16, 2021 10:53 Report Status: Final Requested Procedure: 1 Procedure Description: CT chest wo con Modality: CT Findings Reporting MD: Elder Chaudhry Dictation Time: November 16, 2021 10:59 Dry Kiln Operator: Not available Machine Candle Molder Date: CT CHEST WITHOUT CONTRAST INDICATION / CLINICAL INFORMATION: hypoxia altered mental status. TECHNIQUE: Axial CT images were obtained through the chest without contrast. All CT scans at this location are performed using CT dose reduction for ALARA by means of automated exposure control. Evaluation is limited by positioning. COMPARISON: None available. FINDINGS: HEART: No significant abnormality. CORONARY ARTERY CALCIFICATION: Moderate. THORACIC AORTA: No significant abnormality. MEDIASTINUM / ANNE: No significant abnormality. PLEURA: No pleural effusion. No pneumothorax. LUNGS: Bibasilar scarring. Mild dependent atelectasis laterally on the left. Moderate underlying emphysema. ADDITIONAL FINDINGS: None. UPPER ABDOMEN: No significant abnormality. SKELETAL SYSTEM: Fracture posterior right ninth rib age indeterminate. Old posterior right 10th rib fracture. Wedging of an upper/ mid thoracic vertebral body is favored to be chronic. IMPRESSION: 1. Moderate emphysema. 2. Mild basilar scarring and dependent atelectasis on the left. 3. Posterior right ninth rib fracture of indeterminate age. Recommend clinical Signer Name: Elder Chaudhry MD Signed: 11/16/2021 10:59 AM Workstation Name: [id number] Patient Name: JUAN LUIS MCCRAY Gender: Female Date of : 1945 Referring Provider: SCOTT ALLEN Organization: [facility] Accession Number: [id number] Requested Date: November 16, 2021 10:53 Report Status: Final Requested Procedure: 1 Procedure Description: CT head/brain wo con Modality: CT Findings Reporting MD: Avelino Dawkins Dictation Time: November 16, 2021 10:55 Dry Kiln Operator: Not available Machine Candle Molder Date: CT head/brain wo con INDICATION / CLINICAL INFORMATION: 76 years Female; altered mental status. TECHNIQUE: Routine CT head without contrast. All CT scans at this location are performed using CT dose reduction for ALARA by means of automated exposure control. COMPARISON: None. FINDINGS: BRAIN / INTRACRANIAL CONTENTS: There is extensive cerebral white matter disease most consistent with microvascular angiopathy. 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 There is advanced cerebral atrophy with associated prominence of the ventricular system. The motion and positioning degrade the image quality. However, there is no clear CT evidence of acute intracranial hemorrhage or significant mass effect. ORBITS: No significant abnormality of visualized orbits. SINUSES / MASTOIDS: No significant abnormality in the visualized paranasal sinuses or mastoid air cells. CRANIOCERVICAL JUNCTION: No significant abnormality. ADDITIONAL FINDINGS: None. IMPRESSION: 1. There is extensive microvascular angiopathy and advanced cerebral atrophy as described without CT evidence of acute intracranial hemorrhage. Signer Name: Avelino Dawkins MD Signed: 11/16/2021 10:55 AM Workstation Name: [email or web address] - Medical Decision Making Sepsis altered mental status: sepsis bundle initiated in the ED. Admitted to hospitalist service. Critical care attestation.: If time is entered above; I have spent that time in minutes in the direct care of this critically ill patient, excluding procedure time. ED Disposition Clinical Impression: Sepsis, Acute encephalopathy Disposition: ADMITTED INPATIENT Is pt being admited?: Yes Does the pt Need Aspirin: No Condition: Stable
[2021-11-16] MEDS ORDERED: VANCOMYCIN PHARMACY TO DOSE IV SCH (11:00)
[2021-11-16] MEDS ORDERED: VANCOMYCIN 750 MG in SODIUM CHLORIDE 0.9% 500 ML 500 ML IV ONE (11:00)
[2021-11-16] MEDS ORDERED: VANCOMYCIN 750 MG in SODIUM CHLORIDE 0.9% 250ML 250 ML IV ONE (11:00)
[2021-11-16 11:22] LABS: Hematocrit 20.6 % (30.3-42.9); Hemoglobin 6.6 gm/dl (10.1-14.3); Mean Corpuscular HGB Conc 32 % (30-34); Mean Corpuscular Volume 84 fl (79-97); Platelet Count 578 K/mm3 (140-440); Red Blood Count 2.44 M/mm3 (3.65-5.03); Red Cell Distribution Width 21.8 % (13.2-15.2)
[2021-11-16 11:52] LABS: Basophils % (Manual) 0 % (0.0-1.8); Eosinophils % (Manual) 0 % (0.0-4.3); Total Cells Counted 100
[2021-11-16 11:55] LABS: Anisocytosis 1+; Burr Cells 2+; Poikilocytosis 1+; Schistocytes Rare
[2021-11-16 11:56] LABS: Platelet Estimate Consistent w Auto; Toxic Granulation 2+; Toxic Vacuolation 1+
--- NOTE | 2021-11-16 11:59 | Cat Scan Report ---
CT head/brain wo con INDICATION / CLINICAL INFORMATION: 76 years Female; altered mental status. TECHNIQUE: Routine CT head without contrast. All CT scans at this location are performed using CT dos e reduction for ALARA by means of automated exposure control. COMPARISON: None. FINDINGS: BRAIN / INTRACRANIAL CONTENTS: There is extensive cerebral white matter disease most consistent with microvascular angiopathy. Findings extend to the cervical region within the left frontal lobe most co nsistent with old infarct at. There is advanced cerebral atrophy with associated prominence of the ve ntricular system. The motion and positioning degrade the image quality. However, there is no clear CT evidence of acute intracranial hemorrhage or significant mass effect. ORBITS: No significant abnormality of visualized orbits. SINUSES / MASTOIDS: No significant abnormality in the visualized paranasal sinuses or mastoid air ashely ls. CRANIOCERVICAL JUNCTION: No significant abnormality. ADDITIONAL FINDINGS: None. IMPRESSION: 1. There is extensive microvascular angiopathy and advanced cerebral atrophy as described without CT evidence of acute intracranial hemorrhage. Signer Name: Avelino Dawkins MD Signed: 11/16/2021 11:55 AM Workstation Name: [id number]
--- NOTE | 2021-11-16 12:04 | Cat Scan Report ---
CT CHEST WITHOUT CONTRAST INDICATION / CLINICAL INFORMATION: hypoxia altered mental status. TECHNIQUE: Axial CT images were obtained through the chest without contrast. All CT scans at this [facility] ation are performed using CT dose reduction for ALARA by means of automated exposure control. Evaluat ion is limited by positioning. COMPARISON: None available. FINDINGS: HEART: No significant abnormality. CORONARY ARTERY CALCIFICATION: Moderate. THORACIC AORTA: No significant abnormality. MEDIASTINUM / ANNE: No significant abnormality. PLEURA: No pleural effusion. No pneumothorax. LUNGS: Bibasilar scarring. Mild dependent atelectasis laterally on the left. Moderate underlying emph ysema. ADDITIONAL FINDINGS: None. UPPER ABDOMEN: No significant abnormality. SKELETAL SYSTEM: Fracture posterior right ninth rib age indeterminate. Old posterior right 10th rib f racture. Wedging of an upper/mid thoracic vertebral body is favored to be chronic. IMPRESSION: 1. Moderate emphysema. 2. Mild basilar scarring and dependent atelectasis on the left. 3. Posterior right ninth rib fracture of indeterminate age. Recommend clinical Signer Name: Elder Chaudhry MD Signed: 11/16/2021 11:59 AM Workstation Name: [email or web address][id number]
--- NOTE | 2021-11-16 12:27 | Cat Scan Report ---
CT ABDOMEN AND PELVIS WITHOUT CONTRAST INDICATION / CLINICAL INFORMATION: Hypoxia, altered mental status. Patient is frozen in left lateral decubitus position. TECHNIQUE: Axial CT images were obtained through the abdomen and pelvis without IV contrast. All CT scans at [facility] [place] location are performed using CT dose reduction for ALARA by means of automated exposure control. COMPARISON: CT chest without contrast performed concomitantly. No other prior relevant imaging. FINDINGS: LOWER CHEST: Please see the separately dictated report for the CT chest performed concomitantly for f urther details. LIVER: No significant abnormality. GALLBLADDER: Mildly distended without visualization of gallstones or evidence of acute cholecystitis. BILE DUCTS: No significant abnormality. PANCREAS: No significant abnormality. SPLEEN: No significant abnormality. ADRENALS: No significant abnormality. RIGHT KIDNEY/URETER: Multiple right renal hypodensities compatible with cysts measure up to 3 cm stephanie g the upper pole. No other significant abnormality. LEFT KIDNEY/URETER: There is a nonobstructive 2 mm mid pole stone without other significant abnormali ties. STOMACH/SMALL BOWEL: There is an uncomplicated small hiatal hernia without other significant abnormal ities. COLON: No significant abnormality. APPENDIX: Not seen. PERITONEUM: No free fluid. No free air. No fluid collection. LYMPH NODES: No significant adenopathy. VASCULATURE: There is severe generalized atherosclerosis without other significant abnormalities. URINARY BLADDER: No significant abnormality. REPRODUCTIVE ORGANS: Multiple probable calcified uterine fibroids with indistinct margins are seen wi thout other significant abnormalities. ADDITIONAL FINDINGS: None. BONES: An age-indeterminate fracture of the right ninth rib posteriorly is noted without other acute findings. Mild osteoarthritis of the hips is noted with heterotopic ossification seen along the right hip and unremarkable internal fixation of the right hip. Mild degenerative changes are noted along t he spine. IMPRESSION: 1. No acute findings to explain the patient's hypoxia or altered mental status. 2. Additional findings as above. Signer Name: Mian Chavarria MD Signed: 11/16/2021 12:23 PM Workstation Name: [id number]
[2021-11-16 12:35] LABS: Bacteria,Urine 1+ /HPF (Negative); Bilirubin,Urine NEG (Negative); Blood,Urine NEG (Negative); Color,Urine Yellow (Yellow); Mucus,Urine FEW /HPF; Urobilinogen,Urine < 2.0 mg/dL (<2.0)
[2021-11-16 12:45] LABS: Amorphous Crystals,Urine 1+; Granular Casts,Urine 3 /LPF
[2021-11-16] MEDS ORDERED: ACETAMINOPHEN 325 MG TAB PO PRN ×2 (14:31→14:32)
--- NOTE | 2021-11-16 14:31 | History and Physical Report ---
History of Present Illness Date of examination: 11/16/21 Date of admission: November 16, 2021 Chief complaint: Altered mental status and possible sepsis per PMD History of present illness: 76-year-old female with multiple medical problems including peripheral arterial disease, hypertension, hyperlipidemia, left above-knee amputation and severe right foot infection [facility]. Primary care provider's initial diagnosis of sepsis because of the high white count and right foot ulcer stage IV and deep and infected. Patient is alert but not oriented. Patient has severe PAD. Patient is status post left AKA with stump wound. No fever or chills. Does not complain of any pain. - Past Medical History --Previous Medical History?: Yes --Hypertension: Yes --Renal Disease: Yes (YEYO on CKD (resolved)) --Psychiatric Treatment: Yes (Dementia) --COPD: Yes --Dementia: Yes - Surgical History --Left AKA May 2021 - Family History --HTN - Social History --Smoking Status: Unknown if ever smoked --Substance Use Type: None - Medications Home Medications: Home Medications Medication Instructions Recorded Confirmed Last Taken Type Famotidine [Pepcid] 20 mg PO DAILY tablet 03/18/21 05/16/21 Unknown Rx AtorvaSTATin [Lipitor] 80 mg PO QHS #30 tab 03/21/21 05/16/21 Unknown Rx Lisinopril/Hydrochlorothiazide 1 each PO DAILY #30 tablet 03/21/21 05/16/21 Unknown Rx [Zestoretic 10-12.5 mg Tablet] Ticagrelor (Nf) [Brilinta (Nf)] 60 mg PO DAILY #30 tablet 03/21/21 05/16/21 Unknown Rx Acetaminophen [Acetaminophen TAB] 650 mg PO Q4H PRN tablet 05/29/21 Unknown Rx Review of Systems ROS: Stated complaint: ALINA Other details as noted in HPI Comment: Unobtainable due to pts medical conditions (Altered mental status) Severe right foot ulcer X2 Left AKA stump wound Medications and Allergies Allergies Allergy/AdvReac Type Severity Reaction Status Date / Time Penicillins Allergy Unknown Verified 03/11/21 20:02 Home Medications Medication Instructions Recorded Confirmed Last Taken Type Famotidine [Pepcid] 20 mg PO DAILY tablet 03/18/21 11/16/21 Unknown Rx AtorvaSTATin [Lipitor] 80 mg PO QHS #30 tab 03/21/21 11/16/21 Unknown Rx Lisinopril/Hydrochlorothiazide 1 each PO DAILY #30 tablet 03/21/21 11/16/21 Unknown Rx [Zestoretic 10-12.5 mg Tablet] Ticagrelor (Nf) [Brilinta (Nf)] 60 mg PO DAILY #30 tablet 03/21/21 11/16/21 Unknown Rx Acetaminophen [Acetaminophen TAB] 650 mg PO Q4H PRN tablet 05/29/21 11/16/21 Unknown Rx Exam - Constitutional Vitals: Temp Pulse Resp BP Pulse Ox 86 106/83 95 11/16/21 09:56 11/16/21 09:56 11/16/21 09:56 General appearance: Present: no acute distress, cachectic - EENT Eyes: Present: PERRL ENT: hearing intact, clear oral mucosa - Neck Neck: Present: supple, normal ROM - Respiratory Respiratory effort: normal Respiratory: bilateral: CTA - Cardiovascular Heart rate: 78 Rhythm: regular Heart Sounds: Present: S1 & S2. Absent: rub, click - Extremities Extremities: No edema, abnormal (Right foot stage IV ulcer with tendons and bone exposed on the right lateral aspect of the foot 10 cm x 4 cm with a depth of about half a centimeter.) Extremity abnormal: other (Deep wound on the right foot dorsum 6 cm into 8 cm with a depth of 3 to 4 mm. Drainage present.) Peripheral Pulses: within normal limits - Abdominal General gastrointestinal: Present: soft, non-tender, non-distended, normal bowel sounds Female genitourinary: Present: normal - Integumentary Integumentary: Present: clear, warm, dry - Musculoskeletal Musculoskeletal: gait normal, strength equal bilaterally - Psychiatric Psychiatric: appropriate mood/affect, intact judgment & insight - Neurologic Neurologic: CNII-XII intact, moves all extremities Results - Labs CBC & Chem 7: 11/16/21 10:41 11/16/21 18:32 Labs: Laboratory Last Values WBC 24.5 K/mm3 (4.5-11.0) H 11/16/21 10:41 RBC 2.44 M/mm3 (3.65-5.03) L 11/16/21 10:41 Hgb 6.6 gm/dl (10.1-14.3) L 11/16/21 10:41 Hct 20.6 % (30.3-42.9) L 11/16/21 10:41 MCV 84 fl (79-97) 11/16/21 10:41 MCH 27 pg (28-32) L 11/16/21 10:41 MCHC 32 % (30-34) 11/16/21 10:41 RDW 21.8 % (13.2-15.2) H 11/16/21 10:41 Plt Count 578 K/mm3 (140-440) H 11/16/21 10:41 Add Manual Diff Complete 11/16/21 10:41 Total Counted 100 11/16/21 10:41 Seg Neutrophils % Medical Coding Manager 11/16/21 10:41 Seg Neuts % (Manual) 93.0 % (40.0-70.0) H 11/16/21 10:41 Band Neutrophils % 0 % 11/16/21 10:41 Lymphocytes % (Manual) 3.0 % (13.4-35.0) L 11/16/21 10:41 Reactive Lymphs % (Man) 0 % 11/16/21 10:41 Monocytes % (Manual) 4.0 % (0.0-7.3) 11/16/21 10:41 Eosinophils % (Manual) 0 % (0.0-4.3) 11/16/21 10:41 Basophils % (Manual) 0 % (0.0-1.8) 11/16/21 10:41 Metamyelocytes % 0 % 11/16/21 10:41 Myelocytes % 0 % 11/16/21 10:41 Promyelocytes % 0 % 11/16/21 10:41 Blast Cells % 0 % 11/16/21 10:41 Nucleated RBC % Not Reportable 11/16/21 10:41 Seg Neutrophils # Man 22.8 K/mm3 (1.8-7.7) H 11/16/21 10:41 Band Neutrophils # 0.0 K/mm3 11/16/21 10:41 Lymphocytes # (Manual) 0.7 K/mm3 (1.2-5.4) L 11/16/21 10:41 Abs React Lymphs (Man) 0.0 K/mm3 11/16/21 10:41 Monocytes # (Manual) 1.0 K/mm3 (0.0-0.8) H 11/16/21 10:41 Eosinophils # (Manual) 0.0 K/mm3 (0.0-0.4) 11/16/21 10:41 Basophils # (Manual) 0.0 K/mm3 (0.0-0.1) 11/16/21 10:41 Metamyelocytes # 0.0 K/mm3 11/16/21 10:41 Myelocytes # 0.0 K/mm3 11/16/21 10:41 Promyelocytes # 0.0 K/mm3 11/16/21 10:41 Blast Cells # 0.0 K/mm3 11/16/21 10:41 WBC Morphology Not Reportable 11/16/21 10:41 Hypersegmented Neuts Not Reportable 11/16/21 10:41 Hyposegmented Neuts Not Reportable 11/16/21 10:41 Hypogranular Neuts Not Reportable 11/16/21 10:41 Smudge Cells Not Reportable 11/16/21 10:41 Toxic Granulation 2+ 11/16/21 10:41 Toxic Vacuolation 1+ 11/16/21 10:41 Dohle Bodies Not Reportable 11/16/21 10:41 Pelger-Huet Anomaly Not Reportable 11/16/21 10:41 Diann Rods Not Reportable 11/16/21 10:41 Platelet Estimate Consistent w auto 11/16/21 10:41 Clumped Platelets Not Reportable 11/16/21 10:41 Plt Clumps, EDTA Not Reportable 11/16/21 10:41 Large Platelets Not Reportable 11/16/21 10:41 Giant Platelets Not Reportable 11/16/21 10:41 Platelet Satelliting Not Reportable 11/16/21 10:41 Plt Morphology Comment Not Reportable 11/16/21 10:41 RBC Morphology Not Reportable 11/16/21 10:41 Dimorphic RBCs Not Reportable 11/16/21 10:41 Polychromasia Not Reportable 11/16/21 10:41 Hypochromasia Not Reportable 11/16/21 10:41 Poikilocytosis 1+ 11/16/21 10:41 Anisocytosis 1+ 11/16/21 10:41 Microcytosis Not Reportable 11/16/21 10:41 Macrocytosis Not Reportable 11/16/21 10:41 Spherocytes Not Reportable 11/16/21 10:41 Pappenheimer Bodies Not Reportable 11/16/21 10:41 Sickle Cells Not Reportable 11/16/21 10:41 Target Cells Not Reportable 11/16/21 10:41 Tear Drop Cells Not Reportable 11/16/21 10:41 Ovalocytes Not Reportable 11/16/21 10:41 Helmet Cells Not Reportable 11/16/21 10:41 [place]-Gough Bodies Not Reportable 11/16/21 10:41 [place] Rings Not Reportable 11/16/21 10:41 Prabhakar Cells 2+ 11/16/21 10:41 Bite Cells Not Reportable 11/16/21 10:41 Crenated Cell Not Reportable 11/16/21 10:41 Elliptocytes Not Reportable 11/16/21 10:41 Acanthocytes (Spur) Not Reportable 11/16/21 10:41 Rouleaux Not Reportable 11/16/21 10:41 Hemoglobin C Crystals Not Reportable 11/16/21 10:41 Schistocytes Rare 11/16/21 10:41 Malaria parasites Not Reportable 11/16/21 10:41 Florentino Bodies Not Reportable 11/16/21 10:41 Hem Pathologist Commnt No 11/16/21 10:41 Sodium mmol/L (137-145) 11/16/21 10:41 Potassium Medical Coding Manager 11/16/21 10:41 Chloride mmol/L (98-107) 11/16/21 10:41 Carbon Dioxide mmol/L (22-30) 11/16/21 10:41 Anion Gap mmol/L 11/16/21 10:41 BUN mg/dL (7-17) 11/16/21 10:41 Creatinine Not Reportable 11/16/21 10:41 Estimated GFR 9 ml/min 11/16/21 10:41 BUN/Creatinine Ratio Not Reportable 11/16/21 10:41 Glucose mg/dL (65-100) 11/16/21 10:41 Lactic Acid 2.50 mmol/L (0.7-2.0) H* 11/16/21 10:41 Calcium mg/dL (8.4-10.2) 11/16/21 10:41 Total Bilirubin mg/dL (0.1-1.2) 11/16/21 10:41 AST Not Reportable 11/16/21 10:41 ALT Not Reportable 11/16/21 10:41 Alkaline Phosphatase Not Reportable 11/16/21 10:41 Total Protein g/dL (6.3-8.2) 11/16/21 10:41 Albumin g/dL (3.9-5) 11/16/21 10:41 Albumin/Globulin Ratio % 11/16/21 10:41 Urine Color Yellow (Yellow) 11/16/21 Unknown Urine Turbidity Slightly cloudy (Clear) 11/16/21 Unknown Urine pH 5.0 (5.0-7.0) 11/16/21 Unknown Ur Specific [place] 1.017 (1.003-1.030) 11/16/21 Unknown Urine Protein 100 mg/dl mg/dL (Negative) 11/16/21 Unknown Urine Glucose (UA) Neg mg/dL (Negative) 11/16/21 Unknown Urine Ketones Neg mg/dL (Negative) 11/16/21 Unknown Urine Blood Neg (Negative) 11/16/21 Unknown Urine Nitrite Neg (Negative) 11/16/21 Unknown Urine Bilirubin Neg (Negative) 11/16/21 Unknown Urine Urobilinogen < 2.0 mg/dL (<2.0) 11/16/21 Unknown Ur Leukocyte Esterase Mod (Negative) 11/16/21 Unknown Urine WBC (Auto) 113.0 /HPF (0.0-6.0) H 11/16/21 Unknown Urine RBC (Auto) 3.0 /HPF (0.0-6.0) 11/16/21 Unknown U Epithel Cells (Auto) 5.0 /HPF (0-13.0) 11/16/21 Unknown Urine Bacteria (Auto) 1+ /HPF (Negative) 11/16/21 Unknown Amorphous Crystals 1+ 11/16/21 Unknown Granular Casts 3 /LPF 11/16/21 Unknown Urine Mucus Few /HPF 11/16/21 Unknown Microbiology: Microbiology 11/16/21 10:41 Peripheral/Venous Blood Culture - Preliminary Culture in Progress 11/16/21 10:41 Peripheral/Venous Blood Culture - Preliminary Culture in Progress Assessment and Plan Advance Directives: Yes (Full code) VTE prophylaxis?: Chemical Plan of care discussed with patient/family: Yes - Patient Problems (1) Acute encephalopathy Current Visit: Yes Status: Acute Plan to address problem: Secondary to sepsis and prior abnormalities and dehydration BUN and creatinine and electrolytes are not available Still pending (2) Sepsis Current Visit: Yes Status: Acute Plan to address problem: High lactic acid of 2.5 and 5.5 Probable source of infection is right foot ulcer and urinary tract infection Right foot ulcer is severe unstageable with exposure of tendons and bone on the right lateral aspect of the foot (3) Ulcer of right foot with necrosis of muscle Current Visit: Yes Status: Acute Plan to address problem: To deep right foot ulcers are present one on the lateral aspect of the right foot and one on the dorsum of the foot both are deep with greenish base. The lateral ulcer is 10 cm x 5 cm x0.5 cm Right foot dorsal ulcer is about 6 cm X 8 cm 6.5 cm with greenish base Surgical consult requested (4) Hypertension Current Visit: Yes Status: Chronic Qualifiers: Hypertension type: primary hypertension Qualified Code(s): I10 - Essential (primary) hypertension Plan to address problem: Continue antihypertensives and adjust medications (5) COPD (chronic obstructive pulmonary disease) Current Visit: Yes Status: Chronic Qualifiers: COPD type: unspecified COPD Qualified Code(s): J44.9 - Chronic obstructive pulmonary disease, unspecified Plan to address problem: Continue DuoNebs as needed (6) Dementia Current Visit: Yes Status: Chronic Qualifiers: Dementia type: vascular dementia Plan to address problem: Supportive care (7) S/P AKA (above knee amputation) unilateral Current Visit: Yes Status: Chronic Plan to address problem: Left AKA with stump wound Wound care by nursing staff (8) Malnutrition Current Visit: Yes Status: Chronic Qualifiers: Protein-calorie malnutrition severity: severe Plan to address problem: Dietitian consult and dietary supplements (9) DVT prophylaxis Current Visit: Yes Status: Acute Plan to address problem: Anticoagulation and GI prophylaxis
[2021-11-16] MEDS ORDERED: ONDANSETRON 4 MG/2 ML INJ IV PRN (14:32)
[2021-11-16] MEDS ORDERED: METOCLOPRAMIDE 10 MG/2 ML INJ IV PRN (14:41)
[2021-11-16] MEDS ORDERED: oxyCODONE /ACETAMINOPHEN 5-325MG TAB PO PRN (14:41)
[2021-11-16] MEDS ORDERED: TICAGRELOR 60 MG PO SCH (14:45)
[2021-11-16] MEDS ORDERED: NON-FORMULARY EACH (Lisinopril/Hydrochlorothiazide [Zestoretic 10-12.5 Mg Tablet] 1 EACH T PO SCH (14:45)
[2021-11-16] MEDS: HEPARIN 5,000 UNIT/1 ML VIAL SUB-Q SCH ×2 (17:24→22:10)
[2021-11-16] MEDS: cefTRIAXone/NS 1 GM/50 ML 1 GM/50 ML BAG IV SCH (17:24)
[2021-11-16] MEDS: D5W/0.9% NACL 1,000 ML IV SCH (17:24)
[2021-11-16] MEDS ORDERED: ACETAMINOPHEN 650 MG RECT SUPP PR PRN (18:38)
[2021-11-17] MEDS: D5W/0.9% NACL 1,000 ML IV SCH (03:08)
[2021-11-17] MEDS ORDERED: SODIUM CHLORIDE 0.9% 500 ML 500 ML IV NR (07:20)
[2021-11-17] MEDS ORDERED: VANCOMYCIN PHARMACY TO DOSE IV SCH (08:00)
[2021-11-17 08:01] LABS: Hemoglobin 6.3 gm/dl (10.1-14.3); Mean Corpuscular HGB Conc 32 % (30-34); Mean Corpuscular Volume 84 fl (79-97); Platelet Count 475 K/mm3 (140-440); Red Blood Count 2.34 M/mm3 (3.65-5.03)
[2021-11-17 08:04] LABS: Hematocrit 19.6 % (30.3-42.9); Red Cell Distribution Width 21.2 % (13.2-15.2)
[2021-11-17 08:17] LABS: Albumin 1.9 g/dL (3.9-5); Calcium 7.8 mg/dL (8.4-10.2)
[2021-11-17] MEDS ORDERED: METOCLOPRAMIDE 10 MG/2 ML INJ IV PRN (09:00)
[2021-11-17 09:04] LABS: Basophils % (Manual) 0 % (0.0-1.8); Eosinophils % (Manual) 0 % (0.0-4.3); Monocytes % (Manual) 0 % (0.0-7.3); Total Cells Counted 100
[2021-11-17 09:05] LABS: Anisocytosis 1+; Burr Cells 3+; Ovalocytes Few; Poikilocytosis 3+; Schistocytes Few
[2021-11-17 09:06] LABS: Platelet Estimate Consistent w Auto; Target Cells Rare; Toxic Granulation 3+
[2021-11-17] MEDS: LISINOPRIL 10 MG TAB PO SCH (09:44)
[2021-11-17] MEDS: FAMOTIDINE 20 MG TAB PO SCH (09:44)
[2021-11-17] MEDS: HEPARIN 5,000 UNIT/1 ML VIAL SUB-Q SCH ×2 (09:48→22:20)
--- NOTE | 2021-11-17 10:27 | Consultation ---
History of Present Illness Consult date: 11/17/21 Reason for consult: wound care Chief complaint: Right foot wound - History of present illness History of present illness: 76-year-old female with a history of peripheral arterial disease, hypertension, left AKA who was referred to [facility] emergency room for altered mental status. The patient lives in a nursing home facility. The patient is a very poor historian and all of the history is obtained from the chart. The patient was admitted for sepsis. She was found to have an elevated white blood cell count, urinary tract infection, right foot wound. The patient is bedbound with severely contracted bilateral lower extremities and a history of a left AKA. Surgery is consulted for evaluation of the right foot wound which per notes extends to the bone. Past History Past Medical History: CAD, GERD, hypertension, hyperlipidemia, PVD Past Surgical History: Other (Left AKA) Social history: other (Lives in a nursing home facility) Family history: no significant family history (Noncontributory) Medications and Allergies Allergies Allergy/AdvReac Type Severity Reaction Status Date / Time Penicillins Allergy Unknown Verified 03/11/21 20:02 Home Medications Medication Instructions Recorded Confirmed Last Taken Type Famotidine [Pepcid] 20 mg PO DAILY tablet 03/18/21 11/16/21 Unknown Rx AtorvaSTATin [Lipitor] 80 mg PO QHS #30 tab 03/21/21 11/16/21 Unknown Rx Lisinopril/Hydrochlorothiazide 1 each PO DAILY #30 tablet 03/21/21 11/16/21 Unknown Rx [Zestoretic 10-12.5 mg Tablet] Ticagrelor (Nf) [Brilinta (Nf)] 60 mg PO DAILY #30 tablet 03/21/21 11/16/21 Unknown Rx Acetaminophen [Acetaminophen TAB] 650 mg PO Q4H PRN tablet 05/29/21 11/16/21 Unknown Rx Active Meds: Active Medications Acetaminophen (Acetaminophen 650 Mg Rect Supp) 650 mg [place] Q4H PRN PRN Reason: Pain, Mild (1-3) Atorvastatin Calcium (Atorvastatin 40 Mg Tab) 80 mg PO QHS [facility] Last Admin: 11/16/21 22:10 Dose: 80 mg Famotidine (Famotidine 20 Mg Tab) 20 mg PO DAILY [facility] Last Admin: 11/17/21 09:44 Dose: 20 mg Heparin Sodium (Porcine) (Heparin 5,000 Unit/1 Ml Vial) 5,000 unit SUB-Q Q12HR [facility] Last Admin: 11/17/21 09:48 Dose: 5,000 unit Dextrose/Sodium Chloride (D5ns) 1,000 mls @ 100 mls/hr IV DIRECT [facility] Last Admin: 11/17/21 03:08 Dose: 100 mls/hr Ceftriaxone Sodium (Rocephin/Ns 1 Gm/50 Ml) 1 gm in 50 mls @ 100 mls/hr IV Q24H [facility]; Protocol Last Admin: 11/16/21 17:24 Dose: 100 mls/hr Sodium Chloride (Nacl 0.9% 500 Ml) 500 mls @ 0 mls/hr IV ONCE NR Stop: 11/18/21 07:19 Lisinopril (Lisinopril 10 Mg Tab) 10 mg PO QDAY [facility] Last Admin: 11/17/21 09:44 Dose: 10 mg Metoclopramide HCl (Metoclopramide 10 Mg/2 Ml Inj) 5 mg IV Q8H PRN PRN Reason: Nausea And Vomiting Ondansetron HCl (Ondansetron 4 Mg/2 Ml Inj) 4 mg IV Q8H PRN PRN Reason: Nausea And Vomiting Oxycodone/Acetaminophen (Oxycodone /Acetaminophen 5-325mg Tab) 1 tab PO Q6H PRN PRN Reason: Pain, Moderate (4-6) Sodium Chloride (Sodium Chloride 0.9% 10 Ml Flush Syringe) 10 ml IV BID [facility] Last Admin: 11/17/21 09:48 Dose: 10 ml Sodium Chloride (Sodium Chloride 0.9% 10 Ml Flush Syringe) 10 ml IV PRN PRN PRN Reason: LINE FLUSH Review of Systems ROS unobtainable: due to mental status Exam Vital Signs Pulse BP Pulse Ox 86 106/83 95 11/16/21 09:56 11/16/21 09:56 11/16/21 09:56 Narrative exam: Gen.: Awake, alert. No apparent distress ENT: Trachea midline. No lymphadenopathy. No scleral icterus or conjunctival pallor CV: S1, S2 present Respiratory: No audible wheezes Extremities: Left AKA. There is a foam dressing at the distal aspect of the amputation site. There is a wound at the site which is clean. There does not appear to be much tissue between the skin and the bone in this area. Foam dressing replaced. Right lower extremity extremely contracted. Right lower extremity dressing is clean, dry, intact. The foot is warm but cannot palpate distal pulses. Admission photographs of right lower extremity wound reviewed. Extensive right foot wounds on the dorsal aspect of the foot and lateral aspect of the foot. T he wounds are extending through the skin, subcutaneous tissue, muscle with what appears to be tendon exposed. There is necrotic tissue overlying the wounds. Results - Labs 11/17/21 07:13 11/17/21 07:13 Abnormal lab results 11/16/21 11/16/21 11/16/21 Range/Units 10:03 10:41 10:41 WBC 24.5 H (4.5-11.0) K/mm3 RBC 2.44 L (3.65-5.03) M/mm3 Hgb 6.6 L (10.1-14.3) gm/dl Hct 20.6 L (30.3-42.9) % MCH 27 L (28-32) pg RDW 21.8 H (13.2-15.2) % Plt Count 578 H (140-440) K/mm3 Seg Neuts % (Manual) 93.0 H (40.0-70.0) % Lymphocytes % (Manual) 3.0 L (13.4-35.0) % Seg Neutrophils # Man 22.8 H (1.8-7.7) K/mm3 Lymphocytes # (Manual) 0.7 L (1.2-5.4) K/mm3 Monocytes # (Manual) 1.0 H (0.0-0.8) K/mm3 Chloride (98-107) mmol/L Carbon Dioxide (22-30) mmol/L BUN (7-17) mg/dL Creatinine (0.6-1.2) mg/dL Glucose (65-100) mg/dL POC Glucose 106 H (70-105) mg/dL Lactic Acid 2.50 H* (0.7-2.0) mmol/L Calcium (8.4-10.2) mg/dL AST (5-40) units/L Albumin (3.9-5) g/dL Urine WBC (Auto) (0.0-6.0) /HPF Crossmatch 11/16/21 11/16/21 11/16/21 Range/Units 14:00 15:15 18:32 WBC (4.5-11.0) K/mm3 RBC (3.65-5.03) M/mm3 Hgb (10.1-14.3) gm/dl Hct (30.3-42.9) % MCH (28-32) pg RDW (13.2-15.2) % Plt Count (140-440) K/mm3 Seg Neuts % (Manual) (40.0-70.0) % Lymphocytes % (Manual) (13.4-35.0) % Seg Neutrophils # Man (1.8-7.7) K/mm3 Lymphocytes # (Manual) (1.2-5.4) K/mm3 Monocytes # (Manual) (0.0-0.8) K/mm3 Chloride (98-107) mmol/L Carbon Dioxide (22-30) mmol/L BUN (7-17) mg/dL Creatinine 5.4 H (0.6-1.2) mg/dL Glucose (65-100) mg/dL POC Glucose (70-105) mg/dL Lactic Acid 5.50 H* 5.90 H* (0.7-2.0) mmol/L Calcium (8.4-10.2) mg/dL AST (5-40) units/L Albumin (3.9-5) g/dL Urine WBC (Auto) (0.0-6.0) /HPF Crossmatch 11/16/21 11/17/21 11/17/21 Range/Units Unknown 07:13 07:13 WBC 21.5 H (4.5-11.0) K/mm3 RBC 2.34 L (3.65-5.03) M/mm3 Hgb 6.3 L (10.1-14.3) gm/dl Hct 19.6 L* (30.3-42.9) % MCH 27 L (28-32) pg RDW 21.2 H (13.2-15.2) % Plt Count 475 H (140-440) K/mm3 Seg Neuts % (Manual) 99.0 H (40.0-70.0) % Lymphocytes % (Manual) 1.0 L (13.4-35.0) % Seg Neutrophils # Man 21.3 H (1.8-7.7) K/mm3 Lymphocytes # (Manual) 0.2 L (1.2-5.4) K/mm3 Monocytes # (Manual) (0.0-0.8) K/mm3 Chloride 115.1 H (98-107) mmol/L Carbon Dioxide 11 L (22-30) mmol/L BUN 111 H (7-17) mg/dL Creatinine 5.3 H (0.6-1.2) mg/dL Glucose 108 H (65-100) mg/dL POC Glucose (70-105) mg/dL Lactic Acid (0.7-2.0) mmol/L Calcium 7.8 L (8.4-10.2) mg/dL AST 51 H (5-40) units/L Albumin 1.9 L (3.9-5) g/dL Urine WBC (Auto) 113.0 H (0.0-6.0) /HPF Crossmatch 11/17/21 Range/Units 07:43 WBC (4.5-11.0) K/mm3 RBC (3.65-5.03) M/mm3 Hgb (10.1-14.3) gm/dl Hct (30.3-42.9) % MCH (28-32) pg RDW (13.2-15.2) % Plt Count (140-440) K/mm3 Seg Neuts % (Manual) (40.0-70.0) % Lymphocytes % (Manual) (13.4-35.0) % Seg Neutrophils # Man (1.8-7.7) K/mm3 Lymphocytes # (Manual) (1.2-5.4) K/mm3 Monocytes # (Manual) (0.0-0.8) K/mm3 Chloride (98-107) mmol/L Carbon Dioxide (22-30) mmol/L BUN (7-17) mg/dL Creatinine (0.6-1.2) mg/dL Glucose (65-100) mg/dL POC Glucose (70-105) mg/dL Lactic Acid (0.7-2.0) mmol/L Calcium (8.4-10.2) mg/dL AST (5-40) units/L Albumin (3.9-5) g/dL Urine WBC (Auto) (0.0-6.0) /HPF Crossmatch See Detail Diabetes panel 11/16/21 11/16/21 11/17/21 Range/Units 10:41 18:32 07:13 Sodium 144 (137-145) mmol/L Potassium Applier 4.8 Chloride 115.1 H (98-107) mmol/L Carbon Dioxide 11 L (22-30) mmol/L BUN 111 H (7-17) mg/dL Creatinine Not Reportable 5.4 H 5.3 H Glucose 108 H (65-100) mg/dL Calcium 7.8 L (8.4-10.2) mg/dL AST Not Reportable 51 H ALT Not Reportable 18 Alkaline Phosphatase Not Reportable 83 Total Protein 7.4 (6.3-8.2) g/dL Albumin 1.9 L (3.9-5) g/dL Calcium panel 11/16/21 11/17/21 Range/Units 10:41 07:13 Calcium 7.8 L (8.4-10.2) mg/dL Albumin 1.9 L (3.9-5) g/dL Pituitary panel 11/16/21 11/16/21 11/17/21 Range/Units 10:41 18:32 07:13 Sodium 144 (137-145) mmol/L Potassium Applier 4.8 Chloride 115.1 H (98-107) mmol/L Carbon Dioxide 11 L (22-30) mmol/L BUN 111 H (7-17) mg/dL Creatinine Not Reportable 5.4 H 5.3 H Glucose 108 H (65-100) mg/dL Calcium 7.8 L (8.4-10.2) mg/dL Adrenal panel 11/16/21 11/16/21 11/17/21 Range/Units 10:41 18:32 07:13 Sodium 144 (137-145) mmol/L Potassium Applier 4.8 Chloride 115.1 H (98-107) mmol/L Carbon Dioxide 11 L (22-30) mmol/L BUN 111 H (7-17) mg/dL Creatinine Not Reportable 5.4 H 5.3 H Glucose 108 H (65-100) mg/dL Calcium 7.8 L (8.4-10.2) mg/dL Total Bilirubin 0.40 (0.1-1.2) mg/dL AST Not Reportable 51 H ALT Not Reportable 18 Alkaline Phosphatase Not Reportable 83 Total Protein 7.4 (6.3-8.2) g/dL Albumin 1.9 L (3.9-5) g/dL Assessment and Plan 76 yo F with 1. right foot wound 2. left AKA stump wound 3. bedbound and contracted 4. anemia 5. malnutrition - albumin 1.9 6. UTI, sepsis Plan: 1. obtain arterial duplex RLE to evaluate blood flow 2. optimize nutrition 3. wound care - foam dressing to LLE stump and dermagran/hydrocolloid dressing to right foot wounds 4. offloading 5. transfuse per 1' service 6. High likelihood that this patient will require RLE amputation and possible revision of LLE amputation. 7. Medical optimization per 1' service 8. IV abx Thank you, please call with questions.
[2021-11-17] MEDS: cefTRIAXone/NS 1 GM/50 ML 1 GM/50 ML BAG IV SCH (16:32)
--- NOTE | 2021-11-17 17:19 | Vascular Lab Report ---
DUPLEX DOPPLER LOWER EXTREMITY ARTERIAL, RIGHT INDICATION / CLINICAL INFORMATION: extensive foot wound Right. TECHNIQUE: Arterial duplex examination of the right lower extremity performed using B-mode, color hardy w and spectral Doppler assessment. FINDINGS: RIGHT: Moderate atherosclerotic plaque. Common Femoral Artery: PSV 141 cm/sec. Triphasic waveform. Proximal SFA: PSV 68 cm/sec. Triphasic waveform. Mid SFA: PSV 38 cm/sec. Biphasic waveform. Distal SFA: PSV 24 cm/sec. Monophasic waveform. Popliteal Artery: PSV 28 cm/sec. Monophasic waveform. Posterior tibial artery: PSV 11 cm/sec. Monophasic waveform. Dorsalis Pedis Artery: PSV 29 cm/sec. Monophasic waveform. ADDITIONAL FINDINGS: None. RIGHT JOSE C: Not calculated. IMPRESSION: 1. Moderate atherosclerotic plaque is visualized throughout the right lower extremity. There is visib le narrowing of the mid superficial femoral artery with associated monophasic waveforms and dampened velocities distally. Ankle-Brachial Index (JOSE C): - Calcified arteries > 1.4 - Normal = 0.9-1.4 - Mild PAD = 0.7-0.89 - Moderate PAD = 0.51-0.69 - Severe PAD < 0.5 Doppler Waveform: - Triphasic is normal. - Biphasic is abnormal if clear transition from triphasic signal along vascular tree. - Monophasic is abnormal. Scribed by: Betty Sosa RDMS, RVT, MARANDAKS Scribed: 11/17/2021 1:53 PM I have reviewed the images, agree with this report, and edited this report as needed. Signer Name: Natalio Grider MD Signed: 11/17/2021 5:15 PM Workstation Name: [id number]
--- NOTE | 2021-11-17 17:23 | Progress Note ---
Assessment and Plan - Patient Problems (1) Acute encephalopathy Current Visit: Yes Status: Acute Plan to address problem: Secondary to sepsis and prior abnormalities and dehydration BUN and creatinine and electrolytes are not available Still pending (2) Sepsis Current Visit: Yes Status: Acute Plan to address problem: High lactic acid of 2.5 and 5.5 Probable source of infection is right foot ulcer and urinary tract infection Right foot ulcer is severe unstageable with exposure of tendons and bone on the right lateral aspect of the foot (3) Ulcer of right foot with necrosis of muscle Current Visit: Yes Status: Acute Plan to address problem: To deep right foot ulcers are present one on the lateral aspect of the right foot and one on the dorsum of the foot both are deep with greenish base. The lateral ulcer is 10 cm x 5 cm x0.5 cm Right foot dorsal ulcer is about 6 cm X 8 cm 6.5 cm with greenish base Surgical consult requested (4) Hypertension Current Visit: Yes Status: Chronic Qualifiers: Hypertension type: primary hypertension Qualified Code(s): I10 - Essential (primary) hypertension Plan to address problem: Continue antihypertensives and adjust medications (5) COPD (chronic obstructive pulmonary disease) Current Visit: Yes Status: Chronic Qualifiers: COPD type: unspecified COPD Qualified Code(s): J44.9 - Chronic obstructive pulmonary disease, unspecified Plan to address problem: Continue DuoNebs as needed (6) Dementia Current Visit: Yes Status: Chronic Qualifiers: Dementia type: vascular dementia Plan to address problem: Supportive care (7) S/P AKA (above knee amputation) unilateral Current Visit: Yes Status: Chronic Plan to address problem: Left AKA with stump wound Wound care by nursing staff (8) Malnutrition Current Visit: Yes Status: Chronic Qualifiers: Protein-calorie malnutrition severity: severe Plan to address problem: Dietitian consult and dietary supplements (9) DVT prophylaxis Current Visit: Yes Status: Acute Plan to address problem: Anticoagulation and GI prophylaxis Subjective Date of service: 11/17/21 Objective - Constitutional Vitals: Vital Signs - 12hr 11/17/21 11/17/21 11/17/21 09:44 09:47 10:00 Temperature Pulse Rate 113 H 112 H Respiratory Rate Blood Pressure O2 Sat by Pulse 95 99 Oximetry 11/17/21 11/17/21 11/17/21 10:36 13:30 14:00 Temperature 98.0 F 98.0 F 98.0 F Pulse Rate 110 H 63 72 Respiratory 20 20 20 Rate Blood Pressure 101/50 92/46 94/41 O2 Sat by Pulse 96 94 Oximetry General appearance: Present: no acute distress, well-nourished - EENT Eyes: PERRL, EOM intact ENT: hearing intact, clear oral mucosa Ears: bilateral: normal - Neck Neck: supple, normal ROM - Respiratory Respiratory effort: normal Respiratory: bilateral: CTA - Breasts Breasts: normal - Cardiovascular Rhythm: regular Heart Sounds: Present: S1 & S2. Absent: gallop, rub Extremities: pulses intact, No edema, normal color, Full ROM - Gastrointestinal General gastrointestinal: Present: soft, non-tender, non-distended, normal bowel sounds - Genitourinary Female genitourinary: normal - Integumentary Integumentary: clear, warm, dry - Musculoskeletal Musculoskeletal: 1, strength equal bilaterally - Neurologic Neurologic: moves all extremities - Psychiatric Psychiatric: memory intact, appropriate mood/affect, intact judgment & insight - Labs CBC & Chem 7: 11/17/21 07:13 11/17/21 07:13 Labs: Abnormal lab results 11/16/21 11/17/21 11/17/21 Range/Units 18:32 07:13 07:13 WBC 21.5 H (4.5-11.0) K/mm3 RBC 2.34 L (3.65-5.03) M/mm3 Hgb 6.3 L (10.1-14.3) gm/dl Hct 19.6 L* (30.3-42.9) % MCH 27 L (28-32) pg RDW 21.2 H (13.2-15.2) % Plt Count 475 H (140-440) K/mm3 Seg Neuts % (Manual) 99.0 H (40.0-70.0) % Lymphocytes % (Manual) 1.0 L (13.4-35.0) % Seg Neutrophils # Man 21.3 H (1.8-7.7) K/mm3 Lymphocytes # (Manual) 0.2 L (1.2-5.4) K/mm3 Chloride 115.1 H (98-107) mmol/L Carbon Dioxide 11 L (22-30) mmol/L BUN 111 H (7-17) mg/dL Creatinine 5.4 H 5.3 H (0.6-1.2) mg/dL Glucose 108 H (65-100) mg/dL Calcium 7.8 L (8.4-10.2) mg/dL AST 51 H (5-40) units/L Albumin 1.9 L (3.9-5) g/dL Crossmatch 11/17/21 Range/Units 07:43 WBC (4.5-11.0) K/mm3 RBC (3.65-5.03) M/mm3 Hgb (10.1-14.3) gm/dl Hct (30.3-42.9) % MCH (28-32) pg RDW (13.2-15.2) % Plt Count (140-440) K/mm3 Seg Neuts % (Manual) (40.0-70.0) % Lymphocytes % (Manual) (13.4-35.0) % Seg Neutrophils # Man (1.8-7.7) K/mm3 Lymphocytes # (Manual) (1.2-5.4) K/mm3 Chloride (98-107) mmol/L Carbon Dioxide (22-30) mmol/L BUN (7-17) mg/dL Creatinine (0.6-1.2) mg/dL Glucose (65-100) mg/dL Calcium (8.4-10.2) mg/dL AST (5-40) units/L Albumin (3.9-5) g/dL Crossmatch See Detail
[2021-11-18 08:06] LABS: Calcium 8.2 mg/dL (8.4-10.2)
--- NOTE | 2021-11-18 09:50 | Consultation ---
History of Present Illness - Reason for Consult Consult date: 11/18/21 acute renal failure, metabolic acidosis Requesting physician: LUIS MEDLEY - History of Present Illness 76-year-old female with multiple medical problems including peripheral arterial disease, hypertension, hyperlipidemia, left above-knee amputation and severe right foot infection sent in from the intermediate facility for altered mental status. Primary care provider's initial diagnosis of sepsis because of the high white count and right foot ulcer stage IV and deep and infected. Patient is alert but not oriented. Patient has severe PAD. Patient is status post left AKA with stump wound. No fever or chills. Does not complain of any pain. - Past Medical History --Previous Medical History?: Yes --Hypertension: Yes --Renal Disease: Yes (YEYO on CKD (resolved)) --Psychiatric Treatment: Yes (Dementia) --COPD: Yes --Dementia: Yes - Surgical History --Left AKA May 2021 - Family History --HTN - Social History --Smoking Status: Unknown if ever smoked --Substance Use Type: None Review of Systems ROS: Stated complaint: ALINA Other details as noted in HPI Comment: Unobtainable due to pts medical conditions (Altered mental status) Severe right foot ulcer X2 Left AKA stump wound Past History Past Medical History: CAD, GERD, hypertension, hyperlipidemia, PVD Past Surgical History: Other (Left AKA) Social history: other (Lives in a intermediate facility) Family history: no significant family history (Noncontributory) Medications and Allergies Allergies Allergy/AdvReac Type Severity Reaction Status Date / Time Penicillins Allergy Unknown Verified 03/11/21 20:02 Home Medications Medication Instructions Recorded Confirmed Last Taken Type Famotidine [Pepcid] 20 mg PO DAILY tablet 03/18/21 11/16/21 Unknown Rx AtorvaSTATin [Lipitor] 80 mg PO QHS #30 tab 03/21/21 11/16/21 Unknown Rx Lisinopril/Hydrochlorothiazide 1 each PO DAILY #30 tablet 03/21/21 11/16/21 Unknown Rx [Zestoretic 10-12.5 mg Tablet] Ticagrelor (Nf) [Brilinta (Nf)] 60 mg PO DAILY #30 tablet 03/21/21 11/16/21 Unknown Rx Acetaminophen [Acetaminophen TAB] 650 mg PO Q4H PRN tablet 05/29/21 11/16/21 Unknown Rx Active Meds: Active Medications Acetaminophen (Acetaminophen 650 Mg Rect Supp) 650 mg GA Q4H PRN PRN Reason: Pain, Mild (1-3) Atorvastatin Calcium (Atorvastatin 40 Mg Tab) 80 mg PO QHS [facility] Last Admin: 11/17/21 22:20 Dose: 80 mg Famotidine (Famotidine 20 Mg Tab) 20 mg PO DAILY [facility] Last Admin: 11/17/21 09:44 Dose: 20 mg Heparin Sodium (Porcine) (Heparin 5,000 Unit/1 Ml Vial) 5,000 unit SUB-Q Q12HR [facility] Last Admin: 11/17/21 22:20 Dose: 5,000 unit Dextrose/Sodium Chloride (D5ns) 1,000 mls @ 100 mls/hr IV DIRECT [facility] Last Admin: 11/17/21 03:08 Dose: 100 mls/hr Ceftriaxone Sodium (Rocephin/Ns 1 Gm/50 Ml) 1 gm in 50 mls @ 100 mls/hr IV Q24H [facility]; Protocol Last Admin: 11/17/21 16:32 Dose: 100 mls/hr Lisinopril (Lisinopril 10 Mg Tab) 10 mg PO QDAY [facility] Last Admin: 11/17/21 09:44 Dose: 10 mg Metoclopramide HCl (Metoclopramide 10 Mg/2 Ml Inj) 5 mg IV Q8H PRN PRN Reason: Nausea And Vomiting Ondansetron HCl (Ondansetron 4 Mg/2 Ml Inj) 4 mg IV Q8H PRN PRN Reason: Nausea And Vomiting Oxycodone/Acetaminophen (Oxycodone /Acetaminophen 5-325mg Tab) 1 tab PO Q6H PRN PRN Reason: Pain, Moderate (4-6) Sodium Chloride (Sodium Chloride 0.9% 10 Ml Flush Syringe) 10 ml IV BID [facility] Last Admin: 11/17/21 22:21 Dose: 10 ml Sodium Chloride (Sodium Chloride 0.9% 10 Ml Flush Syringe) 10 ml IV PRN PRN PRN Reason: LINE FLUSH Exam - Vital Signs Vital signs: Vital Signs Pulse BP Pulse Ox 86 106/83 95 11/16/21 09:56 11/16/21 09:56 11/16/21 09:56 - Physical Exam Narrative exam: General appearance: Present: no acute distress, cachectic - EENT Eyes: Present: PERRL ENT: hearing intact, clear oral mucosa - Neck Neck: Present: supple, normal ROM - Respiratory Respiratory effort: normal Respiratory: bilateral: CTA - Cardiovascular Heart rate: 78 Rhythm: regular Heart Sounds: Present: S1 & S2. Absent: rub, click - Extremities Extremities: No edema, abnormal (Right foot stage IV ulcer with tendons and bone exposed on the right lateral aspect of the foot 10 cm x 4 cm with a depth of about half a centimeter.) Extremity abnormal: other (Deep wound on the right foot dorsum 6 cm into 8 cm with a depth of 3 to 4 mm. Drainage present.) Peripheral Pulses: within normal limits - Abdominal General gastrointestinal: Present: soft, non-tender, non-distended, normal bowel sounds Female genitourinary: Present: normal - Integumentary Integumentary: Present: clear, warm, dry - Musculoskeletal Musculoskeletal: gait normal, strength equal bilaterally - Psychiatric Psychiatric: appropriate mood/affect, intact judgment & insight - Neurologic Neurologic: CNII-XII intact, moves all extremities Results - Lab Results 11/18/21 10:34 11/18/21 07:09 Most recent lab results Calcium 8.2 mg/dL (8.4-10.2) L 11/18/21 07:09 Assessment and Plan Impression: * YEYO * AMS * uremia * copd * sepsis * PVD--needs AKA * metabolic acidosis Plan: * likely ATN due to sepsis and hypoperfusion * agresseive ivf resusciatation * iv abx * bun/cr noted, place brown and add bicarb gtt * will need OFFICE SERVICES ASSISTANT for uremia and solute clearance once volume status better * does not appear to be appropriate for vermin exterminator HD due to dementia and decondition * will be high risk for surgery * rec palliative and hospice consultation
[2021-11-18] MEDS: FAMOTIDINE 20 MG TAB PO SCH (09:58)
[2021-11-18] MEDS: HEPARIN 5,000 UNIT/1 ML VIAL SUB-Q SCH (09:58)
[2021-11-18] MEDS: LISINOPRIL 10 MG TAB PO SCH (09:58)
--- NOTE | 2021-11-18 10:43 | Progress Note ---
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 Discussed with Dr. Maddox who agrees. Only other option is to do nothing and let her and that seems somewhat inhumane. 2) I have repeated a CBC and lactic acid this morning. 3) Awaiting nephrology consult. Cr in 05/2021 was normal. 4) Will place a Dobhoff tube now to at least begin some nutrition. Subjective Date of service: 11/18/21 Patient Reports: Positive: no new complaints (Non-communicative) Objective Vital Signs - 12hr 11/18/21 05:57 Temperature 100.1 F H Pulse Rate 111 H Respiratory 20 Rate Blood Pressure 143/74 O2 Sat by Pulse 93 Oximetry - General physical appearance no distress, cathetic - Musculoskeletal other (1) Severe RLE contractures of knee and hip 2) Dorsum of right foot is gangrenous with exposed, dessicated tendons 3) Right heel is necrotic 4) Muscles of left thigh are severely atrophied and the probable femur is protruding through the lateral AKA stump.) - Labs 11/17/21 07:13 11/18/21 07:09 Diabetes panel 11/18/21 Range/Units 07:09 Sodium 149 H (137-145) mmol/L Potassium 4.5 (3.6-5.0) mmol/L Chloride 120.3 H (98-107) mmol/L Carbon Dioxide 12 L (22-30) mmol/L BUN 121 H (7-17) mg/dL Creatinine 5.9 H (0.6-1.2) mg/dL Glucose 115 H (65-100) mg/dL Calcium 8.2 L (8.4-10.2) mg/dL Calcium panel 11/18/21 Range/Units 07:09 Calcium 8.2 L (8.4-10.2) mg/dL Pituitary panel 11/18/21 Range/Units 07:09 Sodium 149 H (137-145) mmol/L Potassium 4.5 (3.6-5.0) mmol/L Chloride 120.3 H (98-107) mmol/L Carbon Dioxide 12 L (22-30) mmol/L BUN 121 H (7-17) mg/dL Creatinine 5.9 H (0.6-1.2) mg/dL Glucose 115 H (65-100) mg/dL Calcium 8.2 L (8.4-10.2) mg/dL Adrenal panel 11/18/21 Range/Units 07:09 Sodium 149 H (137-145) mmol/L Potassium 4.5 (3.6-5.0) mmol/L Chloride 120.3 H (98-107) mmol/L Carbon Dioxide 12 L (22-30) mmol/L BUN 121 H (7-17) mg/dL Creatinine 5.9 H (0.6-1.2) mg/dL Glucose 115 H (65-100) mg/dL Calcium 8.2 L (8.4-10.2) mg/dL - Imaging CT scan - abdomen: report reviewed CT scan - chest: report reviewed CT Scan - head: report reviewed CT scan - pelvis: report reviewed Additional Studies: RLE arterial dopplers reviewed.
[2021-11-18 11:51] LABS: Hematocrit 25.7 % (30.3-42.9); Hemoglobin 8.1 gm/dl (10.1-14.3); Mean Corpuscular HGB Conc 31 % (30-34); Mean Corpuscular Volume 86 fl (79-97); Platelet Count 516 K/mm3 (140-440); Red Blood Count 2.98 M/mm3 (3.65-5.03); Red Cell Distribution Width 18.8 % (13.2-15.2)
[2021-11-18] MEDS ORDERED: VANCOMYCIN/NS 1 GM/250 ML 1 GM/250 ML BAG IV ONE (12:00)
[2021-11-18 12:41] VITALS: BP 189/98
[2021-11-18] MEDS ORDERED: EPINEPHrine 1 MG/10 ML SYRINGE ONE (13:33)
[2021-11-18] MEDS ORDERED: SODIUM BICARB 8.4% 50 MEQ/50 ML SYRINGE IV ONE (13:33)
--- NOTE | 2021-11-18 13:52 | Event Note ---
Date: 11/18/21 Responded to the CODE BLUE, Resuscitation process with CPR per ACLS protocol was in progress ER physician has intubated the patient and patient received 2 rounds of epi and bicarb Patient could not be revived. No cardiopulmonary activity noted. Patient on 11/18/2021 at 13:42. Patient has no family available per records. Attending physician notified ,[facility] informed. Time of ; 13; 42 on 11/18/2021
--- NOTE | 2021-11-18 13:59 | Event Note ---
Date: 11/18/21 [facility] intubation note Called to floor for CODE BLUE in progress. Upon my arrival patient receiving chest compressions from staff and being bagged via BVM. Patient was intubated by myself using a 7.0 ET tube using direct laryngoscopy. Patient left in the care of of the hospitalist Dr. Yoon at bedside to continue running ACLS protocols Intubation note Consent was unobtainable due to patient condition Preoxygenation with 100% oxygen A size 7.0 mm ET tube was inserted orally on first attempt There was symmetric chest rise and bilateral breath sounds post intubation A CO2 indicator was used for confirmation and resulted in positive CO2 return ET tube was taped at 21 cm at the lips Post intubation chest x-ray confirmed good tube location The patient tolerated the procedure well There were no complications
[2021-11-18] MEDS ORDERED: SODIUM BICARBONATE 75 MEQ in DEXTROSE 5% IN WATER 1,000 ML IV SCH (14:00)
[2021-11-18 15:30] LABS: Band Neutrophils # (Manual) 1.8 K/mm3; Basophils % (Manual) 0 % (0.0-1.8); Eosinophils % (Manual) 0 % (0.0-4.3); Monocytes % (Manual) 0 % (0.0-7.3); Total Cells Counted 100
[2021-11-18 15:31] LABS: Anisocytosis 1+; Burr Cells 2+; Ovalocytes Few; Platelet Estimate Consistent w Auto; Poikilocytosis 2+; Schistocytes Few; Spherocytes 2+; Target Cells 1+; Toxic Granulation 2+
== END 2021-11-18 15:00 | DRG 871 ==
LOC: ED 09:55 → 3A 14:32
PROVIDERS: ADMIT Internal Medicine; ATTEND Internal Medicine
PROC: 30233N1 Transfusion of Nonautologous Red Blood Cells into Peripheral Vein, Percutaneous Approach (ICD-10-PCS; principal; 2021-11-17)
PROC: 5A12012 Performance of Cardiac Output, Single, Manual (ICD-10-PCS; 2021-11-18)
PROC: 0BH17EZ Insertion of Endotracheal Airway into Trachea, Via Natural or Artificial Opening (ICD-10-PCS; 2021-11-18)
DX: A41.9 Sepsis, unspecified organism (principal); E43 Unspecified severe protein-calorie malnutrition; G93.41 Metabolic encephalopathy; L97.413 Non-pressure chronic ulcer of right heel and midfoot with necrosis of muscle; Z68.1 Body mass index [BMI] 19.9 or less, adult; I70.261 Atherosclerosis of native arteries of extremities with gangrene, right leg; Z20.822 Contact with and (suspected) exposure to COVID-19; F03.90 Unspecified dementia, unspecified severity, without behavioral disturbance, psychotic disturbance, mood disturbance, and anxiety; E78.5 Hyperlipidemia, unspecified; I12.9 Hypertensive chronic kidney disease with stage 1 through stage 4 chronic kidney disease, or unspecified chronic kidney disease; N18.9 Chronic kidney disease, unspecified; E86.0 Dehydration; D64.9 Anemia, unspecified; J44.9 Chronic obstructive pulmonary disease, unspecified; I25.10 Atherosclerotic heart disease of native coronary artery without angina pectoris; Z82.49 Family history of ischemic heart disease and other diseases of the circulatory system; Z74.01 Bed confinement status; Z89.612 Acquired absence of left leg above knee; Z79.899 Other long term (current) drug therapy; Z88.0 Allergy status to penicillin
CPT/HCPCS: 36415; 70450; 71250; 74176; 80048; 80053; 80202; 81001; 82140; 82565; 82962; 85007; 85025; 86850; 86900; 86901; 86920; 87040; 87076; 87186; G0378; J3490; J0171; J0692; J0696; J1644; J3370; J7040; J7042; J7050; P9016; U0003